=== PATIENT | female | born 1980 | race Asian ===

== ENCOUNTER 2017-09-28 06:15 | Emergency (ER) | payer MEDICAID ==
[~2017-09-28] VITALS: Ht 154.9 cm; Wt 38.1 kg
[~2017-09-28 06:15] MED LIST: LEXAPRO10 MG ORAL
[2017-09-28] MEDS ORDERED: ZITHROMAX TRI-500 MG ORAL (06:44)
--- NOTE | 2017-09-28 06:44 | Emergency Room Report ---
History of Present Illness General Chief Complaint: Fever Source: Patient Present Illness HPI 37-year-old female, recovering anorexia, presenting with 2 days of fever, cough , runny nose, rash, sore throat. States that her throat hurts, has had less appetite for solid food, still able to drink liquids without issue. Has had fevers, MAXIMUM TEMPERATURE 104. Productive cough with green phlegm. Rash noted to legs and back. Not itchy. States that this has happened before, and then resolved, also states that she gets rashes from eating ice cream No headache, neck pain, abdominal pain nausea vomiting or diarrhea Allergies: Coded Allergies: No Known Allergies (Unverified , 09/28/17) Patient History Past Medical History: see triage record Past Surgical History: none Pertinent Family History: none Now: No Reviewed Nursing Documentation: PMH: Agreed; PSxH: Agreed Nursing Documentation-PMH History Of Psychiatric Problem: Yes - Depression Review of Systems All Other Systems: negative except mentioned in HPI Physical Exam Vital Signs Date Time Temp Pulse Resp B/P (MAP) Pulse Ox O2 Delivery O2 Flow Rate FiO2 09/28/17 06:03 100.6 103 18 101/73 94 Room Air 100.6 Sp02 EP Interpretation: reviewed, normal General Appearance: mild distress, thin Head: normocephalic, atraumatic Eyes: bilateral eye normal inspection, bilateral eye PERRL, bilateral eye EOMI ENT: pharyngeal erythema, other - no exudate. no swelling. uvula midline Neck: normal inspection, full range of motion, supple Respiratory: no wheezing, speaking full sentences, other - dec b/s R lung base. , chest symmetrical Cardiovascular #1: normal inspection, regular rate, rhythm, no edema, normal capillary refill Cardiovascular #2: 2+ radial (R), 2+ radial (L) Gastrointestinal: normal inspection, non tender, soft, non-distended, no guarding Musculoskeletal: normal inspection, back normal, normal range of motion, non- tender Neurologic: normal inspection, alert, oriented x3, responsive, motor strength/ tone normal, sensory intact, normal gait, speech normal Psychiatric: normal inspection, judgement/insight normal, memory normal Skin: other - blancing erythematous raised rash of various sizes on legs/back Medical Decision Making Diagnostic Impression: Primary Impression: Atypical pneumonia Additional Impression: Fever ER Course 37-year-old female with fever, cough, runny nose DDX: URI, pneumonia, UTI Plan: Obtain labs, ua,CXR ER course: Patient has been monitored during ED stay, HD stable Given Tylenol, fluids Feels much better CXR and physicial exam suspicious for atypical pna Disposition: Patient is to be discharged to home with family, fu with pmd in 1 week Please note that this Emergency Department Report was dictated using [employer] machine tender technology software, occasionally this can lead to erroneous entry secondary to interpretation by the dictation equipment. Rhythm Strip EP Interpretation: Yes Rate: 94 Rhythm: NSR, no PVCs, no ectopy Chest X-ray CXR: Ordered: Yes 1 view Indication: Cough EP interpretation: Yes Interpretation: Increased right-sided interstitial markings Impression: Increased right-sided interstitial markings Electronically signed by Andre Robin MD Laboratory Tests Test 09/28/17 06:45 09/28/17 08:00 White Blood Count 3.2 K/UL (4.8-10.8) L Red Blood Count 4.18 M/UL (4.20-5.40) L Hemoglobin 13.5 G/DL (12.0-16.0) Hematocrit 38.5 % (37.0-47.0) Mean Corpuscular Volume 92 FL (80-99) Mean Corpuscular Hemoglobin 32.4 PG (27.0-31.0) H Mean Corpuscular Hemoglobin Concent 35.1 G/DL (32.0-36.0) Red Cell Distribution Width 10.5 % (11.6-14.8) L Platelet Count 299 K/UL (150-450) Mean Platelet Volume 5.0 FL (6.5-10.1) L Neutrophils (%) (Auto) % (45.0-75.0) Lymphocytes (%) (Auto) % (20.0-45.0) Monocytes (%) (Auto) % (1.0-10.0) Eosinophils (%) (Auto) % (0.0-3.0) Basophils (%) (Auto) % (0.0-2.0) Differential Total Cells Counted 100 Neutrophils % (Manual) 79 % (45-75) H Lymphocytes % (Manual) 14 % (20-45) L Monocytes % (Manual) 7 % (1-10) Eosinophils % (Manual) 0 % (0-3) Basophils % (Manual) 0 % (0-2) Band Neutrophils 0 % (0-8) Platelet Estimate Adequate Platelet Morphology Normal Sodium Level 132 MMOL/L (136-145) L Potassium Level 3.5 MMOL/L (3.5-5.1) Chloride Level 95 MMOL/L (98-107) L Carbon Dioxide Level 29 MMOL/L (21-32) Anion Gap 8 mmol/L (5-15) Blood Urea Nitrogen 10 mg/dL (7-18) Creatinine 0.8 MG/DL (0.55-1.30) Estimate Glomerular Filtration Rate > 60 mL/min (>60) Glucose Level 117 MG/DL (74-106) H Calcium Level 8.4 MG/DL (8.5-10.1) L Total Bilirubin 0.3 MG/DL (0.2-1.0) Aspartate Amino Transferase (AST) 34 U/L (15-37) Alanine Aminotransferase (ALT) 27 U/L (12-78) Alkaline Phosphatase 48 U/L (46-116) Total Protein 7.5 G/DL (6.4-8.2) Albumin 3.5 G/DL (3.4-5.0) Globulin 4.0 g/dL Albumin/Globulin Ratio 0.9 (1.0-2.7) L Urine Color Yellow Urine Appearance Clear Urine pH 6.5 (4.5-8.0) Urine Specific Craig 1.010 (1.005-1.035) Urine Protein 1+ (NEGATIVE) H Urine Glucose (UA) Negative (NEGATIVE) Urine Ketones 4+ (NEGATIVE) H Urine Occult Blood 2+ (NEGATIVE) H Urine Nitrite Negative (NEGATIVE) Urine Bilirubin Negative (NEGATIVE) Urine Urobilinogen Normal MG/DL (0.0-1.0) Urine Leukocyte Esterase 1+ (NEGATIVE) H Urine RBC 2-4 /HPF (0 - 2) H Urine WBC 5-10 /HPF (0 - 2) H Urine Squamous Epithelial Cells Few /LPF (NONE/OCC) Urine Bacteria Few /HPF (NONE) Urine Mucus Few /LPF (NONE/OCC) H Urine HCG, Qualitative Negative (NEGATIVE) Last Vital Signs Date Time Temp Pulse Resp B/P (MAP) Pulse Ox O2 Delivery O2 Flow Rate FiO2 09/28/17 06:27 100.6 09/28/17 06:03 103 18 101/73 94 Room Air Disposition: HOME, SELF-CARE Condition: Improved Scripts Azithromycin (ZITHROMAX TRI-SERGE) 500 Mg Tablet 500 MG ORAL DAILY, #1 PACK Prov: Andre Robin M.D. 09/28/17 Referrals: [facility] (PCP) Patient Instructions: Community-Acquired Pneumonia, Adult, [id number], Fever , Adult Andre Robin M.D. Sep 28, 2017 06:44
[2017-09-28 07:01] VITALS: BP 114/86
[2017-09-28 07:06] LABS: ANION GAP 8 mmol/L (5-15); BLOOD UREA NITROGEN 10 mg/dL (7-18); CALCIUM 8.4 MG/DL (8.5-10.1); CARBON DIOXIDE 29 MMOL/L (21-32); CHLORIDE 95 MMOL/L (98-107); CREATININE 0.8 MG/DL (0.55-1.30); POTASSIUM 3.5 MMOL/L (3.5-5.1); SODIUM 132 MMOL/L (136-145)
[2017-09-28 07:08] LABS: HEMATOCRIT 38.5 % (37.0-47.0); HEMOGLOBIN 13.5 G/DL (12.0-16.0); MEAN CORPUSCULAR VOLUME 92 FL (80-99); PLATELET COUNT 299 K/UL (150-450); RED BLOOD COUNT 4.18 M/UL (4.20-5.40); RED CELL DISTRIBUTION WIDTH 10.5 % (11.6-14.8); WHITE BLOOD COUNT 3.2 K/UL (4.8-10.8)
[2017-09-28 07:11] LABS: ALANINE AMINOTRANSFERASE 27 U/L (12-78); ALBUMIN 3.5 G/DL (3.4-5.0); ALBUMIN/GLOBULIN RATIO 0.9 (1.0-2.7); ALKALINE PHOSPHATASE 48 U/L (46-116); ASPARTATE AMINO TRANSFERASE 34 U/L (15-37); BILIRUBIN,TOTAL 0.3 MG/DL (0.2-1.0)
[2017-09-28 07:30] VITALS: BP 115/81
[2017-09-28 08:18] LABS: APPEARANCE,URINE CLEAR; BILIRUBIN, URINE NEGATIVE (NEGATIVE); GLUCOSE, URINE (UA) NEGATIVE (NEGATIVE); KETONES,URINE 4+ (NEGATIVE); LEUKOCYTE ESTERASE ,URINE 1+ (NEGATIVE); NITRITE,URINE NEGATIVE (NEGATIVE); PH,URINE 6.5 (4.5-8.0); PROTEIN,URINE 1+ (NEGATIVE); UROBILINOGEN,URINE NORMAL MG/DL (0.0-1.0)
[2017-09-28 08:24] LABS: COLOR,URINE YELLOW
[2017-09-28 09:02] VITALS: BP 111/76
[2017-09-28 09:03] VITALS: BP 111/76
--- NOTE | 2017-09-28 10:10 | Diagnostic Imaging Report ---
Indication: Cough Technique: One view of the chest Comparison: none Findings: Lungs and pleural spaces are clear. Heart size is normal Impression: No acute process
== END 2017-09-28 09:07 | disposition home or self-care (01) ==
LOC: EDBD 06:15 → EMR 06:29
DX: J18.9 Pneumonia, unspecified organism (principal); F32.9 Major depressive disorder, single episode, unspecified
CPT/HCPCS: 36415; 71045; 80053; 81003; 81025; 85007; 85025; 96361; 96374; 99284

== ENCOUNTER 2017-09-28 17:03 | Inpatient (IN) | payer MEDICAID ==
[~2017-09-28] VITALS: Ht 157.5 cm; Wt 46.3 kg
[~2017-09-28 17:03] MED LIST changes: +ZITHROMAX TRI-500 MG ORAL
[2017-09-28] MEDS ORDERED: Ketorolac 30mg Inj IM ONE (17:45)
--- NOTE | 2017-09-28 18:12 | Emergency Room Report ---
History of Present Illness General Chief Complaint: Flu Like Symptoms Source: EMS (Jose Betancourt) Present Illness HPI 37 yo female patient presents to ER complaining of sore throat and cough. Patient was seen in ER this morning for similar symptoms; was discharged with atypical PNA and given abx; has not taken medication. Reports symptoms have worsened since that time. Reports was told to return if symptoms worsened and would be admitted to hospital. Complains of reproducible chest pain with cough. Reports fever 101 at home. Denies SOB, abdominal pain, neck pain. (Jose Betancourt) Allergies: Coded Allergies: No Known Allergies (Unverified , 09/28/17) Patient History Past Medical History: see triage record Last Menstrual Period: UNK Reviewed Nursing Documentation: PMH: Agreed; PSxH: Agreed (Jose Betancourt) Nursing Documentation-PMH Past Medical History: No History, Except For Hx Cardiac Problems: No - ANOREXIA (Jose Betancourt) Review of Systems All Other Systems: negative except mentioned in HPI (Jose Betancourt) Physical Exam Vital Signs Date Time Temp Pulse Resp B/P (MAP) Pulse Ox O2 Delivery O2 Flow Rate FiO2 09/28/17 17:02 101.0 100 22 128/84 97 Room Air 100.9 Sp02 EP Interpretation: reviewed, normal General Appearance: well appearing, no apparent distress, alert, GCS 15, non- toxic Head: normocephalic, atraumatic Eyes: bilateral eye normal inspection, bilateral eye PERRL ENT: hearing grossly normal, normal pharynx, no angioedema, normal voice, TMs + canals normal, uvula midline, moist mucus membranes Neck: full range of motion Respiratory: no rhonchi, no respiratory distress, no accessory muscle use, no wheezing, speaking full sentences, other - chest TTP Cardiovascular #1: regular rate, rhythm, no edema Genitourinary: no CVA tenderness Musculoskeletal: back normal, digits/nails normal, gait/station normal, normal range of motion, non-tender Neurologic: alert, oriented x3, responsive, motor strength/tone normal, sensory intact Psychiatric: mood/affect normal Skin: rash - blanching, erythematous, rasied, diffuse over back and extemities Lymphatic: no adenopathy (Asia,Jose P.A.) Medical Decision Making PA Attestation Dr. Bell is my supervising Physician whom patient management has been discussed with. (Jose Betancourt) Diagnostic Impression: Primary Impression: Influenza-like symptoms Additional Impressions: Rash and nonspecific skin eruption Community acquired pneumonia Qualified Codes: J18.9 - Pneumonia, unspecified organism Pseudoseizure ER Course Pt presents to ED c/o sore throat and cough. DDX considered but are not limited to influenza, viral URI, pneumonia, strep throat, rhinitis, sinusitis, otitis media. Patient informed to return to ER for new or worsening of symptoms, would be admitted. VITAL SIGNS are WNL, patient is febrile at 100.9. Provide Tylenol for fever. On PE, chest is TTP; chest pain likely musculoskeletal in nature secondary to cough, does not require cardiac workup at this time. Patient instructed to take NSAIDs as needed for pain symptoms. Ordered pain medication, fluids, and influenza A/B. ED COURSE: Reviewed labs from morning visit to ER. WNL. PE exam consistent with previous ER report, no wheezes on auscultation, chest TTP. Patient answering questions without difficulty, nontoxic appearing. Influenza A/B negative Consult with Dr. Bell. Will admit patient for flu-like symptoms and weakness. Do not need repeat labs at this time. Consult with Dr. Soriano. Patient will be admitted to Dr. Soriano. Patient to be transferred to [facility]. Provided single dose of Levaquin for pneumonia. Provided Benadryl for rash. Patient resting comfortably, in no acute distress, nontoxic appearing. Prior to transfer, patient slightly hypoxic. Consult with Dr. Bell. Will upgrade patient to ALS. Patient will be upgraded to ALS for transfer. Ordered repeat labs at this time. Patient will be moved to monitored bed. Patient reported to be seizing in bed. Ordered Ativan. Patient care transferred to Dr. Jeffery. (Jose Betancourt) ER Course Patient signed out to me by DARLIN Encinas and Dr Bell Repeat CXR shows ?interval development Of bilateral lower pneumonia Patient had apparent seizure-like activity, however there is no postictal period , patient was immediately responsive thereafter to staff. No history of prior seizures Labs were repeated, white count downtrending to 1.6 ABG shows mild metabolic alkalosis likely from tachypnea from pseudoseizure Family endorses thirty-year history of anorexia, and that patient "only speaks to her therapist", doesn't talk to family. No recent complaints of headache, neck stiffness or pain. low suspicion for meningitis at this time Was c.o neck pain - no FOREIGN EXCHANGE STUDENT COORDINATOR or strep on exam. Xray of neck does NOT show evidence of epiglottitis or retropharyngeal abscess. She was given additional IV antibiotics, ceftriaxone and azithro to cover interval development of CAP No other acute issues in ER Was endorsed to Dr. Tirado covering for Dr Morin 1am tele (KATIE JEFFERY M.D.) Last Vital Signs Date Time Temp Pulse Resp B/P (MAP) Pulse Ox O2 Delivery O2 Flow Rate FiO2 09/28/17 17:02 101.0 100 22 128/84 97 Room Air 100.9 Status: improved (Jose Betancourt) Status: improved (KATIE JEFFERY M.D.) Disposition: ADMITTED INPATIENT Condition: Serious Referrals: [facility] (PCP) Jose Betancourt Sep 28, 2017 18:11 KATIE JEFFERY M.D. Sep 29, 2017 00:59
[2017-09-28] MEDS ORDERED: Lidocaine 2% Visc 15ml soln ORAL ONE (18:15)
[2017-09-28] MEDS ORDERED: Levofloxacin 500mg tab ORAL ONE (19:15)
[2017-09-28 19:26] VITALS: BP 107/70
[2017-09-28] MEDS ORDERED: Acetaminophen 500mg (ES) tab ORAL ONE (19:30)
[2017-09-28 20:11] VITALS: BP 105/68
[2017-09-28 22:10] VITALS: BP 103/70
[2017-09-28] MEDS ORDERED: LORazepam Inj 2mg/ml 1ml ONE (22:21)
[2017-09-28] MEDS ORDERED: LORazepam Inj 2mg/ml 1ml IV ONE (22:30)
[2017-09-28] MEDS ORDERED: Morphine Sulfate 4mg/ml Inj IVP ONE (22:45)
[2017-09-28] MEDS ORDERED: cefTRIAXone 1 GM in NS 55 ML IVPB ONE (22:45)
[2017-09-28] MEDS ORDERED: Azithromycin 500 MG in D5W 275 ML IVPB ONE (22:45)
[2017-09-28] MEDS ORDERED: Azithromycin 500mg Inj IV ONE (22:51)
[2017-09-28 23:11] LABS: HEMATOCRIT 34.7 % (37.0-47.0); HEMOGLOBIN 12.3 G/DL (12.0-16.0); MEAN CORPUSCULAR VOLUME 92 FL (80-99); PLATELET COUNT 219 K/UL (150-450); RED BLOOD COUNT 3.76 M/UL (4.20-5.40); RED CELL DISTRIBUTION WIDTH 10.6 % (11.6-14.8)
[2017-09-28 23:16] LABS: WHITE BLOOD COUNT 1.6 K/UL (4.8-10.8)
[2017-09-28 23:31] LABS: ANION GAP 8 mmol/L (5-15); BLOOD UREA NITROGEN 8 mg/dL (7-18); CALCIUM 7.3 MG/DL (8.5-10.1); CARBON DIOXIDE 26 MMOL/L (21-32); CHLORIDE 99 MMOL/L (98-107); CREATININE 0.7 MG/DL (0.55-1.30); POTASSIUM 3.6 MMOL/L (3.5-5.1); SODIUM 132 MMOL/L (136-145)
[2017-09-28 23:36] LABS: ALANINE AMINOTRANSFERASE 22 U/L (12-78); ALBUMIN 2.7 G/DL (3.4-5.0); ALBUMIN/GLOBULIN RATIO 0.8 (1.0-2.7); ALKALINE PHOSPHATASE 33 U/L (46-116); ASPARTATE AMINO TRANSFERASE 24 U/L (15-37); BILIRUBIN,TOTAL 0.4 MG/DL (0.2-1.0)
[2017-09-29] MEDS ORDERED: Albuterol/Ipratropium 3ml neb HHN PRN (02:00)
[2017-09-29 04:00] VITALS: BP 100/72
[2017-09-29] MEDS ORDERED: Zosyn 3.375gm inj ONE (04:32)
[2017-09-29] MEDS: Vancomycin 500mg/D5W 110ml IVPB SCH ×4 (04:49→16:09)
[2017-09-29] MEDS: Ketorolac 30mg Inj IV PRN (04:51)
[2017-09-29] MEDS ORDERED: Sodium Chloride 500ML 500 ML IV ONE (05:15)
[2017-09-29] MEDS: Piperacillin/Tazobactam 3.375 GM in NS 110 ML IVPB SCH ×3 (07:04→22:38)
[2017-09-29 08:00] VITALS: BP_SYST 100; BP_SYST 97; BP_DIAS 62; BP_DIAS 72
--- NOTE | 2017-09-29 09:04 | Diagnostic Imaging Report ---
Indication: Neck pain Technique: Neck soft tissues 2 views Comparison: None Findings: Epiglottis is grossly unremarkable. Airway is patent. Prevertebral soft tissues are within normal limits. Osseous structures are unremarkable. Impression: Grossly unremarkable neck soft tissues.
--- NOTE | 2017-09-29 09:06 | Diagnostic Imaging Report ---
Indication: Chest pain Technique: XRAY Chest 1v Comparison: Examination at 0636 hours Findings: There are increasing perihilar and basilar infiltrates. Cardiomediastinal silhouette is stable. Osseous structures are stable. Impression: Increasing perihilar and basilar infiltrates.
[2017-09-29 09:49] LABS: HEMATOCRIT 34.2 % (37.0-47.0); HEMOGLOBIN 11.9 G/DL (12.0-16.0); MEAN CORPUSCULAR VOLUME 94 FL (80-99); PLATELET COUNT 215 K/UL (150-450); RED BLOOD COUNT 3.64 M/UL (4.20-5.40)
[2017-09-29 09:59] LABS: WHITE BLOOD COUNT 0.7 K/UL (4.8-10.8)
[2017-09-29 10:13] LABS: ALANINE AMINOTRANSFERASE 21 U/L (12-78); ALBUMIN 2.2 G/DL (3.4-5.0); ALBUMIN/GLOBULIN RATIO 0.7 (1.0-2.7); ALKALINE PHOSPHATASE 25 U/L (46-116); ANION GAP 10 mmol/L (5-15); ASPARTATE AMINO TRANSFERASE 27 U/L (15-37); BILIRUBIN,TOTAL 0.4 MG/DL (0.2-1.0); BLOOD UREA NITROGEN 8 mg/dL (7-18); CARBON DIOXIDE 22 MMOL/L (21-32); CHLORIDE 100 MMOL/L (98-107); CHOLESTEROL 135 MG/DL (< 200); CREATININE 0.6 MG/DL (0.55-1.30); HDL CHOLESTEROL 60 MG/DL (40-60); POTASSIUM 3.4 MMOL/L (3.5-5.1); SODIUM 132 MMOL/L (136-145); TRIGLYCERIDES 39 MG/DL (30-150)
[2017-09-29 12:00] VITALS: BP 112/79
--- NOTE | 2017-09-29 13:31 | History & Physical ---
History and Physical History & Physicial Cover for Int Med-Dr Tirado no. [id number]. ISAMAR RENDON Sep 29, 2017 13:31
--- NOTE | 2017-09-29 14:07 | Consultation ---
History of Present Illness General Date patient seen: Sep 29, 2017 Time patient seen: 13:44 Chief Complaint: Flu Like Symptoms Present Illness HPI 37 y/o F with hx of anorexia and MDD presents to ED on 09/28 with sore throat, cough. Earlier on days of admission seen in ED and discharged with dx of atypical Abx on PO antibiotics (?) but comes back because of worsening of symptoms. +pleuritic chest pain, fever at home up to 101. +hemoptysis. Found to be neutropenic. Found to have diffuse blanching erythematous rash. Denies SOB, abd pain, neck pain. savita recently admitted here for PNA and . NO other sick contacts. No recent travel. No pets at home. lives with mom and brother. no sexual contacts few days of fever, body aches, cough and rash. Denies PARDO, sore throat, neck pain , vision changes, photo/phonophobia. No recent meds. Only med she takes is Lexapro. Allergies: Coded Allergies: No Known Allergies (Unverified , 09/28/17) Medication History Scheduled Azithromycin (Zithromax Tri-Mauro), 500 MG ORAL DAILY Escitalopram Oxalate* (Lexapro*), 10 MG ORAL DAILY, (Reported) Patient History Healthcare decision maker Resuscitation status Full Code Advanced Directive on File No Review of Systems All Other Systems: negative except mentioned in HPI Physical Exam Physical Exam Narrative General Appearance: ill appearing, weak HEENT: normocephalic, atraumatic, PERRL, normal oropharynx Neck: full range of motion, supple Respiratory: no rhonchi, no respiratory distress, no accessory muscle use, no wheezing, speaking full sentences, other - chest TTP Cardiovascular regular rate, rhythm, no edema Genitourinary: no CVA tenderness Musculoskeletal: back normal, digits/nails normal, gait/station normal, normal range of motion, non-tender Neurologic: alert, oriented x3, responsive, motor strength/tone normal, sensory intact Skin: rash - blanching, erythematous, rasied, diffuse over back and extemities Lymphatic: no adenopathy Last 24 Hour Vital Signs Date Time Temp Pulse Resp B/P (MAP) Pulse Ox O2 Delivery O2 Flow Rate FiO2 09/29/17 13:13 98.1 09/29/17 12:00 117 09/29/17 12:00 98.1 121 21 112/79 88 Non-Rebreather 10.0 98.1 09/29/17 08:00 97.9 99 21 97/62 94 Non-Rebreather 10.0 97.9 09/29/17 08:00 132 09/29/17 05:21 98.8 09/29/17 04:51 98.8 09/29/17 04:00 125 09/29/17 04:00 100.2 119 18 100/72 95 Nasal Cannula 2.0 100.2 09/29/17 01:14 98.8 109 22 99/73 95 Non-Rebreather 10.0 09/28/17 22:10 99.7 104 18 103/70 83 Nasal Cannula 2.0 99.7 09/28/17 20:11 101.9 101 18 105/68 92 Room Air 101.9 09/28/17 19:43 102.6 09/28/17 19:35 100 22 Room Air 09/28/17 19:26 102.6 22 107/70 92 Nasal Cannula 2.0 102.6 09/28/17 18:16 101.0 09/28/17 17:02 101.0 100 22 128/84 97 Room Air 100.9 Intake and Output 09/28/17 09/29/17 19:00 07:00 Intake Total 515 ml Balance 515 ml Intake Oral 240 ml IV Total 275 ml # Voids 3 Laboratory Tests Test 09/28/17 22:40 09/28/17 22:47 09/29/17 09:20 09/29/17 11:55 White Blood Count 1.6 K/UL (4.8-10.8) *L 0.7 K/UL (4.8-10.8) #*L Red Blood Count 3.76 M/UL (4.20-5.40) L 3.64 M/UL (4.20-5.40) L Hemoglobin 12.3 G/DL (12.0-16.0) 11.9 G/DL (12.0-16.0) L Hematocrit 34.7 % (37.0-47.0) L 34.2 % (37.0-47.0) L Mean Corpuscular Volume 92 FL (80-99) 94 FL (80-99) Mean Corpuscular Hemoglobin 32.6 PG (27.0-31.0) H 32.7 PG (27.0-31.0) H Mean Corpuscular Hemoglobin Concent 35.3 G/DL (32.0-36.0) 34.8 G/DL (32.0-36.0) Red Cell Distribution Width 10.6 % (11.6-14.8) L 11.0 % (11.6-14.8) L Platelet Count 219 K/UL (150-450) 215 K/UL (150-450) Mean Platelet Volume 4.9 FL (6.5-10.1) L 4.9 FL (6.5-10.1) L Neutrophils (%) (Auto) % (45.0-75.0) % (45.0-75.0) Lymphocytes (%) (Auto) % (20.0-45.0) % (20.0-45.0) Monocytes (%) (Auto) % (1.0-10.0) % (1.0-10.0) Eosinophils (%) (Auto) % (0.0-3.0) % (0.0-3.0) Basophils (%) (Auto) % (0.0-2.0) % (0.0-2.0) Sodium Level 132 MMOL/L (136-145) L 132 MMOL/L (136-145) L Potassium Level 3.6 MMOL/L (3.5-5.1) 3.4 MMOL/L (3.5-5.1) L Chloride Level 99 MMOL/L (98-107) 100 MMOL/L (98-107) Carbon Dioxide Level 26 MMOL/L (21-32) 22 MMOL/L (21-32) Anion Gap 8 mmol/L (5-15) 10 mmol/L (5-15) Blood Urea Nitrogen 8 mg/dL (7-18) 8 mg/dL (7-18) Creatinine 0.7 MG/DL (0.55-1.30) 0.6 MG/DL (0.55-1.30) Estimat Glomerular Filtration Rate > 60 mL/min (>60) > 60 mL/min (>60) Glucose Level 88 MG/DL (74-106) 107 MG/DL (74-106) H Lactic Acid Level 1.60 mmol/L (0.66-2.22) Calcium Level 7.3 MG/DL (8.5-10.1) L 7.0 MG/DL (8.5-10.1) L Total Bilirubin 0.4 MG/DL (0.2-1.0) 0.4 MG/DL (0.2-1.0) Aspartate Amino Transf (AST/SGOT) 24 U/L (15-37) 27 U/L (15-37) Alanine Aminotransferase (ALT/SGPT) 22 U/L (12-78) 21 U/L (12-78) Alkaline Phosphatase 33 U/L (46-116) L 25 U/L (46-116) L Total Protein 6.0 G/DL (6.4-8.2) L 5.3 G/DL (6.4-8.2) L Albumin 2.7 G/DL (3.4-5.0) L 2.2 G/DL (3.4-5.0) L Globulin 3.3 g/dL 3.1 g/dL Albumin/Globulin Ratio 0.8 (1.0-2.7) L 0.7 (1.0-2.7) L Arterial Blood pH 7.439 (7.350-7.450) Arterial Blood Partial Pressure CO2 32.0 mmHg (35.0-45.0) L Arterial Blood Partial Pressure O2 80.3 mmHg (75.0-100.0) Arterial Blood HCO3 21.2 mmol/L (22.0-26.0) L Arterial Blood Oxygen Saturation 95.4 % (92.0-98.0) Arterial Blood Base Excess -2.2 Stuart Test Positive Differential Total Cells Counted 100 Neutrophils % (Manual) 65 % (45-75) Lymphocytes % (Manual) 25 % (20-45) Monocytes % (Manual) 5 % (1-10) Eosinophils % (Manual) 0 % (0-3) Basophils % (Manual) 2 % (0-2) Band Neutrophils 3 % (0-8) Platelet Estimate Adequate Platelet Morphology Normal Red Blood Cell Morphology Normal Hemoglobin A1c 5.4 % (4.3-6.0) Troponin I 0.065 ng/mL (0.000-0.056) 0.057 ng/mL (0.000-0.056) Triglycerides Level 39 MG/DL (30-150) Cholesterol Level 135 MG/DL (< 200) LDL Cholesterol 79 mg/dL (<100) HDL Cholesterol 60 MG/DL (40-60) Cholesterol/HDL Ratio 2.3 (3.3-4.4) L Microbiology Date/Time Source Procedure Growth Status 09/28/17 18:31 Nasal Nares Influenza Types A,B Antigen (ZENON) - Final Complete Height (Feet): 5 Height (Inches): 2.00 Weight (Pounds): 90 Medications Current Medications Medications (Trade) Dose Ordered Sig/Annie Route PRN Reason Start Time Stop Time Status Last Admin Dose Admin Acetaminophen (Tylenol) 650 mg Q4H PRN ORAL Mild Pain/Temp > 100.5 09/29/17 02:00 10/29/17 01:59 09/29/17 13:13 Albuterol/ Ipratropium (Albuterol/ Ipratropium) 3 ml Q4H PRN HHN Shortness of Breath 09/29/17 02:00 10/04/17 01:59 Heparin Sodium (Porcine) (Heparin 5000 units/ml) 5,000 units EVERY 12 HOURS SUBQ 09/29/17 21:00 10/29/17 20:59 Ketorolac Tromethamine (Toradol 30mg) 30 mg Q6H PRN IV Severe Pain (Pain Scale 7-10) 09/29/17 02:00 10/04/17 01:59 09/29/17 04:51 Piperacillin Sod/ Tazobactam Sod 3.375 gm/Sodium Chloride 110 ml @ 27.5 mls/hr Q8H IVPB 09/29/17 06:00 10/06/17 05:59 09/29/17 07:04 Tbo-Filgrastim (Granix) 300 mcg ONCE ONCE SQ 09/29/17 10:45 09/29/17 10:46 UNV Vancomycin HCl (Vanco rx to dose) 1 ea DAILY PRN MISC Per rx protocol 09/29/17 02:00 10/29/17 01:59 Vancomycin HCl 500 mg/Dextrose 110 ml @ 110 mls/hr Q12H IVPB 09/29/17 04:00 10/04/17 03:59 09/29/17 04:49 Assessment/Plan Assessment/Plan Abx: Zosyn 09/29- IV Vancomycin 09/29- Ceftriaxone x1 09/28 Azithromycin x1 09/28 Assessment: Neutropenic fever- ? cause of neutropenia. Suspect probably Influenza (despite neg screen test) with myelosuppression and superimposed PNA. R/o heme malignancy. r/o Acute HIV. Flu like symptoms -influenza sc neg Neck pain -xray neck: Epiglottis is grossly unremarkable. Airway is patent. Prevertebral soft tissues are within normal limits. Osseous structures are unremarkable. Acute respiratroy distress on NRB Hemoptysis Rash hx of anorexia Plan: -Continue empiric IV Vancomycin and Zosyn #1 and azithromycin #2 -Empiric Tamiflu -Low threshold for antifungal if persistene neutropenia and fever. -Check influenza PCR, cocci ab, CrAg, fungitell, HIV ab and VL, hep panel, sp culture (bacterial, fungal, legionella), legionella ag urine -CT chest w/o to further evaluate given hemoptysis -f/u cx -Monitor CBC/BMP, temperatures -heme onc eval for neutropenia -droplets precautions Thank you for this consultation. Will continue to follow along with you. Discussed with RN and Dr Puckett. Araceli Kenyon M.D. Sep 29, 2017 14:07
[2017-09-29] MEDS ORDERED: TBO-Filgrastim 300 mcg/0.5ml SQ ONE (15:00)
[2017-09-29 16:00] VITALS: BP 99/54
[2017-09-29] MEDS ORDERED: TBO-Filgrastim 480 mcg/0.8ml SQ ONE (16:00)
[2017-09-29] MEDS: Oseltamivir 75mg cap ORAL SCH (16:10)
--- NOTE | 2017-09-29 16:13 | Cardiology Progress Note ---
Assessment/Plan Status Narrative The patient is seen and examined, full consult note will be dictated. Objective Last 24 Hour Vital Signs Date Time Temp Pulse Resp B/P (MAP) Pulse Ox O2 Delivery O2 Flow Rate FiO2 09/29/17 14:12 98.4 09/29/17 13:13 98.1 09/29/17 12:00 117 09/29/17 12:00 98.1 121 21 112/79 88 Non-Rebreather 10.0 98.1 09/29/17 08:00 97.9 99 21 97/62 94 Non-Rebreather 10.0 97.9 09/29/17 08:00 132 09/29/17 05:21 98.8 09/29/17 04:51 98.8 09/29/17 04:00 125 09/29/17 04:00 100.2 119 18 100/72 95 Nasal Cannula 2.0 100.2 09/29/17 01:14 98.8 109 22 99/73 95 Non-Rebreather 10.0 09/28/17 22:10 99.7 104 18 103/70 83 Nasal Cannula 2.0 99.7 09/28/17 20:11 101.9 101 18 105/68 92 Room Air 101.9 09/28/17 19:43 102.6 09/28/17 19:35 100 22 Room Air 09/28/17 19:26 102.6 22 107/70 92 Nasal Cannula 2.0 102.6 09/28/17 18:16 101.0 09/28/17 17:02 101.0 100 22 128/84 97 Room Air 100.9 Intake and Output 09/28/17 09/29/17 19:00 07:00 Intake Total 515 ml Balance 515 ml Intake Oral 240 ml IV Total 275 ml # Voids 3 Laboratory Tests Test 09/28/17 22:40 09/28/17 22:47 09/29/17 09:20 09/29/17 11:55 White Blood Count 1.6 K/UL (4.8-10.8) *L 0.7 K/UL (4.8-10.8) #*L Red Blood Count 3.76 M/UL (4.20-5.40) L 3.64 M/UL (4.20-5.40) L Hemoglobin 12.3 G/DL (12.0-16.0) 11.9 G/DL (12.0-16.0) L Hematocrit 34.7 % (37.0-47.0) L 34.2 % (37.0-47.0) L Mean Corpuscular Volume 92 FL (80-99) 94 FL (80-99) Mean Corpuscular Hemoglobin 32.6 PG (27.0-31.0) H 32.7 PG (27.0-31.0) H Mean Corpuscular Hemoglobin Concent 35.3 G/DL (32.0-36.0) 34.8 G/DL (32.0-36.0) Red Cell Distribution Width 10.6 % (11.6-14.8) L 11.0 % (11.6-14.8) L Platelet Count 219 K/UL (150-450) 215 K/UL (150-450) Mean Platelet Volume 4.9 FL (6.5-10.1) L 4.9 FL (6.5-10.1) L Neutrophils (%) (Auto) % (45.0-75.0) % (45.0-75.0) Lymphocytes (%) (Auto) % (20.0-45.0) % (20.0-45.0) Monocytes (%) (Auto) % (1.0-10.0) % (1.0-10.0) Eosinophils (%) (Auto) % (0.0-3.0) % (0.0-3.0) Basophils (%) (Auto) % (0.0-2.0) % (0.0-2.0) Sodium Level 132 MMOL/L (136-145) L 132 MMOL/L (136-145) L Potassium Level 3.6 MMOL/L (3.5-5.1) 3.4 MMOL/L (3.5-5.1) L Chloride Level 99 MMOL/L (98-107) 100 MMOL/L (98-107) Carbon Dioxide Level 26 MMOL/L (21-32) 22 MMOL/L (21-32) Anion Gap 8 mmol/L (5-15) 10 mmol/L (5-15) Blood Urea Nitrogen 8 mg/dL (7-18) 8 mg/dL (7-18) Creatinine 0.7 MG/DL (0.55-1.30) 0.6 MG/DL (0.55-1.30) Estimat Glomerular Filtration Rate > 60 mL/min (>60) > 60 mL/min (>60) Glucose Level 88 MG/DL (74-106) 107 MG/DL (74-106) H Lactic Acid Level 1.60 mmol/L (0.66-2.22) Calcium Level 7.3 MG/DL (8.5-10.1) L 7.0 MG/DL (8.5-10.1) L Total Bilirubin 0.4 MG/DL (0.2-1.0) 0.4 MG/DL (0.2-1.0) Aspartate Amino Transf (AST/SGOT) 24 U/L (15-37) 27 U/L (15-37) Alanine Aminotransferase (ALT/SGPT) 22 U/L (12-78) 21 U/L (12-78) Alkaline Phosphatase 33 U/L (46-116) L 25 U/L (46-116) L Total Protein 6.0 G/DL (6.4-8.2) L 5.3 G/DL (6.4-8.2) L Albumin 2.7 G/DL (3.4-5.0) L 2.2 G/DL (3.4-5.0) L Globulin 3.3 g/dL 3.1 g/dL Albumin/Globulin Ratio 0.8 (1.0-2.7) L 0.7 (1.0-2.7) L Arterial Blood pH 7.439 (7.350-7.450) Arterial Blood Partial Pressure CO2 32.0 mmHg (35.0-45.0) L Arterial Blood Partial Pressure O2 80.3 mmHg (75.0-100.0) Arterial Blood HCO3 21.2 mmol/L (22.0-26.0) L Arterial Blood Oxygen Saturation 95.4 % (92.0-98.0) Arterial Blood Base Excess -2.2 Stuart Test Positive Differential Total Cells Counted 100 Neutrophils % (Manual) 65 % (45-75) Lymphocytes % (Manual) 25 % (20-45) Monocytes % (Manual) 5 % (1-10) Eosinophils % (Manual) 0 % (0-3) Basophils % (Manual) 2 % (0-2) Band Neutrophils 3 % (0-8) Platelet Estimate Adequate Platelet Morphology Normal Red Blood Cell Morphology Normal Hemoglobin A1c 5.4 % (4.3-6.0) Troponin I 0.065 ng/mL (0.000-0.056) 0.057 ng/mL (0.000-0.056) Triglycerides Level 39 MG/DL (30-150) Cholesterol Level 135 MG/DL (< 200) LDL Cholesterol 79 mg/dL (<100) HDL Cholesterol 60 MG/DL (40-60) Cholesterol/HDL Ratio 2.3 (3.3-4.4) L Microbiology Date/Time Source Procedure Growth Status 09/28/17 18:31 Nasal Nares Influenza Types A,B Antigen (ZENON) - Final Complete GLORIA PELAEZ Sep 29, 2017 16:13
--- NOTE | 2017-09-29 17:41 | Pulmonolgy Critical Care Note ---
Critical Care - Asmt/Plan Assessment/Plan: 37 y/o woman with hx of anorexia, depression, presents to ED on 09/28 with sore throat, cough, possible witnessed seizure. Earlier on days of admission seen in ED and discharged with dx of atypical Pneumonia on PO antibiotics (Levaquin) but comes back because of worsening pleuritic chest pain, fever at home up to 101. +hemoptysis. Found to be neutropenic. Found to have diffuse blanching erythematous rash. Has had the fever, body aches, cough and rash for a few days. No h/o Tuberculosis previously. Denies SOB, abd pain, neck pain. Sick contacts: grandfather recently admitted here for PNA and . NO other sick contacts. No recent travel. No pets at home. lives with mom and brother. no sexual contacts Denies PARDO, sore throat, neck pain, vision changes, photo/phonophobia. No recent meds. Takes Lexapro. Allergies: Coded Allergies: No Known Allergies (Unverified , 09/28/17) Medication History Scheduled Azithromycin (Zithromax Tri-Mauro), 500 MG ORAL DAILY Escitalopram Oxalate* (Lexapro*), 10 MG ORAL DAILY, (Reported) Patient History Healthcare decision maker Resuscitation status Full Code Advanced Directive on File No Review of Systems All Other Systems: negative except mentioned in HPI Physical Exam Physical Exam Narrative General Appearance: ill appearing, weak HEENT: normocephalic, atraumatic, PERRL, normal oropharynx Neck: full range of motion, supple Respiratory: no rhonchi, no respiratory distress, no accessory muscle use, no wheezing, speaking full sentences, other - chest TTP Cardiovascular regular rate, rhythm, no edema Genitourinary: no CVA tenderness Musculoskeletal: back normal, digits/nails normal, gait/station normal, normal range of motion, non-tender Neurologic: alert, oriented x3, responsive, motor strength/tone normal, sensory intact Skin: rash - blanching, erythematous, rasied, diffuse over back and extemities Lymphatic: no adenopathy Last 24 Hour Vital Signs Date Time Temp Pulse Resp B/P (MAP) Pulse Ox O2 Delivery O2 Flow Rate FiO2 09/29/17 13:13 98.1 09/29/17 12:00 117 09/29/17 12:00 98.1 121 21 112/79 88 Non-Rebreather 10.0 98.1 09/29/17 08:00 97.9 99 21 97/62 94 Non-Rebreather 10.0 97.9 09/29/17 08:00 132 09/29/17 05:21 98.8 09/29/17 04:51 98.8 09/29/17 04:00 125 09/29/17 04:00 100.2 119 18 100/72 95 Nasal Cannula 2.0 100.2 09/29/17 01:14 98.8 109 22 99/73 95 Non-Rebreather 10.0 09/28/17 22:10 99.7 104 18 103/70 83 Nasal Cannula 2.0 99.7 09/28/17 20:11 101.9 101 18 105/68 92 Room Air 101.9 09/28/17 19:43 102.6 09/28/17 19:35 100 22 Room Air 09/28/17 19:26 102.6 22 107/70 92 Nasal Cannula 2.0 102.6 09/28/17 18:16 101.0 09/28/17 17:02 101.0 100 22 128/84 97 Room Air 100.9 Intake and Output 09/28/17 09/29/17 19:00 07:00 Intake Total 515 ml Balance 515 ml Intake Oral 240 ml IV Total 275 ml # Voids 3 Laboratory Tests Test 09/28/17 22:40 09/28/17 22:47 09/29/17 09:20 09/29/17 11:55 White Blood Count 1.6 K/UL (4.8-10.8) *L 0.7 K/UL (4.8-10.8) #*L Red Blood Count 3.76 M/UL (4.20-5.40) L 3.64 M/UL (4.20-5.40) L Hemoglobin 12.3 G/DL (12.0-16.0) 11.9 G/DL (12.0-16.0) L Hematocrit 34.7 % (37.0-47.0) L 34.2 % (37.0-47.0) L Mean Corpuscular Volume 92 FL (80-99) 94 FL (80-99) Mean Corpuscular Hemoglobin 32.6 PG (27.0-31.0) H 32.7 PG (27.0-31.0) H Mean Corpuscular Hemoglobin Concent 35.3 G/DL (32.0-36.0) 34.8 G/DL (32.0-36.0) Red Cell Distribution Width 10.6 % (11.6-14.8) L 11.0 % (11.6-14.8) L Platelet Count 219 K/UL (150-450) 215 K/UL (150-450) Mean Platelet Volume 4.9 FL (6.5-10.1) L 4.9 FL (6.5-10.1) L Neutrophils (%) (Auto) % (45.0-75.0) % (45.0-75.0) Lymphocytes (%) (Auto) % (20.0-45.0) % (20.0-45.0) Monocytes (%) (Auto) % (1.0-10.0) % (1.0-10.0) Eosinophils (%) (Auto) % (0.0-3.0) % (0.0-3.0) Basophils (%) (Auto) % (0.0-2.0) % (0.0-2.0) Sodium Level 132 MMOL/L (136-145) L 132 MMOL/L (136-145) L Potassium Level 3.6 MMOL/L (3.5-5.1) 3.4 MMOL/L (3.5-5.1) L Chloride Level 99 MMOL/L (98-107) 100 MMOL/L (98-107) Carbon Dioxide Level 26 MMOL/L (21-32) 22 MMOL/L (21-32) Anion Gap 8 mmol/L (5-15) 10 mmol/L (5-15) Blood Urea Nitrogen 8 mg/dL (7-18) 8 mg/dL (7-18) Creatinine 0.7 MG/DL (0.55-1.30) 0.6 MG/DL (0.55-1.30) Estimat Glomerular Filtration Rate > 60 mL/min (>60) > 60 mL/min (>60) Glucose Level 88 MG/DL (74-106) 107 MG/DL (74-106) H Lactic Acid Level 1.60 mmol/L (0.66-2.22) Calcium Level 7.3 MG/DL (8.5-10.1) L 7.0 MG/DL (8.5-10.1) L Total Bilirubin 0.4 MG/DL (0.2-1.0) 0.4 MG/DL (0.2-1.0) Aspartate Amino Transf (AST/SGOT) 24 U/L (15-37) 27 U/L (15-37) Alanine Aminotransferase (ALT/SGPT) 22 U/L (12-78) 21 U/L (12-78) Alkaline Phosphatase 33 U/L (46-116) L 25 U/L (46-116) L Total Protein 6.0 G/DL (6.4-8.2) L 5.3 G/DL (6.4-8.2) L Albumin 2.7 G/DL (3.4-5.0) L 2.2 G/DL (3.4-5.0) L Globulin 3.3 g/dL 3.1 g/dL Albumin/Globulin Ratio 0.8 (1.0-2.7) L 0.7 (1.0-2.7) L Arterial Blood pH 7.439 (7.350-7.450) Arterial Blood Partial Pressure CO2 32.0 mmHg (35.0-45.0) L Arterial Blood Partial Pressure O2 80.3 mmHg (75.0-100.0) Arterial Blood HCO3 21.2 mmol/L (22.0-26.0) L Arterial Blood Oxygen Saturation 95.4 % (92.0-98.0) Arterial Blood Base Excess -2.2 Stuart Test Positive Differential Total Cells Counted 100 Neutrophils % (Manual) 65 % (45-75) Lymphocytes % (Manual) 25 % (20-45) Monocytes % (Manual) 5 % (1-10) Eosinophils % (Manual) 0 % (0-3) Basophils % (Manual) 2 % (0-2) Band Neutrophils 3 % (0-8) Platelet Estimate Adequate Platelet Morphology Normal Red Blood Cell Morphology Normal Hemoglobin A1c 5.4 % (4.3-6.0) Troponin I 0.065 ng/mL (0.000-0.056) 0.057 ng/mL (0.000-0.056) Triglycerides Level 39 MG/DL (30-150) Cholesterol Level 135 MG/DL (< 200) LDL Cholesterol 79 mg/dL (<100) HDL Cholesterol 60 MG/DL (40-60) Cholesterol/HDL Ratio 2.3 (3.3-4.4) L Microbiology Date/Time Source Procedure Growth Status 09/28/17 18:31 Nasal Nares Influenza Types A,B Antigen (ZENON) - Final Complete Height (Feet): 5 Height (Inches): 2.00 Weight (Pounds): 90 Medications Current Medications Medications (Trade) Dose Ordered Sig/Annie Route PRN Reason Start Time Stop Time Status Last Admin Dose Admin Acetaminophen (Tylenol) 650 mg Q4H PRN ORAL Mild Pain/Temp > 100.5 09/29/17 02:00 10/29/17 01:59 09/29/17 13:13 Albuterol/ Ipratropium (Albuterol/ Ipratropium) 3 ml Q4H PRN HHN Shortness of Breath 09/29/17 02:00 10/04/17 01:59 Heparin Sodium (Porcine) (Heparin 5000 units/ml) 5,000 units EVERY 12 HOURS SUBQ 09/29/17 21:00 10/29/17 20:59 Ketorolac Tromethamine (Toradol 30mg) 30 mg Q6H PRN IV Severe Pain (Pain Scale 7-10) 09/29/17 02:00 10/04/17 01:59 09/29/17 04:51 Piperacillin Sod/ Tazobactam Sod 3.375 gm/Sodium Chloride 110 ml @ 27.5 mls/hr Q8H IVPB 09/29/17 06:00 10/06/17 05:59 09/29/17 07:04 Tbo-Filgrastim (Granix) 300 mcg ONCE ONCE SQ 09/29/17 10:45 09/29/17 10:46 UNV Vancomycin HCl (Vanco rx to dose) 1 ea DAILY PRN MISC Per rx protocol 09/29/17 02:00 10/29/17 01:59 Vancomycin HCl 500 mg/Dextrose 110 ml @ 110 mls/hr Q12H IVPB 09/29/17 04:00 10/04/17 03:59 09/29/17 04:49 Assessment/Plan Assessment/Plan Assessment: Bilateral lower lobe pneumonia with associated neutropenia Possibilities include Influenza (despite neg screen test) and superimposed PNA with associated myelosuppression. Will need to r/o heme malignancy/vasculitis. r /o Acute HIV. Neck pain -xray neck: Epiglottis is grossly unremarkable. Airway is patent. Prevertebral soft tissues are within normal limits. Osseous structures are unremarkable. Acute respiratory distress on NRB - adjust oxygen as requires, BiPAP if neccessary, keep npo Hemoptysis - will need to r/o Tuberculosis with serial AFB Rash - Infectious vs vasculitis hx of anorexia Plan: - Continue empiric Vancomycin, Zosyn and Azithromycin per ID - Empiric Tamiflu per ID - Await results of ID w/u - RASHAWN, RF, ESR, ANCA -CT chest w/o to further evaluate given hemoptysis -f/u cultures -Monitor Labs -heme onc eval for neutropenia, may need rheumatology eval -Respiratory/droplets precautions -Neutropenic precautions - SCD's - Triflo Thank you for this consultation. Discussed with buzzsaw operator helper - Objective Last 24 Hour Vital Signs Date Time Temp Pulse Resp B/P (MAP) Pulse Ox O2 Delivery O2 Flow Rate FiO2 09/29/17 16:00 98.1 110 18 99/54 95 Non-Rebreather 10.0 98.1 09/29/17 14:12 98.4 09/29/17 13:13 98.1 09/29/17 12:00 117 09/29/17 12:00 98.1 121 21 112/79 88 Non-Rebreather 10.0 98.1 09/29/17 08:00 97.9 99 21 97/62 94 Non-Rebreather 10.0 97.9 09/29/17 08:00 132 09/29/17 05:21 98.8 09/29/17 04:51 98.8 09/29/17 04:00 125 09/29/17 04:00 100.2 119 18 100/72 95 Nasal Cannula 2.0 100.2 09/29/17 01:14 98.8 109 22 99/73 95 Non-Rebreather 10.0 09/28/17 22:10 99.7 104 18 103/70 83 Nasal Cannula 2.0 99.7 09/28/17 20:11 101.9 101 18 105/68 92 Room Air 101.9 3/23/18 19:43 102.6 09/28/17 19:35 100 22 Room Air 09/28/17 19:26 102.6 22 107/70 92 Nasal Cannula 2.0 102.6 09/28/17 18:16 101.0 Micro: Microbiology Date/Time Source Procedure Growth Status 09/28/17 18:31 Nasal Nares Influenza Types A,B Antigen (ZENON) - Final Complete Critical Care - Subjective ROS Limited/Unobtainable: Yes Condition: unchanged IV Access: peripheral EKG Rhythm: Sinus Rhythm I&O: Intake and Output 09/28/17 09/29/17 19:00 07:00 Intake Total 515 ml Balance 515 ml Intake Oral 240 ml IV Total 275 ml # Voids 3 Leland Pickett M.D. Sep 29, 2017 17:41
[2017-09-29 20:00] VITALS: BP 115/79
--- NOTE | 2017-09-29 20:00 | History and Physical Report ---
DATE OF ADMISSION: 09/28/2017 CHIEF COMPLAINT: The patient is a 37-year-old female who presents with chief complaint of shortness of breath and cough. HISTORY OF PRESENT ILLNESS: It began approximately one day prior to admission. The patient began to experience fevers and chills. The patient also complains of cough which is productive of blood-tinged greenish sputum. The patient presented to [facility] yesterday, September 28, 2017. The patient was discharged home after receiving intravenous azithromycin and ceftriaxone. The patient returned to the emergency room complaining of increasing shortness of breath. The patient was found to have leukopenia. The patient was admitted for pneumonia and neutropenic precautions. REVIEW OF SYSTEMS: CONSTITUTIONAL: The patient denies weight loss or weight gain. The patient does complain of subjective fevers and chills. HEENT: The patient denies ear or throat pain. The patient denies headache. CARDIOVASCULAR: The patient denies palpitations or chest pain. The patient complains of shortness of breath as above. The patient denies wheezes. ABDOMEN: The patient denies nausea, vomiting, diarrhea, or constipation. GENITOURINARY: The patient denies dysuria or increased frequency of urination. NEUROMUSCULAR: The patient denies seizures or generalized weakness. PAST MEDICAL HISTORY: Significant for anorexia nervosa. PAST SURGICAL HISTORY: The patient denies. CURRENT MEDICATIONS: Lexapro 10 mg p.o. daily. ALLERGIES: No known drug allergies. SOCIAL HISTORY: The patient is single and is unemployed. The patient denies tobacco or alcohol use. PHYSICAL EXAMINATION: VITAL SIGNS: Temperature 101-102.6 degrees Fahrenheit, respirations 22, pulse 100-104, blood pressure 103-107 over 68-70. GENERAL: The patient is a thin-appearing female who is currently on non-rebreather mask. HEENT: Eyes, pupils equal and responsive to light and accommodation. Extraocular movements are intact. NECK: Supple without lymphadenopathy. CHEST: Decreased breath sounds bilaterally with few scattered crackles, otherwise without wheezes. ABDOMINAL: Soft, nontender, nondistended. Positive bowel sounds. No evidence of hepatosplenomegaly. Currently, no rebound or guarding noted. EXTREMITIES: Negative for clubbing, cyanosis, or edema. RECTAL: Refused. GENITAL: Refused. NEUROLOGIC: Cranial nerves II through XII are grossly intact without focal deficits. Motor strength is 5/5 bilaterally intact. Deep tendon reflexes are 2+, plantar. DIAGNOSTIC DATA: A chest x-ray revealed perihilar and bibasilar infiltrates. This is consistent with pneumonia. LABORATORY STUDIES: WBC 1.6, hemoglobin 12.3, hematocrit 34.7, platelets 219,000. Sodium 132, potassium 3.6, chloride 99, CO2 26, BUN 8, creatinine 0.7, glucose 88. Troponin elevated at 0.065. Blood gases, pH 7.439, pCO2 32.0, pO2 80.3, bicarbonate 21.2, oxygen saturation 95.4, base excess -2.2. ASSESSMENT: This is a 37-year-old female with: 1. Pneumonia. 2. Shortness of breath. 3. Leukopenia. 4. Neutropenia. 5. Hypoxia. 6. History of anorexia. TREATMENT: 1. Pneumonia/shortness of breath. Pulmonary consultation is pending. The patient has been started empirically on Zosyn and vancomycin. The patient is currently on nonrebreather. The patient will be transferred to the [facility] for higher level of care. 2. Leukopenia/neutropenia. Continue Zosyn and vancomycin as above. An Infectious Disease consultation has been obtained with Dr. Harris. 3. Hypoxia, probably secondary to pneumonia, as above. 4. Anorexia. Continue Lexapro as above. Seth Puckett M.D. DR: Edmundo JOB#: [id number] CC:
[2017-09-29] MEDS: Heparin 5000 units/ml inj SUBQ SCH (22:37)
[2017-09-30] VITALS (7 sets, daily range): BP systolic 89–106; BP diastolic 60–74
--- NOTE | 2017-09-30 02:00 | Consultation ---
DATE OF CONSULTATION: 09/29/2017 CARDIOLOGY CONSULTATION CONSULTING PHYSICIAN: Jonathan Storm M.D. REFERRING PHYSICIAN: Aishwarya Tirado M.D. REASON FOR CONSULTATION: Management of tachycardia. HISTORY OF PRESENT ILLNESS: The patient is a very unfortunate 37-year-old female, who presents to the emergency department complaining of sore throat and cough. The patient initially was seen in the ER and discharged home with diagnosis of atypical pneumonia and was given antibiotic. The patient, however, felt worse, had shortness of breath, chest pain, and productive cough and developed fever of 101 at home. She returned to this facility for further evaluation and management. PAST MEDICAL HISTORY: Anorexia nervosa. PAST SURGICAL HISTORY: None. MEDICATIONS: List of medications at home including Lexapro 10 mg p.o. daily and azithromycin 500 mg daily for five days. ALLERGIES: No known drug allergies. SOCIAL HISTORY: Denies any tobacco, alcohol, or illicit drug use. REVIEW OF SYSTEMS: A 12-system review done essentially negative except what is mentioned in the history of present illness. PHYSICAL EXAMINATION: VITAL SIGNS: Blood pressure was 128/84, respirations 22, pulse of 100, temperature 101 degrees Fahrenheit, and O2 saturation 97% on room air. GENERAL: The patient is a very unfortunate 37-year-old female, in mild respiratory distress. HEENT: Atraumatic and normocephalic. Anicteric. Hair loss is seen. Pupils are equal, round, and reactive to light and accommodation. Extraocular muscles intact. NECK: JVP is less than 5 cm. No carotid bruit. Carotid upstrokes 2+ bilaterally. CARDIOVASCULAR: Normal S1 and S2. Regular rate and rhythm. Tachycardic. No murmurs, gallops, or rubs. PMI is at fourth intercostal space in the midclavicular line. LUNGS: Diminished breath sounds in both bases with presence of crackles bilaterally. ABDOMEN: Soft, nontender, and nondistended. No hepatosplenomegaly. Positive bowel sounds. EXTREMITIES: Muscle wasting throughout. The presence of blanching rash over both limbs. No edema, clubbing, or cyanosis. LABORATORY FINDINGS: Chemistry showed sodium 132, potassium 3.6, chloride 99, bicarbonate 26, BUN of 8, creatinine 0.7, glucose is 88, and calcium 7.3. Troponin I elevated at 0.065 and 0.057. Triglyceride was 39, cholesterol is 135, LDL of 79, and HDL of 60. A chest x-ray showed perihilar and basilar infiltrates in both lungs. A 12-lead electrocardiogram shows sinus tachycardia, rate of 128. No ST or T-wave abnormalities, QT interval of 442. ASSESSMENT AND PLAN: The patient is a very unfortunate 37-year-old female, seen in Cardiology consultation at the request of Dr. Tirado. 1. Sinus tachycardia, likely due to hypoxemia and bilateral pneumonia. Treatment of sinus tachycardia and treatment of underlying disease, the patient requires to be well hydrated with normal saline, antifebrile and antipyretic medication, and IV antibiotics. The treatment is geared towards correcting the underlying problem. A 2D echocardiogram will be done to rule out pericardial effusion. 2. Non-cardiac chest pain, most likely pleurisy. I would like to thank, Dr. Tirado, for allowing me to participate in the care of this patient. Jonathan Storm M.D. DR: Ashley JOB#: [id number] CC:
[2017-09-30] MEDS: Vancomycin 500mg/D5W 110ml IVPB SCH ×2 (04:02)
[2017-09-30 05:21] LABS: HEMATOCRIT 30.7 % (37.0-47.0); HEMOGLOBIN 10.9 G/DL (12.0-16.0); MEAN CORPUSCULAR VOLUME 92 FL (80-99); PLATELET COUNT 180 K/UL (150-450); RED BLOOD COUNT 3.34 M/UL (4.20-5.40); RED CELL DISTRIBUTION WIDTH 10.5 % (11.6-14.8); WHITE BLOOD COUNT 3.6 K/UL (4.8-10.8)
[2017-09-30 05:48] LABS: ALANINE AMINOTRANSFERASE 21 U/L (12-78); ALBUMIN 1.8 G/DL (3.4-5.0); ALBUMIN/GLOBULIN RATIO 0.6 (1.0-2.7); ALKALINE PHOSPHATASE 20 U/L (46-116); ANION GAP 10 mmol/L (5-15); ASPARTATE AMINO TRANSFERASE 28 U/L (15-37); BILIRUBIN,TOTAL 0.5 MG/DL (0.2-1.0); BLOOD UREA NITROGEN 9 mg/dL (7-18); CARBON DIOXIDE 22 MMOL/L (21-32); CHLORIDE 99 MMOL/L (98-107); CREATININE 0.6 MG/DL (0.55-1.30); POTASSIUM 2.8 MMOL/L (3.5-5.1); SODIUM 132 MMOL/L (136-145)
[2017-09-30] MEDS: Piperacillin/Tazobactam 3.375 GM in NS 110 ML IVPB SCH ×3 (05:54→23:13)
--- NOTE | 2017-09-30 08:57 | General Progress Note ---
Assessment/Plan Status: stable Assessment/Plan 1. Sepsis 2. Pneumonia, HCA, typical vs atypical 3. Abn troponin: unlikely related to ACS 4. Neutropenia: on Isolation 5. Cachexia 6. History of anorexia. 7. GI, DVT prophylaxis Plan: add famotidine current management Subjective ROS Limited/Unobtainable: No Constitutional: Reports: malaise Cardiovascular: Reports: no symptoms Respiratory: Reports: shortness of breath Allergies: Coded Allergies: No Known Allergies (Unverified , 09/28/17) Objective Last 24 Hour Vital Signs Date Time Temp Pulse Resp B/P (MAP) Pulse Ox O2 Delivery O2 Flow Rate FiO2 09/30/17 06:45 Non-Rebreather 15.0 100 09/30/17 06:45 100 Non-Rebreather 15.0 100 09/30/17 06:45 100 16 Non-Rebreather 15.0 100 09/30/17 04:00 99.0 103 30 106/66 100 Non-Rebreather 15.0 100 99.0 09/30/17 03:28 112 09/30/17 00:00 97.6 103 32 93/63 95 Non-Rebreather 10.0 97.6 09/29/17 23:51 100 09/29/17 20:00 112 09/29/17 20:00 99.7 150 42 115/79 90 Non-Rebreather 10.0 99.7 09/29/17 19:30 Non-Rebreather 15.0 100 09/29/17 19:30 95 Non-Rebreather 15.0 100 09/29/17 19:30 113 16 Non-Rebreather 15.0 100 09/29/17 16:00 98.1 110 18 99/54 95 Non-Rebreather 10.0 98.1 09/29/17 16:00 108 09/29/17 14:12 98.4 09/29/17 13:13 98.1 09/29/17 12:00 117 09/29/17 12:00 98.1 121 21 112/79 88 Non-Rebreather 10.0 98.1 Intake and Output 09/29/17 09/30/17 19:00 07:00 Intake Total 140 ml 420 ml Balance 140 ml 420 ml Intake Oral 140 ml 200 ml IV Total 220 ml # Voids 1 # Bowel Movements 2 Laboratory Tests 09/29/17 09:20: White Blood Count 0.7#*L, Red Blood Count 3.64L, Hemoglobin 11.9L, Hematocrit 34.2L, Mean Corpuscular Volume 94, Mean Corpuscular Hemoglobin 32.7H, Mean Corpuscular Hemoglobin Concent 34.8, Red Cell Distribution Width 11.0L, Platelet Count 215, Mean Platelet Volume 4.9L, Neutrophils (%) (Auto) , Lymphocytes (%) (Auto) , Monocytes (%) (Auto) , Eosinophils (%) (Auto) , Basophils (%) (Auto) , Differential Total Cells Counted 100, Neutrophils % ( Manual) 65, Lymphocytes % (Manual) 25, Monocytes % (Manual) 5, Eosinophils % ( Manual) 0, Basophils % (Manual) 2, Band Neutrophils 3, Platelet Estimate Adequate, Platelet Morphology Normal, Red Blood Cell Morphology Normal, Sodium Level 132L, Potassium Level 3.4L, Chloride Level 100, Carbon Dioxide Level 22, Anion Gap 10, Blood Urea Nitrogen 8, Creatinine 0.6, Estimat Glomerular Filtration Rate > 60, Glucose Level 107H, Hemoglobin A1c 5.4, Calcium Level 7.0L , Total Bilirubin 0.4, Aspartate Amino Transf (AST/SGOT) 27, Alanine Aminotransferase (ALT/SGPT) 21, Alkaline Phosphatase 25L, Troponin I 0.065H, Total Protein 5.3L, Albumin 2.2L, Globulin 3.1, Albumin/Globulin Ratio 0.7L, Triglycerides Level 39, Cholesterol Level 135, LDL Cholesterol 79, HDL Cholesterol 60, Cholesterol/HDL Ratio 2.3L 09/29/17 11:55: Troponin I 0.057H 09/30/17 04:30: White Blood Count 3.6#L, Red Blood Count 3.34L, Hemoglobin 10.9L, Hematocrit 30.7L, Mean Corpuscular Volume 92, Mean Corpuscular Hemoglobin 32.7H, Mean Corpuscular Hemoglobin Concent 35.7, Red Cell Distribution Width 10.5L, Platelet Count 180, Mean Platelet Volume 5.3L, Neutrophils (%) (Auto) , Lymphocytes (%) (Auto) , Monocytes (%) (Auto) , Eosinophils (%) (Auto) , Basophils (%) (Auto) , Differential Total Cells Counted 100, Neutrophils % ( Manual) 67, Lymphocytes % (Manual) 9L, Monocytes % (Manual) 3, Eosinophils % ( Manual) 2, Basophils % (Manual) 0, Band Neutrophils 19H, Platelet Estimate Adequate, Platelet Morphology Normal, Sodium Level 132L, Potassium Level 2.8L, Chloride Level 99, Carbon Dioxide Level 22, Anion Gap 10, Blood Urea Nitrogen 9 , Creatinine 0.6, Estimat Glomerular Filtration Rate > 60, Glucose Level 104, Calcium Level 7.0L, Total Bilirubin 0.5, Aspartate Amino Transf (AST/SGOT) 28, Alanine Aminotransferase (ALT/SGPT) 21, Alkaline Phosphatase 20L, Total Protein 4.9L, Albumin 1.8L, Globulin 3.1, Albumin/Globulin Ratio 0.6L, Anisocytosis 1+, Erythrocyte Sedimentation Rate 69H, C-Reactive Protein, Quantitative > 70.0H, Rheumatoid Factor Screen [Pending], Coccidioides Antibody (Comp Fix) [Pending], Cryptococcus Antigen [Pending], Hepatitis A IgM Antibody [Pending], Hepatitis B Surface Antigen [Pending], Hepatitis B Core IgM Antibody [Pending], Hepatitis C Antibody [Pending], HIV-1 RNA (PCR) log10 Value [Pending], HIV-1 RNA Ultraquantitative (PCR) [Pending], HIV (1&2) Antibody Rapid Negative, Urine Legionella Antigen [Pending] 09/30/17 06:53: Arterial Blood pH 7.470H, Arterial Blood Partial Pressure CO2 29.8L, Arterial Blood Partial Pressure O2 190.1H, Arterial Blood HCO3 21.3L, Arterial Blood Oxygen Saturation 98.9H, Arterial Blood Base Excess -1.5, Stuart Test Positive Height (Feet): 5 Height (Inches): 2.00 Weight (Pounds): 90 General Appearance: WD/WN EENT: PERRL/EOMI Neck: supple Cardiovascular: tachycardia Respiratory/Chest: rhonchi - bilaterally Abdomen: soft Extremities: non-tender, other - atrophied musculature Neurologic: service consultant II-XII grossly normal Aishwarya Tirado MD Sep 30, 2017 08:57
[2017-09-30] MEDS: Heparin 5000 units/ml inj SUBQ SCH ×2 (09:00→23:14)
[2017-09-30] MEDS: Oseltamivir 75mg cap ORAL SCH ×2 (09:53→17:06)
--- NOTE | 2017-09-30 10:37 | Diagnostic Imaging Report ---
Indication: Cough/chest infection Technique: CT chest was performed utilizing automated exposure control without intravenous contrast material. Axial and coronal images were generated. CT dose: Total DLP 479 mGycm; CTDI vol 13.6 mGy Comparison: Chest x-ray 09/28/2017 Findings: There are dense consolidations with air bronchograms in the bilateral lower lobes to a lesser extent involving the bilateral upper lobes and the right middle lobe. Small bilateral pleural effusions are seen. There is no bulky adenopathy. There is a chronic appearing deformity of T2. The heart size is normal. Impression: Dense consolidations with air bronchograms involving the bilateral lower lobes and to a lesser extent the bilateral upper lobes and right middle lobe. Small bilateral pleural effusions. Findings are compatible with but not specific for pneumonia. Follow-up recommended for further evaluation. The CT scanner at [facility] is accredited by the [employer] and the scans are performed using protocols designed to limit radiation exposure to as low as reasonably achievable to attain images of sufficient resolution adequate for diagnostic evaluation.
--- NOTE | 2017-09-30 10:38 | Diagnostic Imaging Report ---
Indication: Shortness of breath Technique: XRAY Chest 1v Comparison: 09/28/2017 Findings: Cardiomediastinal silhouette is stable. Perihilar and basilar airspace disease is noted. Small bilateral pleural effusions are present. Osseous structures are stable. Impression: Increasing perihilar and basilar airspace infiltrates. Small bilateral pleural effusions.
[2017-09-30] MEDS ORDERED: NS 275ml ONE (11:01)
[2017-09-30] MEDS ORDERED: Dexamethasone 4mg/ml vial IVP ONE (14:30)
[2017-09-30] MEDS ORDERED: Vancomycin 1gm/D5W 275ml IVPB ONE ×2 (18:00)
[2017-09-30] MEDS ORDERED: Azithromycin 250mg tab ORAL SCH (21:00)
[2017-09-30] MEDS ORDERED: Azithromycin 500mg Inj IV ONE (22:32)
--- NOTE | 2017-09-30 22:59 | Cardiology Progress Note ---
Assessment/Plan Assessment/Plan 1. Sinus tachycardia, likely due to hypoxemia and bilateral pneumonia, continue normal saline, antipyretic medication, and IV antibiotics. Pending 2D echocardiogram report. 2. Non-cardiac chest pain, most likely pleurisy/PNA. 3. Anorexia Nervosa Subjective Subjective Sinus tachycardia at 107. Objective Last 24 Hour Vital Signs Date Time Temp Pulse Resp B/P (MAP) Pulse Ox O2 Delivery O2 Flow Rate FiO2 09/30/17 16:00 116 09/30/17 16:00 97.7 107 24 97/68 100 Non-Rebreather 15.0 100 97.7 09/30/17 14:03 98.7 99 24 90/60 100 Non-Rebreather 15.0 100 98.7 09/30/17 12:00 99.9 98 24 89/60 100 Non-Rebreather 15.0 100 99.9 09/30/17 12:00 109 09/30/17 08:00 116 09/30/17 08:00 98.9 97 24 98/70 100 Non-Rebreather 15.0 100 98.9 09/30/17 06:45 Non-Rebreather 15.0 100 09/30/17 06:45 100 Non-Rebreather 15.0 100 09/30/17 06:45 100 16 Non-Rebreather 15.0 100 09/30/17 04:00 99.0 103 30 106/66 100 Non-Rebreather 15.0 100 99.0 09/30/17 03:28 112 09/30/17 00:00 97.6 103 32 93/63 95 Non-Rebreather 10.0 97.6 09/29/17 23:51 100 Intake and Output 09/29/17 09/30/17 19:00 07:00 Intake Total 140 ml 420 ml Balance 140 ml 420 ml Intake Oral 140 ml 200 ml IV Total 220 ml # Voids 1 # Bowel Movements 2 Laboratory Tests Test 09/30/17 04:30 09/30/17 06:53 09/30/17 15:15 White Blood Count 3.6 K/UL (4.8-10.8) #L Red Blood Count 3.34 M/UL (4.20-5.40) L Hemoglobin 10.9 G/DL (12.0-16.0) L Hematocrit 30.7 % (37.0-47.0) L Mean Corpuscular Volume 92 FL (80-99) Mean Corpuscular Hemoglobin 32.7 PG (27.0-31.0) H Mean Corpuscular Hemoglobin Concent 35.7 G/DL (32.0-36.0) Red Cell Distribution Width 10.5 % (11.6-14.8) L Platelet Count 180 K/UL (150-450) Mean Platelet Volume 5.3 FL (6.5-10.1) L Neutrophils (%) (Auto) % (45.0-75.0) Lymphocytes (%) (Auto) % (20.0-45.0) Monocytes (%) (Auto) % (1.0-10.0) Eosinophils (%) (Auto) % (0.0-3.0) Basophils (%) (Auto) % (0.0-2.0) Differential Total Cells Counted 100 Neutrophils % (Manual) 67 % (45-75) Lymphocytes % (Manual) 9 % (20-45) L Monocytes % (Manual) 3 % (1-10) Eosinophils % (Manual) 2 % (0-3) Basophils % (Manual) 0 % (0-2) Band Neutrophils 19 % (0-8) H Platelet Estimate Adequate Platelet Morphology Normal Anisocytosis 1+ Erythrocyte Sedimentation Rate 69 MM/HR (0-20) H Sodium Level 132 MMOL/L (136-145) L Potassium Level 2.8 MMOL/L (3.5-5.1) L Chloride Level 99 MMOL/L (98-107) Carbon Dioxide Level 22 MMOL/L (21-32) Anion Gap 10 mmol/L (5-15) Blood Urea Nitrogen 9 mg/dL (7-18) Creatinine 0.6 MG/DL (0.55-1.30) Estimat Glomerular Filtration Rate > 60 mL/min (>60) Glucose Level 104 MG/DL (74-106) Calcium Level 7.0 MG/DL (8.5-10.1) L Total Bilirubin 0.5 MG/DL (0.2-1.0) Aspartate Amino Transf (AST/SGOT) 28 U/L (15-37) Alanine Aminotransferase (ALT/SGPT) 21 U/L (12-78) Alkaline Phosphatase 20 U/L (46-116) L C-Reactive Protein, Quantitative > 70.0 mg/dL (0.00-0.90) H Total Protein 4.9 G/DL (6.4-8.2) L Albumin 1.8 G/DL (3.4-5.0) L Globulin 3.1 g/dL Albumin/Globulin Ratio 0.6 (1.0-2.7) L Rheumatoid Factor Screen Pending Coccidioides Antibody (Comp Fix) Pending Cryptococcus Antigen Pending Hepatitis A IgM Antibody Pending Hepatitis B Surface Antigen Pending Hepatitis B Core IgM Antibody Pending Hepatitis C Antibody Pending HIV-1 RNA (PCR) log10 Value Pending HIV-1 RNA Ultraquantitative (PCR) Pending HIV (1&2) Antibody Rapid Negative (NEGATIVE) Urine Legionella Antigen Pending Arterial Blood pH 7.470 (7.350-7.450) Arterial Blood Partial Pressure CO2 29.8 mmHg (35.0-45.0) L Arterial Blood Partial Pressure O2 190.1 mmHg (75.0-100.0) H Arterial Blood HCO3 21.3 mmol/L (22.0-26.0) L Arterial Blood Oxygen Saturation 98.9 % (92.0-98.0) H Arterial Blood Base Excess -1.5 Stuart Test Positive Vancomycin Level Trough 4.2 ug/mL (5.0-12.0) L Microbiology Date/Time Source Procedure Growth Status 09/28/17 22:30 Blood Blood Culture - Preliminary NO GROWTH AFTER 24 HOURS Resulted 09/28/17 22:15 Blood Blood Culture - Preliminary NO GROWTH AFTER 24 HOURS Resulted 09/29/17 02:20 Sputum Gram Stain - Final Resulted 09/29/17 02:20 Sputum Culture - Preliminary Staphylococcus Aureus Resulted 09/28/17 18:31 Nasal Nares Influenza Types A,B Antigen (ZENON) - Final Complete Objective HEENT: Atraumatic and normocephalic. Anicteric. Hair loss is seen. Pupils are equal, round, and reactive to light and accommodation. Extraocular muscles intact. NECK: JVP is less than 5 cm. No carotid bruit. Carotid upstrokes 2+ bilaterally. CARDIOVASCULAR: Normal S1 and S2. Regular rate and rhythm. Tachycardic. No murmurs, gallops, or rubs. PMI is at fourth intercostal space in the midclavicular line. LUNGS: Diminished breath sounds in both bases with presence of crackles bilaterally. ABDOMEN: Soft, nontender, and nondistended. No hepatosplenomegaly. Positive bowel sounds. EXTREMITIES: Muscle wasting throughout. The presence of blanching rash over both limbs. No edema, clubbing, or cyanosis. GLORIA PELAEZ Sep 30, 2017 22:59
[2017-09-30] MEDS: Azithromycin 500 MG in D5W 275 ML IV SCH (23:11)
--- NOTE | 2017-09-30 23:39 | Pulmonolgy Critical Care Note ---
Critical Care - Asmt/Plan Assessment/Plan: 37 y/o woman with hx of anorexia, depression, presents to ED on 09/28 with sore throat, cough, possible witnessed seizure. Earlier on days of admission seen in ED and discharged with dx of atypical Pneumonia on PO antibiotics (Levaquin) but comes back because of worsening pleuritic chest pain, fever at home up to 101. +hemoptysis. Found to be neutropenic. Found to have diffuse blanching erythematous rash. Has had the fever, body aches, cough and rash for a few days. No h/o Tuberculosis previously. Denies SOB, abd pain, neck pain. Sick contacts: grandfather recently admitted here for PNA and . NO other sick contacts. No recent travel. No pets at home. lives with mom and brother. no sexual contacts Denies PARDO, sore throat, neck pain, vision changes, photo/phonophobia. No recent meds. Takes Lexapro. Allergies: Coded Allergies: No Known Allergies (Unverified , 09/28/17) Medication History Scheduled Azithromycin (Zithromax Tri-Mauro), 500 MG ORAL DAILY Escitalopram Oxalate* (Lexapro*), 10 MG ORAL DAILY, (Reported) Patient History Healthcare decision maker Resuscitation status Full Code Advanced Directive on File No Review of Systems All Other Systems: negative except mentioned in HPI Physical Exam Physical Exam Narrative General Appearance: ill appearing, weak HEENT: normocephalic, atraumatic, PERRL, normal oropharynx Neck: full range of motion, supple Respiratory: Bilateral rhonchi, no respiratory distress, no accessory muscle use, no wheezing, speaking full sentences, other - chest TTP Cardiovascular regular rate, rhythm, no edema Genitourinary: no CVA tenderness Musculoskeletal: back normal, digits/nails normal, gait/station normal, normal range of motion, non-tender Neurologic: alert, oriented x3, responsive, motor strength/tone normal, sensory intact Skin: rash - blanching, erythematous, rasied, diffuse over back and extemities Lymphatic: no adenopathy Last 24 Hour Vital Signs Date Time Temp Pulse Resp B/P (MAP) Pulse Ox O2 Delivery O2 Flow Rate FiO2 09/29/17 13:13 98.1 09/29/17 12:00 117 09/29/17 12:00 98.1 121 21 112/79 88 Non-Rebreather 10.0 98.1 09/29/17 08:00 97.9 99 21 97/62 94 Non-Rebreather 10.0 97.9 09/29/17 08:00 132 09/29/17 05:21 98.8 09/29/17 04:51 98.8 09/29/17 04:00 125 09/29/17 04:00 100.2 119 18 100/72 95 Nasal Cannula 2.0 100.2 09/29/17 01:14 98.8 109 22 99/73 95 Non-Rebreather 10.0 09/28/17 22:10 99.7 104 18 103/70 83 Nasal Cannula 2.0 99.7 09/28/17 20:11 101.9 101 18 105/68 92 Room Air 101.9 09/28/17 19:43 102.6 09/28/17 19:35 100 22 Room Air 09/28/17 19:26 102.6 22 107/70 92 Nasal Cannula 2.0 102.6 09/28/17 18:16 101.0 09/28/17 17:02 101.0 100 22 128/84 97 Room Air 100.9 Intake and Output 09/28/17 09/29/17 19:00 07:00 Intake Total 515 ml Balance 515 ml Intake Oral 240 ml IV Total 275 ml # Voids 3 Laboratory Tests Test 09/28/17 22:40 09/28/17 22:47 09/29/17 09:20 09/29/17 11:55 White Blood Count 1.6 K/UL (4.8-10.8) *L 0.7 K/UL (4.8-10.8) #*L Red Blood Count 3.76 M/UL (4.20-5.40) L 3.64 M/UL (4.20-5.40) L Hemoglobin 12.3 G/DL (12.0-16.0) 11.9 G/DL (12.0-16.0) L Hematocrit 34.7 % (37.0-47.0) L 34.2 % (37.0-47.0) L Mean Corpuscular Volume 92 FL (80-99) 94 FL (80-99) Mean Corpuscular Hemoglobin 32.6 PG (27.0-31.0) H 32.7 PG (27.0-31.0) H Mean Corpuscular Hemoglobin Concent 35.3 G/DL (32.0-36.0) 34.8 G/DL (32.0-36.0) Red Cell Distribution Width 10.6 % (11.6-14.8) L 11.0 % (11.6-14.8) L Platelet Count 219 K/UL (150-450) 215 K/UL (150-450) Mean Platelet Volume 4.9 FL (6.5-10.1) L 4.9 FL (6.5-10.1) L Neutrophils (%) (Auto) % (45.0-75.0) % (45.0-75.0) Lymphocytes (%) (Auto) % (20.0-45.0) % (20.0-45.0) Monocytes (%) (Auto) % (1.0-10.0) % (1.0-10.0) Eosinophils (%) (Auto) % (0.0-3.0) % (0.0-3.0) Basophils (%) (Auto) % (0.0-2.0) % (0.0-2.0) Sodium Level 132 MMOL/L (136-145) L 132 MMOL/L (136-145) L Potassium Level 3.6 MMOL/L (3.5-5.1) 3.4 MMOL/L (3.5-5.1) L Chloride Level 99 MMOL/L (98-107) 100 MMOL/L (98-107) Carbon Dioxide Level 26 MMOL/L (21-32) 22 MMOL/L (21-32) Anion Gap 8 mmol/L (5-15) 10 mmol/L (5-15) Blood Urea Nitrogen 8 mg/dL (7-18) 8 mg/dL (7-18) Creatinine 0.7 MG/DL (0.55-1.30) 0.6 MG/DL (0.55-1.30) Estimat Glomerular Filtration Rate > 60 mL/min (>60) > 60 mL/min (>60) Glucose Level 88 MG/DL (74-106) 107 MG/DL (74-106) H Lactic Acid Level 1.60 mmol/L (0.66-2.22) Calcium Level 7.3 MG/DL (8.5-10.1) L 7.0 MG/DL (8.5-10.1) L Total Bilirubin 0.4 MG/DL (0.2-1.0) 0.4 MG/DL (0.2-1.0) Aspartate Amino Transf (AST/SGOT) 24 U/L (15-37) 27 U/L (15-37) Alanine Aminotransferase (ALT/SGPT) 22 U/L (12-78) 21 U/L (12-78) Alkaline Phosphatase 33 U/L (46-116) L 25 U/L (46-116) L Total Protein 6.0 G/DL (6.4-8.2) L 5.3 G/DL (6.4-8.2) L Albumin 2.7 G/DL (3.4-5.0) L 2.2 G/DL (3.4-5.0) L Globulin 3.3 g/dL 3.1 g/dL Albumin/Globulin Ratio 0.8 (1.0-2.7) L 0.7 (1.0-2.7) L Arterial Blood pH 7.439 (7.350-7.450) Arterial Blood Partial Pressure CO2 32.0 mmHg (35.0-45.0) L Arterial Blood Partial Pressure O2 80.3 mmHg (75.0-100.0) Arterial Blood HCO3 21.2 mmol/L (22.0-26.0) L Arterial Blood Oxygen Saturation 95.4 % (92.0-98.0) Arterial Blood Base Excess -2.2 Stuart Test Positive Differential Total Cells Counted 100 Neutrophils % (Manual) 65 % (45-75) Lymphocytes % (Manual) 25 % (20-45) Monocytes % (Manual) 5 % (1-10) Eosinophils % (Manual) 0 % (0-3) Basophils % (Manual) 2 % (0-2) Band Neutrophils 3 % (0-8) Platelet Estimate Adequate Platelet Morphology Normal Red Blood Cell Morphology Normal Hemoglobin A1c 5.4 % (4.3-6.0) Troponin I 0.065 ng/mL (0.000-0.056) 0.057 ng/mL (0.000-0.056) Triglycerides Level 39 MG/DL (30-150) Cholesterol Level 135 MG/DL (< 200) LDL Cholesterol 79 mg/dL (<100) HDL Cholesterol 60 MG/DL (40-60) Cholesterol/HDL Ratio 2.3 (3.3-4.4) L Microbiology Date/Time Source Procedure Growth Status 09/28/17 18:31 Nasal Nares Influenza Types A,B Antigen (ZENON) - Final Complete Height (Feet): 5 Height (Inches): 2.00 Weight (Pounds): 90 Medications Current Medications Medications (Trade) Dose Ordered Sig/Annie Route PRN Reason Start Time Stop Time Status Last Admin Dose Admin Acetaminophen (Tylenol) 650 mg Q4H PRN ORAL Mild Pain/Temp > 100.5 09/29/17 02:00 10/29/17 01:59 09/29/17 13:13 Albuterol/ Ipratropium (Albuterol/ Ipratropium) 3 ml Q4H PRN HHN Shortness of Breath 09/29/17 02:00 10/04/17 01:59 Heparin Sodium (Porcine) (Heparin 5000 units/ml) 5,000 units EVERY 12 HOURS SUBQ 09/29/17 21:00 10/29/17 20:59 Ketorolac Tromethamine (Toradol 30mg) 30 mg Q6H PRN IV Severe Pain (Pain Scale 7-10) 09/29/17 02:00 10/04/17 01:59 09/29/17 04:51 Piperacillin Sod/ Tazobactam Sod 3.375 gm/Sodium Chloride 110 ml @ 27.5 mls/hr Q8H IVPB 09/29/17 06:00 10/06/17 05:59 09/29/17 07:04 Tbo-Filgrastim (Granix) 300 mcg ONCE ONCE SQ 09/29/17 10:45 09/29/17 10:46 UNV Vancomycin HCl (Vanco rx to dose) 1 ea DAILY PRN MISC Per rx protocol 09/29/17 02:00 10/29/17 01:59 Vancomycin HCl 500 mg/Dextrose 110 ml @ 110 mls/hr Q12H IVPB 09/29/17 04:00 10/04/17 03:59 09/29/17 04:49 Assessment/Plan Assessment/Plan Assessment: Bilateral lower lobe pneumonia with associated neutropenia Possibilities include Influenza (despite neg screen test) and superimposed PNA with associated myelosuppression. Will need to r/o heme malignancy/vasculitis. r /o Acute HIV. Neck pain -xray neck: Epiglottis is grossly unremarkable. Airway is patent. Prevertebral soft tissues are within normal limits. Osseous structures are unremarkable. Acute respiratory distress on NRB - adjust oxygen as requires, BiPAP if neccessary Hemoptysis - will need to r/o Tuberculosis with serial AFB Rash - Infectious vs vasculitis CXR - worsening infiltrates hx of anorexia Plan: - Continue empiric Vancomycin, Zosyn and Azithromycin (IV) per ID - Titrate O2 - AM CXR/ABG - Empiric Tamiflu per ID - Await results of ID w/u incl Legionella Ur Ag, await putum AFB - RASHAWN, RF, ESR, ANCA -CT chest w/o to further evaluate given hemoptysis -f/u cultures -Monitor Labs -heme onc eval for neutropenia, may need rheumatology eval -Respiratory/droplets precautions -Neutropenic precautions - SCD's - Triflo Thank you for this consultation. Discussed with setter induction heating equipment - Objective Last 24 Hour Vital Signs Date Time Temp Pulse Resp B/P (MAP) Pulse Ox O2 Delivery O2 Flow Rate FiO2 09/30/17 23:06 97.7 09/30/17 16:00 116 09/30/17 16:00 97.7 107 24 97/68 100 Non-Rebreather 15.0 100 97.7 09/30/17 14:03 98.7 99 24 90/60 100 Non-Rebreather 15.0 100 98.7 09/30/17 12:00 99.9 98 24 89/60 100 Non-Rebreather 15.0 100 99.9 09/30/17 12:00 109 09/30/17 08:00 116 09/30/17 08:00 98.9 97 24 98/70 100 Non-Rebreather 15.0 100 98.9 09/30/17 06:45 Non-Rebreather 15.0 100 09/30/17 06:45 100 Non-Rebreather 15.0 100 09/30/17 06:45 100 16 Non-Rebreather 15.0 100 09/30/17 04:00 99.0 103 30 106/66 100 Non-Rebreather 15.0 100 99.0 09/30/17 03:28 112 09/30/17 00:00 97.6 103 32 93/63 95 Non-Rebreather 10.0 97.6 09/29/17 23:51 100 Micro: Microbiology Date/Time Source Procedure Growth Status 09/28/17 22:30 Blood Blood Culture - Preliminary NO GROWTH AFTER 24 HOURS Resulted 09/28/17 22:15 Blood Blood Culture - Preliminary NO GROWTH AFTER 24 HOURS Resulted 09/29/17 02:20 Sputum Gram Stain - Final Resulted 09/29/17 02:20 Sputum Culture - Preliminary Staphylococcus Aureus Resulted 09/28/17 18:31 Nasal Nares Influenza Types A,B Antigen (ZENON) - Final Complete Critical Care - Subjective ROS Limited/Unobtainable: Yes Condition: unchanged FI02: 100 Sputum Amount: Small I&O: Intake and Output 09/29/17 09/30/17 19:00 07:00 Intake Total 140 ml 420 ml Balance 140 ml 420 ml Intake Oral 140 ml 200 ml IV Total 220 ml # Voids 1 # Bowel Movements 2 Leland Pickett M.D. Sep 30, 2017 23:39
[2017-10-01] VITALS: BP 103/65
[2017-10-01] MEDS: Vancomycin 750mg/NS 250ml IVPB SCH ×3 (02:24→18:31)
[2017-10-01 04:00] VITALS: BP 103/65
[2017-10-01] MEDS: Piperacillin/Tazobactam 3.375 GM in NS 110 ML IVPB SCH (06:01)
[2017-10-01 06:44] LABS: ANION GAP 7 mmol/L (5-15); BLOOD UREA NITROGEN 7 mg/dL (7-18); CALCIUM 7.4 MG/DL (8.5-10.1); CARBON DIOXIDE 25 MMOL/L (21-32); CHLORIDE 101 MMOL/L (98-107); CREATININE 0.5 MG/DL (0.55-1.30); POTASSIUM 3.2 MMOL/L (3.5-5.1); SODIUM 133 MMOL/L (136-145)
--- NOTE | 2017-10-01 07:45 | Consultation ---
DATE OF CONSULTATION: 09/29/2017 HEMATOLOGY/ONCOLOGY CONSULTATION CONSULTING PHYSICIAN: Bhargav Wilburn M.D. REFERRING PHYSICIAN: Aishwarya Tirado M.D. REASON FOR CONSULTATION: Evaluation of severe leukopenia. IDENTIFICATION DATA: Dear Dr. Tirado, HISTORY OF PRESENT ILLNESS: The patient is a pleasant 37-year-old female with past medical history significant for major depressive disorder and anorexia, at this time presents to the ER with sore throat and cough. X-ray completed on the neck as well as the chest and was noted to have potentially pneumonia, which was atypical, at this time presents with worsening symptoms of chest pain. Temperature up to 102 degrees Fahrenheit, found to be neutropenic, which was severe. . Hematology Service consulted for evaluation and treatment. pneumonia. No other sick contacts. Lives with mother and brother. No social contacts. A few days of fevers and chills noted. Otherwise, no other events. PAST MEDICAL HISTORY: As noted above. MEDICATIONS: Azithromycin and Lexapro. ALLERGIES: No known drug allergies. FAMILY HISTORY: Noncontributory except as noted above. REVIEW OF SYSTEMS: CONSTITUTIONAL: No fevers, chills, or night sweats. SKIN: No rashes, bumps, or itching. HEENT: No headache, hearing or vision changes. BREASTS: No lumps, pain, or discharge. PULMONARY: No cough, sputum, or shortness of breath. GASTROINTESTINAL: No nausea, vomiting, or diarrhea. GENITOURINARY: No dysuria, frequency, or urgency. MUSCULOSKELETAL: No joint swelling, muscle pain, or trauma. PHYSICAL EXAMINATION: VITAL SIGNS: Reviewed. GENERAL: No distress. PULMONARY: Decreased breath sounds. CARDIOVASCULAR: Regular rate. No S3 or S4. ABDOMEN: Soft, nontender, and nondistended. EXTREMITIES: No cyanosis, swelling, or edema. LABORATORY AND DIAGNOSTIC DATA: Currently, WBC of 3.7, hemoglobin 11.9, hematocrit 34, platelet count 215,000. Differential reviewed. ASSESSMENT AND RECOMMENDATIONS: 1. Leukopenia severe, potentially related to underlying medication. The patient is on vancomycin. The patient is on Zosyn as well and potentially secondary to infection, therefore continue to monitor. Continue to monitor WBC. Cause is likely multifactorial. At this time, I administered Neupogen to maintain ANC above 1000. I appreciate ID recommendations. 2. Anemia due to underlying chronic disease. Closely monitor. 3. Pneumonia. We will trace an infection. She is on broad-spectrum antibiotics, vancomycin and Zosyn. 4. Acute respiratory failure. Adjust oxygen as needed. . The patient is currently NPO. 5. Hemoptysis, rule out tuberculosis. 6. Neutropenic precautions. Bhargav Wilburn M.D. DR: HUA JOB#: [id number] CC:
[2017-10-01 08:00] VITALS: BP 119/84
--- NOTE | 2017-10-01 08:36 | Pulmonology Progress Note ---
Assessment/Plan Problems: (1) Leukopenia (2) Atypical pneumonia (3) Influenza-like symptoms (4) Rash and nonspecific skin eruption (5) Hypoxia (6) Altered mental status (7) Fever Assessment/Plan -Optimize pulmonary hygiene/mobilize as tolerated -Titrate down FiO2 to keep SaO2 > 90% -Start RTC and PRN HHN's + CPT + suction patient -Monitor for further hemoptysis -F/U repeat CXR and ABG -Abx per ID -F/U heme recs -F/U Cx's and serologies -DVT Px: SCD's -Aspiration precautions -Monitor volumes Subjective Allergies: Coded Allergies: No Known Allergies (Unverified , 09/28/17) Subjective ST to 110's, o/w AFVSS, WCt better, MRSA in sputum + cough, occ blood tinged, no F/C, buck PO, + UO, + BM's, only gets OOB to use commode Objective Last 24 Hour Vital Signs Date Time Temp Pulse Resp B/P (MAP) Pulse Ox O2 Delivery O2 Flow Rate FiO2 10/01/17 04:00 88 10/01/17 04:00 97.5 100 20 103/65 100 Non-Rebreather 15.0 100 97.5 10/01/17 00:00 101 10/01/17 00:00 97.7 102 21 103/65 100 Non-Rebreather 15.0 100 97.7 09/30/17 23:06 97.7 09/30/17 20:00 97.2 103 20 100/74 100 Non-Rebreather 15.0 100 97.2 09/30/17 20:00 101 09/30/17 16:00 116 09/30/17 16:00 97.7 107 24 97/68 100 Non-Rebreather 15.0 100 97.7 09/30/17 14:03 98.7 99 24 90/60 100 Non-Rebreather 15.0 100 98.7 09/30/17 12:00 99.9 98 24 89/60 100 Non-Rebreather 15.0 100 99.9 09/30/17 12:00 109 Intake and Output 09/30/17 10/01/17 19:00 07:00 Intake Total 578.5 ml Balance 578.5 ml IV Total 578.5 ml # Voids 1 1 # Bowel Movements 3 General Appearance: no acute distress, cachetic HEENT: normocephalic, atraumatic, anicteric, mucous membranes moist Respiratory/Chest: rhonchi - scattered rhonchi that partially clear with coughing Cardiovascular: normal peripheral pulses, tachycardia Abdomen: normal bowel sounds, soft, non tender, no organomegaly, non distended Extremities: no cyanosis, no clubbing, no edema Microbiology Date/Time Source Procedure Growth Status 09/28/17 22:30 Blood Blood Culture - Preliminary NO GROWTH AFTER 48 HOURS Resulted 09/28/17 22:15 Blood Blood Culture - Preliminary NO GROWTH AFTER 48 HOURS Resulted 09/29/17 02:20 Sputum Gram Stain - Final Complete 09/29/17 02:20 Sputum Culture - Final Staphylococcus Aureus Complete 09/28/17 18:31 Nasal Nares Influenza Types A,B Antigen (ZENON) - Final Complete Laboratory Tests 09/30/17 15:15: Vancomycin Level Trough 4.2L 10/01/17 06:00: Sodium Level 133L, Potassium Level 3.2L, Chloride Level 101, Carbon Dioxide Level 25, Anion Gap 7, Blood Urea Nitrogen 7, Creatinine 0.5L, Estimat Glomerular Filtration Rate > 60, Glucose Level 105, Calcium Level 7.4L, TB Test (T-Spot) [Pending], TB Test Nil Control (T-Spot) [Pending], TB Test Panel A (T- Spot) [Pending], TB Test Panel B (T-Spot) [Pending], TB Test Positive Control (T -Spot) [Pending] Current Medications Medications (Trade) Dose Ordered Sig/Annie Route PRN Reason Start Time Stop Time Status Last Admin Dose Admin Acetaminophen (Tylenol) 650 mg Q4H PRN ORAL T>100.5/Headache/Mild Pain 09/30/17 14:00 10/29/17 01:59 09/30/17 23:06 Albuterol/ Ipratropium (Albuterol/ Ipratropium) 3 ml Q4H PRN HHN Shortness of Breath 09/29/17 02:00 10/04/17 01:59 Azithromycin 500 mg/Dextrose 275 ml @ 275 mls/hr Q24HRS IV 09/30/17 23:00 10/06/17 23:59 09/30/17 23:11 Famotidine (Pepcid I.v.) 20 mg Q12HR IVP 09/30/17 10:00 10/30/17 09:59 09/30/17 23:12 Heparin Sodium (Porcine) (Heparin 5000 units/ml) 5,000 units EVERY 12 HOURS SUBQ 09/29/17 21:00 10/29/17 20:59 09/30/17 23:14 Ketorolac Tromethamine (Toradol 30mg) 30 mg Q6H PRN IV Severe Pain (Pain Scale 7-10) 09/29/17 02:00 10/04/17 01:59 09/29/17 04:51 Oseltamivir Phosphate (Tamiflu) 75 mg TWICE A DAY ORAL 09/29/17 16:00 10/04/17 15:59 09/30/17 17:06 Piperacillin Sod/ Tazobactam Sod 3.375 gm/Sodium Chloride 110 ml @ 27.5 mls/hr Q8H IVPB 09/29/17 06:00 10/06/17 05:59 10/01/17 06:01 Vancomycin HCl (Vanco rx to dose) 1 ea DAILY PRN MISC Per rx protocol 09/29/17 02:00 10/29/17 01:59 Vancomycin/Sodium Chloride 250 ml @ 166.667 mls/hr Q8HR@0200,1000,1800 IVPB 10/01/17 02:00 10/06/17 01:59 10/01/17 02:24 JACQUELIN SHAH M.D. Oct 01, 2017 08:36
[2017-10-01] MEDS: Oseltamivir 75mg cap ORAL SCH ×2 (09:40→17:22)
[2017-10-01] MEDS: Heparin 5000 units/ml inj SUBQ SCH ×2 (09:42→21:16)
[2017-10-01] MEDS: Ketorolac 30mg Inj IV PRN ×2 (09:45→21:14)
--- NOTE | 2017-10-01 10:50 | Diagnostic Imaging Report ---
Indication: Shortness of breath Technique: One view of the chest Comparison: 09/30/2017 Findings: Bilateral moderate to large pleural effusions and extensive bilateral interstitial and airspace disease persists, unchanged. The heart size is normal Impression: Unchanged, over one day, findings as above.
--- NOTE | 2017-10-01 11:48 | Infectious Diseases Prog Note ---
Assessment/Plan Assessment/Plan Abx: Zosyn 09/29- IV Vancomycin 09/29- Ceftriaxone x1 09/28 Azithromycin x1 09/28 Assessment: Neutropenic fever- ? cause of neutropenia; neutropenia resolved. Suspect probably Influenza (despite neg screen test) with myelosuppression and superimposed MRSA PNA. Do not believe leukopenia was abx related as this was present on admission. -CT chest: Dense consolidations with air bronchograms involving the bilateral lower lobes and to a lesser extent the bilateral upper lobes and right middle lobe. Small bilateral pleural effusions. Findings are compatible with but not specific for pneumonia. Follow-up recommended for further evaluation. -s/p Neupogen -Bcx NTD -sp cx MRSA ( S vanco, tetracycline, bactrim) -HIV screen, acute hep panel neg Flu like symptoms -influenza sc neg Neck pain; resolved -xray neck: Epiglottis is grossly unremarkable. Airway is patent. Prevertebral soft tissues are within normal limits. Osseous structures are unremarkable. Acute respiratroy distress on NRB Hemoptysis Rash- ? viral vs fungal hx of anorexia Plan: -Continue IV Vancomycin #/ for MRSA PNA -D/c Zosyn #3 -Continue azithromycin #4/5-7 pending legionella ag urine -Empiric Tamiflu #/5-7 for suspect flu -Add Fluconazole for fungal coverage given characteristic of rash (Could be fungal) -f/u influenza PCR, cocci ab, CrAg, fungitell, HIV VL, sp culture ( fungal, legionella), legionella ag urine -f/u cx -Monitor CBC/BMP, temperatures -heme onc eval f/u -droplets precautions -resp support Thank you for this consultation. Will continue to follow along with you. Discussed with RN. Subjective Allergies: Coded Allergies: No Known Allergies (Unverified , 09/28/17) Subjective afebrile in 48hrs leukopenia improving, no cbc today sp cx grew MRSA Objective Vital Signs Last 24 Hour Vital Signs Date Time Temp Pulse Resp B/P (MAP) Pulse Ox O2 Delivery O2 Flow Rate FiO2 10/01/17 10:15 99.4 10/01/17 09:45 99.4 10/01/17 09:10 100 Non-Rebreather 15.0 100 10/01/17 09:10 Non-Rebreather 15.0 100 10/01/17 09:10 101 16 Non-Rebreather 15.0 100 10/01/17 08:00 99.4 106 36 119/84 100 Non-Rebreather 15.0 100 99.4 10/01/17 07:57 104 10/01/17 04:00 88 10/01/17 04:00 97.5 100 20 103/65 100 Non-Rebreather 15.0 100 97.5 10/01/17 00:00 101 10/01/17 00:00 97.7 102 21 103/65 100 Non-Rebreather 15.0 100 97.7 09/30/17 23:06 97.7 09/30/17 20:00 97.2 103 20 100/74 100 Non-Rebreather 15.0 100 97.2 09/30/17 20:00 101 09/30/17 16:00 116 09/30/17 16:00 97.7 107 24 97/68 100 Non-Rebreather 15.0 100 97.7 09/30/17 14:03 98.7 99 24 90/60 100 Non-Rebreather 15.0 100 98.7 09/30/17 12:00 99.9 98 24 89/60 100 Non-Rebreather 15.0 100 99.9 09/30/17 12:00 109 Height (Feet): 5 Height (Inches): 2.00 Weight (Pounds): 90 Objective General Appearance: ill appearing, weak HEENT: normocephalic, atraumatic, PERRL, normal oropharynx Neck: full range of motion, supple Respiratory: no rhonchi, no respiratory distress, no accessory muscle use, no wheezing, speaking full sentences, other - chest TTP Cardiovascular regular rate, rhythm, no edema Genitourinary: no CVA tenderness Musculoskeletal: back normal, digits/nails normal, gait/station normal, normal range of motion, non-tender Neurologic: alert, oriented x3, responsive, motor strength/tone normal, sensory intact Skin: rash - blanching, erythematous, rasied, diffuse over back and extemities Lymphatic: no adenopathy Microbiology Date/Time Source Procedure Growth Status 09/28/17 22:30 Blood Blood Culture - Preliminary NO GROWTH AFTER 48 HOURS Resulted 09/28/17 22:15 Blood Blood Culture - Preliminary NO GROWTH AFTER 48 HOURS Resulted 09/29/17 02:20 Sputum Gram Stain - Final Complete 09/29/17 02:20 Sputum Culture - Final Staphylococcus Aureus Complete 09/28/17 18:31 Nasal Nares Influenza Types A,B Antigen (ZENON) - Final Complete Laboratory Tests Test 09/30/17 15:15 10/01/17 06:00 10/01/17 08:55 Vancomycin Level Trough 4.2 ug/mL (5.0-12.0) L Sodium Level 133 MMOL/L (136-145) L Potassium Level 3.2 MMOL/L (3.5-5.1) L Chloride Level 101 MMOL/L (98-107) Carbon Dioxide Level 25 MMOL/L (21-32) Anion Gap 7 mmol/L (5-15) Blood Urea Nitrogen 7 mg/dL (7-18) Creatinine 0.5 MG/DL (0.55-1.30) L Estimat Glomerular Filtration Rate > 60 mL/min (>60) Glucose Level 105 MG/DL (74-106) Calcium Level 7.4 MG/DL (8.5-10.1) L TB Test (T-Spot) Pending TB Test Nil Control (T-Spot) Pending TB Test Panel A (T-Spot) Pending TB Test Panel B (T-Spot) Pending TB Test Positive Control (T-Spot) Pending Arterial Blood pH 7.451 (7.350-7.450) Arterial Blood Partial Pressure CO2 32.0 mmHg (35.0-45.0) L Arterial Blood Partial Pressure O2 233.3 mmHg (75.0-100.0) H Arterial Blood HCO3 21.8 mmol/L (22.0-26.0) L Arterial Blood Oxygen Saturation 98.8 % (92.0-98.0) H Arterial Blood Base Excess -1.6 Stuart Test Positive Current Medications Medications (Trade) Dose Ordered Sig/Annie Route PRN Reason Start Time Stop Time Status Last Admin Dose Admin Acetaminophen (Tylenol) 650 mg Q4H PRN ORAL T>100.5/Headache/Mild Pain 09/30/17 14:00 10/29/17 01:59 09/30/17 23:06 Albuterol/ Ipratropium (Albuterol/ Ipratropium) 3 ml Q4H PRN HHN Shortness of Breath 09/29/17 02:00 10/04/17 01:59 Azithromycin 500 mg/Dextrose 275 ml @ 275 mls/hr Q24HRS IV 09/30/17 23:00 10/06/17 23:59 09/30/17 23:11 Famotidine (Pepcid I.v.) 20 mg Q12HR IVP 09/30/17 10:00 10/30/17 09:59 10/01/17 09:40 Heparin Sodium (Porcine) (Heparin 5000 units/ml) 5,000 units EVERY 12 HOURS SUBQ 09/29/17 21:00 10/29/17 20:59 10/01/17 09:42 Ketorolac Tromethamine (Toradol 30mg) 30 mg Q6H PRN IV Severe Pain (Pain Scale 7-10) 09/29/17 02:00 10/04/17 01:59 10/01/17 09:45 Oseltamivir Phosphate (Tamiflu) 75 mg TWICE A DAY ORAL 09/29/17 16:00 10/04/17 15:59 10/01/17 09:40 Piperacillin Sod/ Tazobactam Sod 3.375 gm/Sodium Chloride 110 ml @ 27.5 mls/hr Q8H IVPB 09/29/17 06:00 10/06/17 05:59 10/01/17 06:01 Vancomycin HCl (Vanco rx to dose) 1 ea DAILY PRN MISC Per rx protocol 09/29/17 02:00 10/29/17 01:59 Vancomycin/Sodium Chloride 250 ml @ 166.667 mls/hr Q8HR@0200,1000,1800 IVPB 10/01/17 02:00 10/06/17 01:59 10/01/17 09:56 Araceli Kenyon M.D. Oct 01, 2017 11:48
[2017-10-01 12:00] VITALS: BP 109/76
[2017-10-01] MEDS ORDERED: Fluconazole 100mg tab ORAL SCH (12:00)
--- NOTE | 2017-10-01 12:01 | Internal Med Progress Note ---
Subjective Date of Service: Oct 01, 2017 Physician Name Isamar Rendon Attending Physician Aishwarya Tirado MD Current Medications Medications (Trade) Dose Ordered Sig/Annie Route PRN Reason Start Time Stop Time Status Last Admin Dose Admin Acetaminophen (Tylenol) 650 mg Q4H PRN ORAL T>100.5/Headache/Mild Pain 09/30/17 14:00 10/29/17 01:59 09/30/17 23:06 Albuterol/ Ipratropium (Albuterol/ Ipratropium) 3 ml Q4H PRN HHN Shortness of Breath 09/29/17 02:00 10/04/17 01:59 Azithromycin 500 mg/Dextrose 275 ml @ 275 mls/hr Q24HRS IV 09/30/17 23:00 10/06/17 23:59 09/30/17 23:11 Famotidine (Pepcid I.v.) 20 mg Q12HR IVP 09/30/17 10:00 10/30/17 09:59 10/01/17 09:40 Fluconazole (Diflucan) 400 mg DAILY ORAL 10/01/17 12:00 10/08/17 11:59 Heparin Sodium (Porcine) (Heparin 5000 units/ml) 5,000 units EVERY 12 HOURS SUBQ 09/29/17 21:00 10/29/17 20:59 10/01/17 09:42 Ketorolac Tromethamine (Toradol 30mg) 30 mg Q6H PRN IV Severe Pain (Pain Scale 7-10) 09/29/17 02:00 10/04/17 01:59 10/01/17 09:45 Oseltamivir Phosphate (Tamiflu) 75 mg TWICE A DAY ORAL 09/29/17 16:00 10/04/17 15:59 10/01/17 09:40 Vancomycin HCl (Vanco rx to dose) 1 ea DAILY PRN MISC Per rx protocol 09/29/17 02:00 10/29/17 01:59 Vancomycin/Sodium Chloride 250 ml @ 166.667 mls/hr Q8HR@0200,1000,1800 IVPB 10/01/17 02:00 10/06/17 01:59 10/01/17 09:56 Allergies: Coded Allergies: No Known Allergies (Unverified , 09/28/17) ROS Limited/Unobtainable: Yes Subjective 37 YO F admitted with shortness of breath. Now pneumonia and respiratory failure. Cover for Int Thomas-Dr Tirado. On non rebreather mask. DELILAH Objective Last Vital Signs Date Time Temp Pulse Resp B/P (MAP) Pulse Ox O2 Delivery O2 Flow Rate FiO2 10/01/17 10:15 99.4 10/01/17 09:10 100 Non-Rebreather 15.0 100 10/01/17 09:10 101 16 10/01/17 08:00 119/84 General Appearance: alert, moderate distress, thin EENT: PERRL/EOMI, normal ENT inspection Neck: non-tender, normal alignment, supple, normal inspection Cardiovascular: normal peripheral pulses, normal rate, regular rhythm, no gallop/murmur, no JVD Respiratory/Chest: respiratory distress, accessory muscle use, crackles/rales, rhonchi - bilaterally, expiratory wheezing Abdomen: normal bowel sounds, non tender, soft, no organomegaly, no mass Extremities: normal range of motion, non-tender Neurologic: flour blender II-XII grossly normal, no motor/sensory deficits Skin: normal pigmentation, warm/dry Laboratory Tests Test 09/30/17 15:15 10/01/17 06:00 10/01/17 08:55 Vancomycin Level Trough 4.2 ug/mL (5.0-12.0) L Sodium Level 133 MMOL/L (136-145) L Potassium Level 3.2 MMOL/L (3.5-5.1) L Chloride Level 101 MMOL/L (98-107) Carbon Dioxide Level 25 MMOL/L (21-32) Anion Gap 7 mmol/L (5-15) Blood Urea Nitrogen 7 mg/dL (7-18) Creatinine 0.5 MG/DL (0.55-1.30) L Estimat Glomerular Filtration Rate > 60 mL/min (>60) Glucose Level 105 MG/DL (74-106) Calcium Level 7.4 MG/DL (8.5-10.1) L TB Test (T-Spot) Pending TB Test Nil Control (T-Spot) Pending TB Test Panel A (T-Spot) Pending TB Test Panel B (T-Spot) Pending TB Test Positive Control (T-Spot) Pending Arterial Blood pH 7.451 (7.350-7.450) Arterial Blood Partial Pressure CO2 32.0 mmHg (35.0-45.0) L Arterial Blood Partial Pressure O2 233.3 mmHg (75.0-100.0) H Arterial Blood HCO3 21.8 mmol/L (22.0-26.0) L Arterial Blood Oxygen Saturation 98.8 % (92.0-98.0) H Arterial Blood Base Excess -1.6 Stuart Test Positive Microbiology Date/Time Source Procedure Growth Status 09/28/17 22:30 Blood Blood Culture - Preliminary NO GROWTH AFTER 48 HOURS Resulted 09/28/17 22:15 Blood Blood Culture - Preliminary NO GROWTH AFTER 48 HOURS Resulted 09/29/17 02:20 Sputum Gram Stain - Final Complete 09/29/17 02:20 Sputum Culture - Final Staphylococcus Aureus Complete 09/28/17 18:31 Nasal Nares Influenza Types A,B Antigen (ZENON) - Final Complete Intake and Output 09/30/17 10/01/17 19:00 07:00 Intake Total 578.5 ml Balance 578.5 ml IV Total 578.5 ml # Voids 1 1 # Bowel Movements 3 Assessment/Plan Problem List: (1) Anorexia (2) Atypical pneumonia Assessment & Plan: Continue zosyn and vanco. See pulmonary note. (3) Hypoxia Assessment & Plan: Currently on non rebreather mask (4) Leukopenia Assessment & Plan: See heme note. Continue nupogen (5) Community acquired pneumonia Assessment & Plan: Continue zosyn, azithro and vanco per ID (6) Rash and nonspecific skin eruption Assessment & Plan: ?viral exanthem?-see ID note. Status: not improved ISAMAR RENDON Oct 01, 2017 12:01
[2017-10-01 16:00] VITALS: BP 123/83
--- NOTE | 2017-10-01 19:19 | Cardiology Report ---
APPROVED REPORT EKG Measurement Heart [id number] Sinus tachycardia Low voltage QRS Borderline ECG
[2017-10-01 20:00] VITALS: BP 112/79
[2017-10-01] MEDS: Zolpidem 5mg tab ORAL PRN (21:13)
[2017-10-01] MEDS: Azithromycin 500 MG in D5W 275 ML IV SCH (23:29)
--- NOTE | 2017-10-01 23:39 | Cardiology Progress Note ---
Assessment/Plan Assessment/Plan 1. Sinus tachycardia, resolved, likely due to hypoxemia and bilateral pneumonia , continue normal saline, antipyretic medication, and IV antibiotics. 2. Non-cardiac chest pain, most likely pleurisy/PNA. 3. Anorexia Nervosa Subjective Subjective Sinus rhythm at 88. On non-rebreather mask. Objective Last 24 Hour Vital Signs Date Time Temp Pulse Resp B/P (MAP) Pulse Ox O2 Delivery O2 Flow Rate FiO2 10/01/17 20:00 92 10/01/17 20:00 98.1 85 26 112/79 100 Non-Rebreather 15.0 100 98.1 10/01/17 16:00 98.2 82 28 123/83 100 Non-Rebreather 15.0 100 98.2 10/01/17 15:14 89 10/01/17 12:00 99.4 93 34 109/76 100 Non-Rebreather 15.0 100 99.4 10/01/17 11:52 88 10/01/17 10:15 99.4 10/01/17 09:45 99.4 10/01/17 09:10 100 Non-Rebreather 15.0 100 10/01/17 09:10 Non-Rebreather 15.0 100 10/01/17 09:10 101 16 Non-Rebreather 15.0 100 10/01/17 08:00 99.4 106 36 119/84 100 Non-Rebreather 15.0 100 99.4 10/01/17 07:57 104 10/01/17 04:00 88 10/01/17 04:00 97.5 100 20 103/65 100 Non-Rebreather 15.0 100 97.5 10/01/17 00:00 101 10/01/17 00:00 97.7 102 21 103/65 100 Non-Rebreather 15.0 100 97.7 Intake and Output 09/30/17 10/01/17 19:00 07:00 Intake Total 578.5 ml Balance 578.5 ml IV Total 578.5 ml # Voids 1 1 # Bowel Movements 3 Laboratory Tests Test 10/01/17 06:00 10/01/17 08:55 10/01/17 17:00 Sodium Level 133 MMOL/L (136-145) L Potassium Level 3.2 MMOL/L (3.5-5.1) L Chloride Level 101 MMOL/L (98-107) Carbon Dioxide Level 25 MMOL/L (21-32) Anion Gap 7 mmol/L (5-15) Blood Urea Nitrogen 7 mg/dL (7-18) Creatinine 0.5 MG/DL (0.55-1.30) L Estimat Glomerular Filtration Rate > 60 mL/min (>60) Glucose Level 105 MG/DL (74-106) Calcium Level 7.4 MG/DL (8.5-10.1) L TB Test (T-Spot) Pending TB Test Nil Control (T-Spot) Pending TB Test Panel A (T-Spot) Pending TB Test Panel B (T-Spot) Pending TB Test Positive Control (T-Spot) Pending Arterial Blood pH 7.451 (7.350-7.450) Arterial Blood Partial Pressure CO2 32.0 mmHg (35.0-45.0) L Arterial Blood Partial Pressure O2 233.3 mmHg (75.0-100.0) H Arterial Blood HCO3 21.8 mmol/L (22.0-26.0) L Arterial Blood Oxygen Saturation 98.8 % (92.0-98.0) H Arterial Blood Base Excess -1.6 Stuart Test Positive Vancomycin Level Trough 19.9 ug/mL (5.0-12.0) H Microbiology Date/Time Source Procedure Growth Status 09/30/17 08:00 Sputum AFB Specimen Processing Tissue - Final Resulted 09/30/17 08:00 Sputum Acid Fast Bacilli Smear - Final Resulted 09/30/17 08:00 Sputum Acid Fast Bacilli Culture Pending Resulted 09/29/17 02:20 Sputum Gram Stain - Final Complete 09/29/17 02:20 Sputum Culture - Final Staphylococcus Aureus Complete Objective HEENT: Atraumatic and normocephalic. Anicteric. Hair loss is seen. Pupils are equal, round, and reactive to light and accommodation. Extraocular muscles intact. NECK: JVP is less than 5 cm. No carotid bruit. Carotid upstrokes 2+ bilaterally. CARDIOVASCULAR: Normal S1 and S2. Regular rate and rhythm. No murmurs, gallops, or rubs. PMI is at fourth intercostal space in the midclavicular line. LUNGS: Diminished breath sounds in both bases with presence of crackles bilaterally. ABDOMEN: Soft, nontender, and nondistended. No hepatosplenomegaly. Positive bowel sounds. EXTREMITIES: Muscle wasting throughout. The presence of blanching rash over both limbs. No edema, clubbing, or cyanosis. GLORIA PELAEZ Oct 01, 2017 23:39
[2017-10-02] VITALS: BP 113/84
[2017-10-02] MEDS: Vancomycin 750mg/NS 250ml IVPB SCH ×3 (01:30→17:23)
--- NOTE | 2017-10-02 01:30 | General Progress Note ---
Assessment/Plan Assessment/Plan 1. Leukopenia severe, potentially related to underlying medication. --> The patient is on vancomycin. The patient is on Zosyn as well and potentially secondary to infection, therefore continue to monitor. --> Continue to monitor WBC. Cause is likely multifactorial. --> At this time, I administered Neupogen to maintain ANC above 1000. I appreciate ID recommendations. --> Improved from yesterday. 2. Anemia due to underlying chronic disease. Closely monitor. 3. Pneumonia. We will trace an infection. She is on broad-spectrum antibiotics , vancomycin and Zosyn. 4. Acute respiratory failure. Adjust oxygen as needed. The patient is currently NPO. 5. Hemoptysis, rule out tuberculosis. 6. Neutropenic precautions. Subjective Date patient seen: Oct 01, 2017 Constitutional: Denies: no symptoms, chills, diaphoresis, fever, malaise, weakness, other HEENT: Denies: no symptoms, eye pain, blurred vision, tearing, double vision, ear pain, ear discharge, nose pain, nose congestion, throat pain, throat swelling, mouth pain, mouth swelling, other Cardiovascular: Denies: no symptoms, chest pain, edema, irregular heart rate, lightheadedness, palpitations, syncope, other Respiratory: Denies: no symptoms, cough, orthopnea, shortness of breath, SOB with excertion, SOB at rest, sputum, stridor, wheezing, other Gastrointestinal/Abdominal: Denies: no symptoms, abdomen distended, abdominal pain, black stools, tarry stools, blood in stool, constipated, diarrhea, difficulty swallowing, nausea, poor appetite, poor fluid intake, rectal bleeding , vomiting, other Genitourinary: Denies: no symptoms, burning, discharge, frequency, flank pain, hematuria, incontinence, pain, urgency, other Neurologic/Psychiatric: Denies: no symptoms, anxiety, depressed, emotional problems, headache, numbness, paresthesia, pre-existing deficit, seizure, tingling, tremors, weakness, other Hematologic/Lymphatic: Reports: anemia Allergies: Coded Allergies: No Known Allergies (Unverified , 09/28/17) Subjective Low wbc count improving. H/H stable. Objective Last 24 Hour Vital Signs Date Time Temp Pulse Resp B/P (MAP) Pulse Ox O2 Delivery O2 Flow Rate FiO2 10/02/17 00:00 98.1 84 24 113/84 100 Non-Rebreather 15.0 100 98.1 10/01/17 20:00 92 10/01/17 20:00 98.1 85 26 112/79 100 Non-Rebreather 15.0 100 98.1 10/01/17 16:00 98.2 82 28 123/83 100 Non-Rebreather 15.0 100 98.2 10/01/17 15:14 89 10/01/17 12:00 99.4 93 34 109/76 100 Non-Rebreather 15.0 100 99.4 10/01/17 11:52 88 10/01/17 10:15 99.4 10/01/17 09:45 99.4 10/01/17 09:10 100 Non-Rebreather 15.0 100 10/01/17 09:10 Non-Rebreather 15.0 100 10/01/17 09:10 101 16 Non-Rebreather 15.0 100 10/01/17 08:00 99.4 106 36 119/84 100 Non-Rebreather 15.0 100 99.4 10/01/17 07:57 104 10/01/17 04:00 88 10/01/17 04:00 97.5 100 20 103/65 100 Non-Rebreather 15.0 100 97.5 Intake and Output 10/01/17 10/02/17 19:00 07:00 Intake Total 443.334 ml 608.334 ml Balance 443.334 ml 608.334 ml IV Total 443.334 ml 608.334 ml # Voids 2 # Bowel Movements 1 Laboratory Tests 10/01/17 06:00: Sodium Level 133L, Potassium Level 3.2L, Chloride Level 101, Carbon Dioxide Level 25, Anion Gap 7, Blood Urea Nitrogen 7, Creatinine 0.5L, Estimat Glomerular Filtration Rate > 60, Glucose Level 105, Calcium Level 7.4L, TB Test (T-Spot) [Pending], TB Test Nil Control (T-Spot) [Pending], TB Test Panel A (T- Spot) [Pending], TB Test Panel B (T-Spot) [Pending], TB Test Positive Control (T -Spot) [Pending] 10/01/17 08:55: Arterial Blood pH 7.451H, Arterial Blood Partial Pressure CO2 32.0L, Arterial Blood Partial Pressure O2 233.3H, Arterial Blood HCO3 21.8L, Arterial Blood Oxygen Saturation 98.8H, Arterial Blood Base Excess -1.6, Stuart Test Positive 10/01/17 17:00: Vancomycin Level Trough 19.9H Height (Feet): 5 Height (Inches): 2.00 Weight (Pounds): 90 Respiratory/Chest: decreased breath sounds Edema: trace edema Bhargav Wilburn MD Oct 02, 2017 01:30
[2017-10-02 04:00] VITALS: BP 113/89
[2017-10-02 05:50] LABS: HEMATOCRIT 30.2 % (37.0-47.0); HEMOGLOBIN 10.5 G/DL (12.0-16.0); MEAN CORPUSCULAR VOLUME 92 FL (80-99); PLATELET COUNT 220 K/UL (150-450); RED BLOOD COUNT 3.28 M/UL (4.20-5.40); WHITE BLOOD COUNT 6.8 K/UL (4.8-10.8)
[2017-10-02 06:07] LABS: ALANINE AMINOTRANSFERASE 16 U/L (12-78); ALBUMIN 1.5 G/DL (3.4-5.0); ALBUMIN/GLOBULIN RATIO 0.4 (1.0-2.7); ALKALINE PHOSPHATASE 32 U/L (46-116); ANION GAP 11 mmol/L (5-15); ASPARTATE AMINO TRANSFERASE 14 U/L (15-37); BILIRUBIN,TOTAL 0.4 MG/DL (0.2-1.0); BLOOD UREA NITROGEN 11 mg/dL (7-18); CALCIUM 7.1 MG/DL (8.5-10.1); CARBON DIOXIDE 20 MMOL/L (21-32); CHLORIDE 103 MMOL/L (98-107); CREATININE 0.7 MG/DL (0.55-1.30); POTASSIUM 3.5 MMOL/L (3.5-5.1); SODIUM 134 MMOL/L (136-145)
--- NOTE | 2017-10-02 07:27 | General Progress Note ---
Assessment/Plan Status: stable Assessment/Plan 1. Sepsis 2. Pneumonia, HCA, typical vs atypical 3. Abn troponin: unlikely related to ACS 4. Neutropenia: on Isolation , improving 5. Cachexia 6. History of anorexia. 7. GI, DVT prophylaxis Plan: Continuation of isolation at Pulmonary discretion current management Medically stable to transfer to [facility] on isolation Subjective ROS Limited/Unobtainable: No Constitutional: Reports: malaise HEENT: Reports: no symptoms Respiratory: Reports: shortness of breath Allergies: Coded Allergies: No Known Allergies (Unverified , 09/28/17) Objective Last 24 Hour Vital Signs Date Time Temp Pulse Resp B/P (MAP) Pulse Ox O2 Delivery O2 Flow Rate FiO2 10/02/17 04:00 98.3 83 22 113/89 100 Non-Rebreather 15.0 100 98.3 10/02/17 04:00 86 10/02/17 00:00 98.1 84 24 113/84 100 Non-Rebreather 15.0 100 98.1 10/02/17 00:00 79 10/01/17 20:00 92 10/01/17 20:00 98.1 85 26 112/79 100 Non-Rebreather 15.0 100 98.1 10/01/17 16:00 98.2 82 28 123/83 100 Non-Rebreather 15.0 100 98.2 10/01/17 15:14 89 10/01/17 12:00 99.4 93 34 109/76 100 Non-Rebreather 15.0 100 99.4 10/01/17 11:52 88 10/01/17 10:15 99.4 10/01/17 09:45 99.4 10/01/17 09:10 100 Non-Rebreather 15.0 100 10/01/17 09:10 Non-Rebreather 15.0 100 10/01/17 09:10 101 16 Non-Rebreather 15.0 100 10/01/17 08:00 99.4 106 36 119/84 100 Non-Rebreather 15.0 100 99.4 10/01/17 07:57 104 Intake and Output 10/01/17 10/02/17 19:00 07:00 Intake Total 443.334 ml 941.668 ml Balance 443.334 ml 941.668 ml IV Total 443.334 ml 941.668 ml # Voids 2 2 # Bowel Movements 1 Laboratory Tests 10/01/17 08:55: Arterial Blood pH 7.451H, Arterial Blood Partial Pressure CO2 32.0L, Arterial Blood Partial Pressure O2 233.3H, Arterial Blood HCO3 21.8L, Arterial Blood Oxygen Saturation 98.8H, Arterial Blood Base Excess -1.6, Stuart Test Positive 10/01/17 17:00: Vancomycin Level Trough 19.9H 10/02/17 05:30: White Blood Count 6.8, Red Blood Count 3.28L, Hemoglobin 10.5L, Hematocrit 30.2L , Mean Corpuscular Volume 92, Mean Corpuscular Hemoglobin 32.0H, Mean Corpuscular Hemoglobin Concent 34.7, Red Cell Distribution Width 11.0L, Platelet Count 220, Mean Platelet Volume 5.9L, Neutrophils (%) (Auto) , Lymphocytes (%) (Auto) , Monocytes (%) (Auto) , Eosinophils (%) (Auto) , Basophils (%) (Auto) , Neutrophils % (Manual) [Pending], Lymphocytes % (Manual) [Pending], Platelet Estimate [Pending], Platelet Morphology [Pending], Sodium Level 134L, Potassium Level 3.5, Chloride Level 103, Carbon Dioxide Level 20L, Anion Gap 11, Blood Urea Nitrogen 11, Creatinine 0.7, Estimat Glomerular Filtration Rate > 60, Glucose Level 87, Calcium Level 7.1L, Total Bilirubin 0.4 , Aspartate Amino Transf (AST/SGOT) 14L, Alanine Aminotransferase (ALT/SGPT) 16 , Alkaline Phosphatase 32L, Total Protein 4.9L, Albumin 1.5L, Globulin 3.4, Albumin/Globulin Ratio 0.4L Height (Feet): 5 Height (Inches): 2.00 Weight (Pounds): 90 General Appearance: WD/WN EENT: PERRL/EOMI Neck: supple Cardiovascular: tachycardia Respiratory/Chest: crackles/rales, rhonchi - bilaterally Abdomen: soft Extremities: non-tender, other - cachechtic extremities 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
[2017-10-02 08:00] VITALS: BP 113/82
[2017-10-02] MEDS: Oseltamivir 75mg cap ORAL SCH ×2 (09:03→17:22)
[2017-10-02] MEDS: Heparin 5000 units/ml inj SUBQ SCH ×3 (09:06→20:55)
--- NOTE | 2017-10-02 11:24 | Infectious Diseases Prog Note ---
Assessment/Plan Assessment/Plan Assessment: Neutropenic fever-resolved. Suspect probably Influenza (despite neg screen test ) with myelosuppression and superimposed MRSA PNA. Do not believe leukopenia was abx related as this was present on admission. -CT chest: Dense consolidations with air bronchograms involving the bilateral lower lobes and to a lesser extent the bilateral upper lobes and right middle lobe. Small bilateral pleural effusions. Findings are compatible with but not specific for pneumonia. Follow-up recommended for further evaluation. -s/p Neupogen -Bcx NTD -sp cx MRSA ( S vanco, tetracycline, bactrim) -HIV screen, acute hep panel neg Flu like symptoms -influenza sc neg Neck pain; resolved -xray neck: Epiglottis is grossly unremarkable. Airway is patent. Prevertebral soft tissues are within normal limits. Osseous structures are unremarkable. Acute respiratroy distress on NRB Hemoptysis- likely 2ry to MRSA PNA; low suspicion for TB given acuity of symptoms and alternative diagnosis Rash- resolved- suspect was viral exanthem. She also received 1 dose fo Decadron 2mg IV on 09/30 ( no new meds; only med as her maintance Lexapro; rash present upon admission) hx of anorexia Plan: -Continue IV Vancomycin #10/20 for MRSA PNA -would not be able to do PO Linezolid as she is on an SSRI -10/01 SP Zosyn #3 -09/28 SP ceftriaxone x1 -Continue azithromycin #/-7 pending legionella ag urine -Empiric Tamiflu #4/5-7 for suspected flu -f/u influenza PCR, cocci ab, CrAg, fungitell, HIV VL, sp culture ( fungal, legionella), legionella ag urine -f/u cx -Monitor CBC/BMP, temperatures -heme onc eval f/u -droplets precautions -resp support -TB eval and airborne precautions per primary team -add MTB PCR Thank you for this consultation. Will continue to follow along with you. Discussed with RN. Subjective Allergies: Coded Allergies: No Known Allergies (Unverified , 09/28/17) Subjective afebrile in 72hrs leukopenia resolved AFB cx and airbone isolation intiated by primary team Bcx NTD Objective Vital Signs Last 24 Hour Vital Signs Date Time Temp Pulse Resp B/P (MAP) Pulse Ox O2 Delivery O2 Flow Rate FiO2 10/02/17 08:00 90 10/02/17 08:00 97.9 97 31 113/82 92 Non-Rebreather 15.0 100 97.9 10/02/17 07:10 95 Non-Rebreather 15.0 100 10/02/17 07:10 97 16 Non-Rebreather 15.0 100 10/02/17 07:10 Non-Rebreather 15.0 100 10/02/17 04:00 98.3 83 22 113/89 100 Non-Rebreather 15.0 100 98.3 10/02/17 04:00 86 10/02/17 00:00 98.1 84 24 113/84 100 Non-Rebreather 15.0 100 98.1 10/02/17 00:00 79 10/01/17 20:00 92 10/01/17 20:00 98.1 85 26 112/79 100 Non-Rebreather 15.0 100 98.1 10/01/17 16:00 98.2 82 28 123/83 100 Non-Rebreather 15.0 100 98.2 10/01/17 15:14 89 10/01/17 12:00 99.4 93 34 109/76 100 Non-Rebreather 15.0 100 99.4 10/01/17 11:52 88 Height (Feet): 5 Height (Inches): 2.00 Weight (Pounds): 90 Objective General Appearance: ill appearing, weak HEENT: normocephalic, atraumatic, PERRL, normal oropharynx Neck: full range of motion, supple Respiratory: no rhonchi, no respiratory distress, no accessory muscle use, no wheezing, speaking full sentences, other - chest TTP Cardiovascular regular rate, rhythm, no edema Genitourinary: no CVA tenderness Musculoskeletal: back normal, digits/nails normal, gait/station normal, normal range of motion, non-tender Neurologic: alert, oriented x3, responsive, motor strength/tone normal, sensory intact Skin: rash - blanching, erythematous, rasied, diffuse over back and extemities Lymphatic: no adenopathy Microbiology Date/Time Source Procedure Growth Status 09/30/17 08:00 Sputum AFB Specimen Processing Tissue - Final Resulted 09/30/17 08:00 Sputum Acid Fast Bacilli Smear - Final Resulted 09/30/17 08:00 Sputum Acid Fast Bacilli Culture Pending Resulted Laboratory Tests Test 10/01/17 17:00 10/02/17 05:30 Vancomycin Level Trough 19.9 ug/mL (5.0-12.0) H White Blood Count 6.8 K/UL (4.8-10.8) Red Blood Count 3.28 M/UL (4.20-5.40) L Hemoglobin 10.5 G/DL (12.0-16.0) L Hematocrit 30.2 % (37.0-47.0) L Mean Corpuscular Volume 92 FL (80-99) Mean Corpuscular Hemoglobin 32.0 PG (27.0-31.0) H Mean Corpuscular Hemoglobin Concent 34.7 G/DL (32.0-36.0) Red Cell Distribution Width 11.0 % (11.6-14.8) L Platelet Count 220 K/UL (150-450) Mean Platelet Volume 5.9 FL (6.5-10.1) L Neutrophils (%) (Auto) % (45.0-75.0) Lymphocytes (%) (Auto) % (20.0-45.0) Monocytes (%) (Auto) % (1.0-10.0) Eosinophils (%) (Auto) % (0.0-3.0) Basophils (%) (Auto) % (0.0-2.0) Differential Total Cells Counted 100 Neutrophils % (Manual) 78 % (45-75) H Lymphocytes % (Manual) 10 % (20-45) L Monocytes % (Manual) 6 % (1-10) Eosinophils % (Manual) 1 % (0-3) Basophils % (Manual) 0 % (0-2) Band Neutrophils 5 % (0-8) Platelet Estimate Adequate Platelet Morphology Normal Sodium Level 134 MMOL/L (136-145) L Potassium Level 3.5 MMOL/L (3.5-5.1) Chloride Level 103 MMOL/L (98-107) Carbon Dioxide Level 20 MMOL/L (21-32) L Anion Gap 11 mmol/L (5-15) Blood Urea Nitrogen 11 mg/dL (7-18) Creatinine 0.7 MG/DL (0.55-1.30) Estimat Glomerular Filtration Rate > 60 mL/min (>60) Glucose Level 87 MG/DL (74-106) Calcium Level 7.1 MG/DL (8.5-10.1) L Total Bilirubin 0.4 MG/DL (0.2-1.0) Aspartate Amino Transf (AST/SGOT) 14 U/L (15-37) L Alanine Aminotransferase (ALT/SGPT) 16 U/L (12-78) Alkaline Phosphatase 32 U/L (46-116) L Total Protein 4.9 G/DL (6.4-8.2) L Albumin 1.5 G/DL (3.4-5.0) L Globulin 3.4 g/dL Albumin/Globulin Ratio 0.4 (1.0-2.7) L Current Medications Medications (Trade) Dose Ordered Sig/Annie Route PRN Reason Start Time Stop Time Status Last Admin Dose Admin Acetaminophen (Tylenol) 650 mg Q4H PRN ORAL T>100.5/Headache/Mild Pain 09/30/17 14:00 10/29/17 01:59 09/30/17 23:06 Albuterol/ Ipratropium (Albuterol/ Ipratropium) 3 ml Q4H PRN HHN Shortness of Breath 09/29/17 02:00 10/04/17 01:59 Azithromycin 500 mg/Dextrose 275 ml @ 275 mls/hr Q24HRS IV 09/30/17 23:00 10/06/17 23:59 10/01/17 23:29 Famotidine (Pepcid I.v.) 20 mg Q12HR IVP 09/30/17 10:00 10/30/17 09:59 10/02/17 09:04 Heparin Sodium (Porcine) (Heparin 5000 units/ml) 5,000 units EVERY 12 HOURS SUBQ 09/29/17 21:00 10/29/17 20:59 10/02/17 09:06 Ketorolac Tromethamine (Toradol 30mg) 30 mg Q6H PRN IV Severe Pain (Pain Scale 7-10) 09/29/17 02:00 10/04/17 01:59 10/01/17 21:14 Oseltamivir Phosphate (Tamiflu) 75 mg TWICE A DAY ORAL 09/29/17 16:00 10/04/17 15:59 10/02/17 09:03 Potassium Chloride (K-Dur) 40 meq DAILY ORAL 10/01/17 13:00 10/31/17 12:59 10/02/17 09:03 Vancomycin HCl (Vanco rx to dose) 1 ea DAILY PRN MISC Per rx protocol 09/29/17 02:00 10/29/17 01:59 Vancomycin/Sodium Chloride 250 ml @ 166.667 mls/hr Q8HR@0200,1000,1800 IVPB 10/01/17 02:00 10/06/17 01:59 10/02/17 09:03 Zolpidem Tartrate (Ambien) 5 mg HSPRN PRN ORAL Insomnia 10/01/17 13:00 10/08/17 12:59 10/01/17 21:13 Araceli Kenyon M.D. Oct 02, 2017 11:24
[2017-10-02 12:00] VITALS: BP 119/87
[2017-10-02] MEDS ORDERED: Azithromycin 250mg tab ORAL SCH (12:00)
--- NOTE | 2017-10-02 13:00 | Pulmonology Progress Note ---
Assessment/Plan Problems: (1) Leukopenia (2) Atypical pneumonia (3) Influenza-like symptoms (4) Rash and nonspecific skin eruption (5) Hypoxia (6) Altered mental status (7) Fever Assessment/Plan -Optimize pulmonary hygiene/mobilize as tolerated -Titrate down FiO2 to keep SaO2 > 90% -Continue RTC and PRN HHN's + CPT + suction patient -Monitor for further hemoptysis -Abx per ID -F/U heme recs, ? BM Bx -F/U Cx's and serologies, R/O TB -F/U TTE -DVT Px: SCD's -Aspiration precautions -Monitor volumes Subjective Allergies: Coded Allergies: No Known Allergies (Unverified , 09/28/17) Subjective AFVSS, 100% on 15L NRBFM, not being titrated Less cough, less SOB, no hemoptysis, getting OOB to commode, no F/C Objective Last 24 Hour Vital Signs Date Time Temp Pulse Resp B/P (MAP) Pulse Ox O2 Delivery O2 Flow Rate FiO2 10/02/17 08:00 90 10/02/17 08:00 97.9 97 31 113/82 92 Non-Rebreather 15.0 100 97.9 10/02/17 07:10 95 Non-Rebreather 15.0 100 10/02/17 07:10 97 16 Non-Rebreather 15.0 100 10/02/17 07:10 Non-Rebreather 15.0 100 10/02/17 04:00 98.3 83 22 113/89 100 Non-Rebreather 15.0 100 98.3 10/02/17 04:00 86 10/02/17 00:00 98.1 84 24 113/84 100 Non-Rebreather 15.0 100 98.1 10/02/17 00:00 79 10/01/17 20:00 92 10/01/17 20:00 98.1 85 26 112/79 100 Non-Rebreather 15.0 100 98.1 10/01/17 16:00 98.2 82 28 123/83 100 Non-Rebreather 15.0 100 98.2 10/01/17 15:14 89 Intake and Output 10/01/17 10/02/17 19:00 07:00 Intake Total 443.334 ml 941.668 ml Balance 443.334 ml 941.668 ml IV Total 443.334 ml 941.668 ml # Voids 2 2 # Bowel Movements 1 General Appearance: WD/WN, no acute distress HEENT: normocephalic, atraumatic, anicteric, mucous membranes moist Respiratory/Chest: rhonchi - scatttered Cardiovascular: normal peripheral pulses, normal rate, regular rhythm Abdomen: normal bowel sounds, soft, non tender, no organomegaly, non distended Extremities: no cyanosis, no clubbing, no edema Microbiology Date/Time Source Procedure Growth Status 09/30/17 08:00 Sputum AFB Specimen Processing Tissue - Final Resulted 09/30/17 08:00 Sputum Acid Fast Bacilli Smear - Final Resulted 09/30/17 08:00 Sputum Acid Fast Bacilli Culture Pending Resulted Laboratory Tests 10/01/17 17:00: Vancomycin Level Trough 19.9H 10/02/17 05:30: White Blood Count 6.8, Red Blood Count 3.28L, Hemoglobin 10.5L, Hematocrit 30.2L , Mean Corpuscular Volume 92, Mean Corpuscular Hemoglobin 32.0H, Mean Corpuscular Hemoglobin Concent 34.7, Red Cell Distribution Width 11.0L, Platelet Count 220, Mean Platelet Volume 5.9L, Neutrophils (%) (Auto) , Lymphocytes (%) (Auto) , Monocytes (%) (Auto) , Eosinophils (%) (Auto) , Basophils (%) (Auto) , Differential Total Cells Counted 100, Neutrophils % ( Manual) 78H, Lymphocytes % (Manual) 10L, Monocytes % (Manual) 6, Eosinophils % ( Manual) 1, Basophils % (Manual) 0, Band Neutrophils 5, Platelet Estimate Adequate, Platelet Morphology Normal, Sodium Level 134L, Potassium Level 3.5, Chloride Level 103, Carbon Dioxide Level 20L, Anion Gap 11, Blood Urea Nitrogen 11, Creatinine 0.7, Estimat Glomerular Filtration Rate > 60, Glucose Level 87, Calcium Level 7.1L, Total Bilirubin 0.4, Aspartate Amino Transf (AST/SGOT) 14L, Alanine Aminotransferase (ALT/SGPT) 16, Alkaline Phosphatase 32L, Total Protein 4.9L, Albumin 1.5L, Globulin 3.4, Albumin/Globulin Ratio 0.4L Current Medications Medications (Trade) Dose Ordered Sig/Annie Route PRN Reason Start Time Stop Time Status Last Admin Dose Admin Acetaminophen (Tylenol) 650 mg Q4H PRN ORAL T>100.5/Headache/Mild Pain 09/30/17 14:00 10/29/17 01:59 09/30/17 23:06 Albuterol/ Ipratropium (Albuterol/ Ipratropium) 3 ml Q4H PRN HHN Shortness of Breath 09/29/17 02:00 10/04/17 01:59 Azithromycin (Zithromax) 500 mg DAILY ORAL 10/02/17 12:00 10/09/17 11:59 10/02/17 12:18 Famotidine (Pepcid I.v.) 20 mg Q12HR IVP 09/30/17 10:00 10/30/17 09:59 10/02/17 09:04 Heparin Sodium (Porcine) (Heparin 5000 units/ml) 5,000 units EVERY 12 HOURS SUBQ 09/29/17 21:00 10/29/17 20:59 10/02/17 09:06 Ketorolac Tromethamine (Toradol 30mg) 30 mg Q6H PRN IV Severe Pain (Pain Scale 7-10) 09/29/17 02:00 10/04/17 01:59 10/01/17 21:14 Oseltamivir Phosphate (Tamiflu) 75 mg TWICE A DAY ORAL 09/29/17 16:00 10/04/17 15:59 10/02/17 09:03 Potassium Chloride (K-Dur) 40 meq DAILY ORAL 10/01/17 13:00 10/31/17 12:59 10/02/17 09:03 Vancomycin HCl (Vanco rx to dose) 1 ea DAILY PRN MISC Per rx protocol 09/29/17 02:00 10/29/17 01:59 Vancomycin/Sodium Chloride 250 ml @ 166.667 mls/hr Q8HR@0200,1000,1800 IVPB 10/01/17 02:00 10/06/17 01:59 10/02/17 09:03 Zolpidem Tartrate (Ambien) 5 mg HSPRN PRN ORAL Insomnia 10/01/17 13:00 10/08/17 12:59 10/01/17 21:13 JACQUELIN SHAH M.D. Oct 02, 2017 13:00
[2017-10-02 16:00] VITALS: BP 106/70
[2017-10-02] MEDS ORDERED: D5W 275ml ONE (16:24)
[2017-10-02] MEDS ORDERED: Tubing IV Secondary IV ONE (16:24)
--- NOTE | 2017-10-02 16:25 | Cardiology Report ---
APPROVED REPORT EXAM: Two-dimensional and M-mode echocardiogram with Doppler and color Doppler. INDICATION Cardiomyopathy M-Mode DIMENSIONS IVSd1.0 (0.7-1.1cm)Left Atrium (MM)2.2 (1.6-4.0cm) LVDd4.0 (3.5-5.6cm)Aortic Root3.3 (2.0-3.7cm) PWd1.0 (0.7-1.1cm)Aortic Cusp Exc.1.9 (1.5-2.0cm) LVDs2.7 (2.5-4.0cm) PWs1.4 cm Other Information Normal left ventricular chamber size, mildly depressed systolic function and wall motion except hypokinesis of mid to distal posterior wall and inferior martin . Left ventricular ejection fraction estimated to be 50-55 %. No evidence of left ventricular hypertrophy. No evidence of pericardial effusion. Possible moderate to large pleural effusion. All other cardiac chamber sizes are within normal limits. Mild focal aortic valve sclerosis with adequate cusp excursion. Mildly thickened mitral valve leaflets with normal excursion. Mild mitral annulus and aortic root calcification. Normal pulmonic valve structure. Normal tricuspid valve structure. IVC at normal size with physiologic collapse. A color flow and spectral Doppler study was performed and revealed: Mild aortic regurgitation. Mild mitral regurgitation. Mitral inflow velocities indicates possible pseudo normalization pattern implying moderately elevated left atrial pressure (Grade II). Mild tricuspid regurgitation. Tricuspid systolic velocities suggests peak right ventricular systolic pressure of 35 mmHg, consistent with borderline mild pulmonary hypertension. Trace pulmonic regurgitation present.
--- NOTE | 2017-10-02 16:39 | Cardiology Report ---
APPROVED REPORT EKG Measurement Heart [id number] Normal sinus rhythm Normal ECG
[2017-10-02 20:00] VITALS: BP 124/68
[2017-10-02] MEDS: Zolpidem 5mg tab ORAL PRN (20:45)
[2017-10-02] MEDS: Ketorolac 30mg Inj IV PRN (20:45)
--- NOTE | 2017-10-02 23:54 | Cardiology Progress Note ---
Assessment/Plan Assessment/Plan 1. Sinus tachycardia, resolved, likely due to hypoxemia and bilateral pneumonia , continue normal saline, antipyretic medication, and IV antibiotics. 2. Non-cardiac chest pain, most likely pleurisy/PNA. 3. Anorexia Nervosa Subjective Subjective Sinus rhythm at 97. On venturi mask. Objective Last 24 Hour Vital Signs Date Time Temp Pulse Resp B/P (MAP) Pulse Ox O2 Delivery O2 Flow Rate FiO2 10/02/17 20:00 98.0 94 20 124/68 99 Venturi Mask 50 98.0 10/02/17 18:53 Venturi Mask 12.0 50 10/02/17 18:52 97 Venturi Mask 12.0 50 10/02/17 18:47 97 17 Venturi Mask 12.0 50 10/02/17 16:00 98.7 105 34 106/70 98 Venturi Mask 50 98.7 10/02/17 15:43 96 10/02/17 12:00 90 10/02/17 12:00 98.1 89 33 119/87 98 Non-Rebreather 15.0 100 98.1 10/02/17 11:29 83 10/02/17 08:00 90 10/02/17 08:00 97.9 97 31 113/82 92 Non-Rebreather 15.0 100 97.9 10/02/17 07:10 95 Non-Rebreather 15.0 100 10/02/17 07:10 97 16 Non-Rebreather 15.0 100 10/02/17 07:10 Non-Rebreather 15.0 100 10/02/17 04:00 98.3 83 22 113/89 100 Non-Rebreather 15.0 100 98.3 10/02/17 04:00 86 10/02/17 00:00 98.1 84 24 113/84 100 Non-Rebreather 15.0 100 98.1 10/02/17 00:00 79 Intake and Output 10/01/17 10/02/17 19:00 07:00 Intake Total 443.334 ml 941.668 ml Balance 443.334 ml 941.668 ml IV Total 443.334 ml 941.668 ml # Voids 2 2 # Bowel Movements 1 Laboratory Tests Test 10/02/17 05:30 10/02/17 17:00 White Blood Count 6.8 K/UL (4.8-10.8) Red Blood Count 3.28 M/UL (4.20-5.40) L Hemoglobin 10.5 G/DL (12.0-16.0) L Hematocrit 30.2 % (37.0-47.0) L Mean Corpuscular Volume 92 FL (80-99) Mean Corpuscular Hemoglobin 32.0 PG (27.0-31.0) H Mean Corpuscular Hemoglobin Concent 34.7 G/DL (32.0-36.0) Red Cell Distribution Width 11.0 % (11.6-14.8) L Platelet Count 220 K/UL (150-450) Mean Platelet Volume 5.9 FL (6.5-10.1) L Neutrophils (%) (Auto) % (45.0-75.0) Lymphocytes (%) (Auto) % (20.0-45.0) Monocytes (%) (Auto) % (1.0-10.0) Eosinophils (%) (Auto) % (0.0-3.0) Basophils (%) (Auto) % (0.0-2.0) Differential Total Cells Counted 100 Neutrophils % (Manual) 78 % (45-75) H Lymphocytes % (Manual) 10 % (20-45) L Monocytes % (Manual) 6 % (1-10) Eosinophils % (Manual) 1 % (0-3) Basophils % (Manual) 0 % (0-2) Band Neutrophils 5 % (0-8) Platelet Estimate Adequate Platelet Morphology Normal Sodium Level 134 MMOL/L (136-145) L Potassium Level 3.5 MMOL/L (3.5-5.1) Chloride Level 103 MMOL/L (98-107) Carbon Dioxide Level 20 MMOL/L (21-32) L Anion Gap 11 mmol/L (5-15) Blood Urea Nitrogen 11 mg/dL (7-18) Creatinine 0.7 MG/DL (0.55-1.30) Estimat Glomerular Filtration Rate > 60 mL/min (>60) Glucose Level 87 MG/DL (74-106) Calcium Level 7.1 MG/DL (8.5-10.1) L Total Bilirubin 0.4 MG/DL (0.2-1.0) Aspartate Amino Transf (AST/SGOT) 14 U/L (15-37) L Alanine Aminotransferase (ALT/SGPT) 16 U/L (12-78) Alkaline Phosphatase 32 U/L (46-116) L Total Protein 4.9 G/DL (6.4-8.2) L Albumin 1.5 G/DL (3.4-5.0) L Globulin 3.4 g/dL Albumin/Globulin Ratio 0.4 (1.0-2.7) L M. tuberculosis Complex DNA (PCR) Pending Microbiology Date/Time Source Procedure Growth Status 10/01/17 07:40 Sputum AFB Specimen Processing Tissue - Final Resulted 10/01/17 07:40 Sputum Acid Fast Bacilli Smear - Final Resulted 10/01/17 07:40 Sputum Acid Fast Bacilli Culture Pending Resulted 09/30/17 08:00 Sputum AFB Specimen Processing Tissue - Final Resulted 09/30/17 08:00 Sputum Acid Fast Bacilli Smear - Final Resulted 09/30/17 08:00 Sputum Acid Fast Bacilli Culture Pending Resulted Objective HEENT: Atraumatic and normocephalic. Anicteric. Hair loss is seen. Pupils are equal, round, and reactive to light and accommodation. Extraocular muscles intact. NECK: JVP is less than 5 cm. No carotid bruit. Carotid upstrokes 2+ bilaterally. CARDIOVASCULAR: Normal S1 and S2. Regular rate and rhythm. No murmurs, gallops, or rubs. PMI is at fourth intercostal space in the midclavicular line. LUNGS: Diminished breath sounds in both bases with presence of crackles bilaterally. ABDOMEN: Soft, nontender, and nondistended. No hepatosplenomegaly. Positive bowel sounds. EXTREMITIES: Muscle wasting throughout. The presence of blanching rash over both limbs. No edema, clubbing, or cyanosis. GLORIA PELAEZ Oct 02, 2017 23:54
[2017-10-03] VITALS: BP 108/68
[2017-10-03] MEDS: Vancomycin 750mg/NS 250ml IVPB SCH (01:43)
[2017-10-03 04:00] VITALS: BP 111/70
[2017-10-03 04:47] LABS: HEMATOCRIT 31.4 % (37.0-47.0); HEMOGLOBIN 11.2 G/DL (12.0-16.0); MEAN CORPUSCULAR VOLUME 92 FL (80-99); PLATELET COUNT 306 K/UL (150-450); RED BLOOD COUNT 3.41 M/UL (4.20-5.40); RED CELL DISTRIBUTION WIDTH 11.1 % (11.6-14.8); WHITE BLOOD COUNT 8.9 K/UL (4.8-10.8)
[2017-10-03 04:51] LABS: ALANINE AMINOTRANSFERASE 16 U/L (12-78); ALBUMIN 1.4 G/DL (3.4-5.0); ALBUMIN/GLOBULIN RATIO 0.4 (1.0-2.7); ALKALINE PHOSPHATASE 42 U/L (46-116); ANION GAP 11 mmol/L (5-15); ASPARTATE AMINO TRANSFERASE 16 U/L (15-37); BILIRUBIN,TOTAL 0.5 MG/DL (0.2-1.0); BLOOD UREA NITROGEN 14 mg/dL (7-18); CALCIUM 7.6 MG/DL (8.5-10.1); CARBON DIOXIDE 19 MMOL/L (21-32); CHLORIDE 104 MMOL/L (98-107); CREATININE 0.9 MG/DL (0.55-1.30); POTASSIUM 3.5 MMOL/L (3.5-5.1); SODIUM 134 MMOL/L (136-145)
[2017-10-03 08:00] VITALS: BP 100/78
[2017-10-03] MEDS ORDERED: Ketorolac 30mg Inj IV PRN (09:00)
[2017-10-03] MEDS: Heparin 5000 units/ml inj SUBQ SCH ×2 (09:00→23:21)
[2017-10-03] MEDS ORDERED: Albuterol/Ipratropium 3ml neb HHN PRN (09:00)
--- NOTE | 2017-10-03 09:14 | Pulmonology Progress Note ---
Assessment/Plan Problems: (1) Leukopenia (2) Atypical pneumonia (3) Influenza-like symptoms (4) Rash and nonspecific skin eruption (5) Hypoxia (6) Altered mental status (7) Fever Assessment/Plan -Optimize pulmonary hygiene/mobilize as tolerated -Titrate down FiO2 to keep SaO2 > 90% -Continue RTC and PRN HHN's + CPT + suction patient -Monitor for further hemoptysis -Abx per ID -F/U heme recs, ? BM Bx -F/U Cx's and serologies, R/O TB, if CXR not improved and w/u unrevealing will need a BRONCHOSCOPY once out of isolation -Will review TTE findings with cards -DVT Px: SCD's -Aspiration precautions -Monitor volumes Subjective Allergies: Coded Allergies: No Known Allergies (Unverified , 09/28/17) Subjective AFVSS, 100% on VM, not being titrated Less cough but starting to mobilize, less SOB, some hemoptysis, getting OOB to commode, no F/C Objective Last 24 Hour Vital Signs Date Time Temp Pulse Resp B/P (MAP) Pulse Ox O2 Delivery O2 Flow Rate FiO2 10/03/17 08:05 Venturi Mask 15.0 100 10/03/17 08:05 99 Venturi Mask 15.0 100 10/03/17 08:05 98 18 Venturi Mask 15.0 100 10/03/17 04:00 98.2 92 26 111/70 98 Venturi Mask 50 98.2 10/03/17 04:00 93 10/03/17 00:00 97.5 92 25 108/68 98 Venturi Mask 50 97.5 10/03/17 00:00 95 10/02/17 20:00 98.0 94 20 124/68 99 Venturi Mask 50 98.0 10/02/17 18:53 Venturi Mask 12.0 50 10/02/17 18:52 97 Venturi Mask 12.0 50 10/02/17 18:47 97 17 Venturi Mask 12.0 50 10/02/17 16:00 98.7 105 34 106/70 98 Venturi Mask 50 98.7 10/02/17 15:43 96 10/02/17 12:00 90 10/02/17 12:00 98.1 89 33 119/87 98 Non-Rebreather 15.0 100 98.1 10/02/17 11:29 83 Intake and Output 10/02/17 10/03/17 19:00 07:00 Intake Total 700.001 ml 600.001 ml Balance 700.001 ml 600.001 ml Intake Oral 200 ml 100 ml IV Total 500.001 ml 500.001 ml # Voids 2 2 General Appearance: WD/WN, no acute distress HEENT: normocephalic, atraumatic, anicteric, mucous membranes moist Respiratory/Chest: rhonchi - scattered and partially clear with coughing Cardiovascular: normal peripheral pulses, normal rate, regular rhythm Abdomen: normal bowel sounds, soft, non tender, no organomegaly, non distended , no mass Extremities: no cyanosis, no clubbing, no edema Microbiology Date/Time Source Procedure Growth Status 10/01/17 07:40 Sputum AFB Specimen Processing Tissue - Final Resulted 10/01/17 07:40 Sputum Acid Fast Bacilli Smear - Final Resulted 10/01/17 07:40 Sputum Acid Fast Bacilli Culture Pending Resulted Laboratory Tests 10/02/17 17:00: M. tuberculosis Complex DNA (PCR) [Pending] 10/03/17 03:35: White Blood Count 8.9, Red Blood Count 3.41L, Hemoglobin 11.2L, Hematocrit 31.4L , Mean Corpuscular Volume 92, Mean Corpuscular Hemoglobin 32.8H, Mean Corpuscular Hemoglobin Concent 35.5, Red Cell Distribution Width 11.1L, Platelet Count 306, Mean Platelet Volume 5.5L, Neutrophils (%) (Auto) , Lymphocytes (%) (Auto) , Monocytes (%) (Auto) , Eosinophils (%) (Auto) , Basophils (%) (Auto) , Sodium Level 134L, Potassium Level 3.5, Chloride Level 104, Carbon Dioxide Level 19L, Anion Gap 11, Blood Urea Nitrogen 14, Creatinine 0.9, Estimat Glomerular Filtration Rate > 60, Glucose Level 105, Calcium Level 7.6L, Total Bilirubin 0.5, Aspartate Amino Transf (AST/SGOT) 16, Alanine Aminotransferase (ALT/SGPT) 16, Alkaline Phosphatase 42L, C-Reactive Protein, Quantitative 2.9H, Total Protein 5.0L, Albumin 1.4L, Globulin 3.6, Albumin/ Globulin Ratio 0.4L, TB Test (T-Spot) [Pending], TB Test Nil Control (T-Spot) [ Pending], TB Test Panel A (T-Spot) [Pending], TB Test Panel B (T-Spot) [Pending] , TB Test Positive Control (T-Spot) [Pending] Current Medications Medications (Trade) Dose Ordered Sig/Annie Route PRN Reason Start Time Stop Time Status Last Admin Dose Admin Acetaminophen (Tylenol) 650 mg Q4H PRN ORAL T>100.5/Headache/Mild Pain 10/03/17 09:00 10/29/17 08:59 Albuterol/ Ipratropium (Albuterol/ Ipratropium) 3 ml Q4H PRN HHN Shortness of Breath 10/03/17 09:00 10/04/17 08:59 Azithromycin (Zithromax) 500 mg DAILY ORAL 10/03/17 09:00 10/09/17 11:59 Famotidine (Pepcid I.v.) 20 mg Q12HR IVP 10/03/17 09:00 10/30/17 09:59 Heparin Sodium (Porcine) (Heparin 5000 units/ml) 5,000 units EVERY 12 HOURS SUBQ 10/03/17 09:00 10/29/17 20:59 Ketorolac Tromethamine (Toradol 30mg) 30 mg Q6H PRN IV Severe Pain (Pain Scale 7-10) 10/03/17 09:00 10/04/17 08:59 Oseltamivir Phosphate (Tamiflu) 75 mg TWICE A DAY ORAL 10/03/17 09:00 10/04/17 15:59 Potassium Chloride (K-Dur) 40 meq DAILY ORAL 10/03/17 09:00 10/31/17 12:59 Vancomycin HCl (Vanco rx to dose) 1 ea DAILY PRN MISC Per rx protocol 10/03/17 09:00 10/29/17 01:59 Vancomycin/Sodium Chloride 250 ml @ 166.667 mls/hr Q8HR@0200,1000,1800 IVPB 10/03/17 10:00 10/06/17 01:59 Zolpidem Tartrate (Ambien) 5 mg HSPRN PRN ORAL Insomnia 10/03/17 21:00 10/08/17 20:59 JACQUELIN SHAH M.D. Oct 03, 2017 09:14
[2017-10-03] MEDS: Oseltamivir 75mg cap ORAL SCH ×2 (09:38→17:43)
[2017-10-03] MEDS: Azithromycin 250mg tab ORAL SCH (09:38)
[2017-10-03] MEDS: Vancomycin 750mg/NS 250ml 250 ML IVPB SCH ×2 (09:40→17:42)
--- NOTE | 2017-10-03 11:34 | Diagnostic Imaging Report ---
Indication: Shortness of breath Technique: One view of the chest Comparison: 10/01/2017 Findings: Extensive diffuse bilateral airspace opacities are again demonstrated, probably not significantly changed. There is suggestion of decreased pleural fluid, however. Heart size is normal. Impression: Probably unchanged bilateral diffuse pulmonary parenchymal infiltrates versus edema Decreased but persistent bilateral pleural effusions, over 2 days
--- NOTE | 2017-10-03 11:43 | Internal Med Progress Note ---
Subjective Date of Service: Oct 03, 2017 Physician Name Rendon,Isamar Attending Physician Aishwarya Tirado MD Current Medications Medications (Trade) Dose Ordered Sig/Annie Route PRN Reason Start Time Stop Time Status Last Admin Dose Admin Acetaminophen (Tylenol) 650 mg Q4H PRN ORAL T>100.5/Headache/Mild Pain 10/03/17 09:00 10/29/17 08:59 Albuterol/ Ipratropium (Albuterol/ Ipratropium) 3 ml Q4H PRN HHN Shortness of Breath 10/03/17 09:00 10/04/17 08:59 Albuterol/ Ipratropium (Albuterol/ Ipratropium) 3 ml Q6HRT HHN 10/03/17 13:00 10/08/17 12:59 Azithromycin (Zithromax) 500 mg DAILY ORAL 10/03/17 09:00 10/09/17 11:59 10/03/17 09:38 Famotidine (Pepcid I.v.) 20 mg Q12HR IVP 10/03/17 09:00 10/30/17 09:59 10/03/17 09:37 Heparin Sodium (Porcine) (Heparin 5000 units/ml) 5,000 units EVERY 12 HOURS SUBQ 10/03/17 09:00 10/29/17 20:59 Ketorolac Tromethamine (Toradol 30mg) 30 mg Q6H PRN IV Severe Pain (Pain Scale 7-10) 10/03/17 09:00 10/04/17 08:59 Oseltamivir Phosphate (Tamiflu) 75 mg TWICE A DAY ORAL 10/03/17 09:00 10/04/17 15:59 10/03/17 09:38 Potassium Chloride (K-Dur) 40 meq DAILY ORAL 10/03/17 09:00 10/31/17 12:59 10/03/17 09:38 Vancomycin HCl (Vanco rx to dose) 1 ea DAILY PRN MISC Per rx protocol 10/03/17 09:00 10/29/17 01:59 Vancomycin/Sodium Chloride 250 ml @ 166.667 mls/hr Q8HR@0200,1000,1800 IVPB 10/03/17 10:00 10/06/17 01:59 10/03/17 09:40 Zolpidem Tartrate (Ambien) 5 mg HSPRN PRN ORAL Insomnia 10/03/17 21:00 10/08/17 20:59 Allergies: Coded Allergies: No Known Allergies (Unverified , 09/28/17) Subjective 37 YO F admitted with shortness of breath. Now pneumonia and respiratory failure. Cover for Int Med-Dr Tirado. Tolerating venturi mask. Objective Last Vital Signs Date Time Temp Pulse Resp B/P (MAP) Pulse Ox O2 Delivery O2 Flow Rate FiO2 10/03/17 08:05 Venturi Mask 15.0 55 10/03/17 08:05 99 10/03/17 08:05 98 18 10/03/17 04:00 98.2 111/70 98.2 Laboratory Tests Test 10/02/17 17:00 10/03/17 03:35 M. tuberculosis Complex DNA (PCR) Pending White Blood Count 8.9 K/UL (4.8-10.8) Red Blood Count 3.41 M/UL (4.20-5.40) L Hemoglobin 11.2 G/DL (12.0-16.0) L Hematocrit 31.4 % (37.0-47.0) L Mean Corpuscular Volume 92 FL (80-99) Mean Corpuscular Hemoglobin 32.8 PG (27.0-31.0) H Mean Corpuscular Hemoglobin Concent 35.5 G/DL (32.0-36.0) Red Cell Distribution Width 11.1 % (11.6-14.8) L Platelet Count 306 K/UL (150-450) Mean Platelet Volume 5.5 FL (6.5-10.1) L Neutrophils (%) (Auto) % (45.0-75.0) Lymphocytes (%) (Auto) % (20.0-45.0) Monocytes (%) (Auto) % (1.0-10.0) Eosinophils (%) (Auto) % (0.0-3.0) Basophils (%) (Auto) % (0.0-2.0) Sodium Level 134 MMOL/L (136-145) L Potassium Level 3.5 MMOL/L (3.5-5.1) Chloride Level 104 MMOL/L (98-107) Carbon Dioxide Level 19 MMOL/L (21-32) L Anion Gap 11 mmol/L (5-15) Blood Urea Nitrogen 14 mg/dL (7-18) Creatinine 0.9 MG/DL (0.55-1.30) Estimat Glomerular Filtration Rate > 60 mL/min (>60) Glucose Level 105 MG/DL (74-106) Calcium Level 7.6 MG/DL (8.5-10.1) L Total Bilirubin 0.5 MG/DL (0.2-1.0) Aspartate Amino Transf (AST/SGOT) 16 U/L (15-37) Alanine Aminotransferase (ALT/SGPT) 16 U/L (12-78) Alkaline Phosphatase 42 U/L (46-116) L C-Reactive Protein, Quantitative 2.9 mg/dL (0.00-0.90) H Total Protein 5.0 G/DL (6.4-8.2) L Albumin 1.4 G/DL (3.4-5.0) L Globulin 3.6 g/dL Albumin/Globulin Ratio 0.4 (1.0-2.7) L TB Test (T-Spot) Pending TB Test Nil Control (T-Spot) Pending TB Test Panel A (T-Spot) Pending TB Test Panel B (T-Spot) Pending TB Test Positive Control (T-Spot) Pending Microbiology Date/Time Source Procedure Growth Status 10/01/17 07:40 Sputum AFB Specimen Processing Tissue - Final Resulted 10/01/17 07:40 Sputum Acid Fast Bacilli Smear - Final Resulted 10/01/17 07:40 Sputum Acid Fast Bacilli Culture Pending Resulted Intake and Output 10/02/17 10/03/17 19:00 07:00 Intake Total 700.001 ml 600.001 ml Balance 700.001 ml 600.001 ml Intake Oral 200 ml 100 ml IV Total 500.001 ml 500.001 ml # Voids 2 2 Objective General Appearance: alert, moderate distress, thin EENT: PERRL/EOMI, normal ENT inspection Neck: non-tender, normal alignment, supple, normal inspection Cardiovascular: normal peripheral pulses, normal rate, regular rhythm, no gallop/murmur, no JVD Respiratory/Chest: respiratory distress, accessory muscle use, crackles/rales, rhonchi - bilaterally, expiratory wheezing Abdomen: normal bowel sounds, non tender, soft, no organomegaly, no mass Extremities: normal range of motion, non-tender 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 Continue azithro and vanco per ID. See pulmonary note. (3) Hypoxia Assessment & Plan: Currently on non rebreather mask (4) Leukopenia Assessment & Plan: See heme note. Continue nupogen (5) Community acquired pneumonia Assessment & Plan: Continue zosyn, azithro and vanco per ID (6) Rash and nonspecific skin eruption Assessment & Plan: ?viral exanthem?-see ID note. (7) MRSA (methicillin resistant Staphylococcus aureus) Assessment & Plan: Continue vanco per ID Status: not improved ISAMAR RENDON Oct 03, 2017 11:43
[2017-10-03 12:00] VITALS: BP 102/76
--- NOTE | 2017-10-03 12:24 | Infectious Diseases Prog Note ---
Assessment/Plan Assessment/Plan Assessment: Neutropenic fever-resolved. Suspect probably Influenza (despite neg screen test ) with myelosuppression and superimposed MRSA PNA. Do not believe leukopenia was abx related as this was present on admission. -CT chest: Dense consolidations with air bronchograms involving the bilateral lower lobes and to a lesser extent the bilateral upper lobes and right middle lobe. Small bilateral pleural effusions. Findings are compatible with but not specific for pneumonia. Follow-up recommended for further evaluation. -s/p Neupogen -Bcx NTD -sp cx MRSA ( S vanco, tetracycline, bactrim) -HIV screen, acute hep panel neg Flu like symptoms -influenza sc neg Neck pain; resolved -xray neck: Epiglottis is grossly unremarkable. Airway is patent. Prevertebral soft tissues are within normal limits. Osseous structures are unremarkable. Acute respiratroy distress on NRB Hemoptysis- likely 2ry to MRSA PNA; low suspicion for TB given acuity of symptoms and alternative diagnosis Rash- resolved- suspect was viral exanthem. She also received 1 dose fo Decadron 2mg IV on 09/30 ( no new meds; only med as her maintance Lexapro; rash present upon admission); will do a basic rheum/vasculitis w/u hx of anorexia Plan: -Continue IV Vancomycin #11/19 for MRSA PNA -would not be able to do PO Linezolid as she is on an SSRI -10/01 SP Zosyn #3 -09/28 SP ceftriaxone x1 -Continue azithromycin #6/-7 pending legionella ag urine -Empiric Tamiflu #5/ for suspected flu -f/u influenza PCR, cocci ab, CrAg, fungitell, HIV VL, sp culture ( fungal, legionella), legionella ag urine -Consider thoracentesis if worsening pleural effusions -consider bronch -autoimmune/vasculitis w/u -f/u cx -Monitor CBC/BMP, temperatures -heme onc eval f/u -droplets precautions -resp support -TB eval and airborne precautions per primary team -f/u 3rd AFB sp cx and MTB PCR Thank you for this consultation. Will continue to follow along with you. Discussed with RN. Subjective Allergies: Coded Allergies: No Known Allergies (Unverified , 09/28/17) Subjective afebrile WBC normal AFB cx and airbone isolation intiated by primary team; 2 smears neg, mTB PCR p Bcx NTD Objective Vital Signs Last 24 Hour Vital Signs Date Time Temp Pulse Resp B/P (MAP) Pulse Ox O2 Delivery O2 Flow Rate FiO2 10/03/17 08:05 Venturi Mask 15.0 55 10/03/17 08:05 99 Venturi Mask 15.0 100 10/03/17 08:05 98 18 Venturi Mask 15.0 55 10/03/17 04:00 98.2 92 26 111/70 98 Venturi Mask 50 98.2 10/03/17 04:00 93 10/03/17 00:00 97.5 92 25 108/68 98 Venturi Mask 50 97.5 10/03/17 00:00 95 10/02/17 20:00 98.0 94 20 124/68 99 Venturi Mask 50 98.0 10/02/17 18:53 Venturi Mask 12.0 50 10/02/17 18:52 97 Venturi Mask 12.0 50 10/02/17 18:47 97 17 Venturi Mask 12.0 50 10/02/17 16:00 98.7 105 34 106/70 98 Venturi Mask 50 98.7 10/02/17 15:43 96 Height (Feet): 5 Height (Inches): 2.00 Weight (Pounds): 90 Objective General Appearance: ill appearing, weak HEENT: normocephalic, atraumatic, PERRL, normal oropharynx Neck: full range of motion, supple Respiratory: no rhonchi, no respiratory distress, no accessory muscle use, no wheezing, speaking full sentences, other - chest TTP Cardiovascular regular rate, rhythm, no edema Genitourinary: no CVA tenderness Musculoskeletal: back normal, digits/nails normal, gait/station normal, normal range of motion, non-tender Neurologic: alert, oriented x3, responsive, motor strength/tone normal, sensory intact Skin: rash - blanching, erythematous, rasied, diffuse over back and extemities Lymphatic: no adenopathy Microbiology Date/Time Source Procedure Growth Status 10/01/17 07:40 Sputum AFB Specimen Processing Tissue - Final Resulted 10/01/17 07:40 Sputum Acid Fast Bacilli Smear - Final Resulted 10/01/17 07:40 Sputum Acid Fast Bacilli Culture Pending Resulted Laboratory Tests Test 10/02/17 17:00 10/03/17 03:35 M. tuberculosis Complex DNA (PCR) Pending White Blood Count 8.9 K/UL (4.8-10.8) Red Blood Count 3.41 M/UL (4.20-5.40) L Hemoglobin 11.2 G/DL (12.0-16.0) L Hematocrit 31.4 % (37.0-47.0) L Mean Corpuscular Volume 92 FL (80-99) Mean Corpuscular Hemoglobin 32.8 PG (27.0-31.0) H Mean Corpuscular Hemoglobin Concent 35.5 G/DL (32.0-36.0) Red Cell Distribution Width 11.1 % (11.6-14.8) L Platelet Count 306 K/UL (150-450) Mean Platelet Volume 5.5 FL (6.5-10.1) L Neutrophils (%) (Auto) % (45.0-75.0) Lymphocytes (%) (Auto) % (20.0-45.0) Monocytes (%) (Auto) % (1.0-10.0) Eosinophils (%) (Auto) % (0.0-3.0) Basophils (%) (Auto) % (0.0-2.0) Sodium Level 134 MMOL/L (136-145) L Potassium Level 3.5 MMOL/L (3.5-5.1) Chloride Level 104 MMOL/L (98-107) Carbon Dioxide Level 19 MMOL/L (21-32) L Anion Gap 11 mmol/L (5-15) Blood Urea Nitrogen 14 mg/dL (7-18) Creatinine 0.9 MG/DL (0.55-1.30) Estimat Glomerular Filtration Rate > 60 mL/min (>60) Glucose Level 105 MG/DL (74-106) Calcium Level 7.6 MG/DL (8.5-10.1) L Total Bilirubin 0.5 MG/DL (0.2-1.0) Aspartate Amino Transf (AST/SGOT) 16 U/L (15-37) Alanine Aminotransferase (ALT/SGPT) 16 U/L (12-78) Alkaline Phosphatase 42 U/L (46-116) L C-Reactive Protein, Quantitative 2.9 mg/dL (0.00-0.90) H Total Protein 5.0 G/DL (6.4-8.2) L Albumin 1.4 G/DL (3.4-5.0) L Globulin 3.6 g/dL Albumin/Globulin Ratio 0.4 (1.0-2.7) L TB Test (T-Spot) Pending TB Test Nil Control (T-Spot) Pending TB Test Panel A (T-Spot) Pending TB Test Panel B (T-Spot) Pending TB Test Positive Control (T-Spot) Pending Current Medications Medications (Trade) Dose Ordered Sig/Annie Route PRN Reason Start Time Stop Time Status Last Admin Dose Admin Acetaminophen (Tylenol) 650 mg Q4H PRN ORAL T>100.5/Headache/Mild Pain 10/03/17 09:00 10/29/17 08:59 Albuterol/ Ipratropium (Albuterol/ Ipratropium) 3 ml Q4H PRN HHN Shortness of Breath 10/03/17 09:00 10/04/17 08:59 Albuterol/ Ipratropium (Albuterol/ Ipratropium) 3 ml Q6HRT HHN 10/03/17 13:00 10/08/17 12:59 Azithromycin (Zithromax) 500 mg DAILY ORAL 10/03/17 09:00 10/09/17 11:59 10/03/17 09:38 Famotidine (Pepcid I.v.) 20 mg Q12HR IVP 10/03/17 09:00 10/30/17 09:59 10/03/17 09:37 Heparin Sodium (Porcine) (Heparin 5000 units/ml) 5,000 units EVERY 12 HOURS SUBQ 10/03/17 09:00 10/29/17 20:59 Ketorolac Tromethamine (Toradol 30mg) 30 mg Q6H PRN IV Severe Pain (Pain Scale 7-10) 10/03/17 09:00 10/04/17 08:59 Oseltamivir Phosphate (Tamiflu) 75 mg TWICE A DAY ORAL 10/03/17 09:00 10/04/17 15:59 10/03/17 09:38 Potassium Chloride (K-Dur) 40 meq DAILY ORAL 10/03/17 09:00 10/31/17 12:59 10/03/17 09:38 Vancomycin HCl (Vanco rx to dose) 1 ea DAILY PRN MISC Per rx protocol 10/03/17 09:00 10/29/17 01:59 Vancomycin/Sodium Chloride 250 ml @ 166.667 mls/hr Q8HR@0200,1000,1800 IVPB 10/03/17 10:00 10/06/17 01:59 10/03/17 09:40 Zolpidem Tartrate (Ambien) 5 mg HSPRN PRN ORAL Insomnia 10/03/17 21:00 10/08/17 20:59 Araceli Kenyon M.D. Oct 03, 2017 12:24
[2017-10-03] MEDS: Albuterol/Ipratropium 3ml neb HHN SCH ×2 (14:16→19:35)
[2017-10-03 16:00] VITALS: BP 108/61
[2017-10-03 20:00] VITALS: BP 112/70
[2017-10-03] MEDS: Zolpidem 5mg tab ORAL PRN (23:19)
--- NOTE | 2017-10-03 23:29 | General Progress Note ---
Assessment/Plan Assessment/Plan #. Anemia due to underlying chronic disease. Closely monitor. --> Blood transfusion not required unless symptomatic or hgb <7 --> Trend cbc daily. #. Leukopenia severe, potentially related to underlying medication. --> The patient is on vancomycin. The patient is on Zosyn as well and potentially secondary to infection, therefore continue to monitor. --> Continue to monitor WBC. Cause is likely multifactorial. --> At this time, I administered Neupogen to maintain ANC above 1000. I appreciate ID recommendations. --> Improved and resolved at this time. #. Pneumonia. We will trace an infection. She is on broad-spectrum antibiotics , vancomycin and Zosyn. #. Acute respiratory failure. Adjust oxygen as needed. The patient is currently NPO. #. Hemoptysis, rule out tuberculosis. #. Neutropenic precautions. Subjective Date patient seen: Oct 02, 2017 Constitutional: Denies: no symptoms, chills, diaphoresis, fever, malaise, weakness, other HEENT: Denies: no symptoms, eye pain, blurred vision, tearing, double vision, ear pain, ear discharge, nose pain, nose congestion, throat pain, throat swelling, mouth pain, mouth swelling, other Cardiovascular: Denies: no symptoms, chest pain, edema, irregular heart rate, lightheadedness, palpitations, syncope, other Respiratory: Denies: no symptoms, cough, orthopnea, shortness of breath, SOB with excertion, SOB at rest, sputum, stridor, wheezing, other Gastrointestinal/Abdominal: Denies: no symptoms, abdomen distended, abdominal pain, black stools, tarry stools, blood in stool, constipated, diarrhea, difficulty swallowing, nausea, poor appetite, poor fluid intake, rectal bleeding , vomiting, other Genitourinary: Denies: no symptoms, burning, discharge, frequency, flank pain, hematuria, incontinence, pain, urgency, other Neurologic/Psychiatric: Denies: no symptoms, anxiety, depressed, emotional problems, headache, numbness, paresthesia, pre-existing deficit, seizure, tingling, tremors, weakness, other Hematologic/Lymphatic: Reports: anemia Allergies: Coded Allergies: No Known Allergies (Unverified , 09/28/17) Subjective Leukocytosis resolved. H/H stable. No fever or chills. Objective Last 24 Hour Vital Signs Date Time Temp Pulse Resp B/P (MAP) Pulse Ox O2 Delivery O2 Flow Rate FiO2 10/03/17 19:45 91 18 100 Venturi Mask 14.0 55 10/03/17 19:40 Venturi Mask 14.0 55 10/03/17 19:39 99 Venturi Mask 14.0 55 10/03/17 19:35 98 20 94 Venturi Mask 15.0 55 10/03/17 19:35 98 18 Venturi Mask 14.0 55 10/03/17 16:15 99 19 100 Venturi Mask 15.0 55 10/03/17 16:09 98 20 100 Venturi Mask 15.0 55 10/03/17 16:00 97.5 70 20 108/61 95 Venturi Mask 50 97.5 10/03/17 16:00 105 10/03/17 13:07 98 18 100 Venturi Mask 15.0 55 10/03/17 13:00 98 20 98 Venturi Mask 15.0 55 10/03/17 12:00 92 10/03/17 12:00 97.2 82 20 102/76 97 Venturi Mask 50 97.2 10/03/17 08:05 Venturi Mask 15.0 55 10/03/17 08:05 99 Venturi Mask 15.0 55 10/03/17 08:05 98 18 Venturi Mask 15.0 55 10/03/17 08:00 97.5 100 20 100/78 98 Venturi Mask 50 97.5 10/03/17 08:00 95 10/03/17 04:00 98.2 92 26 111/70 98 Venturi Mask 50 98.2 10/03/17 04:00 93 10/03/17 00:00 97.5 92 25 108/68 98 Venturi Mask 50 97.5 10/03/17 00:00 95 Intake and Output 10/02/17 10/03/17 19:00 07:00 Intake Total 700.001 ml 600.001 ml Balance 700.001 ml 600.001 ml Intake Oral 200 ml 100 ml IV Total 500.001 ml 500.001 ml # Voids 2 2 Laboratory Tests 10/03/17 03:35: White Blood Count 8.9, Red Blood Count 3.41L, Hemoglobin 11.2L, Hematocrit 31.4L , Mean Corpuscular Volume 92, Mean Corpuscular Hemoglobin 32.8H, Mean Corpuscular Hemoglobin Concent 35.5, Red Cell Distribution Width 11.1L, Platelet Count 306, Mean Platelet Volume 5.5L, Neutrophils (%) (Auto) , Lymphocytes (%) (Auto) , Monocytes (%) (Auto) , Eosinophils (%) (Auto) , Basophils (%) (Auto) , Sodium Level 134L, Potassium Level 3.5, Chloride Level 104, Carbon Dioxide Level 19L, Anion Gap 11, Blood Urea Nitrogen 14, Creatinine 0.9, Estimat Glomerular Filtration Rate > 60, Glucose Level 105, Calcium Level 7.6L, Total Bilirubin 0.5, Aspartate Amino Transf (AST/SGOT) 16, Alanine Aminotransferase (ALT/SGPT) 16, Alkaline Phosphatase 42L, C-Reactive Protein, Quantitative 2.9H, Total Protein 5.0L, Albumin 1.4L, Globulin 3.6, Albumin/ Globulin Ratio 0.4L, TB Test (T-Spot) [Pending], TB Test Nil Control (T-Spot) [ Pending], TB Test Panel A (T-Spot) [Pending], TB Test Panel B (T-Spot) [Pending] , TB Test Positive Control (T-Spot) [Pending] Height (Feet): 5 Height (Inches): 2.00 Weight (Pounds): 90 General Appearance: no apparent distress Respiratory/Chest: decreased breath sounds Abdomen: soft Bhargav Wilburn MD Oct 03, 2017 23:29
--- NOTE | 2017-10-03 23:32 | General Progress Note ---
Assessment/Plan Assessment/Plan #. Anemia due to underlying chronic disease. Closely monitor. --> Blood transfusion not required unless symptomatic or hgb <7 --> Anemia w/u has been reviewed --> Trend cbc daily. #. Leukopenia severe, potentially related to underlying medication. s/p abx, do not have other causes and currently improved --> a/p one dose of neupogen and now wbc is wnl --> Improved and resolved at this time. --> As outpatient recommend to recheck cbc and fever curve, see in clinic in one week #. Pneumonia. We will trace an infection. She is on broad-spectrum antibiotics , vancomycin and Zosyn. #. Acute respiratory failure. Adjust oxygen as needed. #. Hemoptysis, rule out tuberculosis. #. Neutropenic precautions. Subjective Date patient seen: Oct 03, 2017 Constitutional: Denies: no symptoms, chills, diaphoresis, fever, malaise, weakness, other HEENT: Denies: no symptoms, eye pain, blurred vision, tearing, double vision, ear pain, ear discharge, nose pain, nose congestion, throat pain, throat swelling, mouth pain, mouth swelling, other Cardiovascular: Denies: no symptoms, chest pain, edema, irregular heart rate, lightheadedness, palpitations, syncope, other Respiratory: Denies: no symptoms, cough, orthopnea, shortness of breath, SOB with excertion, SOB at rest, sputum, stridor, wheezing, other Gastrointestinal/Abdominal: Denies: no symptoms, abdomen distended, abdominal pain, black stools, tarry stools, blood in stool, constipated, diarrhea, difficulty swallowing, nausea, poor appetite, poor fluid intake, rectal bleeding , vomiting, other Genitourinary: Denies: no symptoms, burning, discharge, frequency, flank pain, hematuria, incontinence, pain, urgency, other Hematologic/Lymphatic: Reports: anemia Allergies: Coded Allergies: No Known Allergies (Unverified , 09/28/17) Subjective Afebrile. H/H stable. On venturi mask Objective Last 24 Hour Vital Signs Date Time Temp Pulse Resp B/P (MAP) Pulse Ox O2 Delivery O2 Flow Rate FiO2 10/03/17 19:45 91 18 100 Venturi Mask 14.0 55 10/03/17 19:40 Venturi Mask 14.0 55 10/03/17 19:39 99 Venturi Mask 14.0 55 10/03/17 19:35 98 20 94 Venturi Mask 15.0 55 10/03/17 19:35 98 18 Venturi Mask 14.0 55 10/03/17 16:15 99 19 100 Venturi Mask 15.0 55 10/03/17 16:09 98 20 100 Venturi Mask 15.0 55 10/03/17 16:00 97.5 70 20 108/61 95 Venturi Mask 50 97.5 10/03/17 16:00 105 10/03/17 13:07 98 18 100 Venturi Mask 15.0 55 10/03/17 13:00 98 20 98 Venturi Mask 15.0 55 10/03/17 12:00 92 10/03/17 12:00 97.2 82 20 102/76 97 Venturi Mask 50 97.2 10/03/17 08:05 Venturi Mask 15.0 55 10/03/17 08:05 99 Venturi Mask 15.0 55 10/03/17 08:05 98 18 Venturi Mask 15.0 55 10/03/17 08:00 97.5 100 20 100/78 98 Venturi Mask 50 97.5 10/03/17 08:00 95 10/03/17 04:00 98.2 92 26 111/70 98 Venturi Mask 50 98.2 10/03/17 04:00 93 10/03/17 00:00 97.5 92 25 108/68 98 Venturi Mask 50 97.5 10/03/17 00:00 95 Intake and Output 10/02/17 10/03/17 19:00 07:00 Intake Total 700.001 ml 600.001 ml Balance 700.001 ml 600.001 ml Intake Oral 200 ml 100 ml IV Total 500.001 ml 500.001 ml # Voids 2 2 Laboratory Tests 10/03/17 03:35: White Blood Count 8.9, Red Blood Count 3.41L, Hemoglobin 11.2L, Hematocrit 31.4L , Mean Corpuscular Volume 92, Mean Corpuscular Hemoglobin 32.8H, Mean Corpuscular Hemoglobin Concent 35.5, Red Cell Distribution Width 11.1L, Platelet Count 306, Mean Platelet Volume 5.5L, Neutrophils (%) (Auto) , Lymphocytes (%) (Auto) , Monocytes (%) (Auto) , Eosinophils (%) (Auto) , Basophils (%) (Auto) , Sodium Level 134L, Potassium Level 3.5, Chloride Level 104, Carbon Dioxide Level 19L, Anion Gap 11, Blood Urea Nitrogen 14, Creatinine 0.9, Estimat Glomerular Filtration Rate > 60, Glucose Level 105, Calcium Level 7.6L, Total Bilirubin 0.5, Aspartate Amino Transf (AST/SGOT) 16, Alanine Aminotransferase (ALT/SGPT) 16, Alkaline Phosphatase 42L, C-Reactive Protein, Quantitative 2.9H, Total Protein 5.0L, Albumin 1.4L, Globulin 3.6, Albumin/ Globulin Ratio 0.4L, TB Test (T-Spot) [Pending], TB Test Nil Control (T-Spot) [ Pending], TB Test Panel A (T-Spot) [Pending], TB Test Panel B (T-Spot) [Pending] , TB Test Positive Control (T-Spot) [Pending] Height (Feet): 5 Height (Inches): 2.00 Weight (Pounds): 90 General Appearance: lethargic Respiratory/Chest: decreased breath sounds Abdomen: soft Bhargav Wilburn MD Oct 03, 2017 23:32
[2017-10-04] VITALS (8 sets, daily range): BP systolic 101–141; BP diastolic 75–99
[2017-10-04 00:38] LABS: BILIRUBIN, URINE NEGATIVE (NEGATIVE); COLOR,URINE PALE YELLOW; GLUCOSE, URINE (UA) NEGATIVE (NEGATIVE); KETONES,URINE 3+ (NEGATIVE); LEUKOCYTE ESTERASE ,URINE NEGATIVE (NEGATIVE); NITRITE,URINE NEGATIVE (NEGATIVE); PH,URINE 6 (4.5-8.0); PROTEIN,URINE 2+ (NEGATIVE); UROBILINOGEN,URINE NORMAL MG/DL (0.0-1.0)
[2017-10-04] MEDS: Albuterol/Ipratropium 3ml neb HHN SCH ×2 (01:03→07:00)
[2017-10-04 01:07] LABS: APPEARANCE,URINE CLOUDY
[2017-10-04] MEDS: Vancomycin 750mg/NS 250ml 250 ML IVPB SCH (01:48)
[2017-10-04] MEDS: ALPRAZolam 0.5mg tab ORAL PRN ×3 (02:06→23:49)
[2017-10-04 08:41] LABS: HEMATOCRIT 28.2 % (37.0-47.0); HEMOGLOBIN 10.3 G/DL (12.0-16.0); MEAN CORPUSCULAR VOLUME 90 FL (80-99); PLATELET COUNT 357 K/UL (150-450); RED BLOOD COUNT 3.14 M/UL (4.20-5.40); RED CELL DISTRIBUTION WIDTH 11.1 % (11.6-14.8); WHITE BLOOD COUNT 12.5 K/UL (4.8-10.8)
[2017-10-04] MEDS: Heparin 5000 units/ml inj SUBQ SCH ×2 (08:47→21:08)
--- NOTE | 2017-10-04 08:57 | Pulmonology Progress Note ---
Assessment/Plan Problems: (1) Leukopenia (2) Atypical pneumonia (3) Influenza-like symptoms (4) Rash and nonspecific skin eruption (5) Hypoxia (6) Altered mental status (7) Fever Assessment/Plan -Optimize pulmonary hygiene/mobilize as tolerated -Titrate down FiO2 to keep SaO2 > 90% -Continue RTC and PRN HHN's + CPT + suction patient -Monitor for continued hemoptysis hemoptysis -Abx per ID -F/U autoimmune serologies, doubt DAH -Once out of isolation will likely need bronchoscopy -F/U heme recs -Awaiting cards input Re: TTE findings -DVT Px: SCD's -Aspiration precautions -Monitor volumes Subjective Allergies: Coded Allergies: No Known Allergies (Unverified , 09/28/17) Subjective AFVSS, 100% on VM, RT attempting to wean - FiO2 55% Cough better, mucopurulent with some blood tinged, WCt increasing More lethargic today, no F/C Autoimmune markers pending, CRP better Objective Last 24 Hour Vital Signs Date Time Temp Pulse Resp B/P (MAP) Pulse Ox O2 Delivery O2 Flow Rate FiO2 10/04/17 07:40 119 20 95 Venturi Mask 14.0 55 10/04/17 06:01 99.9 10/04/17 04:00 98.7 136 20 120/82 94 Venturi Mask 55 98.7 10/04/17 03:32 120 10/04/17 01:25 91 18 100 Venturi Mask 14.0 55 10/04/17 01:03 98 20 95 Venturi Mask 14.0 55 10/04/17 00:00 98.2 110 20 109/75 99 Venturi Mask 55 98.2 10/03/17 23:30 110 10/03/17 20:00 98.0 100 20 112/70 100 Venturi Mask 55 98.0 10/03/17 19:45 91 18 100 Venturi Mask 14.0 55 10/03/17 19:40 Venturi Mask 14.0 55 10/03/17 19:39 99 Venturi Mask 14.0 55 10/03/17 19:35 98 20 94 Venturi Mask 14.0 55 10/03/17 19:35 98 18 Venturi Mask 14.0 55 10/03/17 16:15 99 19 100 Venturi Mask 15.0 55 10/03/17 16:09 98 20 100 Venturi Mask 15.0 55 10/03/17 16:00 97.5 70 20 108/61 95 Venturi Mask 50 97.5 10/03/17 16:00 105 10/03/17 13:07 98 18 100 Venturi Mask 15.0 55 10/03/17 13:00 98 20 98 Venturi Mask 14.0 55 10/03/17 12:00 92 10/03/17 12:00 97.2 82 20 102/76 97 Venturi Mask 50 97.2 Intake and Output 10/03/17 10/04/17 19:00 07:00 Intake Total 666.668 ml Balance 666.668 ml IV Total 666.668 ml # Voids 1 1 # Bowel Movements 1 1 General Appearance: WD/WN, no acute distress HEENT: normocephalic, atraumatic, anicteric, mucous membranes moist Respiratory/Chest: chest wall non-tender, no respiratory distress, no accessory muscle use, rhonchi - scattetered coarse Cardiovascular: normal peripheral pulses, normal rate, regular rhythm Abdomen: normal bowel sounds, soft, non tender, no organomegaly, non distended , no mass Extremities: no cyanosis, no clubbing, no edema Laboratory Tests 10/03/17 23:00: Urine Color Pale yellow, Urine Appearance Cloudy, Urine pH 6, Urine Specific [place] 1.010, Urine Protein 2+H, Urine Glucose (UA) Negative, Urine Ketones 3+H , Urine Occult Blood 1+H, Urine Nitrite Negative, Urine Bilirubin Negative, Urine Urobilinogen Normal, Urine Leukocyte Esterase Negative, Urine RBC 0-2, Urine WBC 0-2, Urine Squamous Epithelial Cells Few, Urine Amorphous Sediment ManyH, Urine Bacteria ModerateH, Urine Coarse Granular Casts 0-2H 10/04/17 08:10: White Blood Count 12.5H, Red Blood Count 3.14L, Hemoglobin 10.3L, Hematocrit 28.2L, Mean Corpuscular Volume 90, Mean Corpuscular Hemoglobin 32.6H, Mean Corpuscular Hemoglobin Concent 36.4H, Red Cell Distribution Width 11.1L, Platelet Count 357, Mean Platelet Volume 5.2L, Neutrophils (%) (Auto) , Lymphocytes (%) (Auto) , Monocytes (%) (Auto) , Eosinophils (%) (Auto) , Basophils (%) (Auto) , Neutrophils % (Manual) [Pending], Lymphocytes % (Manual) [Pending], Platelet Estimate [Pending], Platelet Morphology [Pending], Sodium Level [Pending], Potassium Level [Pending], Chloride Level [Pending], Carbon Dioxide Level [Pending], Blood Urea Nitrogen [Pending], Creatinine [Pending], Estimat Glomerular Filtration Rate [Pending], Glucose Level [Pending], Calcium Level [Pending], Cyclic Citrullinated Peptide IgG Ab [Pending], Anti-Nuclear Antibody Screen [Pending], c-ANCA Titer [Pending], p-ANCA Titer [Pending] Current Medications Medications (Trade) Dose Ordered Sig/Annie Route PRN Reason Start Time Stop Time Status Last Admin Dose Admin Acetaminophen (Tylenol) 650 mg Q4H PRN ORAL T>100.5/Headache/Mild Pain 10/03/17 09:00 10/29/17 08:59 10/04/17 06:01 Albuterol/ Ipratropium (Albuterol/ Ipratropium) 3 ml Q4H PRN HHN Shortness of Breath 10/03/17 09:00 10/04/17 08:59 10/03/17 16:09 Albuterol/ Ipratropium (Albuterol/ Ipratropium) 3 ml Q6HRT HHN 10/03/17 13:00 10/08/17 12:59 10/04/17 01:03 Alprazolam (Xanax) 0.5 mg TIDPRN PRN ORAL For Anxiety 10/03/17 18:45 10/10/17 18:44 10/04/17 02:06 Azithromycin (Zithromax) 500 mg DAILY ORAL 10/03/17 09:00 10/09/17 11:59 10/03/17 09:38 Famotidine (Pepcid I.v.) 20 mg Q12HR IVP 10/03/17 09:00 10/30/17 09:59 10/03/17 21:00 Heparin Sodium (Porcine) (Heparin 5000 units/ml) 5,000 units EVERY 12 HOURS SUBQ 10/03/17 09:00 10/29/17 20:59 10/03/17 23:21 Ketorolac Tromethamine (Toradol 30mg) 30 mg Q6H PRN IV Severe Pain (Pain Scale 7-10) 10/03/17 09:00 10/04/17 08:59 10/03/17 18:00 Oseltamivir Phosphate (Tamiflu) 75 mg TWICE A DAY ORAL 10/03/17 09:00 10/04/17 15:59 10/03/17 17:43 Potassium Chloride (K-Dur) 40 meq DAILY ORAL 10/03/17 09:00 10/31/17 12:59 10/03/17 09:38 Vancomycin HCl (Vanco rx to dose) 1 ea DAILY PRN MISC Per rx protocol 10/03/17 09:00 10/29/17 01:59 Vancomycin/Sodium Chloride 250 ml @ 166.667 mls/hr Q8HR@0200,1000,1800 IVPB 10/03/17 10:00 10/06/17 01:59 10/04/17 01:48 Zolpidem Tartrate (Ambien) 5 mg HSPRN PRN ORAL Insomnia 10/03/17 21:00 10/08/17 20:59 10/03/17 23:19 JACQUELIN SHAH M.D. Oct 04, 2017 08:57
[2017-10-04 09:02] LABS: ANION GAP 8 mmol/L (5-15); BLOOD UREA NITROGEN 13 mg/dL (7-18); CALCIUM 7.6 MG/DL (8.5-10.1); CARBON DIOXIDE 22 MMOL/L (21-32); CHLORIDE 104 MMOL/L (98-107); CREATININE 1.1 MG/DL (0.55-1.30); SODIUM 135 MMOL/L (136-145)
[2017-10-04] MEDS: Oseltamivir 75mg cap ORAL SCH (10:24)
[2017-10-04] MEDS: Azithromycin 250mg tab ORAL SCH (10:24)
--- NOTE | 2017-10-04 13:14 | General Progress Note ---
Assessment/Plan Status: stable Assessment/Plan 1. Sepsis 2. Pneumonia, HCA, typical vs atypical 3. Abn troponin: unlikely related to ACS 4. Neutropenia: on Isolation , improving 5. Cachexia 6. History of anorexia. 7. GI, DVT prophylaxis Plan: Continuation of isolation at Pulmonary discretion current management Worsening WBC, etio? Subjective ROS Limited/Unobtainable: Yes - currently on mask , on isolation room Constitutional: Reports: malaise, other - limited as pt can not talk Allergies: Coded Allergies: No Known Allergies (Unverified , 09/28/17) Objective Last 24 Hour Vital Signs Date Time Temp Pulse Resp B/P (MAP) Pulse Ox O2 Delivery O2 Flow Rate FiO2 10/04/17 08:00 97.9 109 22 111/78 98 Venturi Mask 55 97.9 10/04/17 07:40 Venturi Mask 14.0 55 10/04/17 07:40 119 20 95 Venturi Mask 14.0 55 10/04/17 07:38 95 Venturi Mask 14.0 55 10/04/17 07:38 Venturi Mask 15.0 55 10/04/17 07:38 119 20 Venturi Mask 14.0 55 10/04/17 06:01 99.9 10/04/17 04:00 98.7 136 20 120/82 94 Venturi Mask 55 98.7 10/04/17 03:32 120 10/04/17 01:25 91 18 100 Venturi Mask 14.0 55 10/04/17 01:03 98 20 95 Venturi Mask 14.0 55 10/04/17 00:00 98.2 110 20 109/75 99 Venturi Mask 55 98.2 10/03/17 23:30 110 10/03/17 20:00 98.0 100 20 112/70 100 Venturi Mask 55 98.0 10/03/17 19:45 91 18 100 Venturi Mask 14.0 55 10/03/17 19:40 Venturi Mask 14.0 55 10/03/17 19:39 99 Venturi Mask 14.0 55 10/03/17 19:35 98 20 94 Venturi Mask 14.0 55 10/03/17 19:35 98 18 Venturi Mask 14.0 55 10/03/17 16:15 99 19 100 Venturi Mask 15.0 55 10/03/17 16:09 98 20 100 Venturi Mask 15.0 55 10/03/17 16:00 97.5 70 20 108/61 95 Venturi Mask 50 97.5 10/03/17 16:00 105 Intake and Output 10/03/17 10/04/17 19:00 07:00 Intake Total 666.668 ml Balance 666.668 ml IV Total 666.668 ml # Voids 1 1 # Bowel Movements 1 1 Laboratory Tests 10/03/17 19:05: Stool Occult Blood Negative 10/03/17 23:00: Urine Color Pale yellow, Urine Appearance Cloudy, Urine pH 6, Urine Specific [place] 1.010, Urine Protein 2+H, Urine Glucose (UA) Negative, Urine Ketones 3+H , Urine Occult Blood 1+H, Urine Nitrite Negative, Urine Bilirubin Negative, Urine Urobilinogen Normal, Urine Leukocyte Esterase Negative, Urine RBC 0-2, Urine WBC 0-2, Urine Squamous Epithelial Cells Few, Urine Amorphous Sediment ManyH, Urine Bacteria ModerateH, Urine Coarse Granular Casts 0-2H 10/04/17 08:10: White Blood Count 12.5H, Red Blood Count 3.14L, Hemoglobin 10.3L, Hematocrit 28.2L, Mean Corpuscular Volume 90, Mean Corpuscular Hemoglobin 32.6H, Mean Corpuscular Hemoglobin Concent 36.4H, Red Cell Distribution Width 11.1L, Platelet Count 357, Mean Platelet Volume 5.2L, Neutrophils (%) (Auto) , Lymphocytes (%) (Auto) , Monocytes (%) (Auto) , Eosinophils (%) (Auto) , Basophils (%) (Auto) , Differential Total Cells Counted 100, Neutrophils % ( Manual) 93H, Lymphocytes % (Manual) 3L, Monocytes % (Manual) 1, Eosinophils % ( Manual) 0, Basophils % (Manual) 0, Band Neutrophils 3, Platelet Estimate Adequate, Platelet Morphology Normal, Hypochromasia 1+, Sodium Level 135L, Potassium Level 3.0L, Chloride Level 104, Carbon Dioxide Level 22, Anion Gap 8, Blood Urea Nitrogen 13, Creatinine 1.1, Estimat Glomerular Filtration Rate 55.3 , Glucose Level 134H, Calcium Level 7.6L, Cyclic Citrullinated Peptide IgG Ab [ Pending], Anti-Nuclear Antibody Screen [Pending], c-ANCA Titer [Pending], p- ANCA Titer [Pending] 10/04/17 09:35: Vancomycin Level Trough 29.6H Height (Feet): 5 Height (Inches): 2.00 Weight (Pounds): 90 General Appearance: moderate distress EENT: PERRL/EOMI Neck: supple Cardiovascular: tachycardia Respiratory/Chest: crackles/rales, rhonchi - bilaterally Extremities: other - atrophied muscles Neurologic: shell plater II-XII grossly normal, disoriented Aishwarya Tirado MD Oct 04, 2017 13:14
--- NOTE | 2017-10-04 15:04 | Infectious Diseases Prog Note ---
Assessment/Plan Assessment/Plan Assessment: Neutropenic fever-resolved. Suspect probably Influenza (despite neg screen test ) with myelosuppression and superimposed MRSA PNA. Do not believe leukopenia was abx related as this was present on admission. R/o DAH and autoimmune disorder -CT chest: Dense consolidations with air bronchograms involving the bilateral lower lobes and to a lesser extent the bilateral upper lobes and right middle lobe. Small bilateral pleural effusions. Findings are compatible with but not specific for pneumonia. Follow-up recommended for further evaluation. -s/p Neupogen -Bcx NTD -sp cx MRSA ( S vanco, tetracycline, bactrim, Linezolid) -HIV screen, acute hep panel neg -CRP >70> 2.9 Leukocytosis Flu like symptoms -influenza sc neg Neck pain; resolved -xray neck: Epiglottis is grossly unremarkable. Airway is patent. Prevertebral soft tissues are within normal limits. Osseous structures are unremarkable. Acute respiratroy distress on NRB Hemoptysis- likely 2ry to MRSA PNA; low suspicion for TB given acuity of symptoms and alternative diagnosis Rash- resolved- suspect was viral exanthem. She also received 1 dose fo Decadron 2mg IV on 09/30 ( no new meds; only med as her maintance Lexapro; rash present upon admission); will do a basic rheum/vasculitis w/u hx of anorexia Plan: -Continue IV Vancomycin #12/20 for MRSA PNA -would not be able to do PO Linezolid as she is on an SSRI -10/01 SP Zosyn #3 -09/28 SP ceftriaxone x1 -Continue azithromycin #01/12-10 pending legionella ag urine -Empiric Tamiflu #/7-10 for suspected flu -f/u influenza PCR, cocci ab, CrAg, fungitell, HIV VL, sp culture ( fungal, legionella), legionella ag urine, RASHAWN, ANCA, CCP -Consider thoracentesis if worsening pleural effusions -consider bronch -f/u cx -Monitor CBC/BMP, temperatures -heme onc f/u -droplets precautions -resp support -TB eval and airborne precautions per primary team -f/u 3rd AFB sp cx and MTB PCR Thank you for this consultation. Will continue to follow along with you. Discussed with RN and pulmonary team.. Subjective Allergies: Coded Allergies: No Known Allergies (Unverified , 09/28/17) Subjective afebrile mild leukocytosis bcx neg remains on VM Objective Vital Signs Last 24 Hour Vital Signs Date Time Temp Pulse Resp B/P (MAP) Pulse Ox O2 Delivery O2 Flow Rate FiO2 10/04/17 13:54 Venturi Mask 14.0 55 10/04/17 13:15 120 22 97 Venturi Mask 14.0 55 10/04/17 08:00 97.9 109 22 111/78 98 Venturi Mask 55 97.9 10/04/17 07:40 Venturi Mask 14.0 55 10/04/17 07:40 119 20 95 Venturi Mask 14.0 55 10/04/17 07:38 95 Venturi Mask 14.0 55 10/04/17 07:38 Venturi Mask 15.0 55 10/04/17 07:38 119 20 Venturi Mask 14.0 55 10/04/17 06:01 99.9 10/04/17 04:00 98.7 136 20 120/82 94 Venturi Mask 55 98.7 10/04/17 03:32 120 10/04/17 01:25 91 18 100 Venturi Mask 14.0 55 10/04/17 01:03 98 20 95 Venturi Mask 14.0 55 10/04/17 00:00 98.2 110 20 109/75 99 Venturi Mask 55 98.2 10/03/17 23:30 110 10/03/17 20:00 98.0 100 20 112/70 100 Venturi Mask 55 98.0 10/03/17 19:45 91 18 100 Venturi Mask 14.0 55 10/03/17 19:40 Venturi Mask 14.0 55 10/03/17 19:39 99 Venturi Mask 14.0 55 10/03/17 19:35 98 20 94 Venturi Mask 14.0 55 10/03/17 19:35 98 18 Venturi Mask 14.0 55 10/03/17 16:15 99 19 100 Venturi Mask 15.0 55 10/03/17 16:09 98 20 100 Venturi Mask 15.0 55 10/03/17 16:00 97.5 70 20 108/61 95 Venturi Mask 50 97.5 10/03/17 16:00 105 Height (Feet): 5 Height (Inches): 2.00 Weight (Pounds): 90 Objective General Appearance: ill appearing, weak HEENT: normocephalic, atraumatic, PERRL, normal oropharynx Neck: full range of motion, supple Respiratory: no rhonchi, no respiratory distress, no accessory muscle use, no wheezing, speaking full sentences, other - chest TTP Cardiovascular regular rate, rhythm, no edema Genitourinary: no CVA tenderness Musculoskeletal: back normal, digits/nails normal, gait/station normal, normal range of motion, non-tender Neurologic: alert, oriented x3, responsive, motor strength/tone normal, sensory intact Skin: rash - blanching, erythematous, rasied, diffuse over back and extemities Lymphatic: no adenopathy Laboratory Tests Test 10/03/17 19:05 10/03/17 23:00 10/04/17 08:10 10/04/17 09:35 Stool Occult Blood Negative (NEGATIVE) Urine Color Pale yellow Urine Appearance Cloudy Urine pH 6 (4.5-8.0) Urine Specific Grandy 1.010 (1.005-1.035) Urine Protein 2+ (NEGATIVE) H Urine Glucose (UA) Negative (NEGATIVE) Urine Ketones 3+ (NEGATIVE) H Urine Occult Blood 1+ (NEGATIVE) H Urine Nitrite Negative (NEGATIVE) Urine Bilirubin Negative (NEGATIVE) Urine Urobilinogen Normal MG/DL (0.0-1.0) Urine Leukocyte Esterase Negative (NEGATIVE) Urine RBC 0-2 /HPF (0 - 2) Urine WBC 0-2 /HPF (0 - 2) Urine Squamous Epithelial Cells Few /LPF (NONE/OCC) Urine Amorphous Sediment Many /LPF (NONE) H Urine Bacteria Moderate /HPF (NONE) H Urine Coarse Granular Casts 0-2 /LPF (NONE) H White Blood Count 12.5 K/UL (4.8-10.8) H Red Blood Count 3.14 M/UL (4.20-5.40) L Hemoglobin 10.3 G/DL (12.0-16.0) L Hematocrit 28.2 % (37.0-47.0) L Mean Corpuscular Volume 90 FL (80-99) Mean Corpuscular Hemoglobin 32.6 PG (27.0-31.0) H Mean Corpuscular Hemoglobin Concent 36.4 G/DL (32.0-36.0) H Red Cell Distribution Width 11.1 % (11.6-14.8) L Platelet Count 357 K/UL (150-450) Mean Platelet Volume 5.2 FL (6.5-10.1) L Neutrophils (%) (Auto) % (45.0-75.0) Lymphocytes (%) (Auto) % (20.0-45.0) Monocytes (%) (Auto) % (1.0-10.0) Eosinophils (%) (Auto) % (0.0-3.0) Basophils (%) (Auto) % (0.0-2.0) Differential Total Cells Counted 100 Neutrophils % (Manual) 93 % (45-75) H Lymphocytes % (Manual) 3 % (20-45) L Monocytes % (Manual) 1 % (1-10) Eosinophils % (Manual) 0 % (0-3) Basophils % (Manual) 0 % (0-2) Band Neutrophils 3 % (0-8) Platelet Estimate Adequate Platelet Morphology Normal Hypochromasia 1+ Sodium Level 135 MMOL/L (136-145) L Potassium Level 3.0 MMOL/L (3.5-5.1) L Chloride Level 104 MMOL/L (98-107) Carbon Dioxide Level 22 MMOL/L (21-32) Anion Gap 8 mmol/L (5-15) Blood Urea Nitrogen 13 mg/dL (7-18) Creatinine 1.1 MG/DL (0.55-1.30) Estimat Glomerular Filtration Rate 55.3 mL/min (>60) Glucose Level 134 MG/DL (74-106) H Calcium Level 7.6 MG/DL (8.5-10.1) L Cyclic Citrullinated Peptide IgG Ab Pending Anti-Nuclear Antibody Screen Pending c-ANCA Titer Pending p-ANCA Titer Pending Vancomycin Level Trough 29.6 ug/mL (5.0-12.0) H Current Medications Medications (Trade) Dose Ordered Sig/Annie Route PRN Reason Start Time Stop Time Status Last Admin Dose Admin Acetaminophen (Tylenol) 650 mg Q4H PRN ORAL T>100.5/Headache/Mild Pain 10/03/17 09:00 10/29/17 08:59 10/04/17 06:01 Albuterol/ Ipratropium (Albuterol/ Ipratropium) 3 ml Q6HRT HHN 10/03/17 13:00 10/08/17 12:59 10/04/17 01:03 Alprazolam (Xanax) 0.5 mg TIDPRN PRN ORAL For Anxiety 10/03/17 18:45 10/10/17 18:44 10/04/17 14:32 Azithromycin (Zithromax) 500 mg DAILY ORAL 10/03/17 09:00 10/09/17 11:59 10/04/17 10:24 Famotidine (Pepcid I.v.) 20 mg Q12HR IVP 10/03/17 09:00 10/30/17 09:59 10/04/17 10:23 Heparin Sodium (Porcine) (Heparin 5000 units/ml) 5,000 units EVERY 12 HOURS SUBQ 10/03/17 09:00 10/29/17 20:59 10/03/17 23:21 Oseltamivir Phosphate (Tamiflu) 75 mg TWICE A DAY ORAL 10/03/17 09:00 10/04/17 15:59 10/04/17 10:24 Potassium Chloride (K-Dur) 40 meq DAILY ORAL 10/03/17 09:00 10/31/17 12:59 10/04/17 10:24 Vancomycin HCl (Vanco rx to dose) 1 ea DAILY PRN MISC Per rx protocol 10/03/17 09:00 10/29/17 01:59 Zolpidem Tartrate (Ambien) 5 mg HSPRN PRN ORAL Insomnia 10/03/17 21:00 10/08/17 20:59 10/03/17 23:19 Araceli Kenyon M.D. Oct 04, 2017 15:04
[2017-10-04] MEDS ORDERED: Levalbuterol Inh UD 1.25mg/0.5ml HHN SCH (15:30)
[2017-10-04] MEDS: Ipratropium 0.02% Inh Soln 2.5ml UD HHN SCH ×2 (16:35→23:00)
[2017-10-04] MEDS: Levalbuterol Inh UD 1.25mg/0.5ml HHN SCH ×2 (16:35→23:00)
--- NOTE | 2017-10-04 23:17 | Cardiology Progress Note ---
Assessment/Plan Assessment/Plan 1. Sinus tachycardia, due to hypoxemia and bilateral pneumonia, continue normal saline, antipyretic medication, and IV antibiotics, may require intubation in face of worsened CXR and expansion of B/L infiltrate, ? ARDS pattern. 2. Non-cardiac chest pain, most likely pleurisy/PNA. 3. Anorexia Nervosa Subjective Subjective Sinus tachycardia at 124. CXR from Oct 03, is worse and appears ARDS. O2 desaturation per ABG. On non-rebreather mask. Objective Last 24 Hour Vital Signs Date Time Temp Pulse Resp B/P (MAP) Pulse Ox O2 Delivery O2 Flow Rate FiO2 10/04/17 20:32 97 Non-Rebreather 15.0 100 10/04/17 20:32 Non-Rebreather 15.0 100 10/04/17 20:00 135 10/04/17 20:00 97.4 134 23 112/81 98 Venturi Mask 55 97.4 10/04/17 19:16 98.4 10/04/17 18:17 100.5 10/04/17 17:02 136 22 98 Non-Rebreather 15.0 100 10/04/17 16:32 132 22 97 Venturi Mask 14.0 55 10/04/17 16:00 135 10/04/17 16:00 97.9 121 23 141/95 94 Venturi Mask 55 97.9 10/04/17 13:54 Venturi Mask 14.0 55 10/04/17 13:15 120 22 97 Venturi Mask 14.0 55 10/04/17 12:00 97.9 108 21 110/75 96 Venturi Mask 55 97.9 10/04/17 12:00 126 10/04/17 08:00 121 10/04/17 08:00 97.9 109 22 111/78 98 Venturi Mask 55 97.9 10/04/17 07:40 Venturi Mask 14.0 55 10/04/17 07:40 119 20 95 Venturi Mask 14.0 55 10/04/17 07:38 95 Venturi Mask 14.0 55 10/04/17 07:38 Venturi Mask 15.0 55 10/04/17 07:38 119 20 Venturi Mask 14.0 55 10/04/17 06:01 99.9 10/04/17 04:00 98.7 136 20 120/82 94 Venturi Mask 55 98.7 10/04/17 03:32 120 10/04/17 01:25 91 18 100 Venturi Mask 14.0 55 10/04/17 01:03 98 20 95 Venturi Mask 14.0 55 10/04/17 00:00 98.2 110 20 109/75 99 Venturi Mask 55 98.2 10/03/17 23:30 110 Intake and Output 10/03/17 10/04/17 19:00 07:00 Intake Total 666.668 ml Balance 666.668 ml IV Total 666.668 ml # Voids 1 1 # Bowel Movements 1 1 2D Echo: EF ~55%,Global LV HK except post/inf wall,Mild MR/AR,Grade II LVDD, RVSP 32 Laboratory Tests Test 10/04/17 08:10 10/04/17 09:35 10/04/17 16:30 10/04/17 17:38 White Blood Count 12.5 K/UL (4.8-10.8) H Red Blood Count 3.14 M/UL (4.20-5.40) L Hemoglobin 10.3 G/DL (12.0-16.0) L Hematocrit 28.2 % (37.0-47.0) L Mean Corpuscular Volume 90 FL (80-99) Mean Corpuscular Hemoglobin 32.6 PG (27.0-31.0) H Mean Corpuscular Hemoglobin Concent 36.4 G/DL (32.0-36.0) H Red Cell Distribution Width 11.1 % (11.6-14.8) L Platelet Count 357 K/UL (150-450) Mean Platelet Volume 5.2 FL (6.5-10.1) L Neutrophils (%) (Auto) % (45.0-75.0) Lymphocytes (%) (Auto) % (20.0-45.0) Monocytes (%) (Auto) % (1.0-10.0) Eosinophils (%) (Auto) % (0.0-3.0) Basophils (%) (Auto) % (0.0-2.0) Differential Total Cells Counted 100 Neutrophils % (Manual) 93 % (45-75) H Lymphocytes % (Manual) 3 % (20-45) L Monocytes % (Manual) 1 % (1-10) Eosinophils % (Manual) 0 % (0-3) Basophils % (Manual) 0 % (0-2) Band Neutrophils 3 % (0-8) Platelet Estimate Adequate Platelet Morphology Normal Hypochromasia 1+ Sodium Level 135 MMOL/L (136-145) L Potassium Level 3.0 MMOL/L (3.5-5.1) L Chloride Level 104 MMOL/L (98-107) Carbon Dioxide Level 22 MMOL/L (21-32) Anion Gap 8 mmol/L (5-15) Blood Urea Nitrogen 13 mg/dL (7-18) Creatinine 1.1 MG/DL (0.55-1.30) Estimat Glomerular Filtration Rate 55.3 mL/min (>60) Glucose Level 134 MG/DL (74-106) H Calcium Level 7.6 MG/DL (8.5-10.1) L Cyclic Citrullinated Peptide IgG Ab Pending Anti-Nuclear Antibody Screen Pending c-ANCA Titer Pending p-ANCA Titer Pending Vancomycin Level Trough 29.6 ug/mL (5.0-12.0) H Arterial Blood pH 7.410 (7.350-7.450) Arterial Blood Partial Pressure CO2 26.9 mmHg (35.0-45.0) L Arterial Blood Partial Pressure O2 72.7 mmHg (75.0-100.0) L Arterial Blood HCO3 17.0 mmol/L (22.0-26.0) L Arterial Blood Oxygen Saturation 94.5 % (92.0-98.0) Arterial Blood Base Excess -6.1 Stuart Test Positive D-Dimer 6.58 mg/L FEU (0.00-0.49) H Troponin I 0.043 ng/mL (0.000-0.056) Objective HEENT: Atraumatic and normocephalic. Anicteric. Hair loss is seen. Pupils are equal, round, and reactive to light and accommodation. Extraocular muscles intact. NECK: JVP is less than 5 cm. No carotid bruit. Carotid upstrokes 2+ bilaterally. CARDIOVASCULAR: Normal S1 and S2. Tachycardic, Regular rate and rhythm. No murmurs, gallops, or rubs. PMI is at fourth intercostal space in the midclavicular line. LUNGS: Diminished breath sounds in both bases with crackles bilaterally. ABDOMEN: Soft, nontender, and nondistended. No hepatosplenomegaly. Positive bowel sounds. EXTREMITIES: Muscle wasting throughout. The presence of blanching rash over both limbs. No edema, clubbing, or cyanosis. GLORIA PELAEZ Oct 04, 2017 23:17
[2017-10-05] VITALS (36 sets, daily range): BP systolic 54–134; BP diastolic 16–104
--- NOTE | 2017-10-05 00:37 | General Progress Note ---
Assessment/Plan Assessment/Plan #. Anemia due to underlying chronic disease. Closely monitor. --> Blood transfusion not required unless symptomatic or hgb <7 --> Anemia w/u has been reviewed --> Trend cbc daily. --> Hemoglobin has been stable. #. Leukopenia severe, potentially related to underlying medication. --> s/p abx, do not have other causes and currently improved --> a/p one dose of neupogen and now wbc is wnl --> Improved and resolved at this time. --> As outpatient recommend to recheck cbc and fever curve, see in clinic in one week #. Pneumonia. --> We will trace an infection. She is on broad-spectrum antibiotics, vancomycin and Zosyn. --> Complained of chest pain and shortness of breath #. Acute respiratory failure. Adjust oxygen as needed. #. Hemoptysis, rule out tuberculosis. #. Neutropenic precautions. Subjective Date patient seen: Oct 04, 2017 Constitutional: Denies: no symptoms, chills, diaphoresis, fever, malaise, weakness, other HEENT: Denies: no symptoms, eye pain, blurred vision, tearing, double vision, ear pain, ear discharge, nose pain, nose congestion, throat pain, throat swelling, mouth pain, mouth swelling, other Cardiovascular: Denies: no symptoms, chest pain, edema, irregular heart rate, lightheadedness, palpitations, syncope, other Respiratory: Denies: no symptoms, cough, orthopnea, shortness of breath, SOB with excertion, SOB at rest, sputum, stridor, wheezing, other Gastrointestinal/Abdominal: Denies: no symptoms, abdomen distended, abdominal pain, black stools, tarry stools, blood in stool, constipated, diarrhea, difficulty swallowing, nausea, poor appetite, poor fluid intake, rectal bleeding , vomiting, other Genitourinary: Denies: no symptoms, burning, discharge, frequency, flank pain, hematuria, incontinence, pain, urgency, other Neurologic/Psychiatric: Denies: no symptoms, anxiety, depressed, emotional problems, headache, numbness, paresthesia, pre-existing deficit, seizure, tingling, tremors, weakness, other Hematologic/Lymphatic: Reports: anemia Allergies: Coded Allergies: No Known Allergies (Unverified , 09/28/17) Subjective No hematochezia. C/O chest pain and sob. Wbc count elevated. Objective Last 24 Hour Vital Signs Date Time Temp Pulse Resp B/P (MAP) Pulse Ox O2 Delivery O2 Flow Rate FiO2 10/05/17 00:23 Non-Rebreather 15.0 100 10/05/17 00:22 129 20 93 Non-Rebreather 15.0 100 10/04/17 20:32 97 Non-Rebreather 15.0 100 10/04/17 20:32 Non-Rebreather 15.0 100 10/04/17 20:00 135 10/04/17 20:00 97.4 134 23 112/81 98 Venturi Mask 55 97.4 10/04/17 19:16 98.4 10/04/17 18:17 100.5 10/04/17 17:02 136 22 98 Non-Rebreather 15.0 100 10/04/17 16:32 132 22 97 Venturi Mask 14.0 55 10/04/17 16:00 135 10/04/17 16:00 97.9 121 23 141/95 94 Venturi Mask 55 97.9 10/04/17 13:54 Venturi Mask 14.0 55 10/04/17 13:15 120 22 97 Venturi Mask 14.0 55 10/04/17 12:00 97.9 108 21 110/75 96 Venturi Mask 55 97.9 10/04/17 12:00 126 10/04/17 08:00 121 10/04/17 08:00 97.9 109 22 111/78 98 Venturi Mask 55 97.9 10/04/17 07:40 Venturi Mask 14.0 55 10/04/17 07:40 119 20 95 Venturi Mask 14.0 55 10/04/17 07:38 95 Venturi Mask 14.0 55 10/04/17 07:38 Venturi Mask 15.0 55 10/04/17 07:38 119 20 Venturi Mask 14.0 55 10/04/17 06:01 99.9 10/04/17 04:00 98.7 136 20 120/82 94 Venturi Mask 55 98.7 10/04/17 03:32 120 10/04/17 01:25 91 18 100 Venturi Mask 14.0 55 10/04/17 01:03 98 20 95 Venturi Mask 14.0 55 Intake and Output 10/04/17 10/05/17 19:00 07:00 # Bowel Movements 3 Laboratory Tests 10/04/17 08:10: White Blood Count 12.5H, Red Blood Count 3.14L, Hemoglobin 10.3L, Hematocrit 28.2L, Mean Corpuscular Volume 90, Mean Corpuscular Hemoglobin 32.6H, Mean Corpuscular Hemoglobin Concent 36.4H, Red Cell Distribution Width 11.1L, Platelet Count 357, Mean Platelet Volume 5.2L, Neutrophils (%) (Auto) , Lymphocytes (%) (Auto) , Monocytes (%) (Auto) , Eosinophils (%) (Auto) , Basophils (%) (Auto) , Differential Total Cells Counted 100, Neutrophils % ( Manual) 93H, Lymphocytes % (Manual) 3L, Monocytes % (Manual) 1, Eosinophils % ( Manual) 0, Basophils % (Manual) 0, Band Neutrophils 3, Platelet Estimate Adequate, Platelet Morphology Normal, Hypochromasia 1+, Sodium Level 135L, Potassium Level 3.0L, Chloride Level 104, Carbon Dioxide Level 22, Anion Gap 8, Blood Urea Nitrogen 13, Creatinine 1.1, Estimat Glomerular Filtration Rate 55.3 , Glucose Level 134H, Calcium Level 7.6L, Cyclic Citrullinated Peptide IgG Ab [ Pending], Anti-Nuclear Antibody Screen [Pending], c-ANCA Titer [Pending], p- ANCA Titer [Pending] 10/04/17 09:35: Vancomycin Level Trough 29.6H 10/04/17 16:30: Arterial Blood pH 7.410, Arterial Blood Partial Pressure CO2 26.9L, Arterial Blood Partial Pressure O2 72.7L, Arterial Blood HCO3 17.0L, Arterial Blood Oxygen Saturation 94.5, Arterial Blood Base Excess -6.1, Stuart Test Positive 10/04/17 17:38: D-Dimer 6.58H, Troponin I 0.043 Height (Feet): 5 Height (Inches): 2.00 Weight (Pounds): 90 General Appearance: mild distress Respiratory/Chest: decreased breath sounds Abdomen: soft Bhargav Wilburn MD Oct 05, 2017 00:37
[2017-10-05] MEDS: Ipratropium 0.02% Inh Soln 2.5ml UD HHN SCH ×6 (02:50→22:56)
[2017-10-05] MEDS: Zolpidem 5mg tab ORAL PRN (02:51)
--- NOTE | 2017-10-05 04:59 | Emergency Room Report ---
History of Present Illness General Chief Complaint: Flu Like Symptoms Source: EMS Present Illness Allergies: Coded Allergies: No Known Allergies (Unverified , 09/28/17) Patient History Last Menstrual Period: UNK Now: No Nursing Documentation-PM Past Medical History: No History, Except For Hx Cardiac Problems: No - ANOREXIA Hx Cancer: No Hx Gastrointestinal Problems: No Hx Neurological Problems: No Physical Exam Vital Signs Date Time Temp Pulse Resp B/P (MAP) Pulse Ox O2 Delivery O2 Flow Rate FiO2 10/01/17 07:57 104 10/01/17 08:00 99.4 36 119/84 100 Non-Rebreather 15.0 100 99.4 Procedures Intubation Intubation : Consent: Emergent Intubation Method: orotracheal Tube Size (cm): 7.5 Medications: Etomidate, Rocuronium Breath Sounds after Intubation: equal Intubation Complications: no complications Post Intubation Xray: Yes Attempts: One Patient Tolerated: Well Complications: None Medical Decision Making Diagnostic Impression: Primary Impression: Influenza-like symptoms Additional Impressions: Rash and nonspecific skin eruption Pseudoseizure Community acquired pneumonia Last Vital Signs Date Time Temp Pulse Resp B/P (MAP) Pulse Ox O2 Delivery O2 Flow Rate FiO2 10/05/17 04:00 98.9 150 44 122/97 87 Non-Rebreather 100 98.9 10/05/17 00:23 15.0 Disposition: ADMITTED INPATIENT Condition: Serious Referrals: [facility],REFERRING (PCP) Andre Robin M.D. Oct 05, 2017 04:59
[2017-10-05] MEDS: Levalbuterol Inh UD 1.25mg/0.5ml HHN SCH ×5 (07:00→22:56)
[2017-10-05 07:52] LABS: ANION GAP 16 mmol/L (5-15); BLOOD UREA NITROGEN 18 mg/dL (7-18); CALCIUM 8.3 MG/DL (8.5-10.1); CARBON DIOXIDE 17 MMOL/L (21-32); CHLORIDE 109 MMOL/L (98-107); CREATININE 1.5 MG/DL (0.55-1.30); POTASSIUM 3.8 MMOL/L (3.5-5.1); SODIUM 142 MMOL/L (136-145)
[2017-10-05 07:56] LABS: HEMATOCRIT 31.3 % (37.0-47.0); HEMOGLOBIN 10.5 G/DL (12.0-16.0); MEAN CORPUSCULAR VOLUME 94 FL (80-99); PLATELET COUNT 583 K/UL (150-450); RED BLOOD COUNT 3.33 M/UL (4.20-5.40); RED CELL DISTRIBUTION WIDTH 11.7 % (11.6-14.8); WHITE BLOOD COUNT 17.5 K/UL (4.8-10.8)
--- NOTE | 2017-10-05 08:02 | Pulmonolgy Critical Care Note ---
Critical Care - Asmt/Plan Problems: (1) SIRS (systemic inflammatory response syndrome) (2) MRSA pneumonia (3) Respiratory failure (4) Endotracheally intubated (5) Influenza-like symptoms (6) Rash and nonspecific skin eruption (7) Atypical pneumonia (8) Altered mental status (9) Leukopenia Respiratory: adjust tidal volume - F/U ABG and adjust vent settings accordingly , adjust FIO2 - Titrate down FiO2 and PEEP to keep SaO2 > 90%, CXR, ABG, other - Bronchoscopy this am, F/U Cx's, F/U auto-immune labs, may ultiamtely need a lung biopsy, ? vasculitis, ? pulse dose steroids Cardiac: continue to monitor HR/BP, other - F/U lactate Renal: increase IV fluid - start [id number]@ 100, check electrolytes - F/U, other - Monitor volumes Infectious Disease: check cultures - PanCx, continue antibiotics - Continue Vanco & Azithro, add Cefepime, add Ankita for now, other - F/U ID recs Gastrointestinal: other - Place NGT for enteral feeds Endocrine: monitor blood sugar Hematologic: monitor H/H Neurologic: keep patient comfortable, other - Monitor MS Prophylaxis: Protonix, Heparin Disposition: keep in ICU Time Spent (Minutes): 70 Notes Reviewed: grab hooker, cardio, renal, ID, other - Hematology Discussed with: nurses, consultants, family member Critical Care - Objective Last 24 Hour Vital Signs Date Time Temp Pulse Resp B/P (MAP) Pulse Ox O2 Delivery O2 Flow Rate FiO2 10/05/17 07:00 153 16 98/79 99 Non-Rebreather 100 10/05/17 06:30 153 16 100 10/05/17 06:00 157 16 134/104 99 Non-Rebreather 100 10/05/17 05:01 144 16 100 10/05/17 05:00 98.9 160 16 134/104 99 Mechanical Ventilator 100 98.9 10/05/17 04:48 100 10/05/17 04:00 98.9 150 44 122/97 87 Non-Rebreather 100 98.9 10/05/17 04:00 141 10/05/17 03:00 134 46 123/93 91 Non-Rebreather 100 10/05/17 02:00 135 35 109/94 91 Non-Rebreather 100 10/05/17 01:00 123 38 117/87 95 Non-Rebreather 100 10/05/17 00:23 Non-Rebreather 15.0 100 10/05/17 00:22 129 20 93 Non-Rebreather 15.0 100 10/05/17 00:00 135 10/05/17 00:00 97.0 123 36 105/84 95 Non-Rebreather 100 97.0 10/04/17 23:00 128 38 127/99 94 Non-Rebreather 100 10/04/17 22:30 96.6 125 37 101/78 94 Non-Rebreather 100 96.6 10/04/17 22:18 128 10/04/17 20:32 97 Non-Rebreather 15.0 100 10/04/17 20:32 Non-Rebreather 15.0 100 10/04/17 20:00 135 10/04/17 20:00 97.4 134 23 112/81 98 Venturi Mask 55 97.4 10/04/17 19:16 98.4 10/04/17 18:17 100.5 10/04/17 17:02 136 22 98 Non-Rebreather 15.0 100 10/04/17 16:32 132 22 97 Venturi Mask 14.0 55 10/04/17 16:00 135 10/04/17 16:00 97.9 121 23 141/95 94 Venturi Mask 55 97.9 10/04/17 13:54 Venturi Mask 14.0 55 10/04/17 13:15 120 22 97 Venturi Mask 14.0 55 10/04/17 12:00 97.9 108 21 110/75 96 Venturi Mask 55 97.9 10/04/17 12:00 126 10/04/17 08:00 121 10/04/17 08:00 97.9 109 22 111/78 98 Venturi Mask 55 97.9 Status: obtunded Condition: critical HEENT: atraumatic, normocephalic, other - ETT Lungs: rhonchi - scattered Heart: HR/BP unstable - Tachy but regular Abdomen: soft, non-tender, active bowel sounds Extremities: no C/C/E Micro: Microbiology Date/Time Source Procedure Growth Status 10/04/17 21:00 Stool Clostridium difficile Toxin Assay - Final Complete Blood Sugars: BS controlled Critical Care - Subjective ROS Limited/Unobtainable: Yes ICU Day: 1 Intubation Day: 1 Interval Events: Progressive ST throughout the day with inc WOB, CT-A neg for PE but inc b GGO's and alveolar infiltrates Transferred to ICU and intubated, sedated currently, ABG pending, no sig secretions Condition: critical IV Access: peripheral EKG Rhythm: Sinus Tachycardia FI02: 100 Vent Support Breath Rate: 16 Vent Support Mode: AC Vent Tidal Volume: 500 Sputum Amount: Moderate PEEP: 5.0 PIP: 30 I&O: Intake and Output 10/04/17 10/05/17 19:00 07:00 Intake Total 50 ml Output Total 400 ml Balance -350 ml Intake Oral 50 ml Output Urine Total 400 ml # Voids 1 # Bowel Movements 3 8 Subjective: Unobtainable CXR: CT-A neg for PE but inc meir and airspace opacities + scattered GGO's + ? RUL cavity ET-Tube: 7.0 ET Position: 21 Labs: Laboratory Tests Test 10/04/17 08:10 10/04/17 09:35 10/04/17 16:30 10/04/17 17:38 White Blood Count 12.5 K/UL (4.8-10.8) H Red Blood Count 3.14 M/UL (4.20-5.40) L Hemoglobin 10.3 G/DL (12.0-16.0) L Hematocrit 28.2 % (37.0-47.0) L Mean Corpuscular Volume 90 FL (80-99) Mean Corpuscular Hemoglobin 32.6 PG (27.0-31.0) H Mean Corpuscular Hemoglobin Concent 36.4 G/DL (32.0-36.0) H Red Cell Distribution Width 11.1 % (11.6-14.8) L Platelet Count 357 K/UL (150-450) Mean Platelet Volume 5.2 FL (6.5-10.1) L Neutrophils (%) (Auto) % (45.0-75.0) Lymphocytes (%) (Auto) % (20.0-45.0) Monocytes (%) (Auto) % (1.0-10.0) Eosinophils (%) (Auto) % (0.0-3.0) Basophils (%) (Auto) % (0.0-2.0) Differential Total Cells Counted 100 Neutrophils % (Manual) 93 % (45-75) H Lymphocytes % (Manual) 3 % (20-45) L Monocytes % (Manual) 1 % (1-10) Eosinophils % (Manual) 0 % (0-3) Basophils % (Manual) 0 % (0-2) Band Neutrophils 3 % (0-8) Platelet Estimate Adequate Platelet Morphology Normal Hypochromasia 1+ Sodium Level 135 MMOL/L (136-145) L Potassium Level 3.0 MMOL/L (3.5-5.1) L Chloride Level 104 MMOL/L (98-107) Carbon Dioxide Level 22 MMOL/L (21-32) Anion Gap 8 mmol/L (5-15) Blood Urea Nitrogen 13 mg/dL (7-18) Creatinine 1.1 MG/DL (0.55-1.30) Estimat Glomerular Filtration Rate 55.3 mL/min (>60) Glucose Level 134 MG/DL (74-106) H Calcium Level 7.6 MG/DL (8.5-10.1) L Cyclic Citrullinated Peptide IgG Ab Pending Anti-Nuclear Antibody Screen Pending c-ANCA Titer Pending p-ANCA Titer Pending Vancomycin Level Trough 29.6 ug/mL (5.0-12.0) H Arterial Blood pH 7.410 (7.350-7.450) Arterial Blood Partial Pressure CO2 26.9 mmHg (35.0-45.0) L Arterial Blood Partial Pressure O2 72.7 mmHg (75.0-100.0) L Arterial Blood HCO3 17.0 mmol/L (22.0-26.0) L Arterial Blood Oxygen Saturation 94.5 % (92.0-98.0) Arterial Blood Base Excess -6.1 Stuart Test Positive D-Dimer 6.58 mg/L FEU (0.00-0.49) H Troponin I 0.043 ng/mL (0.000-0.056) Test 10/05/17 04:10 10/05/17 05:45 10/05/17 07:30 Arterial Blood pH 7.310 (7.350-7.450) 7.120 (7.350-7.450) Arterial Blood Partial Pressure CO2 31.1 mmHg (35.0-45.0) L 38.1 mmHg (35.0-45.0) Arterial Blood Partial Pressure O2 53.5 mmHg (75.0-100.0) L 204.2 mmHg (75.0-100.0) H Arterial Blood HCO3 15.3 mmol/L (22.0-26.0) L 12.4 mmol/L (22.0-26.0) L Arterial Blood Oxygen Saturation 86.1 % (92.0-98.0) L 98.6 % (92.0-98.0) H Arterial Blood Base Excess -9.8 -16 Stuart Test Positive Positive White Blood Count Pending Red Blood Count Pending Hemoglobin Pending Hematocrit Pending Mean Corpuscular Volume Pending Mean Corpuscular Hemoglobin Pending Mean Corpuscular Hemoglobin Concent Pending Red Cell Distribution Width Pending Platelet Count Pending Mean Platelet Volume Pending Neutrophils (%) (Auto) Pending Lymphocytes (%) (Auto) Pending Monocytes (%) (Auto) Pending Eosinophils (%) (Auto) Pending Basophils (%) (Auto) Pending Sodium Level Pending Potassium Level Pending Chloride Level Pending Carbon Dioxide Level Pending Blood Urea Nitrogen Pending Creatinine Pending Estimat Glomerular Filtration Rate Pending Glucose Level Pending Calcium Level Pending Total Bilirubin Pending Aspartate Amino Transf (AST/SGOT) Pending Alanine Aminotransferase (ALT/SGPT) Pending Alkaline Phosphatase Pending Troponin I Pending Total Protein Pending Albumin Pending Globulin Pending JACQUELIN SHAH M.D. Oct 05, 2017 08:02
[2017-10-05 08:04] LABS: ALANINE AMINOTRANSFERASE 24 U/L (12-78); ALBUMIN 1.7 G/DL (3.4-5.0); ALBUMIN/GLOBULIN RATIO 0.4 (1.0-2.7); ALKALINE PHOSPHATASE 66 U/L (46-116); ASPARTATE AMINO TRANSFERASE 39 U/L (15-37); BILIRUBIN,TOTAL 0.8 MG/DL (0.2-1.0)
[2017-10-05] MEDS ORDERED: Lidocaine 1% Plain 30 ml INJ SCH (08:15)
--- NOTE | 2017-10-05 08:43 | Operative Note - PDOC ---
Operative Note Operative Note Date of Operation/Procedure: Oct 05, 2017 Chief Complaint: DICT # [id number] Pre-op Diagnosis: Respiratory failure Procedure: Flexible fiberoptic bronchoscopy with bronchoalveolar lavage Post-op Diagnosis: Normal EB anatomy No EB lesions No excessive secretions No alveolar hemorrhage Mild friability of mucosa ETT 2 cm above sherin Operative Findings: consistent w/pre-op dx studies Surgeon: Elliott Ponce MD Anesthesia: moderate sedation Specimen: yes Complications: none Condition: unstable - in ICU room Fluids: NS 1 liter wide open Estimated Blood Loss: none Drains: none Implant(s) used?: No Indications for Procedure Respiratory failure Description of Procedure Formal OP note dictated ELLIOTT PONCE M.D. Oct 05, 2017 08:43
[2017-10-05] MEDS: Heparin 5000 units/ml inj SUBQ SCH ×2 (09:00→21:00)
[2017-10-05] MEDS ORDERED: Azithromycin 250mg tab ORAL SCH (09:00)
[2017-10-05] MEDS ORDERED: DEXTROSE IV SCH (09:10)
[2017-10-05] MEDS ORDERED: PHENYLEPHRINE IV SCH (09:10)
[2017-10-05 09:47] LABS: APPEARANCE,URINE SLIGHTLY CLOUDY; BILIRUBIN, URINE NEGATIVE (NEGATIVE); GLUCOSE, URINE (UA) NEGATIVE (NEGATIVE); KETONES,URINE 2+ (NEGATIVE); LEUKOCYTE ESTERASE ,URINE 1+ (NEGATIVE); NITRITE,URINE NEGATIVE (NEGATIVE); PH,URINE 6 (4.5-8.0); PROTEIN,URINE 3+ (NEGATIVE); UROBILINOGEN,URINE NORMAL MG/DL (0.0-1.0)
[2017-10-05 09:49] LABS: COLOR,URINE YELLOW
[2017-10-05] MEDS ORDERED: Micafungin 100 MG in D5W 110 ML IVPB SCH (10:00)
[2017-10-05] MEDS: 1/2NS w/KCl 20mEq 1000ml 1,000 ML IV SCH ×2 (10:03→19:30)
--- NOTE | 2017-10-05 10:07 | Diagnostic Imaging Report ---
Indication: Shortness of breath Technique: CT pulmonary angiogram performed utilizing automated exposure control with intravenous contrast. Axial, sagittal and coronal reconstructions were obtained. 3-D volumetric reconstructions were also performed. CT dose: Total DLP 431.91 mGycm; CTDI vol 14.44 mGy Comparison: 09/29/2017 Findings: Mild motion degradation. There is no definite central or large segmental pulmonary embolism. There are extensive confluent bilateral airspace opacities with air bronchograms, worst in the left lower lobe which is near totally consolidated. There are moderate to large bilateral pleural effusions. There is questionable area of cavitation in the right midlung (series 9 image #56) possible nodule in the right/lower lung (series 9 image #49). There is no pneumothorax. There is cardiomegaly with dilatation of the right ventricle. There is abnormal dilatation of the main pulmonary artery to 34 mm. Thoracic aorta normal in caliber. No evidence of thoracic aortic dissection. There is anasarca. Imaged upper abdomen grossly unremarkable. Thyroid grossly unremarkable. There is unchanged compression deformity of the T2 vertebral body. IMPRESSION: No central or large segmental pulmonary embolism. Moderate bilateral pleural effusions with bilateral airspace opacities/consolidations and atelectasis which could be related to multifocal pneumonia, pulmonary edema and/or ARDS. Question areas of cavitation in the right midlung and possible nodule in the right mid/lower lung. There is near complete consolidation of the left lower lobe. Cardiomegaly with dilatation of the right ventricle and main pulmonary artery. Correlate with echocardiogram to assess for cor pulmonale. Anasarca. Unchanged compression deformity of the T2 vertebral body. This corresponds with the [facility]rad preliminary report. [place] [facility] [place] [employer] and the scans are performed using protocols designed to limit radiation exposure to as low as reasonably achievable to attain images of sufficient resolution adequate for diagnostic evaluation.
[2017-10-05] MEDS ORDERED: NS 275ml ONE (10:12)
[2017-10-05] MEDS ORDERED: Tubing IV Secondary IV ONE (10:12)
[2017-10-05] MEDS ORDERED: Cefepime HCl 1 GM in D5W 110 ML IVPB SCH (11:00)
--- NOTE | 2017-10-05 11:09 | Diagnostic Imaging Report ---
Indication: Chest pain Technique: XRAY Chest 1v Comparison: One day prior Findings/Impression: Heart appears enlarged. Extensive, confluent bilateral airspace opacities with air bronchograms again noted, compatible with a severe alveolar filling process such as pulmonary edema, multifocal pneumonia and/or ARDS. Findings are slightly increased. There are bilateral pleural effusions. There is no definite pneumothorax. Osseous structures are stable. This corresponds with the [facility] preliminary report.
[2017-10-05 11:18] LABS: INR 1.2 (0.9-1.1)
[2017-10-05] MEDS ORDERED: Lidocaine 1% Plain 30 ml INJ ONE ×3 (11:30→19:45)
[2017-10-05] MEDS ORDERED: Heparin 2000 units/Ns 1000ml IV ONE (11:30)
--- NOTE | 2017-10-05 12:13 | Infectious Diseases Prog Note ---
Assessment/Plan Assessment/Plan Assessment: Severe MRSA PNA- r/o other concomitant process (ie fungal, gram negatives, vasculitis, legionella) -s/p bronch 10/05: Normal EB anatomy, No EB lesions, No excessive secretions, No alveolar hemorrhage, Mild friability of mucosa; Cx p -CTA chest 10/04: No central or large segmental pulmonary embolism. Moderate bilateral pleural effusions with bilateral airspace opacities/consolidations and atelectasis which could be related to multifocal pneumonia, pulmonary edema and/or ARDS. Question areas of cavitation in the right midlung and possible nodule in the right mid/lower lung. There is near complete consolidation of the left lower lobe. Cardiomegaly with dilatation of the right ventricle and main pulmonary artery. Correlate with echocardiogram to assess for cor pulmonale. Anasarca. Unchanged compression deformity of the T2 vertebral body. Acute respiratory failure, now intubated 10/05 Neutropenic fever-resolved. Suspect probably Influenza (despite neg screen test ) with myelosuppression and superimposed MRSA PNA. Do not believe leukopenia was abx related as this was present on admission. R/o autoimmune disorder -CT chest: Dense consolidations with air bronchograms involving the bilateral lower lobes and to a lesser extent the bilateral upper lobes and right middle lobe. Small bilateral pleural effusions. Findings are compatible with but not specific for pneumonia. Follow-up recommended for further evaluation. -s/p Neupogen -Bcx NTD -sp cx MRSA ( S vanco, tetracycline, bactrim, Linezolid) -HIV screen and VL, acute hep panel neg -CRP >70> 2.9 Leukocytosis, worsening Metabolic acidosis- likely from COREY COREY, worsening Flu like symptoms -influenza sc neg Hemoptysis- likely 2ry to MRSA PNA; low suspicion for TB given acuity of symptoms and alternative diagnosis -AFB smear neg x3, cx p; MTB PCR neg x1 Rash- resolved- suspect was viral exanthem. She also received 1 dose fo Decadron 2mg IV on 09/30 ( no new meds; only med as her maintance Lexapro; rash present upon admission); will do a basic rheum/vasculitis w/u Neck pain; resolved -xray neck: Epiglottis is grossly unremarkable. Airway is patent. Prevertebral soft tissues are within normal limits. Osseous structures are unremarkable. hx of anorexia MDD Plan: -Continue IV Vancomycin # for MRSA PNA and add Ceftaroline for additional MRSA coverage -Will switch Cefepime#1 to Levaquin (in addition to Ceftaroline) for gram negative coverage and legionella coverage pending studies -Switch Micafungin #1 -would not be able to do PO Linezolid as she is on an SSRI -10/01 SP Zosyn #3 -09/28 SP ceftriaxone x1 -D/c azithromycin #8 (as switched to Levaquin) -continue Empiric Tamiflu #7/-14 for suspected flu -f/u bronch studies -f/u influenza PCR, cocci ab, CrAg, fungitell, sp culture ( fungal, legionella) , legionella ag urine, RASHAWN, ANCA, CCP -Consider thoracentesis if worsening pleural effusions -f/u cx -Monitor CBC/BMP, temperatures -heme onc f/u -droplets precautions -resp support -d/c airborne isolation Thank you for this consultation. Will continue to follow along with you. Discussed with RN, kelly, main lab and pulmonary team.. 90 min spent in care of this patient including discussions with other physicians , lab, review of literature. Subjective Allergies: Coded Allergies: No Known Allergies (Unverified , 09/28/17) Subjective Tm 100.5 resp decompensation and need to be intubated this am worsening consolidation and infiltrates on CT worsening COREY metabolic acidosis Objective Vital Signs Last 24 Hour Vital Signs Date Time Temp Pulse Resp B/P (MAP) Pulse Ox O2 Delivery O2 Flow Rate FiO2 10/05/17 10:38 143 24 50 10/05/17 10:36 144 20 93 Mechanical Ventilator 50 10/05/17 09:10 132 99/73 10/05/17 09:07 148 24 50 10/05/17 08:00 Mechanical Ventilator 10/05/17 07:59 Mechanical Ventilator 10/05/17 07:00 153 16 98/79 99 Non-Rebreather 100 10/05/17 06:30 153 16 100 10/05/17 06:00 157 16 134/104 99 Non-Rebreather 100 10/05/17 05:01 144 16 100 10/05/17 05:00 98.9 160 16 134/104 99 Mechanical Ventilator 100 98.9 10/05/17 04:48 100 10/05/17 04:00 98.9 150 44 122/97 87 Non-Rebreather 100 98.9 10/05/17 04:00 141 10/05/17 03:00 134 46 123/93 91 Non-Rebreather 100 10/05/17 02:00 135 35 109/94 91 Non-Rebreather 100 10/05/17 01:00 123 38 117/87 95 Non-Rebreather 100 10/05/17 00:23 Non-Rebreather 15.0 100 10/05/17 00:22 129 20 93 Non-Rebreather 15.0 100 10/05/17 00:00 135 10/05/17 00:00 97.0 123 36 105/84 95 Non-Rebreather 100 97.0 10/04/17 23:00 128 38 127/99 94 Non-Rebreather 100 10/04/17 22:30 96.6 125 37 101/78 94 Non-Rebreather 100 96.6 10/04/17 22:18 128 10/04/17 20:32 97 Non-Rebreather 15.0 100 10/04/17 20:32 Non-Rebreather 15.0 100 10/04/17 20:00 135 10/04/17 20:00 97.4 134 23 112/81 98 Venturi Mask 55 97.4 10/04/17 19:16 98.4 10/04/17 18:17 100.5 10/04/17 17:02 136 22 98 Non-Rebreather 15.0 100 10/04/17 16:32 132 22 97 Venturi Mask 14.0 55 10/04/17 16:00 135 10/04/17 16:00 97.9 121 23 141/95 94 Venturi Mask 55 97.9 10/04/17 13:54 Venturi Mask 14.0 55 10/04/17 13:15 120 22 97 Venturi Mask 14.0 55 10/04/17 12:00 97.9 108 21 110/75 96 Venturi Mask 55 97.9 10/04/17 12:00 126 Height (Feet): 5 Height (Inches): 2.00 Weight (Pounds): 89 Objective General Appearance: ill appearing, weak HEENT: normocephalic, atraumatic, PERRL, normal oropharynx Neck: full range of motion, supple Respiratory: no rhonchi, no respiratory distress, no accessory muscle use, no wheezing, speaking full sentences, other - chest TTP Cardiovascular regular rate, rhythm, no edema Genitourinary: no CVA tenderness Musculoskeletal: back normal, digits/nails normal, gait/station normal, normal range of motion, non-tender Neurologic: alert, oriented x3, responsive, motor strength/tone normal, sensory intact Skin: rash - blanching, erythematous, rasied, diffuse over back and extemities Lymphatic: no adenopathy Microbiology Date/Time Source Procedure Growth Status 10/03/17 10:10 Sputum AFB Specimen Processing Tissue - Final Resulted 10/03/17 10:10 Sputum Acid Fast Bacilli Smear - Final Resulted 10/03/17 10:10 Sputum Acid Fast Bacilli Culture Pending Resulted 10/04/17 21:00 Stool Clostridium difficile Toxin Assay - Final Complete Laboratory Tests Test 10/04/17 16:30 10/04/17 17:38 10/05/17 04:10 10/05/17 05:45 Arterial Blood pH 7.410 (7.350-7.450) 7.310 (7.350-7.450) 7.120 (7.350-7.450) Arterial Blood Partial Pressure CO2 26.9 mmHg (35.0-45.0) L 31.1 mmHg (35.0-45.0) L 38.1 mmHg (35.0-45.0) Arterial Blood Partial Pressure O2 72.7 mmHg (75.0-100.0) L 53.5 mmHg (75.0-100.0) L 204.2 mmHg (75.0-100.0) H Arterial Blood HCO3 17.0 mmol/L (22.0-26.0) L 15.3 mmol/L (22.0-26.0) L 12.4 mmol/L (22.0-26.0) L Arterial Blood Oxygen Saturation 94.5 % (92.0-98.0) 86.1 % (92.0-98.0) L 98.6 % (92.0-98.0) H Arterial Blood Base Excess -6.1 -9.8 -16 Stuart Test Positive Positive Positive D-Dimer 6.58 mg/L FEU (0.00-0.49) H Troponin I 0.043 ng/mL (0.000-0.056) Test 10/05/17 07:30 10/05/17 08:30 White Blood Count 17.5 K/UL (4.8-10.8) H Red Blood Count 3.33 M/UL (4.20-5.40) L Hemoglobin 10.5 G/DL (12.0-16.0) L Hematocrit 31.3 % (37.0-47.0) L Mean Corpuscular Volume 94 FL (80-99) Mean Corpuscular Hemoglobin 31.7 PG (27.0-31.0) H Mean Corpuscular Hemoglobin Concent 33.7 G/DL (32.0-36.0) Red Cell Distribution Width 11.7 % (11.6-14.8) Platelet Count 583 K/UL (150-450) #H Mean Platelet Volume 5.7 FL (6.5-10.1) L Neutrophils (%) (Auto) % (45.0-75.0) Lymphocytes (%) (Auto) % (20.0-45.0) Monocytes (%) (Auto) % (1.0-10.0) Eosinophils (%) (Auto) % (0.0-3.0) Basophils (%) (Auto) % (0.0-2.0) Differential Total Cells Counted 100 Neutrophils % (Manual) 70 % (45-75) Lymphocytes % (Manual) 9 % (20-45) L Monocytes % (Manual) 2 % (1-10) Eosinophils % (Manual) 0 % (0-3) Basophils % (Manual) 0 % (0-2) Band Neutrophils 19 % (0-8) H Platelet Estimate Increased H Platelet Morphology Normal Hypochromasia 1+ Sodium Level 142 MMOL/L (136-145) Potassium Level 3.8 MMOL/L (3.5-5.1) Chloride Level 109 MMOL/L (98-107) H Carbon Dioxide Level 17 MMOL/L (21-32) L Anion Gap 16 mmol/L (5-15) H Blood Urea Nitrogen 18 mg/dL (7-18) Creatinine 1.5 MG/DL (0.55-1.30) H Estimat Glomerular Filtration Rate 38.7 mL/min (>60) Glucose Level 97 MG/DL (74-106) Calcium Level 8.3 MG/DL (8.5-10.1) L Total Bilirubin 0.8 MG/DL (0.2-1.0) Aspartate Amino Transf (AST/SGOT) 39 U/L (15-37) H Alanine Aminotransferase (ALT/SGPT) 24 U/L (12-78) Alkaline Phosphatase 66 U/L (46-116) Troponin I 0.110 ng/mL (0.000-0.056) Total Protein 6.0 G/DL (6.4-8.2) L Albumin 1.7 G/DL (3.4-5.0) L Globulin 4.3 g/dL Albumin/Globulin Ratio 0.4 (1.0-2.7) L Urine Color Yellow Urine Appearance Slightly cloudy Urine pH 6 (4.5-8.0) Urine Specific Wallace 1.010 (1.005-1.035) Urine Protein 3+ (NEGATIVE) H Urine Glucose (UA) Negative (NEGATIVE) Urine Ketones 2+ (NEGATIVE) H Urine Occult Blood 3+ (NEGATIVE) H Urine Nitrite Negative (NEGATIVE) Urine Bilirubin Negative (NEGATIVE) Urine Urobilinogen Normal MG/DL (0.0-1.0) Urine Leukocyte Esterase 1+ (NEGATIVE) H Urine RBC 2-4 /HPF (0 - 2) H Urine WBC 2-4 /HPF (0 - 2) Urine Squamous Epithelial Cells Occasional /LPF Urine Amorphous Sediment Moderate /LPF (NONE) H Urine Bacteria Occasional /HPF (NONE) Current Medications Medications (Trade) Dose Ordered Sig/Annie Route PRN Reason Start Time Stop Time Status Last Admin Dose Admin Acetaminophen (Tylenol) 650 mg Q4H PRN ORAL T>100.5/Headache/Mild Pain 10/05/17 05:00 10/29/17 08:59 Alprazolam (Xanax) 0.5 mg TIDPRN PRN ORAL For Anxiety 10/05/17 18:45 10/10/17 18:44 Azithromycin (Zithromax) 500 mg DAILY ORAL 10/05/17 09:00 10/09/17 11:59 10/05/17 09:58 Cefepime HCl 1 gm/ Dextrose 110 ml @ 220 mls/hr Q24H IVPB 10/05/17 11:00 10/12/17 10:59 Famotidine (Pepcid I.v.) 20 mg DAILY IVP 10/05/17 09:00 11/04/17 08:59 10/05/17 10:02 Heparin Sodium (Porcine) (Heparin 5000 units/ml) 5,000 units EVERY 12 HOURS SUBQ 10/05/17 09:00 10/29/17 20:59 Ipratropium [place] (Atrovent) 500 mcg Q4HRT HHN 10/05/17 07:00 10/09/17 16:59 10/05/17 10:36 Levalbuterol HCl (Xopenex) 0.625 mg Q4HRT HHN 10/05/17 07:00 10/09/17 16:59 10/05/17 10:31 Micafungin Sodium 100 mg/Dextrose 110 ml @ 110 mls/hr Q24H IVPB 10/05/17 10:00 10/12/17 09:59 10/05/17 09:57 Oseltamivir Phosphate (Tamiflu) 30 mg BID ORAL 10/05/17 09:30 10/09/17 09:29 10/05/17 10:02 Phenylephrine HCl 100 mg/Dextrose 250 ml @ 0 mls/hr Q24H IV 10/05/17 09:10 11/04/17 09:09 Potassium Chloride (K-Dur) 40 meq DAILY ORAL 10/05/17 09:00 10/31/17 12:59 10/05/17 10:02 Sodium 1,000 ml @ 100 mls/hr Q10H IV 10/05/17 09:30 11/04/17 09:29 10/05/17 10:03 Vancomycin HCl (Vanco rx to dose) 1 ea DAILY PRN MISC Per rx protocol 10/05/17 09:00 10/29/17 01:59 Zolpidem Tartrate (Ambien) 5 mg HSPRN PRN ORAL Insomnia 10/05/17 21:00 10/08/17 20:59 Araceli Kenyon M.D. Oct 05, 2017 12:13
[2017-10-05] MEDS ORDERED: Midazolam 2mg/2ml Inj IVP PRN (12:30)
--- NOTE | 2017-10-05 13:05 | Diagnostic Imaging Report ---
Indication: Respiratory failure Technique: XRAY Chest 1v Comparison: 10/04/2017 Findings: Interval endotracheal intubation. Tip the ET tube below level of the clavicles, approximately 4 cm above the sherin. Extensive bilateral airspace and interstitial opacities and bilateral pleural effusions unchanged. No pneumothorax or subcutaneous emphysema. Impression: Interval endotracheal intubation. Additional findings without significant interval change.
--- NOTE | 2017-10-05 13:13 | Pre-Procedure Note/Attestation ---
Pre-Procedure Note/Attestation Complete Prior to Procedure Planned Procedure: not applicable Procedure Narrative: PICC line, thoracentesis Indications for Procedure Pre-Operative Diagnosis: need IV access, pleural effusions Attestation Informed consent obtained by the primary team and verified prior to the procedures. I attest that I re-evaluated the patient just prior to the surgery and that there has been no change in the patient's H&P, except as documented below: Carlton Dubose M.D. Oct 05, 2017 13:13
--- NOTE | 2017-10-05 13:21 | Diagnostic Imaging Report ---
Indications: Needs long-term IV access Technique: Procedure performed at bedside. Procedural timeout performed. Ultrasound confirms patent compressible left basilic vein. Total sterile technique, including sterile probe cover and sterile gel, sterile gloves, hand hygiene, hat, mask,, sterile gown, large sterile drape, and preparation with 2% chlorhexidine utilized. Local anesthesia with 1% lidocaine. Under real-time ultrasound guidance, puncture left basilic vein using 21-gauge needle, passage 0.018 guidewire, exchange for 5 Macedonian peel-away sheath. 5 Macedonian dual-lumen power PICC cut to 3 7 cm. It was inserted through the peel-away sheath. Peel-away sheath and guidewire removed. Catheter fixed to the skin. Both catheter ports aspirated and flushed. Patient tolerated procedure well, without immediate complication. Followup chest x-ray obtained, documents catheter tip position at the lower SVC. No significant interval change in lung findings compared to exam earlier the same day. Impression: Successful bedside placement of 5 Macedonian, double-lumen PICC under sonographic guidance, as described above. Catheter tip at the lower SVC. Catheter cleared for use.
[2017-10-05] MEDS ORDERED: Hydrocortisone 100mg Inj IV SCH (14:00)
[2017-10-05] MEDS: Midazolam 2mg/2ml Inj IVP PRN ×2 (14:10→23:34)
--- NOTE | 2017-10-05 14:28 | Diagnostic Imaging Report ---
Indications: Pleural effusion Technique: Ultrasound used to localize optimal puncture site. Sterile prepping and draping right chest. Local anesthesia with 1% lidocaine. Under real-time ultrasound guidance, puncture pleural space using thoracentesis needle. Stylet removed. Catheter placed to vacuum bottle suction. Total approximately 500 milliliters of fluid aspirated. Patient tolerated procedure well, without immediate complication. Impression: Successful ultrasound-guided right thoracentesis, yielding 500 milliliters of fluid
--- NOTE | 2017-10-05 14:34 | Diagnostic Imaging Report ---
Indication: Status post thoracentesis Technique: XRAY Chest 1v Comparison: Earlier the same day Findings: Endotracheal tube below level of clavicles, tip approximately 4 cm above the sherin. Interval placement of an enteric tube, tip of which is in the stomach, side-port at the gastroesophageal junction. Interval PICC line placement, tip in the region of the lower SVC. There is interval reduction in right-sided pleural fluid status post thoracentesis. Trace effusion remains. There is no definite pneumothorax. There is bilateral interstitial and extensive confluent airspace disease with air bronchograms. These findings are unchanged. Layering left-sided pleural effusion is stable. Osseous structures stable. IMPRESSION: Interval decrease in right-sided pleural fluid status post thoracentesis. No definite pneumothorax. Support lines/tubes as above. Persistent extensive interstitial and airspace disease.
[2017-10-05] MEDS ORDERED: Etomidate 40mg/20ml Inj IV ONE (14:50)
[2017-10-05] MEDS ORDERED: Zemuron 50mg/5ml Inj IV ONE (14:50)
[2017-10-05] MEDS ORDERED: Succinylcholine 20mg/ml 10ml vial ONE (14:50)
--- NOTE | 2017-10-05 15:06 | Consultation ---
Consult Note Consult Note asked to eval for metabolic acidosis Assessment/Plan Metabolic acidosis due to sepsis Cr rise to 1.5 : Acute renal failure (1) SIRS (systemic inflammatory response syndrome) (2) MRSA pneumonia (3) Respiratory failure (4) Endotracheally intubated (5) Influenza-like symptoms (6) Rash and nonspecific skin eruption (7) Atypical pneumonia (8) Altered mental status (9) Leukopenia Plan: Fluid challenge and antibiotics Dialysi for acidosis when Yannick Cath in ? Trial steroids ? Will discuss MEGAN NICKERSON Oct 05, 2017 15:06
--- NOTE | 2017-10-05 15:10 | Diagnostic Imaging Report ---
Indication: Enteric tube placement Technique: XRAY Abdomen 1v Comparison: None Findings: Tip of the enteric tube is within the proximal stomach, side-port is at the region of the gastroesophageal junction. Advancement is recommended. There are persistent dense bilateral nephrograms. This suggests a degree of renal insufficiency, likely acute. Bilateral airspace disease and trace right and small left pleural effusions partially visualized. No acute osseous abnormality seen. PICC line is partially visualized. IMPRESSION: Enteric tube tip in the proximal stomach, side-port at the region of the gastroesophageal junction. Tube advancement by approximately 4-5 cm is recommended for more ideal positioning. Persistent bilateral dense nephrograms likely reflective of a degree of renal insufficiency, probably acute. Correlation with recent renal function tests/serum BUN//creatinine recommended. Extensive bilateral airspace disease partially visualized.
[2017-10-05] MEDS: [UNRECOGNIZED DRUG - OTHER] IV SCH (15:16)
[2017-10-05] MEDS: CEFTAROLINE IVPB SCH (15:16)
[2017-10-05] MEDS: SODIUM BICARBONATE IV SCH (15:16)
[2017-10-05] MEDS: D5W IVPB SCH (15:16)
[2017-10-05] MEDS: KCL IV SCH (15:16)
[2017-10-05 15:46] LABS: HEMATOCRIT 30.8 % (37.0-47.0); HEMOGLOBIN 10.6 G/DL (12.0-16.0); MEAN CORPUSCULAR VOLUME 94 FL (80-99); PLATELET COUNT 463 K/UL (150-450); RED BLOOD COUNT 3.28 M/UL (4.20-5.40); RED CELL DISTRIBUTION WIDTH 11.8 % (11.6-14.8); WHITE BLOOD COUNT 11.1 K/UL (4.8-10.8)
[2017-10-05 15:50] LABS: ANION GAP 17 mmol/L (5-15); BLOOD UREA NITROGEN 22 mg/dL (7-18); CALCIUM 7.4 MG/DL (8.5-10.1); CARBON DIOXIDE 14 MMOL/L (21-32); CHLORIDE 113 MMOL/L (98-107); CREATININE 1.6 MG/DL (0.55-1.30); POTASSIUM 4.6 MMOL/L (3.5-5.1); SODIUM 144 MMOL/L (136-145)
[2017-10-05 15:51] LABS: BASOPHILS % (AUTO) 0.5 % (0.0-2.0); EOSINOPHILS % (AUTO) 0.2 % (0.0-3.0); LYMPHOCYTES % (AUTO) 5.2 % (20.0-45.0); MONOCYTES % (AUTO) 1.2 % (1.0-10.0); NEUTROPHILS % (AUTO) 92.8 % (45.0-75.0)
[2017-10-05 15:55] LABS: ALANINE AMINOTRANSFERASE 35 U/L (12-78); ALBUMIN 1.4 G/DL (3.4-5.0); ALBUMIN/GLOBULIN RATIO 0.4 (1.0-2.7); ALKALINE PHOSPHATASE 49 U/L (46-116); ASPARTATE AMINO TRANSFERASE 79 U/L (15-37); BILIRUBIN,TOTAL 0.6 MG/DL (0.2-1.0)
[2017-10-05] MEDS: PHENYLEPHRINE IV SCH (15:58)
[2017-10-05] MEDS: DEXTROSE IV SCH (15:58)
[2017-10-05] MEDS: fentaNYL Citrate 2,500 MCG in NS 200 ML IV SCH ×2 (15:59→16:30)
[2017-10-05] MEDS ORDERED: Vancomycin 500mg in D5W 275ml IVPB ONE (16:00)
[2017-10-05] MEDS ORDERED: Heparin 2000 units/Ns 1000ml INJ ONE ×2 (16:00→19:45)
--- NOTE | 2017-10-05 16:01 | Operative Note - Dictated ---
DATE OF OPERATION: 10/05/2017 PROCEDURE: Bronchoscopy. INDICATION: Respiratory failure. PROCEDURE: Flexible fiberoptic bronchoscopy. OPERATIVE FINDINGS: Normal endobronchial anatomy and no endobronchial lesions. No excessive endobronchial secretions. No evidence of alveolar hemorrhage. Mild friability of mucosa. COMPLICATIONS: None. ESTIMATED BLOOD LOSS: None. ANESTHESIA: Moderate sedation in ICU. DISPOSITION: The patient's ICU room. DESCRIPTION OF PROCEDURE: The patient was seen in her ICU room, identified as the patient. A formal time-out was done. Consent was obtained and verified. Thereafter, a flexible fiberoptic bronchoscope was passed through the endotracheal tube. The endotracheal tube was verified, 2 cm above the sherin. There was normal endobronchial anatomy to the subsegmental bronchi. BAL and lavage was done of the left upper lobe and right upper lobe. There were no endobronchial secretions, excessive bleeding. There was some mild friability of mucosa. There were no complications. The patient tolerated the procedure well and the bronchoscope was withdrawn. The patient was in stable condition in her ICU room. SPECIMENS: BAL specimen, right and left upper lobes. Elliott Ponce M.D. DR: AMBER JOB#: [id number] CC:
--- NOTE | 2017-10-05 16:28 | Diagnostic Imaging Report ---
Indication: Assess enteric tube placement. Technique: XRAY Abdomen 1v Comparison: Earlier the same day. FINDINGS/ IMPRESSION: Interval advancement of the enteric tube, with the tube now more appropriately positioned with the tip and side port within the stomach. Additional findings without significant change from prior exam a few hours earlier.
--- NOTE | 2017-10-05 17:01 | Internal Med Progress Note ---
Subjective Date of Service: Oct 05, 2017 Physician Name Isamar Rendon Attending Physician Aishwarya Tirado MD Current Medications Medications (Trade) Dose Ordered Sig/Annie Route PRN Reason Start Time Stop Time Status Last Admin Dose Admin Acetaminophen (Tylenol) 650 mg Q4H PRN ORAL T>100.5/Headache/Mild Pain 10/05/17 05:00 10/29/17 08:59 Alprazolam (Xanax) 0.5 mg TIDPRN PRN ORAL For Anxiety 10/05/17 18:45 10/10/17 18:44 Ceftaroline Fosamil 400 mg/ Dextrose 110 ml @ 110 mls/hr Q12HR@0200,1400 IVPB 10/05/17 14:00 10/12/17 13:59 10/05/17 15:16 Chlorhexidine Gluconate (Fabiana-Hex 2%) 1 applic DAILY@2000 TOPIC 10/05/17 20:00 11/04/17 19:59 Doxycycline Monohydrate (Vibramycin) 100 mg EVERY 12 HOURS ORAL 10/05/17 11:30 10/12/17 11:29 10/05/17 11:51 Famotidine (Pepcid I.v.) 20 mg DAILY IVP 10/05/17 09:00 11/04/17 08:59 10/05/17 10:02 Fentanyl Citrate 2500 mcg/Sodium Chloride 250 ml @ 0 mls/hr Q24H IV 10/05/17 15:30 10/12/17 15:29 10/05/17 15:59 Fluconazole/ Sodium Chloride 100 ml @ 100 mls/hr Q24H IV 10/05/17 13:00 10/12/17 12:59 10/05/17 15:16 Heparin Sodium (Porcine) (Heparin 5000 units/ml) 5,000 units EVERY 12 HOURS SUBQ 10/05/17 09:00 10/29/17 20:59 Ipratropium [place] (Atrovent) 500 mcg Q4HRT N 10/05/17 07:00 10/09/17 16:59 10/05/17 14:46 Levalbuterol HCl (Xopenex) 0.625 mg Q4HRT HHN 10/05/17 07:00 10/09/17 16:59 10/05/17 14:46 Levofloxacin (Levaquin) 750 mg EVERY OTHER DAY NG 10/05/17 15:30 10/12/17 15:29 10/05/17 16:30 Methylprednisolone Sodium Succinate (Solu-MEDROL) 60 mg EVERY 12 HOURS IVP 10/05/17 21:00 11/04/17 20:59 Midazolam HCl (Versed 2mg/2ml vial) 2 mg Q2H PRN IVP Unrelieved Agitation 10/05/17 12:30 11/04/17 12:29 10/05/17 14:10 Oseltamivir Phosphate (Tamiflu) 30 mg BID ORAL 10/05/17 09:30 10/09/17 09:29 10/05/17 10:02 Phenylephrine HCl 100 mg/Dextrose 250 ml @ 0 mls/hr Q24H IV 10/05/17 15:45 11/04/17 09:09 10/05/17 15:58 Sodium Bicarbonate 100 ml/Sodium 1,100 ml @ 100 mls/hr Q11H IV 10/05/17 13:30 11/04/17 13:29 10/05/17 15:16 Vancomycin HCl (Vanco rx to dose) 1 ea DAILY PRN MISC Per rx protocol 10/05/17 09:00 10/29/17 01:59 Vancomycin HCl 500 mg/Dextrose 275 ml @ 275 mls/hr ONCE ONCE IVPB 10/05/17 16:00 10/05/17 16:59 Zolpidem Tartrate (Ambien) 5 mg HSPRN PRN ORAL Insomnia 10/05/17 21:00 10/08/17 20:59 Allergies: Coded Allergies: No Known Allergies (Unverified , 09/28/17) ROS Limited/Unobtainable: Yes Subjective 37 YO F admitted with shortness of breath. Now pneumonia and respiratory failure. Intubated and sedated. Cover for Int Thomas-Dr Tirado. ICU. S/P bronchoscopy 10/05/17 Objective Last Vital Signs Date Time Temp Pulse Resp B/P (MAP) Pulse Ox O2 Delivery O2 Flow Rate FiO2 10/05/17 16:30 151 36 116/22 93 Mechanical Ventilator 100 10/05/17 16:00 98.2 98.2 10/05/17 10:42 15.0 Laboratory Tests Test 10/04/17 17:38 10/05/17 04:10 10/05/17 05:45 10/05/17 07:30 D-Dimer 6.58 mg/L FEU (0.00-0.49) H Troponin I 0.043 ng/mL (0.000-0.056) 0.110 ng/mL (0.000-0.056) Arterial Blood pH 7.310 (7.350-7.450) 7.120 (7.350-7.450) Arterial Blood Partial Pressure CO2 31.1 mmHg (35.0-45.0) L 38.1 mmHg (35.0-45.0) Arterial Blood Partial Pressure O2 53.5 mmHg (75.0-100.0) L 204.2 mmHg (75.0-100.0) H Arterial Blood HCO3 15.3 mmol/L (22.0-26.0) L 12.4 mmol/L (22.0-26.0) L Arterial Blood Oxygen Saturation 86.1 % (92.0-98.0) L 98.6 % (92.0-98.0) H Arterial Blood Base Excess -9.8 -16 Stuart Test Positive Positive White Blood Count 17.5 K/UL (4.8-10.8) H Red Blood Count 3.33 M/UL (4.20-5.40) L Hemoglobin 10.5 G/DL (12.0-16.0) L Hematocrit 31.3 % (37.0-47.0) L Mean Corpuscular Volume 94 FL (80-99) Mean Corpuscular Hemoglobin 31.7 PG (27.0-31.0) H Mean Corpuscular Hemoglobin Concent 33.7 G/DL (32.0-36.0) Red Cell Distribution Width 11.7 % (11.6-14.8) Platelet Count 583 K/UL (150-450) #H Mean Platelet Volume 5.7 FL (6.5-10.1) L Neutrophils (%) (Auto) % (45.0-75.0) Lymphocytes (%) (Auto) % (20.0-45.0) Monocytes (%) (Auto) % (1.0-10.0) Eosinophils (%) (Auto) % (0.0-3.0) Basophils (%) (Auto) % (0.0-2.0) Differential Total Cells Counted 100 Neutrophils % (Manual) 70 % (45-75) Lymphocytes % (Manual) 9 % (20-45) L Monocytes % (Manual) 2 % (1-10) Eosinophils % (Manual) 0 % (0-3) Basophils % (Manual) 0 % (0-2) Band Neutrophils 19 % (0-8) H Platelet Estimate Increased H Platelet Morphology Normal Hypochromasia 1+ Sodium Level 142 MMOL/L (136-145) Potassium Level 3.8 MMOL/L (3.5-5.1) Chloride Level 109 MMOL/L (98-107) H Carbon Dioxide Level 17 MMOL/L (21-32) L Anion Gap 16 mmol/L (5-15) H Blood Urea Nitrogen 18 mg/dL (7-18) Creatinine 1.5 MG/DL (0.55-1.30) H Estimat Glomerular Filtration Rate 38.7 mL/min (>60) Glucose Level 97 MG/DL (74-106) Calcium Level 8.3 MG/DL (8.5-10.1) L Total Bilirubin 0.8 MG/DL (0.2-1.0) Aspartate Amino Transf (AST/SGOT) 39 U/L (15-37) H Alanine Aminotransferase (ALT/SGPT) 24 U/L (12-78) Alkaline Phosphatase 66 U/L (46-116) Total Protein 6.0 G/DL (6.4-8.2) L Albumin 1.7 G/DL (3.4-5.0) L Globulin 4.3 g/dL Albumin/Globulin Ratio 0.4 (1.0-2.7) L Test 10/05/17 08:30 10/05/17 10:20 10/05/17 11:10 10/05/17 13:20 Urine Color Yellow Urine Appearance Slightly cloudy Urine pH 6 (4.5-8.0) Urine Specific [place] 1.010 (1.005-1.035) Urine Protein 3+ (NEGATIVE) H Urine Glucose (UA) Negative (NEGATIVE) Urine Ketones 2+ (NEGATIVE) H Urine Occult Blood 3+ (NEGATIVE) H Urine Nitrite Negative (NEGATIVE) Urine Bilirubin Negative (NEGATIVE) Urine Urobilinogen Normal MG/DL (0.0-1.0) Urine Leukocyte Esterase 1+ (NEGATIVE) H Urine RBC 2-4 /HPF (0 - 2) H Urine WBC 2-4 /HPF (0 - 2) Urine Squamous Epithelial Cells Occasional /LPF Urine Amorphous Sediment Moderate /LPF (NONE) H Urine Bacteria Occasional /HPF (NONE) Prothrombin Time 12.3 SEC (9.30-11.50) H Prothromb Time International Ratio 1.2 (0.9-1.1) H Activated Partial Thromboplast Time 33 SEC (23-33) Lactic Acid Level 4.60 mmol/L (0.66-2.22) H Random Vancomycin Level 15.7 ug/mL Arterial Blood pH 7.180 (7.350-7.450) Arterial Blood Partial Pressure CO2 26.9 mmHg (35.0-45.0) L Arterial Blood Partial Pressure O2 76.3 mmHg (75.0-100.0) Arterial Blood HCO3 9.8 mmol/L (22.0-26.0) L Arterial Blood Oxygen Saturation 92.7 % (92.0-98.0) Arterial Blood Base Excess -17 Stuart Test Positive Body Fluid Source Thoracentesis Body Fluid Volume 24 mL Body Fluid Appearance Cloudy Body Fluid RBC 6320 /CUMM Body Fluid Total Nucleated Cells 44431 /CUMM Body Fluid Polynuclear WBCs (%) Pending Body Fluid Mononuclear WBCs (%) Pending Body Fluid Mesothelial Cells (%) Pending Test 10/05/17 14:20 10/05/17 16:20 White Blood Count 11.1 K/UL (4.8-10.8) H Red Blood Count 3.28 M/UL (4.20-5.40) L Hemoglobin 10.6 G/DL (12.0-16.0) L Hematocrit 30.8 % (37.0-47.0) L Mean Corpuscular Volume 94 FL (80-99) Mean Corpuscular Hemoglobin 32.2 PG (27.0-31.0) H Mean Corpuscular Hemoglobin Concent 34.3 G/DL (32.0-36.0) Red Cell Distribution Width 11.8 % (11.6-14.8) Platelet Count 463 K/UL (150-450) H Mean Platelet Volume 5.8 FL (6.5-10.1) L Neutrophils (%) (Auto) 92.8 % (45.0-75.0) H Lymphocytes (%) (Auto) 5.2 % (20.0-45.0) L Monocytes (%) (Auto) 1.2 % (1.0-10.0) Eosinophils (%) (Auto) 0.2 % (0.0-3.0) Basophils (%) (Auto) 0.5 % (0.0-2.0) Sodium Level 144 MMOL/L (136-145) Potassium Level 4.6 MMOL/L (3.5-5.1) Chloride Level 113 MMOL/L (98-107) H Carbon Dioxide Level 14 MMOL/L (21-32) L Anion Gap 17 mmol/L (5-15) H Blood Urea Nitrogen 22 mg/dL (7-18) H Creatinine 1.6 MG/DL (0.55-1.30) H Estimat Glomerular Filtration Rate 35.9 mL/min (>60) Glucose Level 91 MG/DL (74-106) Lactic Acid Level 8.40 mmol/L (0.66-2.22) H Calcium Level 7.4 MG/DL (8.5-10.1) L Total Bilirubin 0.6 MG/DL (0.2-1.0) Aspartate Amino Transf (AST/SGOT) 79 U/L (15-37) H Alanine Aminotransferase (ALT/SGPT) 35 U/L (12-78) Alkaline Phosphatase 49 U/L (46-116) C-Reactive Protein, Quantitative > 70.0 mg/dL (0.00-0.90) H Total Protein 4.8 G/DL (6.4-8.2) L Albumin 1.4 G/DL (3.4-5.0) L Globulin 3.4 g/dL Albumin/Globulin Ratio 0.4 (1.0-2.7) L Arterial Blood pH 7.120 (7.350-7.450) Arterial Blood Partial Pressure CO2 26.3 mmHg (35.0-45.0) L Arterial Blood Partial Pressure O2 77.3 mmHg (75.0-100.0) Arterial Blood HCO3 8.4 mmol/L (22.0-26.0) L Arterial Blood Oxygen Saturation 91.6 % (92.0-98.0) L Arterial Blood Base Excess -19.5 Stuart Test Positive Microbiology Date/Time Source Procedure Growth Status 10/03/17 10:10 Sputum AFB Specimen Processing Tissue - Final Resulted 10/03/17 10:10 Sputum Acid Fast Bacilli Smear - Final Resulted 10/03/17 10:10 Sputum Acid Fast Bacilli Culture Pending Resulted 10/04/17 21:00 Stool Clostridium difficile Toxin Assay - Final Complete Intake and Output 10/04/17 10/05/17 19:00 07:00 Intake Total 50 ml Output Total 400 ml Balance -350 ml Intake Oral 50 ml Output Urine Total 400 ml # Voids 1 # Bowel Movements 3 8 Objective General Appearance: alert, moderate distress, thin EENT: PERRL/EOMI, normal ENT inspection Neck: non-tender, normal alignment, supple, normal inspection Cardiovascular: normal peripheral pulses, normal rate, regular rhythm, no gallop/murmur, no JVD Respiratory/Chest: Intubated; respiratory distress, accessory muscle use, crackles/rales, rhonchi - bilaterally, expiratory wheezing Abdomen: normal bowel sounds, non tender, soft, no organomegaly, no mass Extremities: normal range of motion, non-tender 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 Continue azithro and vanco per ID. See pulmonary note. (3) Hypoxia Assessment & Plan: Currently on non rebreather mask (4) Leukopenia Assessment & Plan: See heme note. Continue nupogen (5) Community acquired pneumonia Assessment & Plan: Continue zosyn, azithro and vanco per ID (6) Rash and nonspecific skin eruption Assessment & Plan: ?viral exanthem?-see ID note. (7) MRSA (methicillin resistant Staphylococcus aureus) Assessment & Plan: Continue vanco per ID (8) Respiratory failure Assessment & Plan: Intubated. See pulm note. S/P bronchoscopy 10/05/17 ISAMAR RENDON Oct 05, 2017 17:01
[2017-10-05] MEDS ORDERED: ALPRAZolam 0.5mg tab ORAL PRN (18:45)
--- NOTE | 2017-10-05 19:21 | Operative Note - PDOC ---
Operative Note Operative Note Date of Operation/Procedure: Oct 05, 2017 Pre-op Diagnosis: sepsis, oliguria, acidosis Procedure: right femoral temp HD cath placement Operative Findings: consistent w/pre-op dx studies Surgeon: Joel Guerrero MD Anesthesia: moderate sedation Specimen: none Complications: none Condition: unstable - in ICU room Estimated Blood Loss: minimal Drains: none Implant(s) used?: Yes Indications for Procedure 37F sepsis with oliguria/acidosis. Urgent HD indicated and recommended. Patient needs urgent line for HD. Surgery called for temp HD cath. consent obtained. Description of Procedure Patient made comfortable in ICU bed. dilated neck veins so decision made to place temp HD cath femoral. Right groin prepped and draped in standard surgical fashion. time out taken. anatomy identified. right femoral vein cannulated with finder needle and good venous return noted. wire placed over needle without resistance. needle removed and small skin incision made around wire. dilators used then catheter placed. good venous return and flush noted. catheter sutured in two places and dressings applied. no complications from procedure noted. Joel Guerrero Oct 05, 2017 19:21
[2017-10-05] MEDS ORDERED: Dyna-Hex 2% Top Sol 2oz TOPIC SCH (20:00)
[2017-10-05] MEDS ORDERED: Zolpidem 5mg tab ORAL PRN (21:00)
[2017-10-05] MEDS: Dyna-Hex 2% Top Sol 2oz TOPIC SCH (22:09)
[2017-10-05] MEDS: Solu-MEDROL 40mg Inj IVP SCH (22:10)
--- NOTE | 2017-10-05 22:54 | General Progress Note ---
Assessment/Plan Assessment/Plan #. Anemia due to underlying chronic disease. Closely monitor. --> Blood transfusion not required unless symptomatic or hgb <7 --> Anemia w/u has been reviewed --> Trend cbc daily. --> Hemoglobin has been stable. #. Leukopenia severe, potentially related to underlying medication. --> s/p abx, do not have other causes and currently improved --> a/p one dose of neupogen and now wbc is wnl --> Improved and resolved at this time. --> As outpatient recommend to recheck cbc and fever curve, see in clinic in one week #. Pneumonia. --> We will trace an infection. She is on broad-spectrum antibiotics, vancomycin and Zosyn. --> Complained of chest pain and shortness of breath #. Acute respiratory failure. Adjust oxygen as needed. #. Hemoptysis, rule out tuberculosis. #. Neutropenic precautions. #. Chest pain and shortness of breath. --> Cardiomegaly with dilatation of the right ventricle and main pulmonary artery. Subjective Date patient seen: Oct 05, 2017 Constitutional: Denies: no symptoms, chills, diaphoresis, fever, malaise, weakness, other HEENT: Denies: no symptoms, eye pain, blurred vision, tearing, double vision, ear pain, ear discharge, nose pain, nose congestion, throat pain, throat swelling, mouth pain, mouth swelling, other Cardiovascular: Denies: no symptoms, chest pain, edema, irregular heart rate, lightheadedness, palpitations, syncope, other Respiratory: Denies: no symptoms, cough, orthopnea, shortness of breath, SOB with excertion, SOB at rest, sputum, stridor, wheezing, other Gastrointestinal/Abdominal: Denies: no symptoms, abdomen distended, abdominal pain, black stools, tarry stools, blood in stool, constipated, diarrhea, difficulty swallowing, nausea, poor appetite, poor fluid intake, rectal bleeding , vomiting, other Genitourinary: Denies: no symptoms, burning, discharge, frequency, flank pain, hematuria, incontinence, pain, urgency, other Neurologic/Psychiatric: Denies: no symptoms, anxiety, depressed, emotional problems, headache, numbness, paresthesia, pre-existing deficit, seizure, tingling, tremors, weakness, other Hematologic/Lymphatic: Reports: anemia Allergies: Coded Allergies: No Known Allergies (Unverified , 09/28/17) Subjective Chest pain. Tachypneic and tachycardic. Leukocytosis improved. Objective Last 24 Hour Vital Signs Date Time Temp Pulse Resp B/P (MAP) Pulse Ox O2 Delivery O2 Flow Rate FiO2 10/05/17 22:00 28 10/05/17 21:41 137 42 80 10/05/17 21:00 30 10/05/17 20:30 124 30 97/79 96 Mechanical Ventilator 100 10/05/17 20:00 125 10/05/17 20:00 30 10/05/17 20:00 125 30 92/73 96 Mechanical Ventilator 100 10/05/17 19:30 98.8 132 33 84/61 96 Mechanical Ventilator 100 98.8 10/05/17 19:16 135 40 80 10/05/17 19:11 146 36 96 Mechanical Ventilator 80 10/05/17 19:06 Mechanical Ventilator 10/05/17 19:05 80 10/05/17 19:00 32 10/05/17 19:00 138 36 121/41 100 Mechanical Ventilator 100 10/05/17 18:45 Mechanical Ventilator 80 10/05/17 18:30 143 36 93/21 96 Mechanical Ventilator 100 10/05/17 18:30 29 10/05/17 18:00 140 36 123/22 96 Mechanical Ventilator 100 10/05/17 17:53 32 10/05/17 17:30 145 36 93/57 96 Mechanical Ventilator 100 10/05/17 17:30 31 10/05/17 17:17 147 32 100 10/05/17 17:00 97.8 10/05/17 17:00 149 36 86/64 93 Mechanical Ventilator 100 10/05/17 16:30 151 36 116/22 93 Mechanical Ventilator 100 10/05/17 16:30 29 10/05/17 16:00 98.2 151 36 106/16 95 Mechanical Ventilator 100 98.2 10/05/17 16:00 152 10/05/17 15:59 30 10/05/17 15:58 152 91/66 10/05/17 15:45 151 36 123/70 93 Mechanical Ventilator 100 10/05/17 15:30 152 38 69/49 99 Mechanical Ventilator 100 10/05/17 15:00 152 38 54/28 99 Mechanical Ventilator 100 10/05/17 14:59 155 28 95 Mechanical Ventilator 100 10/05/17 14:59 150 32 100 10/05/17 14:47 153 36 93 Mechanical Ventilator 100 10/05/17 14:00 153 38 75/73 95 Mechanical Ventilator 100 10/05/17 13:15 151 32 100 10/05/17 13:00 149 33 98/78 93 Mechanical Ventilator 100 10/05/17 12:00 98.8 148 34 100/85 92 Non-Rebreather 100 98.8 10/05/17 12:00 146 10/05/17 11:00 153 27 105/74 95 Non-Rebreather 100 10/05/17 10:42 149 28 95 Non-Rebreather 15.0 100 10/05/17 10:38 143 24 100 10/05/17 10:36 144 20 93 Mechanical Ventilator 50 10/05/17 10:00 139 26 105/90 92 Non-Rebreather 100 10/05/17 09:10 132 99/73 10/05/17 09:07 148 24 50 10/05/17 09:00 136 25 99/73 94 Non-Rebreather 100 10/05/17 08:00 136 10/05/17 08:00 Mechanical Ventilator 10/05/17 08:00 98.0 146 28 82/61 95 Non-Rebreather 100 98.0 10/05/17 07:59 Mechanical Ventilator 10/05/17 07:00 153 16 98/79 99 Non-Rebreather 100 10/05/17 06:30 153 16 100 10/05/17 06:00 157 16 134/104 99 Non-Rebreather 100 10/05/17 05:01 144 16 100 10/05/17 05:00 98.9 160 16 134/104 99 Mechanical Ventilator 100 98.9 10/05/17 04:48 100 10/05/17 04:00 98.9 150 44 122/97 87 Non-Rebreather 100 98.9 10/05/17 04:00 141 10/05/17 03:00 134 46 123/93 91 Non-Rebreather 100 10/05/17 02:00 135 35 109/94 91 Non-Rebreather 100 10/05/17 01:00 123 38 117/87 95 Non-Rebreather 100 10/05/17 00:23 Non-Rebreather 15.0 100 10/05/17 00:22 129 20 93 Non-Rebreather 15.0 100 10/05/17 00:00 135 10/05/17 00:00 97.0 123 36 105/84 95 Non-Rebreather 100 97.0 10/04/17 23:00 128 38 127/99 94 Non-Rebreather 100 Intake and Output 10/04/17 10/05/17 19:00 07:00 Intake Total 50 ml Output Total 400 ml Balance -350 ml Intake Oral 50 ml Output Urine Total 400 ml # Voids 1 # Bowel Movements 3 8 Laboratory Tests 10/05/17 04:10: Arterial Blood pH 7.310L, Arterial Blood Partial Pressure CO2 31.1L, Arterial Blood Partial Pressure O2 53.5L, Arterial Blood HCO3 15.3L, Arterial Blood Oxygen Saturation 86.1L, Arterial Blood Base Excess -9.8, Stuart Test Positive 10/05/17 05:45: Arterial Blood pH 7.120*L, Arterial Blood Partial Pressure CO2 38.1, Arterial Blood Partial Pressure O2 204.2H, Arterial Blood HCO3 12.4L, Arterial Blood Oxygen Saturation 98.6H, Arterial Blood Base Excess -16, Stuart Test Positive 10/05/17 07:30: White Blood Count 17.5H, Red Blood Count 3.33L, Hemoglobin 10.5L, Hematocrit 31.3L, Mean Corpuscular Volume 94, Mean Corpuscular Hemoglobin 31.7H, Mean Corpuscular Hemoglobin Concent 33.7, Red Cell Distribution Width 11.7, Platelet Count 583#H, Mean Platelet Volume 5.7L, Neutrophils (%) (Auto) , Lymphocytes (% ) (Auto) , Monocytes (%) (Auto) , Eosinophils (%) (Auto) , Basophils (%) (Auto) , Differential Total Cells Counted 100, Neutrophils % (Manual) 70, Lymphocytes % (Manual) 9L, Monocytes % (Manual) 2, Eosinophils % (Manual) 0, Basophils % ( Manual) 0, Band Neutrophils 19H, Platelet Estimate IncreasedH, Platelet Morphology Normal, Hypochromasia 1+, Sodium Level 142, Potassium Level 3.8, Chloride Level 109H, Carbon Dioxide Level 17L, Anion Gap 16H, Blood Urea Nitrogen 18, Creatinine 1.5H, Estimat Glomerular Filtration Rate 38.7, Glucose Level 97, Calcium Level 8.3L, Total Bilirubin 0.8, Aspartate Amino Transf (AST/ SGOT) 39H, Alanine Aminotransferase (ALT/SGPT) 24, Alkaline Phosphatase 66, Troponin I 0.110H, Total Protein 6.0L, Albumin 1.7L, Globulin 4.3, Albumin/ Globulin Ratio 0.4L 10/05/17 08:30: Urine Color Yellow, Urine Appearance Slightly cloudy, Urine pH 6, Urine Specific [place] 1.010, Urine Protein 3+H, Urine Glucose (UA) Negative, Urine Ketones 2+H, Urine Occult Blood 3+H, Urine Nitrite Negative, Urine Bilirubin Negative, Urine Urobilinogen Normal, Urine Leukocyte Esterase 1+H, Urine RBC 2- 4H, Urine WBC 2-4, Urine Squamous Epithelial Cells Occasional, Urine Amorphous Sediment ModerateH, Urine Bacteria Occasional 10/05/17 10:20: Prothrombin Time 12.3H, Prothromb Time International Ratio 1.2H, Activated Partial Thromboplast Time 33, Lactic Acid Level 4.60H, Random Vancomycin Level 15.7 10/05/17 11:10: Arterial Blood pH 7.180*L, Arterial Blood Partial Pressure CO2 26.9L, Arterial Blood Partial Pressure O2 76.3, Arterial Blood HCO3 9.8L, Arterial Blood Oxygen Saturation 92.7, Arterial Blood Base Excess -17, Stuart Test Positive 10/05/17 13:20: Body Fluid Source Thoracentesis, Body Fluid Volume 24, Body Fluid Appearance Cloudy, Body Fluid RBC 6320, Body Fluid Total Nucleated Cells 18982, Body Fluid Polynuclear WBCs (%) 90, Body Fluid Mononuclear WBCs (%) 10, Body Fluid Mesothelial Cells (%) 0 10/05/17 14:20: Lactic Acid Level 8.40H, White Blood Count 11.1H, Red Blood Count 3.28L, Hemoglobin 10.6L, Hematocrit 30.8L, Mean Corpuscular Volume 94, Mean Corpuscular Hemoglobin 32.2H, Mean Corpuscular Hemoglobin Concent 34.3, Red Cell Distribution Width 11.8, Platelet Count 463H, Mean Platelet Volume 5.8L, Neutrophils (%) (Auto) 92.8H, Lymphocytes (%) (Auto) 5.2L, Monocytes (%) (Auto) 1.2, Eosinophils (%) (Auto) 0.2, Basophils (%) (Auto) 0.5, Sodium Level 144, Potassium Level 4.6, Chloride Level 113H, Carbon Dioxide Level 14L, Anion Gap 17H, Blood Urea Nitrogen 22H, Creatinine 1.6H, Estimat Glomerular Filtration Rate 35.9, Glucose Level 91, Calcium Level 7.4L, Total Bilirubin 0.6, Aspartate Amino Transf (AST/SGOT) 79H, Alanine Aminotransferase (ALT/SGPT) 35, Alkaline Phosphatase 49, C-Reactive Protein, Quantitative > 70.0H, Total Protein 4.8L, Albumin 1.4L, Globulin 3.4, Albumin/Globulin Ratio 0.4L 10/05/17 16:20: Arterial Blood pH 7.120*L, Arterial Blood Partial Pressure CO2 26.3L, Arterial Blood Partial Pressure O2 77.3, Arterial Blood HCO3 8.4L, Arterial Blood Oxygen Saturation 91.6L, Arterial Blood Base Excess -19.5, Stuart Test Positive 10/05/17 20:00: Lactic Acid Level 5.90H Height (Feet): 5 Height (Inches): 2.00 Weight (Pounds): 89 General Appearance: agitated Cardiovascular: tachycardia Edema: trace edema Bhargav Wilburn MD Oct 05, 2017 22:54
--- NOTE | 2017-10-05 22:55 | Cardiology Progress Note ---
Assessment/Plan Assessment/Plan 1. Septic shock with multi-organ failure, using accessory muscle of respiration to compensate for hypoxemia and bilateral pneumonia,CXR pattern of ARDS, antipyretic medication, and IV antibiotics. 2. Non-cardiac chest pain, most likely pleurisy/PNA. 3. Elevated troponin level likely due to existing hypotension. Subjective Subjective Transferred to ICU with respiratory failure, s/p intubation. Sinus tachycardia at 124. CXR from Oct 03, is worse and appears ARDS. s/p bronchoscopy. s/p right thoracentesis, draining ~500 cc fluid. Objective Last 24 Hour Vital Signs Date Time Temp Pulse Resp B/P (MAP) Pulse Ox O2 Delivery O2 Flow Rate FiO2 10/05/17 22:00 28 10/05/17 21:41 137 42 80 10/05/17 21:00 30 10/05/17 20:30 124 30 97/79 96 Mechanical Ventilator 100 10/05/17 20:00 125 10/05/17 20:00 30 10/05/17 20:00 125 30 92/73 96 Mechanical Ventilator 100 10/05/17 19:30 98.8 132 33 84/61 96 Mechanical Ventilator 100 98.8 10/05/17 19:16 135 40 80 10/05/17 19:11 146 36 96 Mechanical Ventilator 80 10/05/17 19:06 Mechanical Ventilator 10/05/17 19:05 80 10/05/17 19:00 32 10/05/17 19:00 138 36 121/41 100 Mechanical Ventilator 100 10/05/17 18:45 Mechanical Ventilator 80 10/05/17 18:30 143 36 93/21 96 Mechanical Ventilator 100 10/05/17 18:30 29 10/05/17 18:00 140 36 123/22 96 Mechanical Ventilator 100 10/05/17 17:53 32 10/05/17 17:30 145 36 93/57 96 Mechanical Ventilator 100 10/05/17 17:30 31 10/05/17 17:17 147 32 100 10/05/17 17:00 97.8 10/05/17 17:00 149 36 86/64 93 Mechanical Ventilator 100 10/05/17 16:30 151 36 116/22 93 Mechanical Ventilator 100 10/05/17 16:30 29 10/05/17 16:00 98.2 151 36 106/16 95 Mechanical Ventilator 100 98.2 10/05/17 16:00 152 10/05/17 15:59 30 10/05/17 15:58 152 91/66 10/05/17 15:45 151 36 123/70 93 Mechanical Ventilator 100 10/05/17 15:30 152 38 69/49 99 Mechanical Ventilator 100 10/05/17 15:00 152 38 54/28 99 Mechanical Ventilator 100 10/05/17 14:59 155 28 95 Mechanical Ventilator 100 10/05/17 14:59 150 32 100 10/05/17 14:47 153 36 93 Mechanical Ventilator 100 10/05/17 14:00 153 38 75/73 95 Mechanical Ventilator 100 10/05/17 13:15 151 32 100 10/05/17 13:00 149 33 98/78 93 Mechanical Ventilator 100 10/05/17 12:00 98.8 148 34 100/85 92 Non-Rebreather 100 98.8 10/05/17 12:00 146 10/05/17 11:00 153 27 105/74 95 Non-Rebreather 100 10/05/17 10:42 149 28 95 Non-Rebreather 15.0 100 10/05/17 10:38 143 24 100 10/05/17 10:36 144 20 93 Mechanical Ventilator 50 10/05/17 10:00 139 26 105/90 92 Non-Rebreather 100 10/05/17 09:10 132 99/73 10/05/17 09:07 148 24 50 10/05/17 09:00 136 25 99/73 94 Non-Rebreather 100 10/05/17 08:00 136 10/05/17 08:00 Mechanical Ventilator 10/05/17 08:00 98.0 146 28 82/61 95 Non-Rebreather 100 98.0 10/05/17 07:59 Mechanical Ventilator 10/05/17 07:00 153 16 98/79 99 Non-Rebreather 100 10/05/17 06:30 153 16 100 10/05/17 06:00 157 16 134/104 99 Non-Rebreather 100 10/05/17 05:01 144 16 100 10/05/17 05:00 98.9 160 16 134/104 99 Mechanical Ventilator 100 98.9 10/05/17 04:48 100 10/05/17 04:00 98.9 150 44 122/97 87 Non-Rebreather 100 98.9 10/05/17 04:00 141 10/05/17 03:00 134 46 123/93 91 Non-Rebreather 100 10/05/17 02:00 135 35 109/94 91 Non-Rebreather 100 10/05/17 01:00 123 38 117/87 95 Non-Rebreather 100 10/05/17 00:23 Non-Rebreather 15.0 100 10/05/17 00:22 129 20 93 Non-Rebreather 15.0 100 10/05/17 00:00 135 10/05/17 00:00 97.0 123 36 105/84 95 Non-Rebreather 100 97.0 10/04/17 23:00 128 38 127/99 94 Non-Rebreather 100 Intake and Output 10/04/17 10/05/17 19:00 07:00 Intake Total 50 ml Output Total 400 ml Balance -350 ml Intake Oral 50 ml Output Urine Total 400 ml # Voids 1 # Bowel Movements 3 8 2D Echo: EF~50%,Borderline LV fxn post/inf wall HK,Mild MR/AR,Grade II LVDD, RVSP 32 Laboratory Tests Test 10/05/17 04:10 10/05/17 05:45 10/05/17 07:30 10/05/17 08:30 Arterial Blood pH 7.310 (7.350-7.450) 7.120 (7.350-7.450) Arterial Blood Partial Pressure CO2 31.1 mmHg (35.0-45.0) L 38.1 mmHg (35.0-45.0) Arterial Blood Partial Pressure O2 53.5 mmHg (75.0-100.0) L 204.2 mmHg (75.0-100.0) H Arterial Blood HCO3 15.3 mmol/L (22.0-26.0) L 12.4 mmol/L (22.0-26.0) L Arterial Blood Oxygen Saturation 86.1 % (92.0-98.0) L 98.6 % (92.0-98.0) H Arterial Blood Base Excess -9.8 -16 Stuart Test Positive Positive White Blood Count 17.5 K/UL (4.8-10.8) H Red Blood Count 3.33 M/UL (4.20-5.40) L Hemoglobin 10.5 G/DL (12.0-16.0) L Hematocrit 31.3 % (37.0-47.0) L Mean Corpuscular Volume 94 FL (80-99) Mean Corpuscular Hemoglobin 31.7 PG (27.0-31.0) H Mean Corpuscular Hemoglobin Concent 33.7 G/DL (32.0-36.0) Red Cell Distribution Width 11.7 % (11.6-14.8) Platelet Count 583 K/UL (150-450) #H Mean Platelet Volume 5.7 FL (6.5-10.1) L Neutrophils (%) (Auto) % (45.0-75.0) Lymphocytes (%) (Auto) % (20.0-45.0) Monocytes (%) (Auto) % (1.0-10.0) Eosinophils (%) (Auto) % (0.0-3.0) Basophils (%) (Auto) % (0.0-2.0) Differential Total Cells Counted 100 Neutrophils % (Manual) 70 % (45-75) Lymphocytes % (Manual) 9 % (20-45) L Monocytes % (Manual) 2 % (1-10) Eosinophils % (Manual) 0 % (0-3) Basophils % (Manual) 0 % (0-2) Band Neutrophils 19 % (0-8) H Platelet Estimate Increased H Platelet Morphology Normal Hypochromasia 1+ Sodium Level 142 MMOL/L (136-145) Potassium Level 3.8 MMOL/L (3.5-5.1) Chloride Level 109 MMOL/L (98-107) H Carbon Dioxide Level 17 MMOL/L (21-32) L Anion Gap 16 mmol/L (5-15) H Blood Urea Nitrogen 18 mg/dL (7-18) Creatinine 1.5 MG/DL (0.55-1.30) H Estimat Glomerular Filtration Rate 38.7 mL/min (>60) Glucose Level 97 MG/DL (74-106) Calcium Level 8.3 MG/DL (8.5-10.1) L Total Bilirubin 0.8 MG/DL (0.2-1.0) Aspartate Amino Transf (AST/SGOT) 39 U/L (15-37) H Alanine Aminotransferase (ALT/SGPT) 24 U/L (12-78) Alkaline Phosphatase 66 U/L (46-116) Troponin I 0.110 ng/mL (0.000-0.056) Total Protein 6.0 G/DL (6.4-8.2) L Albumin 1.7 G/DL (3.4-5.0) L Globulin 4.3 g/dL Albumin/Globulin Ratio 0.4 (1.0-2.7) L Urine Color Yellow Urine Appearance Slightly cloudy Urine pH 6 (4.5-8.0) Urine Specific [place] 1.010 (1.005-1.035) Urine Protein 3+ (NEGATIVE) H Urine Glucose (UA) Negative (NEGATIVE) Urine Ketones 2+ (NEGATIVE) H Urine Occult Blood 3+ (NEGATIVE) H Urine Nitrite Negative (NEGATIVE) Urine Bilirubin Negative (NEGATIVE) Urine Urobilinogen Normal MG/DL (0.0-1.0) Urine Leukocyte Esterase 1+ (NEGATIVE) H Urine RBC 2-4 /HPF (0 - 2) H Urine WBC 2-4 /HPF (0 - 2) Urine Squamous Epithelial Cells Occasional /LPF Urine Amorphous Sediment Moderate /LPF (NONE) H Urine Bacteria Occasional /HPF (NONE) Test 10/05/17 10:20 10/05/17 11:10 10/05/17 13:20 10/05/17 14:20 Prothrombin Time 12.3 SEC (9.30-11.50) H Prothromb Time International Ratio 1.2 (0.9-1.1) H Activated Partial Thromboplast Time 33 SEC (23-33) Lactic Acid Level 4.60 mmol/L (0.66-2.22) H 8.40 mmol/L (0.66-2.22) H Random Vancomycin Level 15.7 ug/mL Arterial Blood pH 7.180 (7.350-7.450) Arterial Blood Partial Pressure CO2 26.9 mmHg (35.0-45.0) L Arterial Blood Partial Pressure O2 76.3 mmHg (75.0-100.0) Arterial Blood HCO3 9.8 mmol/L (22.0-26.0) L Arterial Blood Oxygen Saturation 92.7 % (92.0-98.0) Arterial Blood Base Excess -17 Stuart Test Positive Body Fluid Source Thoracentesis Body Fluid Volume 24 mL Body Fluid Appearance Cloudy Body Fluid RBC 6320 /CUMM Body Fluid Total Nucleated Cells 20958 /CUMM Body Fluid Polynuclear WBCs (%) 90 % Body Fluid Mononuclear WBCs (%) 10 % Body Fluid Mesothelial Cells (%) 0 % White Blood Count 11.1 K/UL (4.8-10.8) H Red Blood Count 3.28 M/UL (4.20-5.40) L Hemoglobin 10.6 G/DL (12.0-16.0) L Hematocrit 30.8 % (37.0-47.0) L Mean Corpuscular Volume 94 FL (80-99) Mean Corpuscular Hemoglobin 32.2 PG (27.0-31.0) H Mean Corpuscular Hemoglobin Concent 34.3 G/DL (32.0-36.0) Red Cell Distribution Width 11.8 % (11.6-14.8) Platelet Count 463 K/UL (150-450) H Mean Platelet Volume 5.8 FL (6.5-10.1) L Neutrophils (%) (Auto) 92.8 % (45.0-75.0) H Lymphocytes (%) (Auto) 5.2 % (20.0-45.0) L Monocytes (%) (Auto) 1.2 % (1.0-10.0) Eosinophils (%) (Auto) 0.2 % (0.0-3.0) Basophils (%) (Auto) 0.5 % (0.0-2.0) Sodium Level 144 MMOL/L (136-145) Potassium Level 4.6 MMOL/L (3.5-5.1) Chloride Level 113 MMOL/L (98-107) H Carbon Dioxide Level 14 MMOL/L (21-32) L Anion Gap 17 mmol/L (5-15) H Blood Urea Nitrogen 22 mg/dL (7-18) H Creatinine 1.6 MG/DL (0.55-1.30) H Estimat Glomerular Filtration Rate 35.9 mL/min (>60) Glucose Level 91 MG/DL (74-106) Calcium Level 7.4 MG/DL (8.5-10.1) L Total Bilirubin 0.6 MG/DL (0.2-1.0) Aspartate Amino Transf (AST/SGOT) 79 U/L (15-37) H Alanine Aminotransferase (ALT/SGPT) 35 U/L (12-78) Alkaline Phosphatase 49 U/L (46-116) C-Reactive Protein, Quantitative > 70.0 mg/dL (0.00-0.90) H Total Protein 4.8 G/DL (6.4-8.2) L Albumin 1.4 G/DL (3.4-5.0) L Globulin 3.4 g/dL Albumin/Globulin Ratio 0.4 (1.0-2.7) L Test 10/05/17 16:20 10/05/17 20:00 Arterial Blood pH 7.120 (7.350-7.450) Arterial Blood Partial Pressure CO2 26.3 mmHg (35.0-45.0) L Arterial Blood Partial Pressure O2 77.3 mmHg (75.0-100.0) Arterial Blood HCO3 8.4 mmol/L (22.0-26.0) L Arterial Blood Oxygen Saturation 91.6 % (92.0-98.0) L Arterial Blood Base Excess -19.5 Stuart Test Positive Lactic Acid Level 5.90 mmol/L (0.66-2.22) H Microbiology Date/Time Source Procedure Growth Status 10/03/17 10:10 Sputum AFB Specimen Processing Tissue - Final Resulted 10/03/17 10:10 Sputum Acid Fast Bacilli Smear - Final Resulted 10/03/17 10:10 Sputum Acid Fast Bacilli Culture Pending Resulted 10/04/17 21:00 Stool Clostridium difficile Toxin Assay - Final Complete Objective HEENT: Atraumatic and normocephalic. Anicteric. Hair loss is seen. Pupils are equal, round, and reactive to light and accommodation. Extraocular muscles intact. NECK: JVP is less than 5 cm. No carotid bruit. Carotid upstrokes 2+ bilaterally. CARDIOVASCULAR: Normal S1 and S2. Tachycardic, Regular rate and rhythm. No murmurs, gallops, or rubs. PMI is at fourth intercostal space in the midclavicular line. LUNGS: Diminished breath sounds in both bases with crackles bilaterally. ABDOMEN: Soft, nontender, and nondistended. No hepatosplenomegaly. Positive bowel sounds. EXTREMITIES: Muscle wasting throughout. The presence of blanching rash over both limbs. No edema, clubbing, or cyanosis. GLORIA PELAEZ Oct 05, 2017 22:55
[2017-10-06] VITALS (49 sets, daily range): BP systolic 63–125; BP diastolic 23–100
[2017-10-06] MEDS: CEFTAROLINE IVPB SCH ×2 (02:13→14:24)
[2017-10-06] MEDS: D5W IVPB SCH ×2 (02:13→14:24)
[2017-10-06] MEDS: KCL IV SCH (02:14)
[2017-10-06] MEDS: [UNRECOGNIZED DRUG - OTHER] IV SCH (02:14)
[2017-10-06] MEDS: SODIUM BICARBONATE IV SCH (02:14)
[2017-10-06] MEDS: PHENYLEPHRINE IV SCH ×3 (04:50→19:03)
[2017-10-06] MEDS: DEXTROSE IV SCH ×3 (04:50→19:03)
[2017-10-06] MEDS ORDERED: Vasopressin 100 UNITS in NS 95 ML IV SCH (05:30)
[2017-10-06 06:03] LABS: HEMATOCRIT 28.4 % (37.0-47.0); HEMOGLOBIN 9.7 G/DL (12.0-16.0); MEAN CORPUSCULAR VOLUME 94 FL (80-99); PLATELET COUNT 380 K/UL (150-450); RED BLOOD COUNT 3.01 M/UL (4.20-5.40); RED CELL DISTRIBUTION WIDTH 12.1 % (11.6-14.8); WHITE BLOOD COUNT 11.3 K/UL (4.8-10.8)
[2017-10-06 06:33] LABS: ALBUMIN 1.3 G/DL (3.4-5.0); ALBUMIN/GLOBULIN RATIO 0.4 (1.0-2.7); ALKALINE PHOSPHATASE 47 U/L (46-116); ANION GAP 20 mmol/L (5-15); BLOOD UREA NITROGEN 19 mg/dL (7-18); CALCIUM 6.7 MG/DL (8.5-10.1); CARBON DIOXIDE 20 MMOL/L (21-32); CHLORIDE 107 MMOL/L (98-107); CREATININE 1.9 MG/DL (0.55-1.30); POTASSIUM 4.7 MMOL/L (3.5-5.1); SODIUM 147 MMOL/L (136-145)
[2017-10-06] MEDS: Levalbuterol Inh UD 1.25mg/0.5ml HHN SCH ×4 (06:45→19:25)
[2017-10-06] MEDS: Ipratropium 0.02% Inh Soln 2.5ml UD HHN SCH ×4 (06:46→19:25)
[2017-10-06 06:56] LABS: CREATINE KINASE 861 U/L (26-308); GAMMA GLUTAMYL TRANSPEPTIDASE 61 U/L (5-85)
[2017-10-06 06:59] LABS: ASPARTATE AMINO TRANSFERASE 4693 U/L (15-37)
[2017-10-06 07:03] LABS: ALANINE AMINOTRANSFERASE 1394 U/L (12-78)
[2017-10-06] MEDS: Solu-MEDROL 40mg Inj IVP SCH ×2 (08:40→21:00)
[2017-10-06] MEDS: Heparin 5000 units/ml inj SUBQ SCH ×2 (08:41→21:00)
--- NOTE | 2017-10-06 08:55 | Pulmonolgy Critical Care Note ---
Critical Care - Asmt/Plan Problems: (1) Septic shock Assessment & Plan: Source: likely pulmonary, MRSA PNA, ? antecedant viral illness, ? flu, ? vasculiltis S/P FOB 10/05 - no e/o alveolar hemorrhage Progressive decline 10/05-10/06, worsening acidosis, only transiently improved after HD (2) SIRS (systemic inflammatory response syndrome) (3) MRSA pneumonia (4) Respiratory failure (5) Endotracheally intubated (6) Influenza-like symptoms (7) Rash and nonspecific skin eruption (8) Atypical pneumonia (9) Altered mental status (10) Leukopenia (11) Abnormal LFTs (12) Lactic acidosis (13) Multisystem organ failure Respiratory: adjust tidal volume - Inc to 550, monitor respiratory rate - Inc to 24, adjust FIO2 - Titrate down FiO2 and PEEP to keep SaO2 > 90%, CXR, ABG, other - Abx per iD, SM 60 IV BID, optimize pulmonary hygiene/mobilze as tolerated, Atrovent/Levalbuterol HHN's q4RT and PRN. Lab called, awaiting RASHAWN/ ANCA & autoimmune labs Cardiac: continue pressors - ARJUN 240, Vaso 0.04, may need to add a third agent , continue to monitor HR/BP, other - F/U STAT TTE, BNP, repeat ECG/trop Renal: keep IV fluid - but change to [id number] of HCO3-, check electrolytes , other - F/U renal recs, trend lactic acid Infectious Disease: check cultures - F/u Cx's and BAL studies, continue antibiotics - per ID: Vanco/Cefteroline/Levaquin/Flucon/Tamilfu Gastrointestinal: hold feedings - until clinically stable then will start enteral feeds, abdominal imaging - Abdominal US ordered, too unstable for CT or HIDA, trend LFT's, trend LA Endocrine: monitor blood sugar Hematologic: monitor H/H Neurologic: keep patient comfortable, other - Fentanyl gtt, titrate to RASS -2 + Versed gtt Prophylaxis: Heparin - SQ Disposition: keep in ICU Time Spent (Minutes): other - 100 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, 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, 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, ID, GI Discussed with: nurses, consultants Critical Care - Objective Last 24 Hour Vital Signs Date Time Temp Pulse Resp B/P (MAP) Pulse Ox O2 Delivery O2 Flow Rate FiO2 10/06/17 08:00 20 10/06/17 08:00 99.7 143 26 83/52 93 Mechanical Ventilator 100 99.7 10/06/17 07:30 144 26 81/42 93 Mechanical Ventilator 100 10/06/17 07:00 138 20 77/50 100 Mechanical Ventilator 100 10/06/17 07:00 20 10/06/17 06:47 139 20 92 Mechanical Ventilator 100 10/06/17 06:45 140 23 73/50 Mechanical Ventilator 100 10/06/17 06:38 140 20 100 10/06/17 06:30 140 20 80/51 Mechanical Ventilator 100 10/06/17 06:15 140 20 75/46 Mechanical Ventilator 100 10/06/17 06:00 140 20 84/45 Mechanical Ventilator 100 10/06/17 06:00 24 10/06/17 05:45 140 21 76/47 Mechanical Ventilator 100 10/06/17 05:30 139 20 75/50 Mechanical Ventilator 100 10/06/17 05:15 139 26 76/43 Mechanical Ventilator 100 10/06/17 05:00 140 21 77/49 95 Mechanical Ventilator 100 10/06/17 05:00 21 10/06/17 05:00 139 24 80 10/06/17 04:50 143 84/47 10/06/17 04:30 142 21 84/47 98 Mechanical Ventilator 100 10/06/17 04:00 143 10/06/17 04:00 98.8 143 24 79/54 97 Mechanical Ventilator 100 98.8 10/06/17 04:00 100 10/06/17 04:00 24 10/06/17 03:30 145 23 82/55 97 Mechanical Ventilator 80 10/06/17 03:27 Mechanical Ventilator 100 10/06/17 03:27 145 23 100 10/06/17 03:26 145 30 92 Mechanical Ventilator 80 10/06/17 03:00 145 25 83/53 97 Mechanical Ventilator 80 10/06/17 03:00 33 10/06/17 02:30 145 27 107/68 89 Mechanical Ventilator 80 10/06/17 02:00 41 10/06/17 02:00 146 33 91/58 91 Mechanical Ventilator 80 10/06/17 01:45 146 34 100 10/06/17 01:30 147 41 98/67 93 Mechanical Ventilator 80 10/06/17 01:00 147 41 125/100 93 Mechanical Ventilator 80 10/06/17 00:30 145 39 117/90 90 Mechanical Ventilator 80 10/06/17 00:00 80 10/06/17 00:00 37 10/06/17 00:00 152 10/06/17 00:00 98.0 152 37 94/72 92 Mechanical Ventilator 80 98.0 10/05/17 23:30 139 36 97/72 91 Mechanical Ventilator 80 10/05/17 23:27 60 10/05/17 23:10 126 28 95 Mechanical Ventilator 60 10/05/17 23:00 129 30 99/77 91 Mechanical Ventilator 80 10/05/17 23:00 30 10/05/17 22:55 125 30 96 Mechanical Ventilator 80 10/05/17 22:54 126 30 80 10/05/17 22:48 Mechanical Ventilator 80 10/05/17 22:46 97.8 133 30 118/90 Mechanical Ventilator 80 97.8 10/05/17 22:45 98.8 124 28 97/79 96 Mechanical Ventilator 15.0 80 98.8 10/05/17 22:30 126 30 94/73 97 Mechanical Ventilator 100 10/05/17 22:00 133 30 110/86 100 Mechanical Ventilator 100 10/05/17 22:00 28 10/05/17 21:41 137 42 80 10/05/17 21:30 128 30 103/81 98 Mechanical Ventilator 100 10/05/17 21:00 124 30 103/77 98 Mechanical Ventilator 100 10/05/17 21:00 30 10/05/17 20:30 124 30 97/79 96 Mechanical Ventilator 100 10/05/17 20:00 125 10/05/17 20:00 100 10/05/17 20:00 30 10/05/17 20:00 125 30 92/73 96 Mechanical Ventilator 100 10/05/17 19:30 98.8 132 33 84/61 96 Mechanical Ventilator 100 98.8 10/05/17 19:16 135 40 80 10/05/17 19:11 146 36 96 Mechanical Ventilator 80 10/05/17 19:06 Mechanical Ventilator 10/05/17 19:05 80 10/05/17 19:00 32 10/05/17 19:00 138 36 121/41 100 Mechanical Ventilator 100 10/05/17 18:45 Mechanical Ventilator 80 10/05/17 18:30 143 36 93/21 96 Mechanical Ventilator 100 10/05/17 18:30 29 10/05/17 18:00 140 36 123/22 96 Mechanical Ventilator 100 10/05/17 17:53 32 10/05/17 17:30 145 36 93/57 96 Mechanical Ventilator 100 10/05/17 17:30 31 10/05/17 17:17 147 32 100 10/05/17 17:00 97.8 10/05/17 17:00 149 36 86/64 93 Mechanical Ventilator 100 10/05/17 16:30 151 36 116/22 93 Mechanical Ventilator 100 10/05/17 16:30 29 10/05/17 16:00 98.2 151 36 106/16 95 Mechanical Ventilator 100 98.2 10/05/17 16:00 152 10/05/17 15:59 30 10/05/17 15:58 152 91/66 10/05/17 15:45 151 36 123/70 93 Mechanical Ventilator 100 10/05/17 15:30 152 38 69/49 99 Mechanical Ventilator 100 10/05/17 15:00 152 38 54/28 99 Mechanical Ventilator 100 10/05/17 14:59 155 28 95 Mechanical Ventilator 100 10/05/17 14:59 150 32 100 10/05/17 14:47 153 36 93 Mechanical Ventilator 100 10/05/17 14:00 153 38 75/73 95 Mechanical Ventilator 100 10/05/17 13:15 151 32 100 10/05/17 13:00 149 33 98/78 93 Mechanical Ventilator 100 10/05/17 12:00 98.8 148 34 100/85 92 Non-Rebreather 100 98.8 10/05/17 12:00 146 10/05/17 11:00 153 27 105/74 95 Non-Rebreather 100 10/05/17 10:42 149 28 95 Non-Rebreather 15.0 100 10/05/17 10:38 143 24 100 10/05/17 10:36 144 20 93 Mechanical Ventilator 50 10/05/17 10:00 139 26 105/90 92 Non-Rebreather 100 10/05/17 09:10 132 99/73 10/05/17 09:07 148 24 50 10/05/17 09:00 136 25 99/73 94 Non-Rebreather 100 Status: sedated Condition: critical HEENT: atraumatic, normocephalic, other - ETT, NGT Neck: other - supple, no LAD, TERELL JVD Lungs: rhonchi - coarse anterior Heart: HR/BP unstable - ST to 140s, regular rhythm Abdomen: soft, non-tender, active bowel sounds Extremities: no C/C/E Micro: Microbiology Date/Time Source Procedure Growth Status 10/05/17 08:30 Sputum Gram Stain - Final Resulted 10/05/17 08:30 Sputum Culture - Preliminary Staphylococcus Aureus Resulted 10/03/17 10:10 Sputum AFB Specimen Processing Tissue - Final Resulted 10/03/17 10:10 Sputum Acid Fast Bacilli Smear - Final Resulted 10/03/17 10:10 Sputum Acid Fast Bacilli Culture Pending Resulted 10/04/17 21:00 Stool Clostridium difficile Toxin Assay - Final Complete 10/05/17 08:30 External Cath Urine Culture - Preliminary Resulted 10/03/17 23:00 Urine,Clean Catch Urine Culture - Preliminary NO GROWTH AFTER 24 HOURS Resulted Accucheck: 28 Blood Sugars: BS not controlled Critical Care - Subjective ROS Limited/Unobtainable: Yes ICU Day: 2 Intubation Day: 2 Interval Events: S/P 500 cc R thora S/P HD net 0 7.18/44/67//87 --> LA 15 Cr 1.9, HCO3- 20, AG 20, AST/ALT 4693/1394 4451/125, No U/O last shift Tm 99.7, ST to 140s Arjun 240, Vaso 0.04 A/C 20 VC 500, 100/5 Glu 28 BNP > 09439, ALB 1.3 Sedated on Fent gtt Condition: critical IV Access: PICC - LUE, central - R femoral mahurker, peripheral - R FA EKG Rhythm: Sinus Tachycardia FI02: 100 Vent Support Breath Rate: 20 Vent Support Mode: AC - 20/500 Vent Tidal Volume: 500 Sputum Amount: Scant PEEP: 5.0 PIP: 34 Secretions: Scant Fluids: 1/9RAe3Mjb&2amps of HCO3- @ 100 Drips: Fentanyl, Vaso 0.04, Arjun 240 I&O: Intake and Output 10/05/17 10/06/17 19:00 07:00 Intake Total 2851 ml 1742.4 ml Output Total 100 ml 25 ml Balance 2751 ml 1717.4 ml Intake Oral 0 ml IV Total 2851 ml 1742.4 ml Output Urine Total 100 ml 25 ml Hemodialysis UF 0 ml Subjective: Unobtainable ET-Tube: 7.0 ET Position: 21 Labs: Laboratory Tests Test 10/05/17 10:20 10/05/17 11:10 10/05/17 13:20 10/05/17 14:20 Prothrombin Time 12.3 SEC (9.30-11.50) H Prothromb Time International Ratio 1.2 (0.9-1.1) H Activated Partial Thromboplast Time 33 SEC (23-33) Lactic Acid Level 4.60 mmol/L (0.66-2.22) H 8.40 mmol/L (0.66-2.22) H Random Vancomycin Level 15.7 ug/mL Arterial Blood pH 7.180 (7.350-7.450) Arterial Blood Partial Pressure CO2 26.9 mmHg (35.0-45.0) L Arterial Blood Partial Pressure O2 76.3 mmHg (75.0-100.0) Arterial Blood HCO3 9.8 mmol/L (22.0-26.0) L Arterial Blood Oxygen Saturation 92.7 % (92.0-98.0) Arterial Blood Base Excess -17 Stuart Test Positive Body Fluid Source Thoracentesis Body Fluid Volume 24 mL Body Fluid Appearance Cloudy Body Fluid RBC 6320 /CUMM Body Fluid Total Nucleated Cells 38458 /CUMM Body Fluid Polynuclear WBCs (%) 90 % Body Fluid Mononuclear WBCs (%) 10 % Body Fluid Mesothelial Cells (%) 0 % White Blood Count 11.1 K/UL (4.8-10.8) H Red Blood Count 3.28 M/UL (4.20-5.40) L Hemoglobin 10.6 G/DL (12.0-16.0) L Hematocrit 30.8 % (37.0-47.0) L Mean Corpuscular Volume 94 FL (80-99) Mean Corpuscular Hemoglobin 32.2 PG (27.0-31.0) H Mean Corpuscular Hemoglobin Concent 34.3 G/DL (32.0-36.0) Red Cell Distribution Width 11.8 % (11.6-14.8) Platelet Count 463 K/UL (150-450) H Mean Platelet Volume 5.8 FL (6.5-10.1) L Neutrophils (%) (Auto) 92.8 % (45.0-75.0) H Lymphocytes (%) (Auto) 5.2 % (20.0-45.0) L Monocytes (%) (Auto) 1.2 % (1.0-10.0) Eosinophils (%) (Auto) 0.2 % (0.0-3.0) Basophils (%) (Auto) 0.5 % (0.0-2.0) Sodium Level 144 MMOL/L (136-145) Potassium Level 4.6 MMOL/L (3.5-5.1) Chloride Level 113 MMOL/L (98-107) H Carbon Dioxide Level 14 MMOL/L (21-32) L Anion Gap 17 mmol/L (5-15) H Blood Urea Nitrogen 22 mg/dL (7-18) H Creatinine 1.6 MG/DL (0.55-1.30) H Estimat Glomerular Filtration Rate 35.9 mL/min (>60) Glucose Level 91 MG/DL (74-106) Calcium Level 7.4 MG/DL (8.5-10.1) L Total Bilirubin 0.6 MG/DL (0.2-1.0) Aspartate Amino Transf (AST/SGOT) 79 U/L (15-37) H Alanine Aminotransferase (ALT/SGPT) 35 U/L (12-78) Alkaline Phosphatase 49 U/L (46-116) C-Reactive Protein, Quantitative > 70.0 mg/dL (0.00-0.90) H Total Protein 4.8 G/DL (6.4-8.2) L Albumin 1.4 G/DL (3.4-5.0) L Globulin 3.4 g/dL Albumin/Globulin Ratio 0.4 (1.0-2.7) L Test 10/05/17 16:20 10/05/17 20:00 10/05/17 23:00 10/06/17 03:15 Arterial Blood pH 7.120 (7.350-7.450) 7.585 (7.350-7.450) Arterial Blood Partial Pressure CO2 26.3 mmHg (35.0-45.0) L 24.1 mmHg (35.0-45.0) *L Arterial Blood Partial Pressure O2 77.3 mmHg (75.0-100.0) 164.1 mmHg (75.0-100.0) H Arterial Blood HCO3 8.4 mmol/L (22.0-26.0) L 22.3 mmol/L (22.0-26.0) Arterial Blood Oxygen Saturation 91.6 % (92.0-98.0) L 98.2 % (92.0-98.0) H Arterial Blood Base Excess -19.5 1.4 Stuart Test Positive Positive Lactic Acid Level 5.90 mmol/L (0.66-2.22) H 15.10 mmol/L (0.66-2.22) H White Blood Count 11.3 K/UL (4.8-10.8) H Red Blood Count 3.01 M/UL (4.20-5.40) L Hemoglobin 9.7 G/DL (12.0-16.0) L Hematocrit 28.4 % (37.0-47.0) L Mean Corpuscular Volume 94 FL (80-99) Mean Corpuscular Hemoglobin 32.4 PG (27.0-31.0) H Mean Corpuscular Hemoglobin Concent 34.3 G/DL (32.0-36.0) Red Cell Distribution Width 12.1 % (11.6-14.8) Platelet Count 380 K/UL (150-450) Mean Platelet Volume 5.7 FL (6.5-10.1) L Neutrophils (%) (Auto) % (45.0-75.0) Lymphocytes (%) (Auto) % (20.0-45.0) Monocytes (%) (Auto) % (1.0-10.0) Eosinophils (%) (Auto) % (0.0-3.0) Basophils (%) (Auto) % (0.0-2.0) Neutrophils % (Manual) Pending Lymphocytes % (Manual) Pending Platelet Estimate Pending Platelet Morphology Pending Sodium Level 147 MMOL/L (136-145) H Potassium Level 4.7 MMOL/L (3.5-5.1) Chloride Level 107 MMOL/L (98-107) Carbon Dioxide Level 20 MMOL/L (21-32) L Anion Gap 20 mmol/L (5-15) H Blood Urea Nitrogen 19 mg/dL (7-18) H Creatinine 1.9 MG/DL (0.55-1.30) H Estimat Glomerular Filtration Rate 29.5 mL/min (>60) Glucose Level 28 MG/DL (74-106) *L Hemoglobin A1c 6.2 % (4.3-6.0) H Uric Acid 5.0 MG/DL (2.6-7.2) Calcium Level 6.7 MG/DL (8.5-10.1) L Phosphorus Level 4.0 MG/DL (2.5-4.9) Magnesium Level 1.7 MG/DL (1.8-2.4) L Total Bilirubin 1.0 MG/DL (0.2-1.0) Gamma Glutamyl Transpeptidase 61 U/L (5-85) Aspartate Amino Transf (AST/SGOT) 4693 U/L (15-37) H Alanine Aminotransferase (ALT/SGPT) 1394 U/L (12-78) H Alkaline Phosphatase 47 U/L (46-116) Total Creatine Kinase 861 U/L (26-308) H Pro-B-Type Natriuretic Peptide > 42790 pg/mL (0-125) H Total Protein 4.3 G/DL (6.4-8.2) L Albumin 1.3 G/DL (3.4-5.0) L Globulin 3.0 g/dL Albumin/Globulin Ratio 0.4 (1.0-2.7) L Thyroid Stimulating Hormone (TSH) 0.205 uiU/mL (0.358-3.740) Random Vancomycin Level 20.6 ug/mL Typhus Fever IgG Antibody Titer Pending Typhus Fever IgG Antibody Pending Typhus Fever IgM Antibody Titer Pending Typhus Fever IgM Antibody Pending Test 10/06/17 08:00 Arterial Blood pH 7.180 (7.350-7.450) Arterial Blood Partial Pressure CO2 44.9 mmHg (35.0-45.0) Arterial Blood Partial Pressure O2 67.6 mmHg (75.0-100.0) L Arterial Blood HCO3 16.5 mmol/L (22.0-26.0) L Arterial Blood Oxygen Saturation 87.7 % (92.0-98.0) L Arterial Blood Base Excess -11.2 Stuart Test Positive JACQUELIN SHAH M.D. Oct 06, 2017 08:55
--- NOTE | 2017-10-06 09:33 | Diagnostic Imaging Report ---
Indication: Reason For Exam: NG tube placement Technique: XRAY Abdomen 1v Comparison: Current examination obtained at 1742 compared with one obtained earlier 10/05/2017 at 1611. Findings: Compared previous study the endotracheal tube is in the stomach. Again noted are bilateral persistent nephrograms. Infiltrate in the left base with blunting of left costophrenic angle remains. Impression: Enteric tube in the stomach. Persistent bilateral nephrograms. This suggests acute renal insufficiency or acute tubular necrosis. Left basilar infiltrate and left pleural effusion unchanged. The above report is concordant with preliminary reading by [facility] .
--- NOTE | 2017-10-06 10:33 | Nephrology Progress Note ---
Assessment/Plan Problem List: (1) Multisystem organ failure (2) Septic shock Assessment Metabolic acidosis due to sepsis and shock Cr rise to 1.9 : Acute renal failure (1) SIRS (systemic inflammatory response syndrome) (2) MRSA pneumonia (3) Respiratory failure (4) Endotracheally intubated (5) Influenza-like symptoms (6) Rash and nonspecific skin eruption (7) Atypical pneumonia (8) Altered mental status (9) Leukopenia Plan: Fluid challenge and antibiotics Dialysi for acidosis when Yannick Cath in ? Trial steroids ? Will discuss Plan sever lactic acidotic on max pressors and hypotensive not much can be offered from renal stand point dismal prognosis discussed with brother and RN Subjective ROS Limited/Unobtainable: Yes Objective Objective Last 24 Hour Vital Signs Date Time Temp Pulse Resp B/P (MAP) Pulse Ox O2 Delivery O2 Flow Rate FiO2 10/06/17 09:41 99.9 10/06/17 09:00 23 10/06/17 09:00 135 23 78/59 93 Mechanical Ventilator 100 10/06/17 08:53 136 24 100 10/06/17 08:45 23 10/06/17 08:45 136 23 81/49 94 Mechanical Ventilator 100 10/06/17 08:42 100.2 10/06/17 08:30 137 24 86/52 93 Mechanical Ventilator 100 10/06/17 08:30 24 10/06/17 08:15 26 10/06/17 08:15 138 25 77/52 94 Mechanical Ventilator 100 10/06/17 08:00 100 10/06/17 08:00 20 10/06/17 08:00 99.7 143 26 83/52 93 Mechanical Ventilator 100 99.7 10/06/17 07:30 144 26 81/42 93 Mechanical Ventilator 100 10/06/17 07:00 138 20 77/50 100 Mechanical Ventilator 100 10/06/17 07:00 20 10/06/17 06:57 140 20 96 Mechanical Ventilator 100 10/06/17 06:47 139 20 92 Mechanical Ventilator 100 10/06/17 06:45 140 23 73/50 Mechanical Ventilator 100 10/06/17 06:38 140 20 100 10/06/17 06:30 140 20 80/51 Mechanical Ventilator 100 10/06/17 06:15 140 20 75/46 Mechanical Ventilator 100 10/06/17 06:00 140 20 84/45 Mechanical Ventilator 100 10/06/17 06:00 24 10/06/17 05:45 140 21 76/47 Mechanical Ventilator 100 10/06/17 05:30 139 20 75/50 Mechanical Ventilator 100 10/06/17 05:15 139 26 76/43 Mechanical Ventilator 100 10/06/17 05:00 140 21 77/49 95 Mechanical Ventilator 100 10/06/17 05:00 21 10/06/17 05:00 139 24 80 10/06/17 04:50 143 84/47 10/06/17 04:30 142 21 84/47 98 Mechanical Ventilator 100 10/06/17 04:00 143 10/06/17 04:00 98.8 143 24 79/54 97 Mechanical Ventilator 100 98.8 10/06/17 04:00 100 10/06/17 04:00 24 10/06/17 03:30 145 23 82/55 97 Mechanical Ventilator 80 10/06/17 03:27 Mechanical Ventilator 100 10/06/17 03:27 145 23 100 10/06/17 03:26 145 30 92 Mechanical Ventilator 80 10/06/17 03:00 145 25 83/53 97 Mechanical Ventilator 80 10/06/17 03:00 33 10/06/17 02:30 145 27 107/68 89 Mechanical Ventilator 80 10/06/17 02:00 41 10/06/17 02:00 146 33 91/58 91 Mechanical Ventilator 80 10/06/17 01:45 146 34 100 10/06/17 01:30 147 41 98/67 93 Mechanical Ventilator 80 10/06/17 01:00 147 41 125/100 93 Mechanical Ventilator 80 10/06/17 00:30 145 39 117/90 90 Mechanical Ventilator 80 10/06/17 00:00 80 10/06/17 00:00 37 10/06/17 00:00 152 10/06/17 00:00 98.0 152 37 94/72 92 Mechanical Ventilator 80 98.0 10/05/17 23:30 139 36 97/72 91 Mechanical Ventilator 80 10/05/17 23:27 60 10/05/17 23:10 126 28 95 Mechanical Ventilator 60 10/05/17 23:00 129 30 99/77 91 Mechanical Ventilator 80 10/05/17 23:00 30 10/05/17 22:55 125 30 96 Mechanical Ventilator 80 10/05/17 22:54 126 30 80 10/05/17 22:48 Mechanical Ventilator 80 10/05/17 22:46 97.8 133 30 118/90 Mechanical Ventilator 80 97.8 10/05/17 22:45 98.8 124 28 97/79 96 Mechanical Ventilator 15.0 80 98.8 10/05/17 22:30 126 30 94/73 97 Mechanical Ventilator 100 10/05/17 22:00 133 30 110/86 100 Mechanical Ventilator 100 10/05/17 22:00 28 10/05/17 21:41 137 42 80 10/05/17 21:30 128 30 103/81 98 Mechanical Ventilator 100 10/05/17 21:00 124 30 103/77 98 Mechanical Ventilator 100 10/05/17 21:00 30 10/05/17 20:30 124 30 97/79 96 Mechanical Ventilator 100 10/05/17 20:00 125 10/05/17 20:00 100 10/05/17 20:00 30 10/05/17 20:00 125 30 92/73 96 Mechanical Ventilator 100 10/05/17 19:30 98.8 132 33 84/61 96 Mechanical Ventilator 100 98.8 10/05/17 19:16 135 40 80 10/05/17 19:11 146 36 96 Mechanical Ventilator 80 10/05/17 19:06 Mechanical Ventilator 10/05/17 19:05 80 10/05/17 19:00 32 10/05/17 19:00 138 36 121/41 100 Mechanical Ventilator 100 10/05/17 18:45 Mechanical Ventilator 80 10/05/17 18:30 143 36 93/21 96 Mechanical Ventilator 100 10/05/17 18:30 29 10/05/17 18:00 140 36 123/22 96 Mechanical Ventilator 100 10/05/17 17:53 32 10/05/17 17:30 145 36 93/57 96 Mechanical Ventilator 100 10/05/17 17:30 31 10/05/17 17:17 147 32 100 10/05/17 17:00 97.8 10/05/17 17:00 149 36 86/64 93 Mechanical Ventilator 100 10/05/17 16:30 151 36 116/22 93 Mechanical Ventilator 100 10/05/17 16:30 29 10/05/17 16:00 98.2 151 36 106/16 95 Mechanical Ventilator 100 98.2 10/05/17 16:00 152 10/05/17 15:59 30 10/05/17 15:58 152 91/66 10/05/17 15:45 151 36 123/70 93 Mechanical Ventilator 100 10/05/17 15:30 152 38 69/49 99 Mechanical Ventilator 100 10/05/17 15:00 152 38 54/28 99 Mechanical Ventilator 100 10/05/17 14:59 155 28 95 Mechanical Ventilator 100 10/05/17 14:59 150 32 100 10/05/17 14:47 153 36 93 Mechanical Ventilator 100 10/05/17 14:00 153 38 75/73 95 Mechanical Ventilator 100 10/05/17 13:15 151 32 100 10/05/17 13:00 149 33 98/78 93 Mechanical Ventilator 100 10/05/17 12:00 98.8 148 34 100/85 92 Non-Rebreather 100 98.8 10/05/17 12:00 146 10/05/17 11:00 153 27 105/74 95 Non-Rebreather 100 10/05/17 10:42 149 28 95 Non-Rebreather 15.0 100 10/05/17 10:38 143 24 100 10/05/17 10:36 144 20 93 Mechanical Ventilator 50 Intake and Output 10/05/17 10/06/17 19:00 07:00 Intake Total 2851 ml 1742.4 ml Output Total 100 ml 25 ml Balance 2751 ml 1717.4 ml Intake Oral 0 ml IV Total 2851 ml 1742.4 ml Output Urine Total 100 ml 25 ml Hemodialysis UF 0 ml Laboratory Tests 10/05/17 11:10: Arterial Blood pH 7.180*L, Arterial Blood Partial Pressure CO2 26.9L, Arterial Blood Partial Pressure O2 76.3, Arterial Blood HCO3 9.8L, Arterial Blood Oxygen Saturation 92.7, Arterial Blood Base Excess -17, Stuart Test Positive 10/05/17 13:20: Body Fluid Source Thoracentesis, Body Fluid Volume 24, Body Fluid Appearance Cloudy, Body Fluid RBC 6320, Body Fluid Total Nucleated Cells 77284, Body Fluid Polynuclear WBCs (%) 90, Body Fluid Mononuclear WBCs (%) 10, Body Fluid Mesothelial Cells (%) 0 10/05/17 14:20: White Blood Count 11.1H, Red Blood Count 3.28L, Hemoglobin 10.6L, Hematocrit 30.8L, Mean Corpuscular Volume 94, Mean Corpuscular Hemoglobin 32.2H, Mean Corpuscular Hemoglobin Concent 34.3, Red Cell Distribution Width 11.8, Platelet Count 463H, Mean Platelet Volume 5.8L, Neutrophils (%) (Auto) 92.8H, Lymphocytes (%) (Auto) 5.2L, Monocytes (%) (Auto) 1.2, Eosinophils (%) (Auto) 0.2, Basophils (%) (Auto) 0.5, Sodium Level 144, Potassium Level 4.6, Chloride Level 113H, Carbon Dioxide Level 14L, Anion Gap 17H, Blood Urea Nitrogen 22H, Creatinine 1.6H, Estimat Glomerular Filtration Rate 35.9, Glucose Level 91, Lactic Acid Level 8.40H, Calcium Level 7.4L, Total Bilirubin 0.6, Aspartate Amino Transf (AST/SGOT) 79H, Alanine Aminotransferase (ALT/SGPT) 35, Alkaline Phosphatase 49, C-Reactive Protein, Quantitative > 70.0H, Total Protein 4.8L, Albumin 1.4L, Globulin 3.4, Albumin/Globulin Ratio 0.4L 10/05/17 16:20: Arterial Blood pH 7.120*L, Arterial Blood Partial Pressure CO2 26.3L, Arterial Blood Partial Pressure O2 77.3, Arterial Blood HCO3 8.4L, Arterial Blood Oxygen Saturation 91.6L, Arterial Blood Base Excess -19.5, Stuart Test Positive 10/05/17 20:00: Lactic Acid Level 5.90H 10/05/17 23:00: Arterial Blood pH 7.585*H, Arterial Blood Partial Pressure CO2 24.1*L, Arterial Blood Partial Pressure O2 164.1H, Arterial Blood HCO3 22.3, Arterial Blood Oxygen Saturation 98.2H, Arterial Blood Base Excess 1.4, Stuart Test Positive 10/06/17 03:15: Lactic Acid Level 15.10H, White Blood Count 11.3H, Red Blood Count 3.01L, Hemoglobin 9.7L, Hematocrit 28.4L, Mean Corpuscular Volume 94, Mean Corpuscular Hemoglobin 32.4H, Mean Corpuscular Hemoglobin Concent 34.3, Red Cell Distribution Width 12.1, Platelet Count 380, Mean Platelet Volume 5.7L, Neutrophils (%) (Auto) , Lymphocytes (%) (Auto) , Monocytes (%) (Auto) , Eosinophils (%) (Auto) , Basophils (%) (Auto) , Differential Total Cells Counted 100, Neutrophils % (Manual) 67, Lymphocytes % (Manual) 2L, Monocytes % ( Manual) 7, Eosinophils % (Manual) 0, Basophils % (Manual) 0, Band Neutrophils 24H, Toxic Granulation 2+, Platelet Estimate Adequate, Platelet Morphology Normal, Hypochromasia 2+, Anisocytosis 1+, Spherocytes 2+, Sodium Level 147H, Potassium Level 4.7, Chloride Level 107, Carbon Dioxide Level 20L, Anion Gap 20H , Blood Urea Nitrogen 19H, Creatinine 1.9H, Estimat Glomerular Filtration Rate 29.5, Glucose Level 28*L, Hemoglobin A1c 6.2H, Uric Acid 5.0, Calcium Level 6.7L , Phosphorus Level 4.0, Magnesium Level 1.7L, Total Bilirubin 1.0, Gamma Glutamyl Transpeptidase 61, Aspartate Amino Transf (AST/SGOT) 4693H, Alanine Aminotransferase (ALT/SGPT) 1394H, Alkaline Phosphatase 47, Total Creatine Kinase 861H, Pro-B-Type Natriuretic Peptide > 46360L, Total Protein 4.3L, Albumin 1.3L, Globulin 3.0, Albumin/Globulin Ratio 0.4L, Thyroid Stimulating Hormone (TSH) 0.205L, Random Vancomycin Level 20.6, Typhus Fever IgG Antibody Titer [Pending], Typhus Fever IgG Antibody [Pending], Typhus Fever IgM Antibody Titer [Pending], Typhus Fever IgM Antibody [Pending] 10/06/17 03:16: Pro-B-Type Natriuretic Peptide [Pending], Troponin I 0.578H 10/06/17 08:00: Arterial Blood pH 7.180*L, Arterial Blood Partial Pressure CO2 44.9, Arterial Blood Partial Pressure O2 67.6L, Arterial Blood HCO3 16.5L, Arterial Blood Oxygen Saturation 87.7L, Arterial Blood Base Excess -11.2, Stuart Test Positive 10/06/17 10:00: Lactic Acid Level [Pending] Height (Feet): 5 Height (Inches): 2.00 Weight (Pounds): 102 General Appearance: no apparent distress Cardiovascular: tachycardia Respiratory/Chest: decreased breath sounds Abdomen: distended MEGAN NICKERSON Oct 06, 2017 10:33
--- NOTE | 2017-10-06 10:48 | Diagnostic Imaging Report ---
. Indication: Elevated liver function tests Technique: Ultrasound of the abdomen. Comparison: None Findings: Liver: The liver is normal in size and echogenicity. No focal abnormalities are noted. Gallbladder: The gallbladder is normal. No stones are visualized. The wall is not thickened. Common bile duct: Normal in size. Pancreas: The visualized portion of pancreas is normal in echogenicity. There are no masses. Kidneys: The kidneys are normal in size. There is no hydronephrosis. The echogenicity of the kidneys may be minimally increased. Spleen: The spleen is normal in size and echogenicity. Aorta: The visualized portion of the aorta is normal in caliber. IVC: The demonstrated portion of the inferior vena cava is normal. There is a left pleural effusion. Minimal fluid is noted in portions pouch. Impression: Left pleural effusion. Minimal free fluid in the abdomen. Possible slight increased echogenicity of the kidneys. The possibility of intrinsic renal disease not excluded. Clinical correlation suggested.
[2017-10-06] MEDS ORDERED: Solu-MEDROL 40mg Inj IVP ONE (11:00)
[2017-10-06] MEDS ORDERED: D5 IV ONE (11:00)
[2017-10-06] MEDS ORDERED: SODIUM BICARBONATE IV ONE (11:00)
[2017-10-06] MEDS ORDERED: [UNRECOGNIZED DRUG - OTHER] IV ONE (11:00)
--- NOTE | 2017-10-06 14:42 | Internal Med Progress Note ---
Subjective Date of Service: Oct 06, 2017 Physician Name Isamar Rendon Attending Physician Aishwarya Tirado MD Current Medications Medications (Trade) Dose Ordered Sig/Annie Route PRN Reason Start Time Stop Time Status Last Admin Dose Admin Acetaminophen (Tylenol) 650 mg Q4H PRN ORAL T>100.5/Headache/Mild Pain 10/05/17 05:00 10/29/17 08:59 10/06/17 08:42 Alprazolam (Xanax) 0.5 mg TIDPRN PRN ORAL For Anxiety 10/05/17 18:45 10/10/17 18:44 Ceftaroline Fosamil 300 mg/ Dextrose 110 ml @ 110 mls/hr Q12HR@0200,1400 IV 10/07/17 02:00 10/14/17 01:59 Ceftaroline Fosamil 400 mg/ Dextrose 110 ml @ 110 mls/hr Q12HR@0200,1400 IVPB 10/05/17 14:00 10/06/17 15:00 10/06/17 14:24 Chlorhexidine Gluconate (Fabiana-Hex 2%) 1 applic DAILY@2000 TOPIC 10/05/17 20:00 11/04/17 19:59 10/05/17 22:09 Doxycycline Monohydrate (Vibramycin) 100 mg EVERY 12 HOURS ORAL 10/05/17 11:30 10/12/17 11:29 10/06/17 08:40 Famotidine (Pepcid I.v.) 20 mg DAILY IVP 10/05/17 09:00 11/04/17 08:59 10/06/17 08:40 Fentanyl Citrate 2500 mcg/Sodium Chloride 250 ml @ 0 mls/hr Q24H IV 10/05/17 15:30 10/12/17 15:29 10/05/17 16:30 Fluconazole/ Sodium Chloride 100 ml @ 100 mls/hr Q24H IV 10/05/17 13:00 10/12/17 12:59 10/06/17 12:45 Heparin Sodium (Porcine) (Heparin 5000 units/ml) 5,000 units EVERY 12 HOURS SUBQ 10/05/17 09:00 10/29/17 20:59 Ipratropium [place] (Atrovent) 500 mcg Q4HRT HHN 10/05/17 07:00 10/09/17 16:59 10/06/17 10:52 Levalbuterol HCl (Xopenex) 0.625 mg Q4HRT HHN 10/05/17 07:00 10/09/17 16:59 10/06/17 10:52 Levofloxacin (Levaquin) 750 mg EVERY OTHER DAY NG 10/05/17 15:30 10/12/17 15:29 10/05/17 16:30 Methylprednisolone Sodium Succinate (Solu-MEDROL) 60 mg EVERY 12 HOURS IVP 10/05/17 21:00 11/04/17 20:59 10/06/17 08:40 Midazolam HCl (Versed 2mg/2ml vial) 2 mg Q2H PRN IVP Unrelieved Agitation 10/05/17 12:30 11/04/17 12:29 10/05/17 23:34 Oseltamivir Phosphate (Tamiflu) 30 mg BID ORAL 10/05/17 09:30 10/09/17 09:29 10/06/17 08:40 Phenylephrine HCl 100 mg/Dextrose 250 ml @ 0 mls/hr Q24H IV 10/05/17 15:45 11/04/17 09:09 10/06/17 12:01 Sodium Bicarbonate 150 ml/Dextrose/ Sodium Chloride 1,150 ml @ 100 mls/hr [id number] ONCE IV 10/06/17 11:00 10/06/17 22:29 10/06/17 11:41 Vancomycin HCl (Vanco rx to dose) 1 ea DAILY PRN MISC Per rx protocol 10/05/17 09:00 10/29/17 01:59 Vasopressin 100 units/Sodium Chloride 100 ml @ 0 mls/hr Q24H IV 10/06/17 05:30 11/05/17 05:29 10/06/17 05:54 Zolpidem Tartrate (Ambien) 5 mg HSPRN PRN ORAL Insomnia 10/05/17 21:00 10/08/17 20:59 Allergies: Coded Allergies: No Known Allergies (Unverified , 09/28/17) ROS Limited/Unobtainable: Yes Subjective 37 YO F admitted with shortness of breath. Now pneumonia and respiratory failure. Intubated and sedated. Cover for Int Med-Dr Tirado. ICU. S/P bronchoscopy 10/05/17. Hypoglycemic earlier Objective Last Vital Signs Date Time Temp Pulse Resp B/P (MAP) Pulse Ox O2 Delivery O2 Flow Rate FiO2 10/06/17 13:30 99.3 132 18 94/64 91 Mechanical Ventilator 100 99.3 10/05/17 22:45 15.0 Laboratory Tests Test 10/05/17 16:20 10/05/17 20:00 10/05/17 23:00 10/06/17 03:15 Arterial Blood pH 7.120 (7.350-7.450) 7.585 (7.350-7.450) Arterial Blood Partial Pressure CO2 26.3 mmHg (35.0-45.0) L 24.1 mmHg (35.0-45.0) *L Arterial Blood Partial Pressure O2 77.3 mmHg (75.0-100.0) 164.1 mmHg (75.0-100.0) H Arterial Blood HCO3 8.4 mmol/L (22.0-26.0) L 22.3 mmol/L (22.0-26.0) Arterial Blood Oxygen Saturation 91.6 % (92.0-98.0) L 98.2 % (92.0-98.0) H Arterial Blood Base Excess -19.5 1.4 Stuart Test Positive Positive Lactic Acid Level 5.90 mmol/L (0.66-2.22) H 15.10 mmol/L (0.66-2.22) H White Blood Count 11.3 K/UL (4.8-10.8) H Red Blood Count 3.01 M/UL (4.20-5.40) L Hemoglobin 9.7 G/DL (12.0-16.0) L Hematocrit 28.4 % (37.0-47.0) L Mean Corpuscular Volume 94 FL (80-99) Mean Corpuscular Hemoglobin 32.4 PG (27.0-31.0) H Mean Corpuscular Hemoglobin Concent 34.3 G/DL (32.0-36.0) Red Cell Distribution Width 12.1 % (11.6-14.8) Platelet Count 380 K/UL (150-450) Mean Platelet Volume 5.7 FL (6.5-10.1) L Neutrophils (%) (Auto) % (45.0-75.0) Lymphocytes (%) (Auto) % (20.0-45.0) Monocytes (%) (Auto) % (1.0-10.0) Eosinophils (%) (Auto) % (0.0-3.0) Basophils (%) (Auto) % (0.0-2.0) Differential Total Cells Counted 100 Neutrophils % (Manual) 67 % (45-75) Lymphocytes % (Manual) 2 % (20-45) L Monocytes % (Manual) 7 % (1-10) Eosinophils % (Manual) 0 % (0-3) Basophils % (Manual) 0 % (0-2) Band Neutrophils 24 % (0-8) H Toxic Granulation 2+ Platelet Estimate Adequate Platelet Morphology Normal Hypochromasia 2+ Anisocytosis 1+ Spherocytes 2+ Sodium Level 147 MMOL/L (136-145) H Potassium Level 4.7 MMOL/L (3.5-5.1) Chloride Level 107 MMOL/L (98-107) Carbon Dioxide Level 20 MMOL/L (21-32) L Anion Gap 20 mmol/L (5-15) H Blood Urea Nitrogen 19 mg/dL (7-18) H Creatinine 1.9 MG/DL (0.55-1.30) H Estimat Glomerular Filtration Rate 29.5 mL/min (>60) Glucose Level 28 MG/DL (74-106) *L Hemoglobin A1c 6.2 % (4.3-6.0) H Uric Acid 5.0 MG/DL (2.6-7.2) Calcium Level 6.7 MG/DL (8.5-10.1) L Phosphorus Level 4.0 MG/DL (2.5-4.9) Magnesium Level 1.7 MG/DL (1.8-2.4) L Total Bilirubin 1.0 MG/DL (0.2-1.0) Gamma Glutamyl Transpeptidase 61 U/L (5-85) Aspartate Amino Transf (AST/SGOT) 4693 U/L (15-37) H Alanine Aminotransferase (ALT/SGPT) 1394 U/L (12-78) H Alkaline Phosphatase 47 U/L (46-116) Total Creatine Kinase 861 U/L (26-308) H Pro-B-Type Natriuretic Peptide > 10609 pg/mL (0-125) H Total Protein 4.3 G/DL (6.4-8.2) L Albumin 1.3 G/DL (3.4-5.0) L Globulin 3.0 g/dL Albumin/Globulin Ratio 0.4 (1.0-2.7) L Thyroid Stimulating Hormone (TSH) 0.205 uiU/mL (0.358-3.740) Random Vancomycin Level 20.6 ug/mL Typhus Fever IgG Antibody Titer Pending Typhus Fever IgG Antibody Pending Typhus Fever IgM Antibody Titer Pending Typhus Fever IgM Antibody Pending Test 10/06/17 03:16 10/06/17 08:00 10/06/17 10:00 Troponin I 0.578 ng/mL (0.000-0.056) Arterial Blood pH 7.180 (7.350-7.450) Arterial Blood Partial Pressure CO2 44.9 mmHg (35.0-45.0) Arterial Blood Partial Pressure O2 67.6 mmHg (75.0-100.0) L Arterial Blood HCO3 16.5 mmol/L (22.0-26.0) L Arterial Blood Oxygen Saturation 87.7 % (92.0-98.0) L Arterial Blood Base Excess -11.2 Stuart Test Positive Lactic Acid Level 14.90 mmol/L (0.66-2.22) H Microbiology Date/Time Source Procedure Growth Status 10/05/17 10:30 Blood Blood Culture - Preliminary Gram Positive Cocci Resulted 10/05/17 10:20 Blood Blood Culture - Preliminary Gram Positive Cocci Resulted 10/05/17 08:30 Sputum Gram Stain - Final Resulted 10/05/17 08:30 Sputum Culture - Preliminary Staphylococcus Aureus Resulted 10/04/17 21:00 Stool Clostridium difficile Toxin Assay - Final Complete 10/05/17 08:30 External Cath Urine Culture - Preliminary Resulted 10/03/17 23:00 Urine,Clean Catch Urine Culture - Preliminary NO GROWTH AFTER 24 HOURS Resulted Intake and Output 10/05/17 10/06/17 19:00 07:00 Intake Total 2851 ml 1742.4 ml Output Total 100 ml 25 ml Balance 2751 ml 1717.4 ml Intake Oral 0 ml IV Total 2851 ml 1742.4 ml Output Urine Total 100 ml 25 ml Hemodialysis UF 0 ml Objective General Appearance: alert, moderate distress, thin EENT: PERRL/EOMI, normal ENT inspection Neck: non-tender, normal alignment, supple, normal inspection Cardiovascular: normal peripheral pulses, normal rate, regular rhythm, no gallop/murmur, no JVD Respiratory/Chest: Intubated; respiratory distress, accessory muscle use, crackles/rales, rhonchi - bilaterally, expiratory wheezing Abdomen: normal bowel sounds, non tender, soft, no organomegaly, no mass Extremities: normal range of motion, non-tender Neurologic: fullerette II-XII 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 Continue Ceftroline, fluconazole and doxycycline per ID. See pulmonary note. (3) Hypoxia Assessment & Plan: Currently on non rebreather mask (4) Leukopenia Assessment & Plan: See heme note. Continue nupogen (5) Community acquired pneumonia Assessment & Plan: Continue zosyn, azithro and vanco per ID (6) Rash and nonspecific skin eruption Assessment & Plan: ?viral exanthem?-see ID note. (7) MRSA (methicillin resistant Staphylococcus aureus) Assessment & Plan: Continue vanco per ID (8) Respiratory failure Assessment & Plan: Intubated. See pulm note. S/P bronchoscopy 10/05/17 (9) Renal failure (10) Septic shock (11) SIRS (systemic inflammatory response syndrome) (12) Influenza-like symptoms Assessment & Plan: Continue tamiflu Status: not improved ISAMAR RENDON Oct 06, 2017 14:42
[2017-10-06] MEDS: fentaNYL Citrate 2,500 MCG in NS 200 ML IV SCH (17:39)
--- NOTE | 2017-10-06 18:06 | Cardiology Report ---
APPROVED REPORT EKG Measurement Heart [id number] Sinus tachycardia Rightward axis Nonspecific T wave abnormality Abnormal ECG
--- NOTE | 2017-10-06 18:41 | Infectious Diseases Prog Note ---
Assessment/Plan Assessment/Plan Assessment: Blood Cx : GPC Severe MRSA PNA- r/o other concomitant process (ie fungal, gram negatives, vasculitis, legionella) -s/p bronch 10/05: Normal EB anatomy, No EB lesions, No excessive secretions, No alveolar hemorrhage, Mild friability of mucosa; Cx p -CTA chest 10/04: No central or large segmental pulmonary embolism. Moderate bilateral pleural effusions with bilateral airspace opacities/consolidations and atelectasis which could be related to multifocal pneumonia, pulmonary edema and/or ARDS. Question areas of cavitation in the right midlung and possible nodule in the right mid/lower lung. There is near complete consolidation of the left lower lobe. Cardiomegaly with dilatation of the right ventricle and main pulmonary artery. Correlate with echocardiogram to assess for cor pulmonale. Anasarca. Unchanged compression deformity of the T2 vertebral body. 08/31 2D echo : no Veg Acute respiratory failure, now intubated 10/05 Neutropenic fever-resolved. Suspect probably Influenza (despite neg screen test ) with myelosuppression and superimposed MRSA PNA. Do not believe leukopenia was abx related as this was present on admission. R/o autoimmune disorder -CT chest: Dense consolidations with air bronchograms involving the bilateral lower lobes and to a lesser extent the bilateral upper lobes and right middle lobe. Small bilateral pleural effusions. Findings are compatible with but not specific for pneumonia. Follow-up recommended for further evaluation. -s/p Neupogen -Bcx NTD -sp cx MRSA ( S vanco, tetracycline, bactrim, Linezolid) -HIV screen and VL, acute hep panel neg -CRP >70> 2.9 Leukocytosis, worsening Metabolic acidosis- likely from COREY COREY, worsening Flu like symptoms -influenza sc neg Hemoptysis- likely 2ry to MRSA PNA; low suspicion for TB given acuity of symptoms and alternative diagnosis -AFB smear neg x3, cx p; MTB PCR neg x1 Rash- resolved- suspect was viral exanthem. She also received 1 dose fo Decadron 2mg IV on 09/30 ( no new meds; only med as her maintance Lexapro; rash present upon admission); will do a basic rheum/vasculitis w/u Neck pain; resolved -xray neck: Epiglottis is grossly unremarkable. Airway is patent. Prevertebral soft tissues are within normal limits. Osseous structures are unremarkable. hx of anorexia MDD \ Plan: -continue Empiric Tamiflu # 8 -14 for suspected flu -Continue IV Vancomycin # for MRSA PNA and add Ceftaroline for additional MRSA coverage - cont Levaquin , Ceftaroline, Doxy , Diflucan d# 2 -10/01 SP Zosyn #3 -09/28 SP ceftriaxone x1 - azithromycin #8 , Micafungin #1 -f/u bronch studies -f/u influenza PCR, cocci ab, CrAg, fungitell, sp culture ( fungal, legionella) , legionella ag urine, RASHAWN, ANCA, CCP -Consider thoracentesis if worsening pleural effusions -f/u cx -Monitor CBC/BMP, temperatures -heme onc f/u -droplets precautions -resp support Subjective Allergies: Coded Allergies: No Known Allergies (Unverified , 09/28/17) Subjective Febrile Objective Vital Signs Last 24 Hour Vital Signs Date Time Temp Pulse Resp B/P (MAP) Pulse Ox O2 Delivery O2 Flow Rate FiO2 10/06/17 18:00 127 24 96/75 93 Mechanical Ventilator 100 10/06/17 18:00 20 10/06/17 17:45 127 20 90/59 93 Mechanical Ventilator 100 10/06/17 17:45 20 10/06/17 17:39 17 10/06/17 17:30 127 24 90/59 93 Mechanical Ventilator 100 10/06/17 17:30 29 10/06/17 17:15 24 10/06/17 17:15 129 30 63/23 96 Mechanical Ventilator 100 10/06/17 17:00 130 24 72/36 96 Mechanical Ventilator 100 10/06/17 17:00 20 10/06/17 16:58 132 25 100 10/06/17 16:30 132 24 80/30 96 Mechanical Ventilator 100 10/06/17 16:09 133 10/06/17 16:00 100 10/06/17 16:00 99.4 134 24 87/42 92 Mechanical Ventilator 100 99.4 10/06/17 16:00 24 10/06/17 15:35 136 31 96 Mechanical Ventilator 100 10/06/17 15:30 134 24 81/38 96 Mechanical Ventilator 100 10/06/17 15:25 134 24 95 Mechanical Ventilator 100 10/06/17 15:00 134 23 91/25 94 Mechanical Ventilator 100 10/06/17 15:00 19 10/06/17 14:55 129 37 100 10/06/17 14:30 129 24 104/79 96 Mechanical Ventilator 100 10/06/17 14:00 130 24 96/72 96 Mechanical Ventilator 100 10/06/17 14:00 18 10/06/17 13:30 99.3 132 18 94/64 91 Mechanical Ventilator 100 99.3 10/06/17 13:00 19 10/06/17 13:00 134 22 81/41 96 Mechanical Ventilator 100 10/06/17 12:50 136 34 100 10/06/17 12:30 136 22 103/76 96 Mechanical Ventilator 100 10/06/17 12:01 136 78/56 10/06/17 12:00 100 10/06/17 12:00 101.0 136 22 91/62 95 Mechanical Ventilator 100 101.0 10/06/17 12:00 20 10/06/17 12:00 135 10/06/17 11:45 21 10/06/17 11:30 137 22 79/55 97 Mechanical Ventilator 100 10/06/17 11:30 19 10/06/17 11:15 20 10/06/17 11:02 135 29 96 Mechanical Ventilator 100 10/06/17 11:00 137 23 79/53 97 Mechanical Ventilator 100 10/06/17 11:00 20 10/06/17 10:52 133 29 100 10/06/17 10:52 133 29 96 Mechanical Ventilator 100 10/06/17 10:30 133 23 80/52 96 Mechanical Ventilator 100 10/06/17 10:00 24 10/06/17 10:00 133 23 80/53 96 Mechanical Ventilator 100 10/06/17 09:41 99.9 10/06/17 09:30 133 23 78/48 96 Mechanical Ventilator 100 10/06/17 09:19 100 10/06/17 09:00 23 10/06/17 09:00 135 23 78/59 93 Mechanical Ventilator 100 10/06/17 08:53 136 24 100 10/06/17 08:45 23 10/06/17 08:45 136 23 81/49 94 Mechanical Ventilator 100 10/06/17 08:42 100.2 10/06/17 08:30 137 24 86/52 93 Mechanical Ventilator 100 10/06/17 08:30 24 10/06/17 08:15 26 10/06/17 08:15 138 25 77/52 94 Mechanical Ventilator 100 10/06/17 08:00 100 10/06/17 08:00 20 10/06/17 08:00 99.7 143 26 83/52 93 Mechanical Ventilator 100 99.7 10/06/17 07:57 143 10/06/17 07:30 144 26 81/42 93 Mechanical Ventilator 100 10/06/17 07:00 138 20 77/50 100 Mechanical Ventilator 100 10/06/17 07:00 20 10/06/17 06:57 140 20 96 Mechanical Ventilator 100 10/06/17 06:47 139 20 92 Mechanical Ventilator 100 10/06/17 06:45 140 23 73/50 Mechanical Ventilator 100 10/06/17 06:38 140 20 100 10/06/17 06:30 140 20 80/51 Mechanical Ventilator 100 10/06/17 06:15 140 20 75/46 Mechanical Ventilator 100 10/06/17 06:00 140 20 84/45 Mechanical Ventilator 100 10/06/17 06:00 24 10/06/17 05:45 140 21 76/47 Mechanical Ventilator 100 10/06/17 05:30 139 20 75/50 Mechanical Ventilator 100 10/06/17 05:15 139 26 76/43 Mechanical Ventilator 100 10/06/17 05:00 140 21 77/49 95 Mechanical Ventilator 100 10/06/17 05:00 21 10/06/17 05:00 139 24 80 10/06/17 04:50 143 84/47 10/06/17 04:30 142 21 84/47 98 Mechanical Ventilator 100 10/06/17 04:00 143 10/06/17 04:00 98.8 143 24 79/54 97 Mechanical Ventilator 100 98.8 10/06/17 04:00 100 10/06/17 04:00 24 10/06/17 03:30 145 23 82/55 97 Mechanical Ventilator 80 10/06/17 03:27 Mechanical Ventilator 100 10/06/17 03:27 145 23 100 10/06/17 03:26 145 30 92 Mechanical Ventilator 80 10/06/17 03:00 145 25 83/53 97 Mechanical Ventilator 80 10/06/17 03:00 33 10/06/17 02:30 145 27 107/68 89 Mechanical Ventilator 80 10/06/17 02:00 41 10/06/17 02:00 146 33 91/58 91 Mechanical Ventilator 80 10/06/17 01:45 146 34 100 10/06/17 01:30 147 41 98/67 93 Mechanical Ventilator 80 10/06/17 01:00 147 41 125/100 93 Mechanical Ventilator 80 10/06/17 00:30 145 39 117/90 90 Mechanical Ventilator 80 10/06/17 00:00 80 10/06/17 00:00 37 10/06/17 00:00 152 10/06/17 00:00 98.0 152 37 94/72 92 Mechanical Ventilator 80 98.0 10/05/17 23:30 139 36 97/72 91 Mechanical Ventilator 80 10/05/17 23:27 60 10/05/17 23:10 126 28 95 Mechanical Ventilator 60 10/05/17 23:00 129 30 99/77 91 Mechanical Ventilator 80 10/05/17 23:00 30 10/05/17 22:55 125 30 96 Mechanical Ventilator 80 10/05/17 22:54 126 30 80 10/05/17 22:48 Mechanical Ventilator 80 10/05/17 22:46 97.8 133 30 118/90 Mechanical Ventilator 80 97.8 10/05/17 22:45 98.8 124 28 97/79 96 Mechanical Ventilator 15.0 80 98.8 10/05/17 22:30 126 30 94/73 97 Mechanical Ventilator 100 10/05/17 22:00 133 30 110/86 100 Mechanical Ventilator 100 10/05/17 22:00 28 10/05/17 21:41 137 42 80 10/05/17 21:30 128 30 103/81 98 Mechanical Ventilator 100 10/05/17 21:00 124 30 103/77 98 Mechanical Ventilator 100 10/05/17 21:00 30 10/05/17 20:30 124 30 97/79 96 Mechanical Ventilator 100 10/05/17 20:00 125 10/05/17 20:00 100 10/05/17 20:00 30 10/05/17 20:00 125 30 92/73 96 Mechanical Ventilator 100 10/05/17 19:30 98.8 132 33 84/61 96 Mechanical Ventilator 100 98.8 10/05/17 19:16 135 40 80 10/05/17 19:11 146 36 96 Mechanical Ventilator 80 10/05/17 19:06 Mechanical Ventilator 10/05/17 19:05 80 10/05/17 19:00 32 10/05/17 19:00 138 36 121/41 100 Mechanical Ventilator 100 10/05/17 18:45 Mechanical Ventilator 80 Height (Feet): 5 Height (Inches): 2.00 Weight (Pounds): 102 HEENT: atraumatic Respiratory/Chest: decreased breath sounds Cardiovascular: regularly irregular Abdomen: no organomegaly Microbiology Date/Time Source Procedure Growth Status 10/05/17 10:30 Blood Blood Culture - Preliminary Gram Positive Cocci Resulted 10/05/17 10:20 Blood Blood Culture - Preliminary Gram Positive Cocci Resulted 10/05/17 08:30 Sputum Gram Stain - Final Resulted 10/05/17 08:30 Sputum Culture - Preliminary Staphylococcus Aureus Resulted 10/04/17 21:00 Stool Clostridium difficile Toxin Assay - Final Complete 10/05/17 08:30 External Cath Urine Culture - Preliminary Resulted 10/03/17 23:00 Urine,Clean Catch Urine Culture - Preliminary NO GROWTH AFTER 24 HOURS Resulted Laboratory Tests Test 10/05/17 20:00 10/05/17 23:00 10/06/17 03:15 10/06/17 03:16 Lactic Acid Level 5.90 mmol/L (0.66-2.22) H 15.10 mmol/L (0.66-2.22) H Arterial Blood pH 7.585 (7.350-7.450) Arterial Blood Partial Pressure CO2 24.1 mmHg (35.0-45.0) *L Arterial Blood Partial Pressure O2 164.1 mmHg (75.0-100.0) H Arterial Blood HCO3 22.3 mmol/L (22.0-26.0) Arterial Blood Oxygen Saturation 98.2 % (92.0-98.0) H Arterial Blood Base Excess 1.4 Stuart Test Positive White Blood Count 11.3 K/UL (4.8-10.8) H Red Blood Count 3.01 M/UL (4.20-5.40) L Hemoglobin 9.7 G/DL (12.0-16.0) L Hematocrit 28.4 % (37.0-47.0) L Mean Corpuscular Volume 94 FL (80-99) Mean Corpuscular Hemoglobin 32.4 PG (27.0-31.0) H Mean Corpuscular Hemoglobin Concent 34.3 G/DL (32.0-36.0) Red Cell Distribution Width 12.1 % (11.6-14.8) Platelet Count 380 K/UL (150-450) Mean Platelet Volume 5.7 FL (6.5-10.1) L Neutrophils (%) (Auto) % (45.0-75.0) Lymphocytes (%) (Auto) % (20.0-45.0) Monocytes (%) (Auto) % (1.0-10.0) Eosinophils (%) (Auto) % (0.0-3.0) Basophils (%) (Auto) % (0.0-2.0) Differential Total Cells Counted 100 Neutrophils % (Manual) 67 % (45-75) Lymphocytes % (Manual) 2 % (20-45) L Monocytes % (Manual) 7 % (1-10) Eosinophils % (Manual) 0 % (0-3) Basophils % (Manual) 0 % (0-2) Band Neutrophils 24 % (0-8) H Toxic Granulation 2+ Platelet Estimate Adequate Platelet Morphology Normal Hypochromasia 2+ Anisocytosis 1+ Spherocytes 2+ Sodium Level 147 MMOL/L (136-145) H Potassium Level 4.7 MMOL/L (3.5-5.1) Chloride Level 107 MMOL/L (98-107) Carbon Dioxide Level 20 MMOL/L (21-32) L Anion Gap 20 mmol/L (5-15) H Blood Urea Nitrogen 19 mg/dL (7-18) H Creatinine 1.9 MG/DL (0.55-1.30) H Estimat Glomerular Filtration Rate 29.5 mL/min (>60) Glucose Level 28 MG/DL (74-106) *L Hemoglobin A1c 6.2 % (4.3-6.0) H Uric Acid 5.0 MG/DL (2.6-7.2) Calcium Level 6.7 MG/DL (8.5-10.1) L Phosphorus Level 4.0 MG/DL (2.5-4.9) Magnesium Level 1.7 MG/DL (1.8-2.4) L Total Bilirubin 1.0 MG/DL (0.2-1.0) Gamma Glutamyl Transpeptidase 61 U/L (5-85) Aspartate Amino Transf (AST/SGOT) 4693 U/L (15-37) H Alanine Aminotransferase (ALT/SGPT) 1394 U/L (12-78) H Alkaline Phosphatase 47 U/L (46-116) Total Creatine Kinase 861 U/L (26-308) H Pro-B-Type Natriuretic Peptide > 58439 pg/mL (0-125) H Total Protein 4.3 G/DL (6.4-8.2) L Albumin 1.3 G/DL (3.4-5.0) L Globulin 3.0 g/dL Albumin/Globulin Ratio 0.4 (1.0-2.7) L Thyroid Stimulating Hormone (TSH) 0.205 uiU/mL (0.358-3.740) Random Vancomycin Level 20.6 ug/mL Typhus Fever IgG Antibody Titer Pending Typhus Fever IgG Antibody Pending Typhus Fever IgM Antibody Titer Pending Typhus Fever IgM Antibody Pending Troponin I 0.578 ng/mL (0.000-0.056) Test 10/06/17 08:00 10/06/17 10:00 10/06/17 15:00 Arterial Blood pH 7.180 (7.350-7.450) Arterial Blood Partial Pressure CO2 44.9 mmHg (35.0-45.0) Arterial Blood Partial Pressure O2 67.6 mmHg (75.0-100.0) L Arterial Blood HCO3 16.5 mmol/L (22.0-26.0) L Arterial Blood Oxygen Saturation 87.7 % (92.0-98.0) L Arterial Blood Base Excess -11.2 Stuart Test Positive Lactic Acid Level 14.90 mmol/L (0.66-2.22) H Venous Blood pH Pending Venous Blood Partial Pressure CO2 Pending Venous Blood Partial Pressure O2 Pending Venous Blood HCO3 Pending Venous Blood Total Carbon Dioxide Pending Venous Bld O2 Saturation (Measured) 39.9 Venous Blood Oxygen Saturation Pending Venous Blood Base Excess Pending Methemoglobin 0.7 Sodium (Blood Gas) Pending Current Medications Medications (Trade) Dose Ordered Sig/Annie Route PRN Reason Start Time Stop Time Status Last Admin Dose Admin Acetaminophen (Tylenol) 650 mg Q4H PRN ORAL T>100.5/Headache/Mild Pain 10/05/17 05:00 10/29/17 08:59 10/06/17 08:42 Alprazolam (Xanax) 0.5 mg TIDPRN PRN ORAL For Anxiety 10/05/17 18:45 10/10/17 18:44 Ceftaroline Fosamil 300 mg/ Dextrose 110 ml @ 110 mls/hr Q12HR@0200,1400 IV 10/07/17 02:00 10/14/17 01:59 Chlorhexidine Gluconate (Fabiana-Hex 2%) 1 applic DAILY@2000 TOPIC 10/05/17 20:00 11/04/17 19:59 10/05/17 22:09 Doxycycline Monohydrate (Vibramycin) 100 mg EVERY 12 HOURS ORAL 10/05/17 11:30 10/12/17 11:29 10/06/17 08:40 Famotidine (Pepcid I.v.) 20 mg DAILY IVP 10/05/17 09:00 11/04/17 08:59 10/06/17 08:40 Fentanyl Citrate 2500 mcg/Sodium Chloride 250 ml @ 0 mls/hr Q24H IV 10/05/17 15:30 10/12/17 15:29 10/06/17 17:39 Fluconazole/ Sodium Chloride 100 ml @ 100 mls/hr Q24H IV 10/05/17 13:00 10/12/17 12:59 10/06/17 12:45 Heparin Sodium (Porcine) (Heparin 5000 units/ml) 5,000 units EVERY 12 HOURS SUBQ 10/05/17 09:00 10/29/17 20:59 Ipratropium [place] (Atrovent) 500 mcg Q4HRT HHN 10/05/17 07:00 10/09/17 16:59 10/06/17 15:24 Levalbuterol HCl (Xopenex) 0.625 mg Q4HRT HHN 10/05/17 07:00 10/09/17 16:59 10/06/17 15:24 Levofloxacin (Levaquin) 750 mg EVERY OTHER DAY NG 10/05/17 15:30 10/12/17 15:29 10/05/17 16:30 Methylprednisolone Sodium Succinate (Solu-MEDROL) 60 mg EVERY 12 HOURS IVP 10/05/17 21:00 11/04/17 20:59 10/06/17 08:40 Midazolam HCl (Versed 2mg/2ml vial) 2 mg Q2H PRN IVP Unrelieved Agitation 10/05/17 12:30 11/04/17 12:29 10/05/17 23:34 Oseltamivir Phosphate (Tamiflu) 30 mg BID ORAL 10/05/17 09:30 10/09/17 09:29 10/06/17 17:34 Phenylephrine HCl 100 mg/Dextrose 250 ml @ 0 mls/hr Q24H IV 10/05/17 15:45 11/04/17 09:09 10/06/17 12:01 Sodium Bicarbonate 150 ml/Dextrose/ Sodium Chloride 1,150 ml @ 100 mls/hr [id number] ONCE IV 10/06/17 11:00 10/06/17 22:29 10/06/17 11:41 Vancomycin HCl (Vanco rx to dose) 1 ea DAILY PRN MISC Per rx protocol 10/05/17 09:00 10/29/17 01:59 Vasopressin 100 units/Sodium Chloride 100 ml @ 0 mls/hr Q24H IV 10/06/17 05:30 11/05/17 05:29 10/06/17 05:54 Zolpidem Tartrate (Ambien) 5 mg HSPRN PRN ORAL Insomnia 10/05/17 21:00 10/08/17 20:59 Derrell Harris MD Oct 06, 2017 18:41
[2017-10-06] MEDS: Dyna-Hex 2% Top Sol 2oz TOPIC SCH (20:00)
--- NOTE | 2017-10-06 20:18 | Emergency Room Report ---
History of Present Illness General Chief Complaint: Flu Like Symptoms Source: EMS Present Illness Allergies: Coded Allergies: No Known Allergies (Unverified , 09/28/17) Patient History Last Menstrual Period: UNK Now: No Nursing Documentation-[facility] Past Medical History: No History, Except For Hx Cardiac Problems: No - ANOREXIA Hx Cancer: No Hx Gastrointestinal Problems: No Hx Neurological Problems: No Physical Exam Vital Signs Date Time Temp Pulse Resp B/P (MAP) Pulse Ox O2 Delivery O2 Flow Rate FiO2 10/02/17 07:10 Non-Rebreather 15.0 100 10/02/17 07:10 97 16 10/02/17 07:10 95 10/02/17 08:00 97.9 113/82 97.9 Procedures CPR/Code Blue CPR/Code Blue Narrative I was called upstairs to a CODE BLUE Upon arrival the patient had received 2 Amps of epinephrine Patient had previous airway intubation and CPR was in progress On a general secondary survey patient's pupils are fixed and dilated at 5 mm There appears to be crepitus and subcutaneous air diffusely in the neck and upper chest area Review of blood work reveals significantly elevated lactic acid patient also had recent dialysis As CPR progressed patient showed signs of PEA Further medication is given including sodium bicarbonate Accu-Chek shows critical low value therefore 2 AMPS of glucose are provided Patient continued to show some PEA findings however and did not have a palpable pulse The subcutaneous air appears to be tracking and worsening including essentially lower facial edema and crepitus Patient had asystolic rhythm after further intervention All attempts are appearing futile at this time and patient was pronounced at 20:03 Family was at bedside and I did discuss with him the attempts and the final outcome he is understanding and is discussing with other family primary physician is also being contacted Medical Decision Making Diagnostic Impression: Primary Impression: Influenza-like symptoms Additional Impressions: Rash and nonspecific skin eruption Pseudoseizure Community acquired pneumonia Last Vital Signs Date Time Temp Pulse Resp B/P (MAP) Pulse Ox O2 Delivery O2 Flow Rate FiO2 10/06/17 19:27 128 30 95 Mechanical Ventilator 100 10/06/17 19:03 93/73 10/06/17 16:00 99.4 99.4 10/05/17 22:45 15.0 Disposition: ADMITTED INPATIENT Condition: Serious Referrals: [facility],REFERRING (PCP) Rebeka Palacios DO Oct 06, 2017 20:17
--- NOTE | 2017-10-06 21:11 | Cardiology Progress Note ---
Assessment/Plan Assessment/Plan 1. Septic shock with multi-organ failure, on Arjun and vasopressin, grim prognosis , CXR pattern of ARDS, vent criteria of ARDS on FiO2 of 100%. Will add Levo if needed. Currently MAP at 77 mmhg. 2. Shock liver due to severe hypotension. 3. ATN, continue IVF, I &O's, nephro feedback. 4. Severe metabolic acidosis 5. Hypoxemic respiratory failure due to ARDS. 6. Elevated troponin level likely due to existing hypotension, not a pattern for ACS, hemodynaic instability on IV pressors. 7. Sinus tachycardia due to septic shock, pressors, hypoxemia, etc. Do not recommend AV jie agents at this time. Subjective Subjective Sinus tachycardia at 128. On Arjun and vasopressin with MAP at 77 mmHg Sedated. Objective Last 24 Hour Vital Signs Date Time Temp Pulse Resp B/P (MAP) Pulse Ox O2 Delivery O2 Flow Rate FiO2 10/06/17 20:24 Mechanical Ventilator 10/06/17 19:27 128 30 95 Mechanical Ventilator 100 10/06/17 19:26 128 30 100 10/06/17 19:03 128 93/73 10/06/17 19:00 128 21 81/63 94 Mechanical Ventilator 100 10/06/17 19:00 20 10/06/17 18:45 128 15 91/75 92 Mechanical Ventilator 100 10/06/17 18:45 21 10/06/17 18:30 128 24 96/77 95 Mechanical Ventilator 100 10/06/17 18:30 20 10/06/17 18:15 19 10/06/17 18:00 127 24 96/75 93 Mechanical Ventilator 100 10/06/17 18:00 20 10/06/17 17:45 127 20 90/59 93 Mechanical Ventilator 100 10/06/17 17:45 20 10/06/17 17:39 17 10/06/17 17:30 127 24 90/59 93 Mechanical Ventilator 100 10/06/17 17:30 29 10/06/17 17:15 24 10/06/17 17:15 129 30 63/23 96 Mechanical Ventilator 100 10/06/17 17:00 130 24 72/36 96 Mechanical Ventilator 100 10/06/17 17:00 20 10/06/17 16:58 132 25 100 10/06/17 16:56 100 10/06/17 16:30 132 24 80/30 96 Mechanical Ventilator 100 10/06/17 16:09 133 10/06/17 16:00 100 10/06/17 16:00 99.4 134 24 87/42 92 Mechanical Ventilator 100 99.4 10/06/17 16:00 24 10/06/17 15:35 136 31 96 Mechanical Ventilator 100 10/06/17 15:30 134 24 81/38 96 Mechanical Ventilator 100 10/06/17 15:25 134 24 95 Mechanical Ventilator 100 10/06/17 15:00 134 23 91/25 94 Mechanical Ventilator 100 10/06/17 15:00 19 10/06/17 14:55 129 37 100 10/06/17 14:30 129 24 104/79 96 Mechanical Ventilator 100 10/06/17 14:00 130 24 96/72 96 Mechanical Ventilator 100 10/06/17 14:00 18 10/06/17 13:30 99.3 132 18 94/64 91 Mechanical Ventilator 100 99.3 10/06/17 13:00 19 10/06/17 13:00 134 22 81/41 96 Mechanical Ventilator 100 10/06/17 12:50 136 34 100 10/06/17 12:30 136 22 103/76 96 Mechanical Ventilator 100 10/06/17 12:01 136 78/56 10/06/17 12:00 100 10/06/17 12:00 101.0 136 22 91/62 95 Mechanical Ventilator 100 101.0 10/06/17 12:00 20 10/06/17 12:00 135 10/06/17 11:45 21 10/06/17 11:30 137 22 79/55 97 Mechanical Ventilator 100 10/06/17 11:30 19 10/06/17 11:15 20 10/06/17 11:02 135 29 96 Mechanical Ventilator 100 10/06/17 11:00 137 23 79/53 97 Mechanical Ventilator 100 10/06/17 11:00 20 10/06/17 10:52 133 29 100 10/06/17 10:52 133 29 96 Mechanical Ventilator 100 10/06/17 10:30 133 23 80/52 96 Mechanical Ventilator 100 10/06/17 10:00 24 10/06/17 10:00 133 23 80/53 96 Mechanical Ventilator 100 10/06/17 09:41 99.9 10/06/17 09:30 133 23 78/48 96 Mechanical Ventilator 100 10/06/17 09:19 100 10/06/17 09:00 23 10/06/17 09:00 135 23 78/59 93 Mechanical Ventilator 100 10/06/17 08:53 136 24 100 10/06/17 08:45 23 10/06/17 08:45 136 23 81/49 94 Mechanical Ventilator 100 10/06/17 08:42 100.2 10/06/17 08:30 137 24 86/52 93 Mechanical Ventilator 100 10/06/17 08:30 24 10/06/17 08:15 26 10/06/17 08:15 138 25 77/52 94 Mechanical Ventilator 100 10/06/17 08:00 100 10/06/17 08:00 20 10/06/17 08:00 99.7 143 26 83/52 93 Mechanical Ventilator 100 99.7 10/06/17 07:57 143 10/06/17 07:30 144 26 81/42 93 Mechanical Ventilator 100 10/06/17 07:00 138 20 77/50 100 Mechanical Ventilator 100 10/06/17 07:00 20 10/06/17 06:57 140 20 96 Mechanical Ventilator 100 10/06/17 06:47 139 20 92 Mechanical Ventilator 100 10/06/17 06:45 140 23 73/50 Mechanical Ventilator 100 10/06/17 06:38 140 20 100 10/06/17 06:30 140 20 80/51 Mechanical Ventilator 100 10/06/17 06:15 140 20 75/46 Mechanical Ventilator 100 10/06/17 06:00 140 20 84/45 Mechanical Ventilator 100 10/06/17 06:00 24 10/06/17 05:45 140 21 76/47 Mechanical Ventilator 100 10/06/17 05:30 139 20 75/50 Mechanical Ventilator 100 10/06/17 05:15 139 26 76/43 Mechanical Ventilator 100 10/06/17 05:00 140 21 77/49 95 Mechanical Ventilator 100 10/06/17 05:00 21 10/06/17 05:00 139 24 80 10/06/17 04:50 143 84/47 10/06/17 04:30 142 21 84/47 98 Mechanical Ventilator 100 10/06/17 04:00 143 10/06/17 04:00 98.8 143 24 79/54 97 Mechanical Ventilator 100 98.8 10/06/17 04:00 100 10/06/17 04:00 24 10/06/17 03:30 145 23 82/55 97 Mechanical Ventilator 80 10/06/17 03:27 Mechanical Ventilator 100 10/06/17 03:27 145 23 100 10/06/17 03:26 145 30 92 Mechanical Ventilator 80 10/06/17 03:00 145 25 83/53 97 Mechanical Ventilator 80 10/06/17 03:00 33 10/06/17 02:30 145 27 107/68 89 Mechanical Ventilator 80 10/06/17 02:00 41 10/06/17 02:00 146 33 91/58 91 Mechanical Ventilator 80 10/06/17 01:45 146 34 100 10/06/17 01:30 147 41 98/67 93 Mechanical Ventilator 80 10/06/17 01:00 147 41 125/100 93 Mechanical Ventilator 80 10/06/17 00:30 145 39 117/90 90 Mechanical Ventilator 80 10/06/17 00:00 80 10/06/17 00:00 37 10/06/17 00:00 152 10/06/17 00:00 98.0 152 37 94/72 92 Mechanical Ventilator 80 98.0 10/05/17 23:30 139 36 97/72 91 Mechanical Ventilator 80 10/05/17 23:27 60 10/05/17 23:10 126 28 95 Mechanical Ventilator 60 10/05/17 23:00 129 30 99/77 91 Mechanical Ventilator 80 10/05/17 23:00 30 10/05/17 22:55 125 30 96 Mechanical Ventilator 80 10/05/17 22:54 126 30 80 10/05/17 22:48 Mechanical Ventilator 80 10/05/17 22:46 97.8 133 30 118/90 Mechanical Ventilator 80 97.8 10/05/17 22:45 98.8 124 28 97/79 96 Mechanical Ventilator 15.0 80 98.8 10/05/17 22:30 126 30 94/73 97 Mechanical Ventilator 100 10/05/17 22:00 133 30 110/86 100 Mechanical Ventilator 100 10/05/17 22:00 28 10/05/17 21:41 137 42 80 10/05/17 21:30 128 30 103/81 98 Mechanical Ventilator 100 10/05/17 21:00 124 30 103/77 98 Mechanical Ventilator 100 10/05/17 21:00 30 Intake and Output 10/05/17 10/06/17 19:00 07:00 Intake Total 2851 ml 1742.4 ml Output Total 100 ml 25 ml Balance 2751 ml 1717.4 ml Intake Oral 0 ml IV Total 2851 ml 1742.4 ml Output Urine Total 100 ml 25 ml Hemodialysis UF 0 ml 2D Echo: EF~50%,Borderline LV fxn post/inf wall HK,Mild MR/AR,Grade II LVDD, RVSP 32 Laboratory Tests Test 10/05/17 23:00 10/06/17 03:15 10/06/17 03:16 10/06/17 08:00 Arterial Blood pH 7.585 (7.350-7.450) 7.180 (7.350-7.450) Arterial Blood Partial Pressure CO2 24.1 mmHg (35.0-45.0) *L 44.9 mmHg (35.0-45.0) Arterial Blood Partial Pressure O2 164.1 mmHg (75.0-100.0) H 67.6 mmHg (75.0-100.0) L Arterial Blood HCO3 22.3 mmol/L (22.0-26.0) 16.5 mmol/L (22.0-26.0) L Arterial Blood Oxygen Saturation 98.2 % (92.0-98.0) H 87.7 % (92.0-98.0) L Arterial Blood Base Excess 1.4 -11.2 Stuart Test Positive Positive White Blood Count 11.3 K/UL (4.8-10.8) H Red Blood Count 3.01 M/UL (4.20-5.40) L Hemoglobin 9.7 G/DL (12.0-16.0) L Hematocrit 28.4 % (37.0-47.0) L Mean Corpuscular Volume 94 FL (80-99) Mean Corpuscular Hemoglobin 32.4 PG (27.0-31.0) H Mean Corpuscular Hemoglobin Concent 34.3 G/DL (32.0-36.0) Red Cell Distribution Width 12.1 % (11.6-14.8) Platelet Count 380 K/UL (150-450) Mean Platelet Volume 5.7 FL (6.5-10.1) L Neutrophils (%) (Auto) % (45.0-75.0) Lymphocytes (%) (Auto) % (20.0-45.0) Monocytes (%) (Auto) % (1.0-10.0) Eosinophils (%) (Auto) % (0.0-3.0) Basophils (%) (Auto) % (0.0-2.0) Differential Total Cells Counted 100 Neutrophils % (Manual) 67 % (45-75) Lymphocytes % (Manual) 2 % (20-45) L Monocytes % (Manual) 7 % (1-10) Eosinophils % (Manual) 0 % (0-3) Basophils % (Manual) 0 % (0-2) Band Neutrophils 24 % (0-8) H Toxic Granulation 2+ Platelet Estimate Adequate Platelet Morphology Normal Hypochromasia 2+ Anisocytosis 1+ Spherocytes 2+ Sodium Level 147 MMOL/L (136-145) H Potassium Level 4.7 MMOL/L (3.5-5.1) Chloride Level 107 MMOL/L (98-107) Carbon Dioxide Level 20 MMOL/L (21-32) L Anion Gap 20 mmol/L (5-15) H Blood Urea Nitrogen 19 mg/dL (7-18) H Creatinine 1.9 MG/DL (0.55-1.30) H Estimat Glomerular Filtration Rate 29.5 mL/min (>60) Glucose Level 28 MG/DL (74-106) *L Hemoglobin A1c 6.2 % (4.3-6.0) H Lactic Acid Level 15.10 mmol/L (0.66-2.22) H Uric Acid 5.0 MG/DL (2.6-7.2) Calcium Level 6.7 MG/DL (8.5-10.1) L Phosphorus Level 4.0 MG/DL (2.5-4.9) Magnesium Level 1.7 MG/DL (1.8-2.4) L Total Bilirubin 1.0 MG/DL (0.2-1.0) Gamma Glutamyl Transpeptidase 61 U/L (5-85) Aspartate Amino Transf (AST/SGOT) 4693 U/L (15-37) H Alanine Aminotransferase (ALT/SGPT) 1394 U/L (12-78) H Alkaline Phosphatase 47 U/L (46-116) Total Creatine Kinase 861 U/L (26-308) H Pro-B-Type Natriuretic Peptide > 40487 pg/mL (0-125) H Total Protein 4.3 G/DL (6.4-8.2) L Albumin 1.3 G/DL (3.4-5.0) L Globulin 3.0 g/dL Albumin/Globulin Ratio 0.4 (1.0-2.7) L Thyroid Stimulating Hormone (TSH) 0.205 uiU/mL (0.358-3.740) Random Vancomycin Level 20.6 ug/mL Typhus Fever IgG Antibody Titer Pending Typhus Fever IgG Antibody Pending Typhus Fever IgM Antibody Titer Pending Typhus Fever IgM Antibody Pending Troponin I 0.578 ng/mL (0.000-0.056) Test 10/06/17 10:00 10/06/17 15:00 10/06/17 18:40 Lactic Acid Level 14.90 mmol/L (0.66-2.22) H 20.60 mmol/L (0.66-2.22) H Venous Blood pH Pending Venous Blood Partial Pressure CO2 Pending Venous Blood Partial Pressure O2 Pending Venous Blood HCO3 Pending Venous Blood Total Carbon Dioxide Pending Venous Bld O2 Saturation (Measured) 39.9 Venous Blood Oxygen Saturation Pending Venous Blood Base Excess Pending Methemoglobin 0.7 Sodium (Blood Gas) Pending Microbiology Date/Time Source Procedure Growth Status 10/05/17 10:30 Blood Blood Culture - Preliminary Gram Positive Cocci Resulted 10/05/17 10:20 Blood Blood Culture - Preliminary Gram Positive Cocci Resulted 10/05/17 08:30 Sputum Gram Stain - Final Resulted 10/05/17 08:30 Sputum Culture - Preliminary Staphylococcus Aureus Resulted 10/04/17 21:00 Stool Clostridium difficile Toxin Assay - Final Complete 10/05/17 08:30 External Cath Urine Culture - Preliminary Resulted 10/03/17 23:00 Urine,Clean Catch Urine Culture - Preliminary NO GROWTH AFTER 24 HOURS Resulted Objective HEENT: Comatose, intubated, resporatory distress on FiO2 of 100%. NECK: JVP cannot be assessed, No carotid bruit. Carotid upstrokes 2+ bilaterally. CARDIOVASCULAR: Normal S1 and S2. Tachycardic, Regular rate and rhythm. No murmurs, gallops, or rubs. PMI is at fourth intercostal space in the midclavicular line. LUNGS: Diminished breath sounds in both bases with crackles bilaterally. ABDOMEN: Soft, nontender, and nondistended, diminished bowel sounds. EXTREMITIES: Muscle wasting throughout, no edema, clubbing, or cyanosis. GLORIA PELAEZ Oct 06, 2017 21:11
[2017-10-06] MEDS ORDERED: Tubing IV Secondary IV ONE ×2 (21:40)
[2017-10-06] MEDS ORDERED: NS 275ml ONE ×2 (21:40)
--- NOTE | 2017-10-07 01:29 | General Progress Note ---
Assessment/Plan Assessment/Plan #. Chest pain and shortness of breath. --> Cardiomegaly with dilatation of the right ventricle and main pulmonary artery. #. Pneumonia. --> We will trace an infection. She is on broad-spectrum antibiotics, vancomycin and Zosyn. --> Complained of chest pain and shortness of breath #. Anemia due to underlying chronic disease. Closely monitor. --> Blood transfusion not required unless symptomatic or hgb <7 --> Anemia w/u has been reviewed --> Trend cbc daily. --> Hemoglobin has been stable. #. Acute respiratory failure. Adjust oxygen as needed. #. Hemoptysis, rule out tuberculosis. #. Neutropenic precautions. #. Leukopenia severe, potentially related to underlying medication. --> s/p abx, do not have other causes and currently improved --> a/p one dose of neupogen and now wbc is wnl --> Improved and resolved at this time. --> As outpatient recommend to recheck cbc and fever curve, see in clinic in one week Subjective Date patient seen: Oct 06, 2017 Constitutional: Denies: no symptoms, chills, diaphoresis, fever, malaise, weakness, other HEENT: Denies: no symptoms, eye pain, blurred vision, tearing, double vision, ear pain, ear discharge, nose pain, nose congestion, throat pain, throat swelling, mouth pain, mouth swelling, other Cardiovascular: Denies: no symptoms, chest pain, edema, irregular heart rate, lightheadedness, palpitations, syncope, other Respiratory: Denies: no symptoms, cough, orthopnea, shortness of breath, SOB with excertion, SOB at rest, sputum, stridor, wheezing, other Gastrointestinal/Abdominal: Denies: no symptoms, abdomen distended, abdominal pain, black stools, tarry stools, blood in stool, constipated, diarrhea, difficulty swallowing, nausea, poor appetite, poor fluid intake, rectal bleeding , vomiting, other Genitourinary: Denies: no symptoms, burning, discharge, frequency, flank pain, hematuria, incontinence, pain, urgency, other Neurologic/Psychiatric: Denies: no symptoms, anxiety, depressed, emotional problems, headache, numbness, paresthesia, pre-existing deficit, seizure, tingling, tremors, weakness, other Hematologic/Lymphatic: Reports: anemia Allergies: Coded Allergies: No Known Allergies (Unverified , 09/28/17) Subjective Chest pain worsened. Tachypneic and tachycardic. Poor prognosis. Objective Last 24 Hour Vital Signs Date Time Temp Pulse Resp B/P (MAP) Pulse Ox O2 Delivery O2 Flow Rate FiO2 10/06/17 20:24 Mechanical Ventilator 10/06/17 19:27 128 30 95 Mechanical Ventilator 100 10/06/17 19:26 128 30 100 10/06/17 19:03 128 93/73 10/06/17 19:00 128 21 81/63 94 Mechanical Ventilator 100 10/06/17 19:00 20 10/06/17 18:45 128 15 91/75 92 Mechanical Ventilator 100 10/06/17 18:45 21 10/06/17 18:30 128 24 96/77 95 Mechanical Ventilator 100 10/06/17 18:30 20 10/06/17 18:15 19 10/06/17 18:00 127 24 96/75 93 Mechanical Ventilator 100 10/06/17 18:00 20 10/06/17 17:45 127 20 90/59 93 Mechanical Ventilator 100 10/06/17 17:45 20 10/06/17 17:39 17 10/06/17 17:30 127 24 90/59 93 Mechanical Ventilator 100 10/06/17 17:30 29 10/06/17 17:15 24 10/06/17 17:15 129 30 63/23 96 Mechanical Ventilator 100 10/06/17 17:00 130 24 72/36 96 Mechanical Ventilator 100 10/06/17 17:00 20 10/06/17 16:58 132 25 100 10/06/17 16:56 100 10/06/17 16:30 132 24 80/30 96 Mechanical Ventilator 100 10/06/17 16:09 133 10/06/17 16:00 100 10/06/17 16:00 99.4 134 24 87/42 92 Mechanical Ventilator 100 99.4 10/06/17 16:00 24 10/06/17 15:35 136 31 96 Mechanical Ventilator 100 10/06/17 15:30 134 24 81/38 96 Mechanical Ventilator 100 10/06/17 15:25 134 24 95 Mechanical Ventilator 100 10/06/17 15:00 134 23 91/25 94 Mechanical Ventilator 100 10/06/17 15:00 19 10/06/17 14:55 129 37 100 10/06/17 14:30 129 24 104/79 96 Mechanical Ventilator 100 10/06/17 14:00 130 24 96/72 96 Mechanical Ventilator 100 10/06/17 14:00 18 10/06/17 13:30 99.3 132 18 94/64 91 Mechanical Ventilator 100 99.3 10/06/17 13:00 19 10/06/17 13:00 134 22 81/41 96 Mechanical Ventilator 100 10/06/17 12:50 136 34 100 10/06/17 12:30 136 22 103/76 96 Mechanical Ventilator 100 10/06/17 12:01 136 78/56 10/06/17 12:00 100 10/06/17 12:00 101.0 136 22 91/62 95 Mechanical Ventilator 100 101.0 10/06/17 12:00 20 10/06/17 12:00 135 10/06/17 11:45 21 10/06/17 11:30 137 22 79/55 97 Mechanical Ventilator 100 10/06/17 11:30 19 10/06/17 11:15 20 10/06/17 11:02 135 29 96 Mechanical Ventilator 100 10/06/17 11:00 137 23 79/53 97 Mechanical Ventilator 100 10/06/17 11:00 20 10/06/17 10:52 133 29 100 10/06/17 10:52 133 29 96 Mechanical Ventilator 100 10/06/17 10:30 133 23 80/52 96 Mechanical Ventilator 100 10/06/17 10:00 24 10/06/17 10:00 133 23 80/53 96 Mechanical Ventilator 100 10/06/17 09:41 99.9 10/06/17 09:30 133 23 78/48 96 Mechanical Ventilator 100 10/06/17 09:19 100 10/06/17 09:00 23 10/06/17 09:00 135 23 78/59 93 Mechanical Ventilator 100 10/06/17 08:53 136 24 100 10/06/17 08:45 23 10/06/17 08:45 136 23 81/49 94 Mechanical Ventilator 100 10/06/17 08:42 100.2 10/06/17 08:30 137 24 86/52 93 Mechanical Ventilator 100 10/06/17 08:30 24 10/06/17 08:15 26 10/06/17 08:15 138 25 77/52 94 Mechanical Ventilator 100 10/06/17 08:00 100 10/06/17 08:00 20 10/06/17 08:00 99.7 143 26 83/52 93 Mechanical Ventilator 100 99.7 10/06/17 07:57 143 10/06/17 07:30 144 26 81/42 93 Mechanical Ventilator 100 10/06/17 07:00 138 20 77/50 100 Mechanical Ventilator 100 10/06/17 07:00 20 10/06/17 06:57 140 20 96 Mechanical Ventilator 100 10/06/17 06:47 139 20 92 Mechanical Ventilator 100 10/06/17 06:45 140 23 73/50 Mechanical Ventilator 100 10/06/17 06:38 140 20 100 10/06/17 06:30 140 20 80/51 Mechanical Ventilator 100 10/06/17 06:15 140 20 75/46 Mechanical Ventilator 100 10/06/17 06:00 140 20 84/45 Mechanical Ventilator 100 10/06/17 06:00 24 10/06/17 05:45 140 21 76/47 Mechanical Ventilator 100 10/06/17 05:30 139 20 75/50 Mechanical Ventilator 100 10/06/17 05:15 139 26 76/43 Mechanical Ventilator 100 10/06/17 05:00 140 21 77/49 95 Mechanical Ventilator 100 10/06/17 05:00 21 10/06/17 05:00 139 24 80 10/06/17 04:50 143 84/47 10/06/17 04:30 142 21 84/47 98 Mechanical Ventilator 100 10/06/17 04:00 143 10/06/17 04:00 98.8 143 24 79/54 97 Mechanical Ventilator 100 98.8 10/06/17 04:00 100 10/06/17 04:00 24 10/06/17 03:30 145 23 82/55 97 Mechanical Ventilator 80 10/06/17 03:27 Mechanical Ventilator 100 10/06/17 03:27 145 23 100 10/06/17 03:26 145 30 92 Mechanical Ventilator 80 10/06/17 03:00 145 25 83/53 97 Mechanical Ventilator 80 10/06/17 03:00 33 10/06/17 02:30 145 27 107/68 89 Mechanical Ventilator 80 10/06/17 02:00 41 10/06/17 02:00 146 33 91/58 91 Mechanical Ventilator 80 10/06/17 01:45 146 34 100 3/31/18 01:30 147 41 98/67 93 Mechanical Ventilator 80 Intake and Output 10/06/17 10/07/17 19:00 07:00 Intake Total 1897.32 ml Output Total 0 ml Balance 1897.32 ml Intake Oral 0 ml IV Total 1847.32 ml Other 50 ml Output Urine Total 0 ml Laboratory Tests 10/06/17 03:15: White Blood Count 11.3H, Red Blood Count 3.01L, Hemoglobin 9.7L, Hematocrit 28.4L, Mean Corpuscular Volume 94, Mean Corpuscular Hemoglobin 32.4H, Mean Corpuscular Hemoglobin Concent 34.3, Red Cell Distribution Width 12.1, Platelet Count 380, Mean Platelet Volume 5.7L, Neutrophils (%) (Auto) , Lymphocytes (%) ( Auto) , Monocytes (%) (Auto) , Eosinophils (%) (Auto) , Basophils (%) (Auto) , Differential Total Cells Counted 100, Neutrophils % (Manual) 67, Lymphocytes % ( Manual) 2L, Monocytes % (Manual) 7, Eosinophils % (Manual) 0, Basophils % ( Manual) 0, Band Neutrophils 24H, Toxic Granulation 2+, Platelet Estimate Adequate, Platelet Morphology Normal, Hypochromasia 2+, Anisocytosis 1+, Spherocytes 2+, Sodium Level 147H, Potassium Level 4.7, Chloride Level 107, Carbon Dioxide Level 20L, Anion Gap 20H, Blood Urea Nitrogen 19H, Creatinine 1.9H, Estimat Glomerular Filtration Rate 29.5, Glucose Level 28*L, Hemoglobin A1c 6.2H, Lactic Acid Level 15.10H, Uric Acid 5.0, Calcium Level 6.7L, Phosphorus Level 4.0, Magnesium Level 1.7L, Total Bilirubin 1.0, Gamma Glutamyl Transpeptidase 61, Aspartate Amino Transf (AST/SGOT) 4693H, Alanine Aminotransferase (ALT/SGPT) 1394H, Alkaline Phosphatase 47, Total Creatine Kinase 861H, Pro-B-Type Natriuretic Peptide > 09725C, Total Protein 4.3L, Albumin 1.3L, Globulin 3.0, Albumin/Globulin Ratio 0.4L, Thyroid Stimulating Hormone (TSH) 0.205L, Random Vancomycin Level 20.6, Typhus Fever IgG Antibody Titer [Pending], Typhus Fever IgG Antibody [Pending], Typhus Fever IgM Antibody Titer [Pending], Typhus Fever IgM Antibody [Pending] 10/06/17 03:16: Troponin I 0.578H 10/06/17 08:00: Arterial Blood pH 7.180*L, Arterial Blood Partial Pressure CO2 44.9, Arterial Blood Partial Pressure O2 67.6L, Arterial Blood HCO3 16.5L, Arterial Blood Oxygen Saturation 87.7L, Arterial Blood Base Excess -11.2, Stuart Test Positive 10/06/17 10:00: Lactic Acid Level 14.90H 10/06/17 15:00: Venous Blood pH [Pending], Venous Blood Partial Pressure CO2 [Pending], Venous Blood Partial Pressure O2 [Pending], Venous Blood HCO3 [Pending], Venous Blood Total Carbon Dioxide [Pending], Venous Bld O2 Saturation (Measured) 39.9, Venous Blood Oxygen Saturation [Pending], Venous Blood Base Excess [Pending], Methemoglobin 0.7, Sodium (Blood Gas) [Pending] 10/06/17 18:40: Lactic Acid Level 20.60H Height (Feet): 5 Height (Inches): 2.00 Weight (Pounds): 102 Respiratory/Chest: decreased breath sounds Abdomen: soft Bhargav Wilburn MD Oct 07, 2017 01:29
[2017-10-07] MEDS ORDERED: D5W IV SCH (02:00)
[2017-10-07] MEDS ORDERED: CEFTAROLINE IV SCH (02:00)
--- NOTE | 2017-10-08 08:13 | Cardiology Report ---
APPROVED REPORT EXAM: Two-dimensional and M-mode echocardiogram with Doppler and color Doppler. INDICATION Altered mental status M-Mode DIMENSIONS IVSd1.0 (0.7-1.1cm)Left Atrium (MM)2.6 (1.6-4.0cm) LVDd3.1 (3.5-5.6cm)Aortic Root2.9 (2.0-3.7cm) PWd0.9 (0.7-1.1cm)Aortic Cusp Exc.1.9 (1.5-2.0cm) LVDs2.1 (2.5-4.0cm) PWs1.0 cm Technically difficult study due to poor acoustical windows. Normal left ventricular chamber size, systolic function and wall motion. Left ventricular ejection fraction estimated to be 55%. Mild left ventricular hypertrophy. No evidence of pericardial or pleural effusion. Left cardiac chamber sizes are within normal limits. Moderate right atrial and right ventricular enlargement by 2D. D-Shaped of left ventricle, consistent of right ventricle pressure overload. Focal aortic valve sclerosis with adequate cusp excursion. Normal mitral valve leaflets with normal excursion. Normal mitral annulus and aortic root. Pulmonic valve is well visualized. Normal tricuspid valve structure. IVC is normal in size non-collapsible with respiration indicate increased RA pressure. Thinning of interatrial septum. Color flow from left to right is not seen, consider bubble study if clinically indicated. A color flow and spectral Doppler study was performed and revealed: No aortic regurgitation. No mitral regurgitation. Mitral diastolic velocities suggest reduced left ventricular relaxation c/w diastolic dysfunction grade 1. Mild tricuspid regurgitation (2 jets). Tricuspid systolic velocities suggests peak right ventricular systolic pressure of 30 mmHg
--- NOTE | 2017-10-08 09:07 | Discharge Summary ---
Discharge Summary Hospital Course Date of Admission Sep 28, 2017 at 23:20 Date of Discharge Oct 06, 2017 at 21:41 Admitting Diagnosis Altered mental status,hypoxia,pneumonia HPI Brigid Cordon is a 37 year old female who was admitted on Sep 28, 2017 at 23: 20 for Altered Mental Status, Hypoxia, Pneumonia Hospital Course summary #[id number] Discharge Condition Upon Discharge: stable Discharge Disposition Patient Discharge Instructions Discharge Instructions Special Instructions I have been assigned to complete a D/C Summary on this account. I was not involved in the patient management Sana Nance NP ([facility]) Oct 08, 2017 09:06
--- NOTE | 2017-10-08 23:30 | Discharge Summary 2 SIG ---
SUMMARY DATE OF ADMISSION: 09/28/2017 DATE OF DISCHARGE: 10/06/2017 REASON FOR ADMISSION: 37-year-old female, was seen in the emergency department earlier that day for cough and sore throat, and was discharged with diagnosis of atypical pneumonia and given prescription for antibiotic. The patient returned later, stating that her symptoms got worse, and she did not take any of her medications. She reported fever and pleuritic chest pain with cough along with rash. She denied shortness of breath, abdominal pain, or neck pain. Upon evaluation she was febrile, highest temperature -102.6; tachypneic. She required placement on supplemental oxygen. Laboratory workup revealed WBC -1.6. No anemia at that time. Stable renal parameters and electrolytes. Lactic acid- 1.6. Follow up chest x-ray ( after morning one) revealed increased bilateral perihilar and basilar infiltrates. Influenza screen test was negative. Physical examination revealed chest wall tenderness on palpation. Initially, no wheezes on auscultation. At that time, she was nontoxic appearing and was able to answer all questions. Initial plan was to transfer the patient to [facility] under Dr. Soriano but with further development patient was admitted to the hospital . The patient was given single dose of Levaquin for pneumonia and Benadryl for rash. The patient appeared to have blanching, erythematous, raised, diffused over the back and extremities rash. No adenopathy. The patient was waiting to move to telemetry while she was noted to be seizing in the bed, likely due to high fever. Ativan was given. No postictal state. The patient was immediately responsive to staff. No history of prior seizures. ABG showed mild metabolic alkalosis, likely from tachypnea from pseudoseizure. The patient had a 3-year history of anorexia. No complaint of headache, neck stiffness, or pain. Low suspicious of meningitis at that time. The patient was complaining of neck pain. On exam, no peritonsillar abscess. X-ray of the neck did not reveal any evidence of epiglottitis or retropharyngeal abscess. The patient was given additional antibiotic with ceftriaxone and azithromycin to cover interval development of community-acquired pneumonia. The patient was admitted to telemetry floor with diagnoses of influenza-like symptoms, community-acquired pneumonia, neutropenic fever, rash, hypoxia, leukopenia, and seizure episode. HOSPITAL COURSE: The patient was initially admitted to telemetry floor. Cardiology, Hematology, Nephrology, Infectious Disease specialist, and dance hall host/hostess were involved in care of this patient. The patient was closely monitored and started on empiric antibiotics. CT of the chest revealed dense consolidation in bilateral lower lobes and to a lesser extent in bilateral upper lobes and right middle lobe. Bilateral pleural effusions. Findings were compatible with pneumonia. The patient was placed on isolation for neutropenic precautions. Next day, WBC down to 0.7. The patient was given one dose of Neupogen and the next day after Neupogen, WBC -3.6 and then WBC started to rise. Patient actually had mild leukocytosis on 10/04/2017 and then on 10/05/2017, WBC -17.5. Treatment Supervisor followed. Leukopenia and neutropenic fever were likely secondary to viral infection. Influenza screen test was negative in the emergency department. Blood culture initially were negative. Sputum culture revealed MRSA. Antibiotic regimen optimized as per Infectious Disease recommendations, Tamiflu was given empirically for influenza like symptoms. Sputum smear for AFB was negative x3. Urine culture and stool for C. difficile were negative. Supplemental oxygen and pulmonary toilet were provided as needed. Continuous Wave Operator closely followed. According to dance hall host/hostess, the patient had bilateral lower lobes pneumonia with associated neutropenia, likely influenza (despite negative screen test and superimposed pneumonia with associated myelosuppression). HIV disease was ruled out: HIV test was negative. The patient required nonrebreathing mask at that time. Rash improved, probably viral exanthem versus vasculitis. Chest x-ray results worsened. In addition to antibiotic, the patient was on empiric Tamiflu as per Infectious Disease specialist. ESR was elevated. Rheumatoid factor within normal limits. RASHAWN titer still pending. ANCA and RF negative Mycobacterial tuberculosis by PCR was negative. Negative cryptococcal titer. Negative hepatitis panel. T-SPOT and typhus serology negative (results just back). On 09/29/2017 noted elevated troponin -0.065, and Cardiology consult was requested. According to manager of broadcast content, elevated troponin level likely was due to existing hypotension. The patient had no prior elevated troponin and did not bear a pattern for acute coronary syndrome. Echocardiogram revealed ejection fraction of 50% to 55% with hypokinesis of the mid to distal posterior wall and inferior wall. No evidence of ventricular hypertrophy. No evidence of pericardial effusion. Possible [id number] pleural effusion. Moderately involved left atrial pressure grade 2. Right ventricular systolic pressure of 35 consistent with borderline mild pulmonary hypertension. Noted elevated D dimer. On 10/04/2017, the patient subsequently had CTA of the chest, which revealed no evidence of central or large pulmonary embolism. Moderate bilateral pleural effusion with bilateral airspace opacity/consolidation and atelectasis were noted, possibly related to multifocal pneumonia, pulmonary edema, and/or ARDS. The patient subsequently undergone on 10/04/2017 thoracentesis of right pleural effusion yielding 500 mL of pleural fluid. On 10/05/2017, the patient's condition further worsened The patient was on 100% non-rebreathing mask, and ABG revealed severe acidosis with pH -7.12. The patient required oral intubation. The patient was subsequently transferred to ICU. The patient also noted to be in septic shock. The patient was given fluid challenge without significant improvement. The patient was hemodynamically unstable and was started on Arjun-Synephrine and later required vasopressin. Patient was on antibiotics as per ID management. Sputum cx revealed MRSA, and blood culture on 10/05 and 10/06 ( results just back) revealed MRSA as well. Apprenticeship Consultant stated that chest x-ray pattern was consistent with ARDS, and the patient also met ventilator criteria for ARDS with FiO2 of 100%. Overall prognosis was poor. Hemodynamic status was closely monitored, patient was on double pressors. The patient undergone fiberoptic bronchoscopy on 10/05 which revealed normal endobronchial anatomy to the subsegmental bronchi. BAL and lavage of the left upper lobe and right upper lobe were done. There were no endobronchial secretions or excessive bleeding. There was some mild friability of mucosa. No further evidence of seizure activity (except the single episode in ED, possible due to high fever, possible pseudoseizures). Patient demonstrated evidence of multiorgan failure with renal failure and shock liver in addition to respiratory failure, shock, and overwhelming infection with bacteremia. Renal failure was getting progressively worse. The patient demonstrated acute metabolic acidosis due to sepsis and shock and acute renal failure, likely acute tubular necrosis. Laboratory work showed severe lactic acidosis. The patient undergone placement of femoral temporary hemodialysis catheter as per navy airspace officer who closely followed. and subsequently undergone hemodialysis . AST on that day -4693 and ALT- 1394. Shock liver was likely due to severe hypotension/shock. At that time, the patient also was anemic with hemoglobin down to 9.7 and hematocrit 28.4. Abdominal ultrasound was done due to the elevated LFT and revealed slight increased echogenicity of kidneys, probable intrinsic renal disease. No hydronephrosis. Liver was normal in size and echogenicity. No focal abnormalities. Gallbladder was normal. No stones. No wall thickening. No bile duct dilatation. Pancreas was normal in echogenicity. As mentioned above, the patient had been working out for possible vasculitis : ANCA titer negative, RASHAWN titer still pending. Repeated ECHO 10/06 revealed EF 55% and no evidence of vegetation. On 10/06/2017, Code Blue was called at 1942 hours. At that time, laboratory workups showed significantly elevated lactic acid-20.6. The patient also had recent hemodialysis. As CPR progressed, the patient showed signs of pulseless electrical activity. Accu-Chek showed critically low value. Two ampules of glucose were provided along with initial ampule of epinephrine and later ampule of sodium bicarbonate. The patient continued to show pulseless electrical activity and did not have any palpable pulses. The patient also appeared to have subcutaneous air and lower facial edema with crepitus. After further interventions, all attempts appeared to be futile, and the patient pronounced at 2003 hours. Family was at the bedside and Code Blue resuscitation attempts were discussed by emergency room physician with family. CAUSE OF : Cardiopulmonary arrest. FINAL DIAGNOSES: 1. Septic shock. 2. Sepsis with MRSA bacteremia( due to severe bilateral MRSA pneumonia) 3. Status post cardiopulmonary arrest. 4. Acute hypoxemic respiratory failure requiring intubation on 10/05/2017 5. S/p cardiopulmonary arrest 10/06 6. Probably acute respiratory distress syndrome. 7. Influenza-like symptoms with superimposed severe MRSA pneumonia. 8. Neutropenic fever with leukopenia. 9. Status post bronchoscopy on 10/05/2017. 10. Multiorgan failure. 11. Acute tubular necrosis requiring hemodialysis. 12. Shock liver, likely secondary to severe hypotension. 13. Anemia. 14. Rash, likely viral exanthem. 15. Bilateral pleural effusion. 16. Status post thoracentesis of right pleural effusion yielding 500 mL of fluid. 17. Elevated troponin likely secondary to hypotension and hemodynamic instability. 18. Single seizure episode, possible pseudoseizures Grisd Parag Tirado I have been assigned to dictate discharge summary on this account and I was not involved in the patient's management. Sana Nance (Vanchtein) NVern DR: GREG JOB#: [id number] CC: BEATRIZ
== END 2017-10-06 21:41 | disposition expired | DRG 137 ==
LOC: EDBD 17:03 → EMR 17:38 → EDBEDREQ 22:38 → 2E 23:20 → EDBEDREQSVC 23:27 → EDBEDREQ 23:29 → 2E 09-29 02:33 → 2W 09-29 17:10 → 2E 10-03 08:04 → ICU 10-04 22:31
DX: J15.212 Pneumonia due to Methicillin resistant Staphylococcus aureus (principal); A41.02 Sepsis due to Methicillin resistant Staphylococcus aureus; J96.01 Acute respiratory failure with hypoxia; N17.0 Acute kidney failure with tubular necrosis; K72.00 Acute and subacute hepatic failure without coma; D70.9 Neutropenia, unspecified; J90 Pleural effusion, not elsewhere classified; J11.08 Influenza due to unidentified influenza virus with specified pneumonia; R04.2 Hemoptysis; R65.21 Severe sepsis with septic shock; J80 Acute respiratory distress syndrome; F50.00 Anorexia nervosa, unspecified; B09 Unspecified viral infection characterized by skin and mucous membrane lesions; J02.9 Acute pharyngitis, unspecified; R00.0 Tachycardia, unspecified; R09.1 Pleurisy; F32.9 Major depressive disorder, single episode, unspecified; D64.9 Anemia, unspecified; R56.9 Unspecified convulsions
CPT/HCPCS: 31645; 36415; 36569; 36600; 70360; 71045; 71250; 71275; 74018; 76700; 76937; 76942; 80048; 80053; 80061; 80202; 81001; 82164; 82270; 82550; 82803; 82962; 82977; 83036; 83605; 83735; 83880; 84100; 84443; 84484; 84550; 85007; 85025; 85379; 85610; 85651; 85730; 86021; 86039; 86140; 86200; 86431; 86635; 86703; 86705; 86709; 86710; 86803; 87040; 87070; 87086; 87116; 87181; 87205; 87324; 87340; 87449; 87536; 87556; 88104; 89051; 93005; 93306; 94002; 94003; 94640; 94664; 94760; 99285; J0712; J2250; J2370; J7620; J8499